=== PATIENT | female | born 1945 | race Caucasian/White ===

== ENCOUNTER → 2017-06-29 15:10 | Outpatient (CLI) | payer MEDICARE, SELFPAY ==
[2017-06-29 16:31] LABS: T4 Total, Thyroxin 9.7 ug/dL (4.8-13.9); Thyroid Stim Hormone (TSH) 1.42 uIU/mL (0.358-3.74)
== END ==
PROVIDERS: Family Provider Nurse Practitioner Family; PCP Nurse Practitioner Family; Visit Provider Surgery
DX: E04.1 Nontoxic single thyroid nodule (principal)
CPT/HCPCS: 36415; 84436; 84443

== ENCOUNTER → 2017-07-06 17:52 | Outpatient (CLI) | payer MEDICARE, SELFPAY ==
--- NOTE | 2017-07-06 14:40 | ASPS_PTH ---
PATIENT: MARK AIKEN LOC: [facility] U#:[id number] AGE/SX: 80/F ROOM: RE07/06/[address]: Dr. Kedar Quintero MD : 1945 BED: DIS: SPEC #: [id number] RECD: 07/06/17 17:29 STATUS: NGUYEN FELICIA #: [id number] CHARLES: 07/06/17 14:[address]: Kedar Quintero DEPT: CYTOLOGY RECD BY: Red Raza ENTERED: 07/07/17 08:46 SP TYPE: ASPIRATION OTHR DR: Laina Cameron, MANAGER BAKERY-C Tissues: A - Thyroid gland, NOS B - Thyroid isthmus Procedures: Pap Stain (control) Special Stain Group II Cytology Other HEADER OPERATION: Left thyroid FNA x2 PRE-OP DIAGNOSIS: Multiple thyroid nodules TISSUE SUBMITTED: A ? Left inferior thyroid (4 slides), B ? Isthmus (5 slides) DIAGNOSIS CYTOLOGY A. Fine needle aspiration, left inferior thyroid (smears): Adequate for evaluation. Negative, consistent with benign follicular nodule. B. Fine needle aspiration, thyroid isthmus (smears): Adequate for evaluation. Negative, consistent with benign follicular nodule. Chronic inflammation. AM:carmita 07/08/17 CYTOLOGY STUDY Slides are reviewed. CYTOLOGY GROSS A - Received are four smears labeled with the patient's name and designated per the requisition as left inferior thyroid. Submitted for staining. B - Received are five smears labeled with the patient's name and designated per the requisition as isthmus. Submitted for staining. 07/07/17 TC:5 CPT: 40155 x2
== END ==
PROVIDERS: Family Provider Nurse Practitioner Family; PCP Nurse Practitioner Family; Visit Provider Surgery
DX: E04.2 Nontoxic multinodular goiter (principal)
CPT/HCPCS: 88161; 88313

== ENCOUNTER → 2019-03-26 17:05 | Outpatient (CLI) | payer MEDICARE, SELFPAY ==
[2017-06-29 14:43] VITALS: BMI 27.2
== END ==
PROVIDERS: Family Provider Nurse Practitioner Family; PCP Nurse Practitioner Family; Referring Provider Urology; Visit Provider Urology
DX: N39.0 Urinary tract infection, site not specified (principal)
CPT/HCPCS: 87086; 87088; 87186

== ENCOUNTER → 2019-04-17 08:16 | Outpatient (CLI) | payer MEDICARE, SELFPAY ==
[2019-04-17] VITALS (12 sets, daily range): BP systolic 127–158; BP diastolic 59–85; PULSE 59–73; RESP 14–19; TEMP 36.6; O2SAT 96–98; BMI 24.4
--- NOTE | 2019-04-17 | IMM_PTH ---
PATIENT: MARK BARNES LOC: CT U#:[id number] AGE/SX: 80/F ROOM: RE04/17/[address]: PRETTY Alves : 1945 BED: DIS: SPEC #: [id number] RECD: 04/18/19 09:30 STATUS: SOUJael REQ #: [id number] CHARLES: 04/17/19 00:[address]: Laina Barnes NP DEPT: IMMUNOHISTOCHEMISTRY RECD BY: Luna Iglesias ENTERED: 04/18/19 09:33 SP TYPE: IMMUNO OTHR DR: Dr. Servando Le, Tissues: Lung, NOS Procedures: RCC (add) NAPSIN A (add) CA-125 (add) CK20 (add) CK5-6 (add) CK7 (add) CK8 (add) WELCH-2 (add) HEP PAR (add) HER2 JOHN (add) MAMM (add) NY (add) TTF1 (add) GATA3 (add) P40 (add) CDX2 (add) CD44 (add) ER (initial) PHYSICIAN & [address] [address] SPECIMEN INFORMATION: Tissue Source: Left lung, CT-guided biopsy Clinical Info: Lung mass Specimen Number: [id number] CPT code: 87889, 97073 x17 METHODOLOGY: Deparaffinized sections of prefer/formalin-fixed tissue or PAP/DQ stained slides are incubated with monoclonal/polyclonal antibodies/oligonucleotide probes. Localization is made via biotin free immunoperoxidase method. Appropriate controls are performed and reacted as expected. Results on target cell population are indicated in the following table: RESULTS: ANTIBODY / CLONE RESULT ER (6F11) negative NY (1E2) negative Her-2neu (CB11) negative Mammaglobin (31A5) negative GATA3 (L50-823) positive CK7 (OV-TL12/30) positive CK8 (80mxnwM70) positive CK20 (KS20.8) positive, focal TTF-1 (8G7G3/1) negative Napsin A (Rabbit Polyclonal) negative HepPar (OCh1E5) positive, focal RCC (PN-15) negative CK5-6 (D5 & 1684) negative P40 (BC28) negative WELCH-2 (SP21) positive CA125 (OC125) negative CDX2 (AJO7240W) positive, weak anti-CD44 (SP37) positive, focal These tests were developed and their performance characteristics determined by [facility]. They may not have been cleared or approved by the U.S. Food and Drug Administration. The FDA has determined that such clearance or approval is not necessary. The above immunohistochemical/dualISH markers are ordered and reviewed by the Pathologist. INTERPRETATION: Left lung, CT-guided biopsy: Poorly differentiated non-small cell carcinoma. See comment. SJ:carmita 04/20/19 Comment: IHC profile favors metastatic carcinoma including but not limited to gastrointestinal tract, pancreas or urothelial primary. Correlation with clinical findings and appropriate follow up are necessary. Case has been reviewed in consultation with Dr. Mahan who concurs with the above diagnosis. IDC:AM
--- NOTE | 2019-04-17 | ASPIGT_PTH ---
PATIENT: MARK BARNES LOC: CT U#:[id number] AGE/SX: 80/F ROOM: RE04/17/[address]: PRETTY Alves : 1945 BED: DIS: SPEC #: [id number] RECD: 04/17/19 10:28 STATUS: NGUYEN REMasoud #: [id number] CHARLES: 04/17/19 00:[address]: Laina Barnes NP DEPT: SURGICAL PATHOLOGY RECD BY: Eder Steiner ENTERED: 04/17/19 10:29 SP TYPE: ASP RAD OTHR DR: Dr. Servando Le, DO Tissues: Lung, NOS Procedures: FNA Specimen Adequacy Special Stain Group II Surgery Specimen Level IV Imprint (control) HEADER OPERATION: CT-guided left lung biopsy PRE-OP DIAGNOSIS: Mass TISSUE SUBMITTED: Left lung 20 gauge core MICROSCOPIC DIAGNOSIS Left lung, CT-guided core biopsy: Poorly differentiated non-small cell carcinoma. See comment. GERMÁN:carmita 04/18/19 COMMENT The specimen is evaluated at the time of biopsy by Dr. Mauro. Immediate Evaluation = Malignant cells present derived from non-small cell carcinoma. The tumor also shows extensive necrosis. Immunohistochemistry ([id number]) supports the above diagnosis. IHC profile favors metastatic carcinoma including but not limited to gastrointestinal tract, pancreas or urothelial primary. Molecular studies on the tumor can be performed if clinically indicated. Please notify the laboratory if they are needed. Correlation with clinical, radiologic findings and appropriate follow up are necessary. Case has been reviewed in consultation with Dr. Mahan who concurs with the above diagnosis. IDC:AM MICROSCOPIC DESCRIPTION Slides are reviewed. GROSS DESCRIPTION Received in fixative is one container labeled with the patient's name and designated left lung CT-guided core biopsy. The specimen consists of multiple irregular fragments of baker soft tissue that in aggregate measure 1 x 0.2 x 0.1 cm. The specimen is totally submitted in one cassette. One touch imprint is prepared at the time of core biopsy. / SJ:carmita 04/17/19 TC:0 CPT: 44776, 59438
--- NOTE | 2019-04-17 08:34 | CT_ITS ---
PROCEDURE: CT GUIDED CORE NEEDLE BIOPSY OF A left upper lobe LUNG LESION INDICATION: Female, 74 years old. LEFT LUNG MASS biopsy PHYSICIAN: Dr. Pedicelli. Méndez CONSENT: Written informed consent was obtained having explained the risks, benefits and alternatives in detail with the patient who accepted the risks and agreed to proceed. Laboratory review and clinical assessment was performed. CONSCIOUS SEDATION PROTOCOL: The Drugs used were: 2 mg Versed, IV., and 50 mcg Fentanyl, IV. The sedation time was: 16 minutes. Conscious sedation was started at 9:36 AM and terminated at 9:52 AM. The conscious sedation protocol was independently monitored. RADIATION DOSAGE (If Supplied By Facility): CTDIvol = ( 16.5 ) mGy, DLP = ( 259.64 ) mGycm Individualized dose optimization techniques were used for this CT. TECHNIQUE: The patient was placed in the prone position. A noncontrast CT was performed to localize the lesion in the left upper lobe . The skin surface was prepped and draped in a sterile fashion. 1% lidocaine was used for local anesthesia. Using CT guidance, a 20-gauge coaxial biopsy device was advanced to the periphery of the lesion. A total of 4 core specimens were obtained. The specimens were placed in a formalin solution. A post procedure CT demonstrated no adverse sequelae or pneumothorax. The patient tolerated the procedure well without adverse event. A negative biopsy does not exclude malignancy. Further imaging or clinical followup based on patient condition and degree of clinical suspicion for malignancy. Suggest rebiopsy, if biopsy results do not match with clinical scenario. CT/Biopsy/Inj or Needle Placement IMPRESSION: 1. CT directed core needle biopsy of the left upper lobe nodule using CT image guidance with image documentation as described. Pathology results are pending. 2. Conscious Sedation protocol utilized with independent monitoring. Electronically Signed: Kurt Rizvi, at 10:28 EST , Service support ,
[2019-04-17 08:44] LABS: Platelet Count 265 K/mm3 (150-450)
[2019-04-17 09:31] LABS: International Normalized Ratio 1.1; Partial Thromboplast Time 32.9 Seconds (24.1-36.2); Prothrombin Time (Protime)PT. 13.6 SECONDS (11.7-14.9)
[2019-04-17] MEDS: Midazolam 2 MG/2 ML Syringe IV (09:36)
[2019-04-17] MEDS: fentaNYL 100 MCG/2 ML Ampul IV (09:36)
--- NOTE | 2019-04-17 10:00 | RAD_ITS ---
STUDY: X-RAY CHEST REASON FOR EXAM: Female, 74 years old. POST LUNG BIOPSY-IMMEDIATE TECHNIQUE: AP inspiration and expiration views. COMPARISON: Comparison is made with prior study dated March 27, 2019. FINDINGS: No evidence of pneumothorax following the left lung biopsy. RAD/Chest Insp/Exp 2 View IMPRESSION: No evidence of pneumothorax on the immediate post left lung biopsy radiograph. Electronically Signed: Kurt Rizvi, at 12:18 EST , Service support ,
--- NOTE | 2019-04-17 11:55 | RAD_ITS ---
STUDY: X-RAY CHEST REASON FOR EXAM: Female, 74 years old. 2 HOUR POST LUNG BIOPSY TECHNIQUE: AP inspiration and expiration views. COMPARISON: Comparison is made with prior study done earlier in the day. FINDINGS: The patient is status post left apical biopsy. There is no evidence of pneumothorax. RAD/Chest Insp/Exp 2 View IMPRESSION: No evidence of pneumothorax following the left apical biopsy. Electronically Signed: Kurt Rizvi, at 12:13 EST , Service support ,
== END ==
PROVIDERS: PCP Student in an Organized Health Care Education/Training Program; Referring Provider Nurse Practitioner Family; Visit Provider Nurse Practitioner Family
DX: C34.92 Malignant neoplasm of unspecified part of left bronchus or lung (principal); J44.9 Chronic obstructive pulmonary disease, unspecified; Z79.01 Long term (current) use of anticoagulants; Z87.891 Personal history of nicotine dependence
CPT/HCPCS: 32405; 36415; 71046; 77012; 85049; 85610; 85730; 88172; 88305; 88313; 88341; 88342; 99153; 99156; 99157; J7040; A4216

== ENCOUNTER → 2019-04-19 16:40 | Outpatient (CLI) | payer MEDICARE, SELFPAY ==
[2019-04-17 09:10] VITALS: BMI 24.4
== END ==
PROVIDERS: PCP Student in an Organized Health Care Education/Training Program; Referring Provider Urology; Visit Provider Urology
DX: N39.0 Urinary tract infection, site not specified (principal)
CPT/HCPCS: 87086; 87088; 87186

== ENCOUNTER → 2019-07-04 09:35 | Outpatient (CLI) | payer MEDICARE, SELFPAY ==
[2019-04-17 09:10] VITALS: BMI 24.4
--- NOTE | 2019-07-04 | ASPOS_PTH ---
PATIENT: MARK AIKEN LOC: [facility] U#:[id number] AGE/SX: 80/F ROOM: RE07/04/[address]: Dr. 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 AM:carmita 07/06/19 COMMENT The specimen is evaluated at the time of FNA by Dr. Mahan. Immediate Evaluation = Consistent with pleomorphic adenoma. Case has been reviewed in consultation with Dr. Mauro who concurs with the above diagnosis. IDC:GERMÁN Case has been reviewed in consultation with Dr. Mauro who concurs with the above diagnosis. IDC:GERMÁN CYTOLOGY STUDY Slides are reviewed. CYTOLOGY GROSS Received is 0.2 ml of reddish fluid labeled with the patient's name, and designated left neck mass. Two imprints are made from the submitted fluid and the rest is added to CytoLyt for cell block preparation. Submitted for cytology study. / AM:carmita 07/04/19 TC:5 CPT: 69148, 61694, 87555, 10393
== END ==
PROVIDERS: PCP Nurse Practitioner Family; Referring Provider Otolaryngology; Visit Provider Otolaryngology
DX: R22.1 Localized swelling, mass and lump, neck (principal)
CPT/HCPCS: 10021; 88161; 88305

== ENCOUNTER 2019-09-04 12:47 | Emergency (ER) | payer MEDICARE, SELFPAY ==
[2019-04-17 09:10] VITALS: BMI 24.4
[2019-09-04 12:48] VITALS: BP 137/71; PULSE 107; RESP 24; TEMP 36.3; O2SAT 98; BMI 23.6
--- NOTE | 2019-09-04 13:26 | EKG12_ITS ---
Test Reason : Blood Pressure : / mmHG Vent. Rate : 101 BPM Atrial Rate : 101 BPM P-R Int : 158 ms QRS Dur : 082 ms QT Int : 332 ms P-R-T Axes : -21 003 197 degrees QTc Int : 430 ms Sinus tachycardia Cannot rule out Inferior infarct , age undetermined Cannot rule out Anterior infarct , age undetermined Abnormal ECG Confirmed by PETRA HERNANDEZ ([id number]), city editor ARSH KINGSLEY ([id number]) on 09/11/2019 8:13:28 AM Referred By: Confirmed By:PETRA HERNANDEZ
--- NOTE | 2019-09-04 13:27 | CT_ITS ---
STUDY: CTA CHEST REASON FOR EXAM: Female, 74 years old. PT STATED INCREASED SHORTNESS OF BREATH, LUNG SURGERY August, HX BLADDER CA, THYROID NODULES, COPD, ELICEO RADIATION DOSAGE (If Supplied By Facility): CTDIvol = ( 13.14 ) mGy, DLP = ( 350.97 ) mGycm TECHNIQUE: The examination was performed with the intravenous administration of 75ML ISOVUE 370. Post-processing of the angiographic images was performed, with multiplanar reformation and 3D reconstruction. Individualized dose optimization techniques were used for this CT. COMPARISON: None. FINDINGS: Normal enhancement of the main pulmonary artery and right and left pulmonary arteries. Normal enhancement of the bilateral peripheral pulmonary arteries. There is no demonstrated pulmonary embolism. Normal thoracic aorta and visualized great vessels. There is no demonstrated aortic dissection. Normal heart and pericardium. Normal mediastinum. Normal hilar regions. There is peribronchial thickening. The lungs are well expanded. The lung windows show underlying emphysema with diffuse interstitial fibrotic changes in both lung rebolledo. Postsurgical changes noted in the left hemithorax with atelectatic changes in the medial upper left hemithorax. There is a small left pleural effusion Normal chest wall structures. There are degenerative changes of thoracic spine. Limited cuts through the upper abdomen do not show a suspicious solid organ abnormality, there is a small retrocardiac hiatal hernia and mildly dilated air-filled esophagus suggesting reflux esophagitis. CT/CTA Chest W/WO Contrast IMPRESSION: No demonstrated PE, or thoracic aortic aneurysm or dissection. Underlying emphysema with interstitial changes in both lung rebolledo. Postsurgical changes noted in the left hemithorax with evidence of chronic bronchitis. No suspicious noncalcified mass or nodule. No organized infiltrate or groundglass opacifications. Degenerative bony changes Small hiatal hernia with evidence of reflux esophagitis Electronically Signed: Edward Scherer MD at 14:39 EDT , Service support ,
--- NOTE | 2019-09-04 13:39 | ED.VIS.GEN ---
History of Present Illness Informant: Patient Narrative: 4-year-old female with a history of non-small cell lung cancer recently underwent lobectomy at [facility]. She follows with Dr. Moura locally for oncology. She was doing quite well after surgery and followed up with the surgeon. On Tuesday afternoon she began to experience some dyspnea. She notes a very slight cough. She is notes that she has had some nasal drainage and that her voice has been weak much like laryngitis. No fevers. She has been doing incentive spirometry. She tried to use her inhaler a little bit ago did not help her symptoms. She had a chest x-ray done this morning that was negative for acute. She had a CBC with a white count of 7.05 hemoglobin 12.9. Liver enzymes are within normal limits and creatinine was 0.66. Magnesium 2.3. It was referred to the emergency department for the evaluation of possible pulmonary embolism. <Akhil Ruggiero - Last Filed: 09/04/19 13:55> <Manjinder Jorgensen - Last Filed: 09/04/19 15:53> Chief Complaint: Shortness of Breath Past Medical History Smoking Status: Former smoker <Akhil Ruggiero - Last Filed: 09/04/19 13:55> <Manjinder Jorgensen - Last Filed: 09/04/19 15:53> - Allergies and Home Meds Allergies/Adverse Reactions: Allergies No Known Allergies Allergy (Verified 09/04/19 12:47) Primary Care Physician: William Moura DO [STAFF PHYSICIAN] - 3-5 Days Review of Systems General: Denies: Chills, Fever, Sweats Eyes: Denies: Visual changes - bilaterally, Diplopia ENT: Reports: Rhinorrhea, Sore throat Cardiovascular: Denies: Chest pain, Palpitations Respiratory: Reports: Dyspnea. Denies: Cough, Dyspnea on exertion Gastrointestinal: Denies: Abdominal pain, Nausea, Vomiting, Diarrhea, Melena, Hematochezia Genitourinary: Denies: Dysuria, Hematuria, Frequency Musculoskeletal: Denies: Back pain, Extremity Pain Skin: Denies: Rash, Wounds Neurological: Denies: Headache, Weakness, Numbness <Akhil Ruggiero - Last Filed: 09/04/19 13:55> Physical Exam Vital Signs/Narrative: Vital Signs Temp Pulse Resp BP Pulse Ox 09/04/19 12:48 97.4 F L 107 H 24 H 137/71 H 98 Inital Vital Signs reviewed: Yes General: Well nourished, Well developed, No Acute Distress Head: Normocephalic, Atraumatic Eyes: Perrl, EOMI ENT: Moist mucous membranes, No rhinorrhea, Nasal congestion, - - Patient's voice is hoarse. Neck: Supple, Nontender Cardiovascular: Regular rate, No murmurs, Tachycardia Respiratory: No distress, CTA bilaterally, Chest nontender, - - Patient has a mild conversational dyspnea Abdomen: Soft, Nontender, Nondistended, Normal bowel sounds Back: Nontender, Normal Inspection Extremities: Nontender, No edema Skin: Normal color, No rash Neurological: Alert, Oriented x3, Cranial nerves II-XII grossly intact, Normal Strength, Normal Sensation Psychological: Normal affect, Normal Mood <Akhil Ruggiero - Last Filed: 09/04/19 13:55> Vital Signs/Narrative: Vital Signs Temp Pulse Resp BP Pulse Ox 09/04/19 14:21 76 18 09/04/19 12:48 97.4 F L 107 H 24 H 137/71 H 98 <Manjinder Jorgensen - Last Filed: 09/04/19 15:53> Diagnostic/Tx/Re-eval - EKG Initial EKG Interpretation: Sinus Tachycardia - EKG demonstrates a sinus tachycardia at a rate of 101. There is no concerning features of ACS. <Akhil Ruggiero - Last Filed: 09/04/19 13:55> Impressions Chest CTA 09/04/19 13:27 IMPRESSION: No demonstrated PE, or thoracic aortic aneurysm or dissection. Underlying emphysema with interstitial changes in both lung rebolledo. Postsurgical changes noted in the left hemithorax with evidence of chronic bronchitis. No suspicious noncalcified mass or nodule. No organized infiltrate or groundglass opacifications. Degenerative bony changes Small hiatal hernia with evidence of reflux esophagitis Electronically Signed: Edward Scherer MD at 14:39 EDT , Service support , 09/04/19 13:27 CTA Chest W/WO Contrast [CT] Stat Laboratory Results 09/04/19 09/04/19 14:00 14:00 PT 12.8 INR 1.0 APTT 36.6 H Troponin I < 0.015 - Rhythm Strip Rhythm Strip: Sinus Tach Rate: 100 Ectopy: None - Medical Decision Making Took over care of this patient. CT angiography is negative except for her COPD, as above. Her EKG shows no acute injury pattern, her troponin is negative. She has had some postnasal drip and congestion, states he has history of allergies, and does feel little better after duo nebulizer treatment. Does make sense this could be her COPD especially with very high ambient temperature and humidity outside recently. I think putting her on a short course of prednisone would be reasonable and having her follow-up. Attempted to discuss with Dr. Moura but the patient does not want to wait and is leaving, I will speak with him if and when he calls. <Manjinder Jorgensen - Last Filed: 09/04/19 15:53> ED Disposition <Akhil Ruggiero - Last Filed: 09/04/19 13:55> <Manjinder Jorgensen - Last Filed: 09/04/19 15:53> - Plan for ED Patient: Disposition: Home or Assisted Living Diagnosis: COPD with exacerbation Instructions: ED COPD Flare Prescriptions: Prednisone [Deltasone] 40 mg PO DAILY #10 tab Transmission Status: Received by [facility] Referrals: William Moura DO [STAFF PHYSICIAN] - 3-5 Days
[2019-09-04] MEDS: Ipratropium/Albuterol Sulfate 3 ML AMPUL.NEB INHALATION (14:19)
[2019-09-04 14:21] VITALS: PULSE 76; RESP 18
[2019-09-04 14:26] LABS: Prothrombin Time (Protime)PT. 12.8 SECONDS (11.7-14.9)
[2019-09-04 14:27] LABS: Partial Thromboplast Time 36.6 Seconds (24.1-36.2)
[2019-09-04 15:50] VITALS: PULSE 100; RESP 20; O2SAT 97
== END 2019-09-04 15:51 | disposition home or self-care (01) ==
PROVIDERS: Emergency Provider Emergency Medicine; PCP Nurse Practitioner Family
DX: J44.1 Chronic obstructive pulmonary disease with (acute) exacerbation (principal); R00.0 Tachycardia, unspecified; R06.02 Shortness of breath; Z79.899 Other long term (current) drug therapy; Z85.118 Personal history of other malignant neoplasm of bronchus and lung; Z87.891 Personal history of nicotine dependence; Z90.2 Acquired absence of lung [part of]
CPT/HCPCS: 71275; 84484; 85610; 85730; 93005; 94640; 99285; Q9967; A4216

== ENCOUNTER → 2020-03-12 07:25 | Outpatient (CLI) | payer MEDICARE, SELFPAY ==
[2020-03-04 11:46] VITALS: BMI 24.9
--- NOTE | 2020-03-12 07:27 | CT_ITS ---
STUDY: CT PELVIS WITH CONTRAST REASON FOR EXAM: Female, 75 years old. RLQ LUMP X 2WEEKS AFTER LIFTING 50# BAG. PRIOR BLADDER CA WITH REMOVAL ONLY. HISTORY OF LUNG CANCER ALSO RADIATION DOSAGE (If Supplied By Facility): CTDIvol = ( 22.45 ) mGy, DLP = ( 1308.42 ) mGycm TECHNIQUE: Transaxial imaging of the pelvis was performed with oral contrast. 100 mL ISOVUE-300 was administered intravenously. Individualized dose optimization techniques were used for this CT. COMPARISON: None. FINDINGS: Normal urinary bladder, including on delayed imaging. Normal visualized small intestine. There are multiple colonic diverticula of the sigmoid colon consistent with chronic diverticulosis. There is no pelvic fluid. There is no pelvic lymphadenopathy or mass lesion. There is absence of the uterus consistent with a prior hysterectomy. There is diffuse atherosclerotic calcification of the pelvic arteries with elongation and tortuosity. Right inguinal hernia measuring 2.4 x 2.7 cm as seen on image 59 of series 2 containing fat. However, there is bowel at the hernia defect (sagittal image 73 series 601). There are diffuse degenerative changes of the visualized lumbar spine. CT/Pelvis WITH IV Contrast IMPRESSION: 1. Small right inguinal hernia containing fat, however, small bowel is at the abdominal wall defect/hernia mouth. Electronically Signed: Shankar Gutierrez MD ([place]) at 12:16 EST , Service support ,
[2020-03-12 07:35] LABS: CREATININE FINGERSTICK 1.2 mg/dL (0.55-1.02)
== END ==
PROVIDERS: PCP Student in an Organized Health Care Education/Training Program; Referring Provider Surgery; Visit Provider Surgery
DX: R10.31 Right lower quadrant pain (principal)
CPT/HCPCS: 72193; Q9967

== ENCOUNTER 2020-03-20 08:54 | Day surgery (SDC) | payer MEDICARE, SELFPAY ==
[2020-03-04 11:46] VITALS: BMI 24.9
--- NOTE | 2020-03-18 08:37 | EKG12_ITS ---
Test Reason : PREOP Blood Pressure : / mmHG Vent. Rate : 086 BPM Atrial Rate : 086 BPM P-R Int : 158 ms QRS Dur : 084 ms QT Int : 358 ms P-R-T Axes : 061 042 069 degrees QTc Int : 428 ms Normal sinus rhythm Normal ECG Confirmed by RACHEL BACH, JOAN ([id number]), film editor supervisor ARSH KINGSLEY ([id number]) on 03/19/2020 9:20:57 AM Referred By: Kedar Quintero Confirmed By:JOAN RAMOS MD
[2020-03-18 09:15] LABS: Absolute Lymphocyte Count 0.71 X10^3/uL (0.83-4.51); Absolute Neutrophil Count 4.7 X10^3/uL (2.0-7.7); Basophil# 0.05 X10^3/uL; Basophil% 0.8 % (0-1); Eosinophil# 0.16 X10^3/uL; Eosinophils% 2.5 % (0-5); Hematocrit 42.6 % (37-47); Lymphocyte # 0.71 X10^3/ul (4.0); Lymphocyte % 11.3 % (19-41); Mean Corp Hgb Conc 30.5 g/dL (32-36); Mean Corpuscular Hgb 28.3 pg (27.0-32.0); Mean Corpuscular Volume 92.6 fL (81-99); Mean Platelet Vol. 8.5 fl (6.2-12.0); Monocyte# 0.63 X10^3/uL; NRBC Flagged by Analyzer 0 % (0-5); Neutrophil % 74.9 % (47-70); Platelet Count 396 K/mm3 (150-450); RBC Distribution Width CV 14.1 % (11.6-14.6); White Blood Count 6.3 K/mm3 (4.4-11.0)
[2020-03-18 09:37] LABS: BUN 13 mg/dL (7-18); Creatinine, Serum 0.84 mg/dL (0.55-1.02); Glucose 90 mg/dL (74-106)
[2020-03-18 09:38] LABS: Anion Gap 6 (5-15); BUN/Creat Ratio 15.4 RATIO (10-20); Calcium,Total 9.5 mg/dL (8.5-10.1); Chloride 101 mmol/L (98-107); EST Glomerular Filtration Rate 70 mL/min (>60); Est Glom Filt Rate - Afr Amer 85 mL/min (>60); Potassium 3.9 mmol/L (3.5-5.1); Sodium Level 139 mmol/L (136-145)
[2020-03-20] VITALS (9 sets, daily range): BP systolic 109–134; BP diastolic 52–77; PULSE 73–92; RESP 16–18; TEMP 35.6–37; O2SAT 87–98; BMI 24.4
[2020-03-20] MEDS: Lactated Ringers 1,000 ML 100 ML IV (09:23)
--- NOTE | 2020-03-20 10:44 | HP.PCM_ITS ---
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 Is patient in pain?: No Allergies umeclidinium [From Anoro Ellipta] Adverse Reaction (Mild, Verified 03/04/20 1 1:52) blurred vision vilanterol [From Anoro Ellipta] Adverse Reaction (Mild, Verified 03/04/20 11:52) blurred vision Medications cholecalciferol (vitamin D3) 50 mcg (2,000 unit) capsule 5,000 unit PO QDAY 06/29/17 [History Confirmed 03/04/20] Omeprazole 20 mg PO DAILY 04/16/19 [History Confirmed 03/04/20] Oxybutynin Chloride [Oxybutynin Chloride ER] 15 mg PO DAILY 04/16/19 [History Confirmed 03/04/20] albuterol sulfate 90 mcg/actuation aerosol inhaler 2 puff INHALATION Q4H PRN g 03/04/20 [History Confirmed 03/04/20] melatonin 5 mg tablet 5 mg PO HS PRN 03/04/20 [History Confirmed 03/04/20] multivitamin 1 tab PO DAILY 03/04/20 [History Confirmed 03/04/20] Is last menstrual period known: No Post menopausal: Yes Patient : No PFSH Medical History (Updated 03/04/20 @ 12:[address] Kedar Quintero MD) Right groin pain (Acute) Hernia (Acute) Multiple thyroid nodules (Acute) Acid reflux (Acute) COPD (chronic obstructive pulmonary disease) (Acute) Emphysema lung (Acute) Fibromyalgia (Acute) Goiter (Acute) Hemorrhoids (Acute) History of bladder cancer (Acute) History of lung cancer (Acute) Surgical History (Updated 03/04/20 @ 11:45 by Jelena Infante) H/O: hysterectomy (Acute) History of appendectomy (Acute) History of bilateral carpal tunnel release (Acute) History of bilateral oophorectomy (Acute) History of bladder repair surgery (Acute) History of colonoscopy (Acute ~2018) History of lumpectomy of right breast (Acute) S/P laparoscopic cholecystectomy (Acute) S/P thyroid biopsy (Acute) Family History (Updated 03/04/20 @ 11:46 by Jelena Infante) Sister Hypertension Brother Hypertension Cancer throat and lung Father Cancer sarcoma Mother Cancer unsure type --all thru her Social History (Updated 03/04/20 @ 13:[address] Kedar Quintero MD) Smoking Status: Former smoker alcohol intake: never HPI HPI HPI: MARK AIKEN, is a 75 F who presents to the office today for Jose Angel Nguyen CNP Surgical consultation regarding a suspected right inguinal hernia. A written copy of my surgical consult and recommendations will be returned. The patient states she had lifted a heavy bag of dog food and some period of time developed a right groin bulge. She has had a history of lung cancer. She has had a history of bladder cancer. She gets routine's chest CT scans now in follow-up of her lung surgery. She denies bright red blood per rectum or melena. She had a colonoscopy in the past year. She states no acute findings. She has not had any unexpected weight loss. She denies fever or chills or sweats. HPI HPI HPI: MARK AIKEN, is a 75 F who presents to the office today for ROS General General: No weight change, appetite, fatigue, colon cancer, breast cancer or weakness HEENT HEENT: No difficulty swallowing, eye injury, eye surgery, swollen glands or hoarseness Endo Endocrine: No thyroid disease, diabetes mellitus, thyroid cancer, Hair loss, he at intolerance or cold intolerance Musc Musculoskeletal: Yes back problems; no arthritis, rheumatoid arthritis, gout or joint pain Cardio Cardiovascular: No murmur, pacemaker, heart disease, atrial fibrillation, high blood pressure, heart attack, heart stent, palpitations, shortness of breat with exertion or chest pain Psych Psychiatric: No depression, anxiety or hearing voices Resp Respiratory: Yes shortness of breath, No sleep apnea, Yes cough, Yes COPD, No asthma, Yes emphysema, No wheezing Additional Details: hx lung ca Gastro Gastrointestinal: Yes abdominal pain, No nausea or vomiting, No diarrhea, No constipation, No blood in stool, Yes acid reflux, Yes hemorrhoids, No ulcers, No gallbladder problem, No black,tarry stools Alxex Hematologic: No blood thinners, No blood disorders, No bleeding, No anemia, No blood clots Neuro Neurologic: No weakness Exam Const General: cooperative, comfortable, no acute distress Nutritional Appearance: average body habitus Orientation: alert, awake [facility] Head: normal to inspection Resp Effort & Inspection: normal respiratory effort Auscultation: clear to auscultation bilaterally Cardio Rate: regular rate Rhythm: regular rhythm Heart Sounds: no murmurs Other: 2/6 systolic ejection murmur GI Palpation: soft, no hepatosplenomegaly Auscultation: normal bowel sounds Other: Well-healed vertical epigastric incision. Well-healed infraumbilical midline vertical incision from remote hysterectomy Other: Fullness noted in the right groin, solid on the left, slight adenopathy appreciated medial right groin, unclear as to whether this is a right femoral hernia or adenopathy, slight decompression however with the patient supine versus upright. Skin General: no rashes or lesions noted Neuro General: alert, awake Extrem General: no calf tenderness Psych Affect: normal affect Assessment & Plan Problems 1. Hernia K46.9 2. Right groin pain R10.31 Plan Right groin pain and fullness. On clinical examination I cannot distinctly differentiate whether this is a right inguinal hernia or a right femoral hernia or right groin adenopathy. The patient has had a previous vertical suprapubic incision from a remote hysterectomy. I have initially discussed with her the potential for laparoscopic right inguinal hernia pair with mesh. With her having COPD this might provide a better long-term option. She has had an opportunity to ask and have questions answered. If she has a small femoral defect and possibly a more direct repair would be possible. I need to exclude the potential for groin adenopathy. I propose for her a pelvic CT scan. Based upon those results we will then make additional recommendations to the patient. She has had an opportunity to ask and have questions answered. She is comfortable with her current treatment plans. I very much appreciate the kind opportunity of assisting with her surgical care Copy:Jose Angel Nguyen CNP and Dr. Servando Quintero M.D., F.A.C.S. I did pursue CT imaging. This demonstrates a right inguinal hernia with bowel at the orifice. Otherwise fatty involvement.. I recommended to the patient a laparoscopic right inguinal herniorrhaphy with mesh. She is aware of the technique, benefit, risk, alternatives. She has had an opportunity to ask and have questions answered. We will proceed at her discretion. Kedar Quintero M.D., F.A.C.S. Procedure Criteria Procedure Type: Elective COVID Risk Discussion: The surgeon/proceduralist and patient have discussed in detail the risk of exposure to and/or potential harm posed by the COVID-19 virus with having a surgery/procedure at this time versus the risk of delaying the surgery/procedure. It is not possible to know either the risk of delaying the surgery or procedure or chance of getting an infection with perfect accuracy, but a joint decision was made between the patient and the surgeon/proceduralist to proceed at this time with the scheduled surgery/procedure as indicated on the consent form.
[2020-03-20] MEDS: Cefazolin 2 GM in 0.9% Normal Saline 100 ML IV (11:02)
--- NOTE | 2020-03-20 11:08 | PCM.DC.GS ---
Discharge Diet: Light diet - advance as tolerated - if you have questions about your diet instructions, please talk to you doctor. Discharge Activity: May Not Drive - for 3-5 days or while taking narcotic pain medicine. May shower in (days): 1 Lifting Restrictions: 10 pounds Call your doctor if your incision/area has: Continuous Slow Oozing, Sudden Increased Bleeding, Increased Pain/ Swelling, Increased Redness, Foul Smelling Discharge Call your doctor if you observe: Fever of 101 or Higher Suture Line Care: Avoid Pulling/Pushing, Avoid Pinching/Bending Additional Dressing/Incision Instructions:: Change or remove dressing in 4 days. Leave steri-strips in place for 1 week. Allergies/Adverse Reactions: Allergies umeclidinium [From Anoro Ellipta] Adverse Reaction (Mild, Verified 03/20/20 09:10) blurred vision vilanterol [From Anoro Ellipta] Adverse Reaction (Mild, Verified 03/20/20 09:10) blurred vision Medications to take at Discharge cholecalciferol (vitamin D3) 50 mcg (2,000 unit) capsule 5,000 unit PO QDAY 06/29/17 Omeprazole 20 mg PO DAILY 04/16/19 Oxybutynin Chloride [Oxybutynin Chloride ER] 15 mg PO DAILY 04/16/19 albuterol sulfate 90 mcg/actuation aerosol inhaler 2 puff INHALATION Q4H PRN g 03/04/20 melatonin 5 mg tablet 5 mg PO HS PRN 03/04/20 multivitamin 1 tab PO DAILY 03/04/20 Fluticasone/Vilanterol [Breo Ellipta 200-25 Mcg INH] 1 ea IH DAILY 03/17/20 Ibuprofen 200 mg PO PRN PRN 03/17/20 Mometasone/Formoterol [Dulera 200 Mcg/5 Mcg Inhaler] 13 gm IH BID 03/17/20 Triamcinolone Acetonide [Nasacort] 1 spray NS PRN PRN 03/17/20 Hydrocodone Bitart/Apap 5-325 [[place] 5MG-325MG] 1 tablet PO Q6H PRN PRN 2 Days #6 tablet 03/20/20 The following prescriptions were given: Hydrocodone Bitart/Apap 5-325 [[place] 5MG-325MG] 1 tablet PO Q6H PRN PRN 2 Days #6 tablet PRN Reason: Pain Transmission Status: Sent to [facility] Primary Care Physician: Servando Le DO [Primary Care Provider] - Test Results: Test results from this visit will be discussed in further detail at your follow-up appointment, if applicable. Please Follow Up With: Kedar Quintero MD - [phone] When: Call for appt. May be phone, virtual, or on-site. Approx. 10 days
--- NOTE | 2020-03-20 12:17 | PCM.OPRPT ---
Problem List (1) Inguinal hernia Status: Acute Qualifiers: Obstruction and gangrene presence: without obstruction or gangrene Laterality: unilateral Recurrence: non-recurrent Qualified Code(s): K40.90 - Unilateral inguinal hernia, without obstruction or gangrene, not specified as recurrent Report of Operation Date of Procedure: 03/20/20 Pre-Operative Diagnosis: Symptomatic right inguinal hernia Post-Operative Diagnosis: Symptomatic direct right inguinal hernia with concomitant indirect right inguinal hernia and right femoral hernia and right obturator hernia Surgery/Procedure Performed:: Laparoscopic repair multiple right groin and obturator hernias. Visible Measures 3D max extra-large right. Lot number [id number]. Reference #[id number], expiry date 11/08/2024. Secure strap [id number], expiry date October 2021 Description of Surgical Findings:: Timeout and informed consent was obtained. 75-year-old female was taken to the operating placement table underwent general endotracheal intubation esthesia. Ancef 2 g were given intravenously. The abdomen was sterilely prepped and draped. 0.5% Marcaine was used as local aesthetic. A vertical infraumbilical incision was created. Holding sutures of 0 Vicryl placed. Direct dissection was formed down through the peritoneum. Harkins catheter was inserted. The abdomen was insufflated with CO2 to a pressure of 10 mmHg pressure. There were adhesions of omentum in the midline epigastric area. Additional adhesions were noted in the right upper quadrant as well. The abdomen appeared to be free of adhesions. 5 mm trochars were placed in the right and left lower quadrant. A right ileal inguinal nerve block was performed under laparoscopic cessation. The peritoneum superior lateral to the internal ring on the right was incised and carried medially. There was evidence of a punched out medial defect consistent with a direct right inguinal hernia which was felt likely to be the symptomatic inguinal hernia. Peritoneum and fibrofatty tissue was able to be reduced. Further inspection note and further blunt dissection of the peritoneum revealed a indirect right inguinal hernia. The round ligament was dissected hemolocked and transected to allow for further exposure. Upon medial dissection there was additional evidence of a right femoral hernia and then even further additional evidence of a right obturator hernia. All of the fibrofatty tissue that was within the obturator hernia indirect hernia and femoral hernia were carefully bluntly dissected free. Complete reduction of all contents was achieved. Fortunately there was no bowel involvement at the current time in any of the hernias. A Bard 3D max extra-large right-sided mesh was selected. It was placed so as to cover all still defect areas. It was slightly angled to extend slightly lower into the infrapubic area. Careful blunt dissection had been utilized to help mobilize the urinary bladder. It was secured in place medially and superiorly with secure strap. Good positioning was achieved. The peritoneum was then approximated to itself with a combination of secure strap and hemolock clips. Complete obliteration to the mesh was achieved. Hemostasis was nicely intact. The abdomen was allowed to deflate through an antiviral valve. Trochars were removed. The fascia at the umbilicus was approximated with a running 0 Vicryl suture. Skin edges approximated opted for Monocryl subdermal stitches. Steri-Strips Telfa OpSite dressings applied. Sponge and instrument and needle counts were reported to the surgeon to be correct. Specimens none. Drains none. Blood loss minimal. Kedar Quintero M.D., F.A.C.S. Type of Anesthesia:: General Anesthesiologist: Ngoc Moses
[2020-03-20] MEDS: Bupivacaine Mpf 0.5% 30 ML VIAL (12:18)
[2020-03-20] MEDS: HYDROcodone Bitartrate/Apap 5/325 Tablet PO (14:33)
== END 2020-03-20 15:41 | disposition home or self-care (01) ==
LOC: SDC 08:57 → AC 08:58
PROVIDERS: PCP Student in an Organized Health Care Education/Training Program; Referring Provider Surgery; Visit Provider Surgery
PROC: (CPT 49650; principal; 2020-03-20 10:45)
DX: K40.90 Unilateral inguinal hernia, without obstruction or gangrene, not specified as recurrent (principal); K41.90 Unilateral femoral hernia, without obstruction or gangrene, not specified as recurrent; K45.8 Other specified abdominal hernia without obstruction or gangrene; J43.9 Emphysema, unspecified; E04.1 Nontoxic single thyroid nodule; M79.7 Fibromyalgia; K21.9 Gastro-esophageal reflux disease without esophagitis; Z79.899 Other long term (current) drug therapy; Z78.0 Asymptomatic menopausal state; Z85.118 Personal history of other malignant neoplasm of bronchus and lung; Z85.51 Personal history of malignant neoplasm of bladder; Z87.891 Personal history of nicotine dependence
CPT/HCPCS: 49650; 49659; 36415; 80048; 85025; 87426; 93005; C9803; J7120; C1781; J2405

== ENCOUNTER → 2020-04-08 14:29 | Outpatient (CLI) | payer MEDICARE, SELFPAY ==
[2020-03-20 09:12] VITALS: BMI 24.4
--- NOTE | 2020-04-08 14:45 | CT_ITS ---
STUDY: CT CHEST WITH CONTRAST REASON FOR EXAM: Female, 75 years old. HOARSENS X 4 WEEKS. DX IN AUGUST 2019 WITH LUNG CA. HAD LEFT UPPER LOB RESECTION WITH CHEMO AND RADATION RADIATION DOSAGE (If Supplied By Facility): CTDIvol = ( 11.90 ) mGy, DLP = ( 293.79 ) mGycm TECHNIQUE: Transaxial imaging was performed following intravenous administration of IV 100mL Isovue-300. Multiplanar coronal and sagittal images were reformatted. Individualized dose optimization techniques were used for this CT. COMPARISON: Comparison is made with prior examination dated 09/04/2019. FINDINGS: The patient is status post left upper lobectomy with the post resection changes. This is unchanged. There is overexpansion of the right lung. There is no demonstrated pleural abnormality. Normal heart and pericardium. Normal mediastinum. Normal hilar regions. Normal enhanced pulmonary arteries. Normal aorta arch and descending thoracic aorta. Normal osseous structures. Heterogeneous enhancement of the spleen. This is new as compared to prior study. If there is a history of trauma, this may represent a laceration. CT/Chest WITH Contrast IMPRESSION: Status post left upper lobectomy with postoperative changes in the left upper lobe. Heterogeneous appearance of the spleen as described. Clinical correlation is recommended. Electronically Signed: Kurt Rizvi MD at 15:22 EST , Service support ,
== END ==
PROVIDERS: PCP Student in an Organized Health Care Education/Training Program; Referring Provider Otolaryngology; Visit Provider Otolaryngology
DX: C34.90 Malignant neoplasm of unspecified part of unspecified bronchus or lung (principal); R49.9 Unspecified voice and resonance disorder
CPT/HCPCS: 71260; Q9967

== ENCOUNTER → 2020-08-14 10:42 | Outpatient (CLI) | payer MEDICARE, SELFPAY ==
[2020-03-20 09:12] VITALS: BMI 24.4
--- NOTE | 2020-08-14 10:08 | CYSPIN_PTH ---
PATIENT: MARK AIKEN LOC: [facility] U#:[id number] AGE/SX: 80/F ROOM: RE08/14/[address]: PRETTY Dowell : 1945 BED: DIS: SPEC #: [id number] RECD: 08/14/20 12:18 STATUS: NGUYEN MARQUEZMasoud #: [id number] CHARLES: 08/14/20 10:[address]: Lisbet Ames NP DEPT: CYTOLOGY RECD BY: Yao Hui Tissues: Urine Procedures: Pap Stain (control) Special Stain Group II Cytospin Fluid HEADER OPERATION: Not noted PRE-OP DIAGNOSIS: History malignant neoplasm of bladder TISSUE SUBMITTED: Urine for cytology DIAGNOSIS CYTOLOGY Urine for cytology (cytospin): Negative for malignant cells. Marked acute inflammation. Abundant bacterial colonies. See comment. AM:carmita 08/15/2020 COMMENT Clinical correlation is suggested. CYTOLOGY STUDY Slides are reviewed. CYTOLOGY GROSS Received is 100 ml of yellow cloudy fluid labeled with the patient's name and and designated per the requisition as urine. Submitted for cytology preparation. / carmita 08/14/2020 TC:2 CPT: 50179
[2020-08-14 11:45] LABS: Cytology, Body Fluid / CSF SEE PATHOLOGY REPORT
== END ==
PROVIDERS: Visit Provider Nurse Practitioner Adult Health
DX: Z85.51 Personal history of malignant neoplasm of bladder (principal)
CPT/HCPCS: 88108; 88313

== ENCOUNTER → 2020-09-23 12:50 | Outpatient (CLI) | payer MEDICARE, SELFPAY ==
[2020-03-20 09:12] VITALS: BMI 24.4
--- NOTE | 2020-09-23 12:50 | SP.MBSS_ITS ---
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 Underwent a L VF implant ~ 2 months ago and reports improved but still incomplete vocal fold approximation. Referred for MBS to objectively assess swallow function/airway protection d/t a respiratory infection of approximately 3 weeks duration that has been resistant to antibiotics. Medical History: Inguinal hernia, fibromyalgia, COPD, GERD, multiple thyroid nodules, hx bladder cancer, hx lung cancer Dentition: WNL Mental Status: WNL Respiratory Status: Oxygenating on Room Air - Penetration-Aspiration Scale Penetration-Aspiration Scale: OBJECTIVE ASSESSMENT OF SWALLOW FUNCTION (QUANTITATIVE ? PER TRIAL): PENETRATION / ASPIRATION SCALE ([place]): 1 = does not enter airway 2 = enters airway/above vocal folds/ejected 3 = enters airway/above vocal folds/not ejected 4 = enters airway/contacts vocal folds/ejected 5 = enters airway/contacts vocal folds/not ejected 6 = enters airway/below vocal folds/ejected 7 = enters airway/below vocal folds/not ejected despite effort 8 = enters airway/below vocal folds/no effort VIDEOFLOROSCOPIC SCALE SCORE ([place]ATT): Grade I = aspiration of material that has penetrated into the laryngeal vestibule, intact cough reflex Grade II = aspiration < 10 % of the bolus, intact cough reflex Grade III = aspiration of < 10 % of the bolus, reduced cough reflex or aspiration of > 10 % of the bolus, intact cough reflex Grade IV = aspiration of > 10 % of the bolus, reduced cough reflex - Penetration-Aspiration Scale Score Thin Liquid via teaspoon Result: 1= does not enter airway Thin Liquid via teaspoon Trial 2 Result: 1= does not enter airway Thin Liquid via small single sip from cup Result: 1= does not enter airway Thin Liquid via sequential sips from cup Result: 1= does not enter airway Thin Liquid via single sip from straw Result: 1= does not enter airway Pudding Result: 1= does not enter airway Cookie Result: 1= does not enter airway Thin Liquid via small single sip from cup Trial 2 Result: 1= does not enter airway Omao Thick Liquid via small single sip from cup Result: 1= does not enter airway - Oral Phase Labial Seal: No Labial Escape Tongue Control During Bolus Hold: Cohesive bolus between tongue to palatal seal Bolus Preparation/Mastication: Timely and efficient chewing and mashing Bolus Transport/Lingual Motion: Slowed tongue motion Oral Residue: Residue collection on oral structures - independently cleared w/ additional swallows - Pharyngeal Phase Initiation of Pharyngeal Swallow: Bolus head at posterior laryngeal surgace of epiglottis Soft Palate Elevation: No bolus between soft palate and pharyngeal wall Laryngeal Elevation: Partial superior movement thyroid cart/partial apprx aryt-epig petiole Anterior Hyoid Excursion: Complete anterior movement Epiglottic Movement: Complete inversion Laryngeal Vestibule Closure at Height of Swallow: Complete; no air/contrast in laryngeal vestibule Pharyngeal Stripping Wave: Present - complete Pharyngoesophageal Segment Opening: Complete distension and complete duration; no obstruction of flow Tongue Base Retraction: Trace column of contrast between tongue base & post. pharyngeal wall Pharyngeal Residue: Trace residue within or on pharyngeal structures - Esophageal Phase Esophageal Clearance: Esophageal retention - Diagnosis/Impression Diagnosis: oropharyngeal swallow function grossly WNL Impression: Patient presents with an oropharyngeal swallow function that is grossly within normal limits. The oral phase is primarily marked by slowed lingual motion w/ oral residue retention after the initial swallow of solid texture trial, independently initiated an additional swallow to sufficiently clear the oral cavity. The pharyngeal phase is primarily marked by suboptimal bolus location upon swallow onset w/ liquids reaching the posterior laryngeal surface of the epiglottis at swallow onset. Reduced laryngeal elevation was noted w/ incomplete thyroid cartilage elevation and arytenoid cartilage approximation, placing the patient at increased risk for laryngeal vestibule penetration, although the patient maintained adequate laryngeal vestibule closure for airway protection across all trials. The esophageal phase revealed esophageal retention w/ impairment in motility suspected during screening for esophageal clearance. - Recommendations Diet: Regular Textures, Thin Liquids Compensatory Strategies: Small Bites, Small Sips, Slow Rate, Sitting upright, Remain sitting upright for 30 minutes after PO intake - GERD precautions recommended d/t esophageal retention identified w/ increased risk for aspiration of reflux as potential cause of respiratory symptoms Recommend Repeat Modified Barium Swallow: No Need for Skilled Speech Therapy Services: Yes Comment: Outpatient speech therapy is strongly recommended for: * additional education re: compensatory swallowing strategies and GERD precautions to reduce risk of reflux aspiration * voice therapy to instruct w/ vocal adduction exercises and provide vocal hygiene education Recommended Referrals: GI Consult - consider further assessment of esophageal function/GERD as it may be contributing to increased risk for aspiration Education Completed: 1. Described result of evaluation., 2. Pt understands evaluation & agrees with goals and treatment plan. Comment: Images were reviewed with the patient immediately following MBS conclusion. Results and recommendations were discussed. Patient indicates that she does have esophageal retention and occasionally will bring food/liquids back up. Education provided re: speech therapy services for vocal fold adduction and GERD precautions - patient is at an increased risk for aspiration of reflux, given the close proximity airway to the esophagus, further complicated by incomplete vocal fold closure. All education was well received. - Status Active ST Patient: Active - Contact Information [facility]:: Nai Graf M.A., CCC-IMPREGNATING MACHINE OPERATOR [facility] [address] [place] [address] [phone] [email or web address]
== END ==
PROVIDERS: PCP Student in an Organized Health Care Education/Training Program; Referring Provider Otolaryngology; Visit Provider Otolaryngology
DX: R13.10 Dysphagia, unspecified (principal)
CPT/HCPCS: 74230; 92611

== ENCOUNTER → 2020-12-02 | Outpatient (CLI) | payer MEDICARE, SELFPAY | END | disposition home or self-care (01) | LOC: LABSPEC 16:42 | PROVIDERS: PCP Student in an Organized Health Care Education/Training Program; Referring Provider Nurse Practitioner Adult Health; Visit Provider Nurse Practitioner Adult Health | DX: R31.0 Gross hematuria (principal) | CPT/HCPCS: 87077; 87086; 87088; 87186 ==

== ENCOUNTER → 2020-12-09 07:37 | Outpatient (CLI) | payer MEDICARE, SELFPAY ==
--- NOTE | 2020-12-09 07:42 | CT_ITS ---
STUDY: CT ABDOMEN AND PELVIS WITH AND WITHOUT CONTRAST REASON FOR EXAM: Female, 75 years old. HEMATURIA. Patient has a history of bladder cancer. RADIATION DOSAGE (If Supplied By Facility): CTDIvol = ( 17.82 ) mGy, DLP = ( 2486.69 ) mGycm TECHNIQUE: Transaxial images were obtained from the dome of the diaphragm to the symphysis pubis without oral contrast. IV 100mL Isovue-300 was administered. Sagittal and coronal images were reconstructed. Individualized dose optimization techniques were used for this CT. COMPARISON: None. FINDINGS: The visualized lung bases are unremarkable. The visualized portions of the heart are within normal limits. Minimally dilated central intrahepatic biliary ducts. The patient is status post cholecystectomy. Normal spleen. Normal pancreas. Normal bilateral adrenal glands. 2 mm calculus in the posterior midpole calyx of the right kidney. Minimal overlying cortical scarring at that site. Normal left kidney. There is a small hiatal hernia. Normal small intestine. There are multiple colonic diverticula consistent with diverticulosis. The appendix is visualized and appears normal. There is diffuse atherosclerotic calcification of the abdominal aorta and its major visceral branches, without a demonstrated aneurysm. Normal inferior vena cava. There is borderline retroperitoneal lymphadenopathy with enlarged nodes no greater than 10mm in the short axis diameter. Normal urinary bladder. There is absence of the uterus consistent with a prior hysterectomy. Normal abdominal wall. There are degenerative changes of the visualized lumbar spine. CT/CT Abd/Pelvis W/WO Contrast IMPRESSION: Focal cortical scarring in the mid/aspect of the right kidney. 2 mm calculus in the posterior right mid calyx. Electronically Signed: Kurt Rizvi MD at 8:57 EDT , Service support ,
[2020-12-09 08:01] LABS: CREATININE FINGERSTICK 0.8 mg/dL (0.55-1.02); EGFR FINGERSTICK > 60.0000 mL/min (>60)
== END ==
LOC: CT 09:37 → RAO 08-21 08:58
PROVIDERS: PCP Registered Nurse; Referring Provider Nurse Practitioner Adult Health; Visit Provider Nurse Practitioner Adult Health
DX: N30.21 Other chronic cystitis with hematuria (principal); R31.29 Other microscopic hematuria; Z85.51 Personal history of malignant neoplasm of bladder
CPT/HCPCS: 74178; Q9967

== ENCOUNTER 2021-01-08 16:53 | Emergency (ER) | payer MEDICARE, SELFPAY ==
[2021-01-08 16:54] VITALS: BP 121/78; PULSE 92; RESP 16; TEMP 35.9; O2SAT 96; BMI 25.2
--- NOTE | 2021-01-08 17:20 | EKG12_ITS ---
Test Reason : HEADACH Blood Pressure : / mmHG Vent. Rate : 080 BPM Atrial Rate : 080 BPM P-R Int : 170 ms QRS Dur : 090 ms QT Int : 370 ms P-R-T Axes : 006 005 046 degrees QTc Int : 426 ms Normal sinus rhythm Normal ECG Confirmed by RACHEL BACH, JOAN ([id number]), map editor ARSH KINGSLEY ([id number]) on 01/14/2021 8:54:48 AM Referred By: ELIER Confirmed By:JOAN RAMOS MD
--- NOTE | 2021-01-08 17:31 | RAD_ITS ---
STUDY: X-RAY CHEST REASON FOR EXAM: Female, 75 years old. Confusion. Dizziness and headache. TECHNIQUE: Single AP portable view of the chest. COMPARISON: 04/17/2019. CT of the chest, 04/08/2020. FINDINGS: There is elevation of the left hemidiaphragm. There is resolution of the density in the left lung apex seen on the previous study There is no acute infiltrate or mass or major interval change within the lungs. There is no demonstrated pleural abnormality. Normal size heart. There are changes of the left hilum and superior mediastinum consistent with left upper lobectomy. Normal visualized pulmonary arteries. Normal visualized aortic arch and descending thoracic aorta. No osseous changes. Normal visualized ribs, clavicles, and shoulders. There is no demonstrated abnormality of the visualized soft tissue structures of the upper abdomen. RAD/Chest 1 View (Portable) IMPRESSION: 1. Interval left upper lobectomy when compared to the prior plain film. The findings are similar to that of the more recent CT. No acute cardiopulmonary disease is present. Electronically Signed: Roni Meeks DO at 17:59 EDT Tel [phone], Service support ,
[2021-01-08 18:11] VITALS: BP 120/67; BP 120/73; BP 126/76; PULSE 72; PULSE 81; PULSE 88
[2021-01-08 18:27] LABS: Absolute Lymphocyte Count 1.06 X10^3/uL (0.83-4.51); Basophil# 0.03 X10^3/uL; Basophil% 0.5 % (0-1); Eosinophil# 0.03 X10^3/uL; Eosinophils% 0.5 % (0-5); Hematocrit 36.3 % (37-47); Hemoglobin 11.8 g/dL (12.0-15.0); Lymphocyte # 1.06 X10^3/ul (0.83-4.51); Mean Corp Hgb Conc 32.5 g/dL (32-36); Mean Corpuscular Volume 89.2 fL (81-99); Mean Platelet Vol. 8.6 fl (6.2-12.0); Monocyte# 0.72 X10^3/uL; Monocyte% 12.2 % (0-10); NRBC Flagged by Analyzer 0 % (0-5); Neutrophil # 4.03 X10^3/uL (2.7-7.7); Neutrophil % 68.5 % (47-70); Platelet Count 372 K/mm3 (150-450); RBC Distribution Width CV 13.6 % (11.6-14.6); RBC Distribution Width SD 44.1 fl (35.1-43.9); Red Blood Count 4.07 M/mm3 (4.2-5.4); White Blood Count 5.9 K/mm3 (4.4-11.0)
[2021-01-08 18:54] LABS: Alcohol, Blood (Medical)-Serum < 3.0 mg/dL
[2021-01-08 18:56] LABS: Mucous, Urine 0 SEEN /hpf (<or=2+); Red Blood Cells-Urine 0 SEEN /hpf (0-5); Squamous Epithelial Cells - UA 0 SEEN /hpf (5-10)
[2021-01-08 19:01] LABS: AST(SGOT) 20 U/L (15-37); Alanine Aminotransfer ALT/SGPT 20 U/L (13-56); Albumin, Serum 3.2 g/dL (3.2-5.0); Alkaline Phosphatase 72 U/L (45-117); Anion Gap 5 (5-15); BUN 20 mg/dL (7-18); BUN/Creat Ratio 26.1 RATIO (10-20); Bilirubin, Direct < 0.05 mg/dL (0.00-0.30); Calcium,Total 9.1 mg/dL (8.5-10.1); Chloride 106 mmol/L (98-107); Creatinine, Serum 0.77 mg/dL (0.55-1.02); EST Glomerular Filtration Rate 78 mL/min (>60); Est Glom Filt Rate - Afr Amer 95 mL/min (>60); Estimated Creatinine Clearance 50.54 ml/min; Globulin 4.3 g/dL (2.2-4.2); Glucose 93 mg/dL (74-106); Potassium 4.1 mmol/L (3.5-5.1); Protein, Total 7.5 g/dL (6.4-8.2); Sodium Level 140 mmol/L (136-145); Troponin-I HS 4 pg/mL (3.0-54.0)
[2021-01-08 19:06] LABS: Amphetamine Urine VISTA NEGATIVE (<1000 ng/mL); Barbiturate Urine VISTA NEGATIVE (< 200 ng/mL); Benzodiazepine Urine VISTA NEGATIVE (< 200 ng/mL); Cocaine Urine VISTA NEGATIVE (< 300 ng/mL); Ecstacy Urine VISTA NEGATIVE (< 500 ng/mL); Methadone Urine VISTA NEGATIVE (< 300 ng/mL); PCP Urine VISTA NEGATIVE (< 25 ng/mL); THC Urine VISTA POSITIVE (< 50 ng/mL); Vista UDS pH Range 6
[2021-01-08 19:08] LABS: Color, Urine Yellow (Yellow); Glucose, Dipstick Normal (Normal); Ketone-Dipstick Negative (Negative); Leukocyte Esterase-Dipstick 500 /ul (Negative); Nitrite-Dipstick Positive (Negative); Occult Blood-Urine 25 /ul (Negative); Protein-Dipstick 30 mg/dl (Negative); Urine Bilirubin Dipstick Negative (Negative); Urine Clarity Cloudy (Clear); Urine Urobilinogen 1 mg/dl (Normal); Urine pH 6.5 (5.0 - 8.0)
[2021-01-08 19:12] LABS: Bacteria 3+ /hpf (None Seen); White Blood Cells >100 SEEN /hpf (0-5)
--- NOTE | 2021-01-08 20:04 | EDS_ITS ---
HPI History of Present Illness Chief Complaint: Headache Narrative Narrative: Patient is a 75-year-old female from home brought in secondary to confusion. The patient's [id number] accompanies her and states that yesterday she had difficulty telling the year or her address. Patient denies any fevers chills or trauma or new medication changes. In the ER she is awake and alert to person place and time. Family has concern for possible infectious cause as the change in mental status and therefore patient was brought in for evaluation. [facility] Medical History Acid reflux COPD (chronic obstructive pulmonary disease) COPD (chronic obstructive pulmonary disease) Emphysema lung Fibromyalgia Fibromyalgia GERD (gastroesophageal reflux disease) Goiter Hemorrhoids Hernia History of bladder cancer History of lung cancer Multiple thyroid nodules Right groin pain Right inguinal hernia Home Medications cholecalciferol (vitamin D3) 50 mcg (2,000 unit) capsule 5,000 unit PO QDAY 06/29/17 [History Last Taken 04/17/19] omeprazole 20 mg PO DAILY 04/16/19 [History Last Taken 03/20/20 07:00] oxybutynin chloride 15 mg PO DAILY 04/16/19 [History Last Taken 03/20/20 07:00] albuterol sulfate 90 mcg/actuation aerosol inhaler 2 puff INHALATION Q4H PRN g 03/04/20 [History Last Taken 03/20/20 07:00] melatonin 5 mg tablet 5 mg PO HS PRN 03/04/20 [History Last Taken Unknown] multivitamin 1 tab PO DAILY 03/04/20 [History Last Taken Unknown] fluticasone furoate-vilanterol 1 ea IH DAILY 03/17/20 [History Last Taken Unknown] ibuprofen 200 mg PO PRN PRN 03/17/20 [History Last Taken Unknown] mometasone-formoterol 13 gm IH BID 03/17/20 [History Last Taken Unknown] triamcinolone acetonide 1 spray NS PRN PRN 03/17/20 [History Last Taken Unknown] cephalexin 500 mg PO TID 7 Days #21 cap 01/08/21 [Rx Last Taken Unknown] Allergy/AdvReac Type Severity Reaction Status Date / Time umeclidinium AdvReac Mild blurred Verified 01/08/21 16:54 [From Anoro Ellipta] vision vilanterol AdvReac Mild blurred Verified 01/08/21 16:54 [From Anoro Ellipta] vision Family History Sister Hypertension Brother Hypertension Cancer throat and lung Father Cancer sarcoma Mother Cancer unsure type --all thru her Surgical History H/O: hysterectomy history laparoscopic right inguinal hernia repair (~03/20/20) History of appendectomy History of bilateral carpal tunnel release History of bilateral oophorectomy History of bladder repair surgery History of colonoscopy (~2018) History of lumpectomy of right breast S/P laparoscopic cholecystectomy S/P thyroid biopsy Social History (Updated 03/31/20 @ 14:05 by Juhi PALACIOS, PA-C) Smoking Status: Former smoker alcohol intake: never ROS ROS ED Constitutional Constitutional ED: Denies chills or fever(s) ENT ENT ED: Denies sore throat Cardiovascular Cardiovascular: Denies chest pain Respiratory/Chest Respiratory/Chest: Denies cough or dyspnea Gastrointestinal Gastrointestinal: Denies abdominal pain, diarrhea, nausea or vomiting Genitourinary Genitourinary ED: Denies dysuria Musculoskeletal Musculoskeletal: Denies myalgias Integumentary Denies rash Neurologic Neurologic: Reports headache(s) Hematologic/Lymphatic Hematologic/Lymphatic: Denies easy bleeding or easy bruising EXAM Physical Exam Const Vital Signs: 01/08/21 16:54 01/08/21 18:11 01/08/21 20:24 Temperature 96.7 F L Temperature Source Temporal Pulse Rate 92 78 Pulse Rate [Lying] 72 Pulse Rate [Sitting] 81 Pulse Rate [Standing] 88 Respiratory Rate 16 18 Blood Pressure 121/78 H 120/65 Blood Pressure [Lying] 120/67 Blood Pressure [Sitting] 126/76 H Blood Pressure [Standing] 120/73 Blood Pressure Mean 92 Blood Pressure Mean [Lying] 84 Blood Pressure Mean [Sitting] 92 Blood Pressure Mean [Standing] 88 Pulse Ox 96 99 Oxygen Delivery Method Room Air Positive well nourished and well developed General Appearance ED: well developed HEENT Reports moist mucous membranes Eyes PERRL and EOMs intact bilaterally Neck supple Neck Narrative: No meningeal signs Resp normal respiratory effort and clear to auscultation bilaterally Cardio regular rate and regular rhythm GI normal to inspection, nondistended, normoactive bowel sounds, non-tender, non- distended and no masses Auscultation: normoactive bowel sounds Palpation: soft Back/Spine no CVA tenderness Extremity normal to inspection Neuro oriented x3 and CN's II-XII intact bilaterally Neuro Narrative: Cranial nerves II through XII are grossly intact there are no focal neurologic deficits. No pronator drift no dysmetria no truncal ataxia NIH stroke scale score of 0 Sensorium / Orientation: alert Motor Exam: strength 5/5 throughout Psych mental status grossly normal Skin no rashes or lesions noted MDM MDM MDM Narrative Medical decision making narrative: Patient presented to the ER afebrile with a normal neurologic exam and was awake alert and oriented person place and time. With report of confusion I did elect to perform a basic work-up. Chest x-ray revealed no obvious infiltrate Covid test is negative and labs are only pertinent for positive UTI but no changes suggest urosepsis or acute kidney injury. Therefore this time we do have cause for her confusion and the urinary tract infection but as she is awake alert and oriented x3 at this time in the ER and she did not have urosepsis or acute injury changes she was placed on antibiotics and discharged home. Lab Data Attestation: I reviewed the patient's lab results. Labs: Laboratory Results - last 24 hr 01/08/21 01/08/21 01/08/21 18:00 18:00 18:00 WBC 5.9 RBC 4.07 L Hgb 11.8 L Hct 36.3 L MCV 89.2 MCH 29.0 MCHC 32.5 RDW Std Deviation 44.1 H RDW Coeff of [place] 13.6 Plt Count 372 MPV 8.6 Immature Gran % (Auto) 0.300 Neut % (Auto) 68.5 Lymph % (Auto) 18.0 L [place] % (Auto) 12.2 H Eos % (Auto) 0.5 Baso % (Auto) 0.5 Absolute Neuts (auto) 4.0 Absolute Lymphs (auto) 1.06 Nucleated RBC % 0 Sodium 140 Potassium 4.1 Chloride 106 Carbon Dioxide 29.0 Anion Gap 5 BUN 20 H Creatinine 0.77 Estim Creat Clear Calc 50.54 Est GFR (MDRD) Af Amer 95 Est GFR (MDRD) Non-Af 78 BUN/Creatinine Ratio 26.1 H Glucose 93 Calcium 9.1 Total Bilirubin 0.20 Direct Bilirubin < 0.05 AST 20 ALT 20 Alkaline Phosphatase 72 Ammonia Troponin I High Sens 4 Total Protein 7.5 Albumin 3.2 Globulin 4.3 H TSH 0.90 Urine Color Urine Clarity Urine pH Ur Specific [place] Urine Protein Urine Glucose (UA) Urine Ketones Urine Occult Blood Urine Nitrite Urine Bilirubin Urine Urobilinogen Ur Leukocyte Esterase Urine RBC Urine WBC Ur Squamous Epith Cells Urine Bacteria Urine Mucus Urine Opiates Screen Urine Methadone Screen Ur Barbiturates Screen Ur Phencyclidine Scrn Ur Amphetamines Screen U Methamphetamin-MDMA U Benzodiazepines Scrn Urine Cocaine Screen U Cannabinoids Screen Ur Drug Screen Comment Ethyl Alcohol < 3.0 01/08/21 01/08/21 01/08/21 18:00 18:33 18:33 WBC RBC Hgb Hct MCV MCH MCHC RDW Std Deviation RDW Coeff of [place] Plt Count MPV Immature Gran % (Auto) Neut % (Auto) Lymph % (Auto) [place] % (Auto) Eos % (Auto) Baso % (Auto) Absolute Neuts (auto) Absolute Lymphs (auto) Nucleated RBC % Sodium Potassium Chloride Carbon Dioxide Anion Gap BUN Creatinine Estim Creat Clear Calc Est GFR (MDRD) Af Amer Est GFR (MDRD) Non-Af BUN/Creatinine Ratio Glucose Calcium Total Bilirubin Direct Bilirubin AST ALT Alkaline Phosphatase Ammonia 23.0 Troponin I High Sens Total Protein Albumin Globulin TSH Urine Color Yellow Urine Clarity Cloudy Urine pH 6.5 Ur Specific [place] 1.010 Urine Protein 30 H Urine Glucose (UA) Normal Urine Ketones Negative Urine Occult Blood 25 H Urine Nitrite Positive H Urine Bilirubin Negative Urine Urobilinogen 1 H Ur Leukocyte Esterase 500 H Urine RBC 0 SEEN Urine WBC >100 SEEN Ur Squamous Epith Cells 0 SEEN Urine Bacteria 3+ Urine Mucus 0 SEEN Urine Opiates Screen NEGATIVE Urine Methadone Screen NEGATIVE Ur Barbiturates Screen NEGATIVE Ur Phencyclidine Scrn NEGATIVE Ur Amphetamines Screen NEGATIVE U Methamphetamin-MDMA NEGATIVE U Benzodiazepines Scrn NEGATIVE Urine Cocaine Screen NEGATIVE U Cannabinoids Screen POSITIVE H Ur Drug Screen Comment Ethyl Alcohol Radiography Diagnostic Testing: Clinical Impression(s) from Imaging Studies Chest X-Ray 01/08/21 17:31 IMPRESSION: 1. Interval left upper lobectomy when compared to the prior plain film. The findings are similar to that of the more recent CT. No acute cardiopulmonary disease is present. Electronically Signed: Roni Meeks DO at 17:59 EDT Tel [phone], Service support , Discharge Plan Triage Chief Complaint: Headache ED Provider: Matthew Vazquez Dx/Rx/DC Orders Clinical Impression: Acute UTI Instructions: Urinary Tract Infections in Women Prescriptions: New cephalexin 500 mg capsule 500 mg PO TID 7 Days Qty: 21 RF: 0 No Action cholecalciferol (vitamin D3) 2,000 unit capsule 5,000 unit PO QDAY RF: 0 albuterol sulfate 90 mcg/actuation HFA aerosol inhaler 2 puff INHALATION Q4H PRN (Reason: COPD) RF: 0 multivitamin Tablet 1 tab PO DAILY RF: 0 melatonin 5 mg tablet 5 mg PO HS PRN (Reason: COPD) RF: 0 oxybutynin chloride 15 MG tablet extended release 24hr 15 mg PO DAILY RF: 0 omeprazole 20 MG tablet,delayed release (DR/EC) 20 mg PO DAILY RF: 0 triamcinolone acetonide 1 SPRAY aerosol,spray 1 spray NS PRN PRN (Reason: DRYNESS) RF: 0 ibuprofen 200 MG tablet 200 mg PO PRN PRN (Reason: Pain 1-10 Or Fever) RF: 0 mometasone-formoterol 13 GM HFA aerosol inhaler 13 gm IH BID RF: 0 fluticasone furoate-vilanterol 1 EACH blister with device 1 ea IH DAILY RF: 0 Primary Care Provider: Tea Fajardo NP Referrals: Tea Fajardo NP, [facility] [Primary Care Provider] - Disposition Disposition: Home, Self Care Discharge Date/Time: 01/08/21 20:24
[2021-01-08] MEDS: Cephalexin 250 MG Capsule 500 MG PO (20:18)
[2021-01-08 20:24] VITALS: BP 120/65; PULSE 78; RESP 18; O2SAT 99
== END 2021-01-08 20:24 | disposition home or self-care (01) ==
PROVIDERS: Emergency Provider Emergency Medicine; PCP Registered Nurse
DX: N39.0 Urinary tract infection, site not specified (principal); R51.9 Headache, unspecified; R41.0 Disorientation, unspecified; Z20.822 Contact with and (suspected) exposure to COVID-19; J43.9 Emphysema, unspecified; E04.2 Nontoxic multinodular goiter; M79.7 Fibromyalgia; K21.9 Gastro-esophageal reflux disease without esophagitis; Z79.51 Long term (current) use of inhaled steroids; Z79.899 Other long term (current) drug therapy; Z85.51 Personal history of malignant neoplasm of bladder; Z85.118 Personal history of other malignant neoplasm of bronchus and lung; Z87.891 Personal history of nicotine dependence
CPT/HCPCS: 71045; 80048; 80076; 80307; 81001; 82077; 82140; 84443; 84484; 85025; 87086; 87088; 87186; 87426; 93005; 99285

== ENCOUNTER 2021-01-11 12:09 | Emergency (ER) | payer MEDICARE, SELFPAY ==
[2021-01-11 12:10] VITALS: BP 139/72; PULSE 82; RESP 16; TEMP 36; O2SAT 98; BMI 25.2
--- NOTE | 2021-01-11 12:30 | CT_ITS ---
STUDY: CT BRAIN WITHOUT CONTRAST REASON FOR EXAM: Female, 75 years old. headache RADIATION DOSAGE (If Supplied By Facility): CTDIvol = ( 44.99 ) mGy, DLP = ( 829.85 ) mGycm TECHNIQUE: Transaxial CT imaging of the brain was performed without administration of intravenous contrast material. Individualized dose optimization techniques were used for this CT. COMPARISON: No relevant priors. FINDINGS: There is approximately 4.5 cm left frontal mass with surrounding vasogenic edema compression of the frontal horn and rightward midline shift of approximately 6 mm. There is no intracranial hemorrhage. There are no findings of an acute ischemic infarction. Normal visualized paranasal sinuses. CT/Brain/Head without Contrast IMPRESSION: 4.5 cm left frontal mass and edema with 6 mm midline shift. N.B. : The above Results were Read Back by Vi Rodney MD to Dr. Mario MD, and understanding confirmed on 01/11/2021 13:29:53 (ET). Electronically Signed: Vi Rodney MD at 13:30 EDT Tel , Service support ,
--- NOTE | 2021-01-11 12:32 | EX.ED.DYSGE1 ---
HPI History of Present Illness Chief Complaint: Confusion Narrative Narrative: 75-year-old female presenting with confusion. She is accompanied by family. Apparently the patient was diagnosed with UTI on the due to confusion. She was seen in the ER and had a blood work and a chest x-ray and was found to have UTI. It is reported that the ER physician that saw her wanted to do a CT of the brain because of her confusion but she declined because she felt as if a urinary tract infection would explain this. She is been on Keflex 3 times a day. She continues to have confusion. It is reported that she will be talking in a conversation and then forget what she is saying. She also cannot remember what she ate for breakfast yesterday. She does not have any facial droop or slurred speech. She does not have any loss of use of her extremities. She denies numbness or tingling. Denies head injury. Patient does state that she has an intermittent headache on the top of her head that is sharp and she goes and lays down and it goes away. She does not take anything for pain. She had this this morning and it went away. [facility] Medical History Acid reflux COPD (chronic obstructive pulmonary disease) COPD (chronic obstructive pulmonary disease) Emphysema lung Fibromyalgia Fibromyalgia GERD (gastroesophageal reflux disease) Goiter Hemorrhoids Hernia History of bladder cancer History of lung cancer Multiple thyroid nodules Right groin pain Right inguinal hernia Home Medications cholecalciferol (vitamin D3) 50 mcg (2,000 unit) capsule 5,000 unit PO QDAY 06/29/17 [History Last Taken 04/17/19] omeprazole 20 mg PO DAILY 04/16/19 [History Last Taken 03/20/20 07:00] oxybutynin chloride 15 mg PO DAILY 04/16/19 [History Last Taken 03/20/20 07:00] albuterol sulfate 90 mcg/actuation aerosol inhaler 2 puff INHALATION Q4H PRN g 03/04/20 [History Last Taken 03/20/20 07:00] melatonin 5 mg tablet 5 mg PO HS PRN 03/04/20 [History Last Taken Unknown] multivitamin 1 tab PO DAILY 03/04/20 [History Last Taken Unknown] fluticasone furoate-vilanterol 1 ea IH DAILY 03/17/20 [History Last Taken Unknown] ibuprofen 200 mg PO PRN PRN 03/17/20 [History Last Taken Unknown] mometasone-formoterol 13 gm IH BID 03/17/20 [History Last Taken Unknown] triamcinolone acetonide 1 spray NS PRN PRN 03/17/20 [History Last Taken Unknown] cephalexin 500 mg PO TID 7 Days #21 cap 01/08/21 [Rx Last Taken Unknown] ascorbic acid (vitamin C) [Vitamin C] 2,000 mg PO DAILY 01/11/21 [History Last Taken Unknown] Allergy/AdvReac Type Severity Reaction Status Date / Time umeclidinium AdvReac Mild blurred Verified 01/11/21 12:12 [From Anoro Ellipta] vision vilanterol AdvReac Mild blurred Verified 01/11/21 12:12 [From Anoro Ellipta] vision Family History Sister Hypertension Brother Hypertension Cancer throat and lung Father Cancer sarcoma Mother Cancer unsure type --all thru her Surgical History H/O: hysterectomy history laparoscopic right inguinal hernia repair (~03/20/20) History of appendectomy History of bilateral carpal tunnel release History of bilateral oophorectomy History of bladder repair surgery History of colonoscopy (~2017) History of lumpectomy of right breast S/P laparoscopic cholecystectomy S/P thyroid biopsy Social History (Updated 03/31/20 @ 14:05 by Juhi PALACIOS, PA-C) Smoking Status: Former smoker alcohol intake: never ROS ROS ED Constitutional Constitutional ED: Denies chills or fever(s) Eyes Eyes: Denies blurry vision or change in vision ENT ENT ED: Denies rhinorrhea or sore throat Cardiovascular Cardiovascular: Denies chest pain or palpitations Respiratory/Chest Respiratory/Chest: Denies cough or dyspnea Gastrointestinal Gastrointestinal: Denies abdominal pain, nausea or vomiting Genitourinary Genitourinary ED: Denies dysuria or hematuria Musculoskeletal Musculoskeletal: Denies arthralgias, myalgias or neck pain Integumentary Denies abscess or rash Psychiatric Psychiatric: Reports other Details: Confusion EXAM Physical Exam Const Vital Signs: 01/11/21 12:10 Temperature 96.8 F L Temperature Source Temporal Pulse Rate 82 Respiratory Rate 16 Blood Pressure 139/72 H Blood Pressure Mean 94 Pulse Ox 98 Oxygen Delivery Method Room Air Positive well nourished General Appearance ED: NAD; Negative for pallor HEENT Reports moist mucous membranes Negative for trauma Eyes PERRL and EOMs intact bilaterally Resp normal respiratory effort and clear to auscultation bilaterally Cardio regular rate and regular rhythm GI normal to inspection, nondistended, normoactive bowel sounds Neuro CN's II-XII intact bilaterally and no sensory deficits noted Neuro Narrative: Alert to self and situation. She believes it is 2021. She also believes it is January. Sensorium / Orientation: alert Motor Exam: strength 5/5 throughout Skin General Skin Exam: Negative for jaundice or pallor MDM MDM MDM Narrative Medical decision making narrative: Review of the medical record from previous visit shows that her urine was consistent with UTI. She has been on Keflex 3 times daily. She is alert to self and situation however she did get the year wrong and thought it was 2021 she also thought it was January for which she is only off by 1 day. She does not have any focal neurologic deficits or lateralizing signs or symptoms. Patient and her family member want her to have a head CT given her confusion. I did recheck blood work and a CBC and CMP are normal. TSH is also within normal limits. Urinalysis is now negative for infection. CT of the brain is performed and a 4.5 cm left frontal mass and edema with 6 mm midline shift. Given this I did speak with [facility] as she needs to be transferred to see a neurosurgeon. [facility] did accept ER to ER for neurosurgery consult. Patient has remained stable in the ER. Her [id number] was given all the information and she will provide a phone number to EMS for them to contact her to get more lowry history when she gets there. Patient transferred in stable condition. Impression: 1. 4.5 cm left frontal mass and edema with 6 mm midline shift. 2. Confusion Lab Data Attestation: I reviewed the patient's lab results. Labs: Laboratory Results - last 24 hr 01/11/21 01/11/21 01/11/21 12:30 12:30 12:37 WBC 5.6 RBC 4.32 Hgb 12.2 Hct 39.2 MCV 90.7 MCH 28.2 MCHC 31.1 L RDW Std Deviation 44.8 H RDW Coeff of [place] 13.3 Plt Count 378 MPV 8.6 Immature Gran % (Auto) 0.400 Neut % (Auto) 70.2 H Lymph % (Auto) 17.3 L [place] % (Auto) 11.1 H Eos % (Auto) 0.5 Baso % (Auto) 0.5 Absolute Neuts (auto) 3.9 Absolute Lymphs (auto) 0.97 Nucleated RBC % 0 Sodium 139 Potassium 4.1 Chloride 106 Carbon Dioxide 28.0 Anion Gap 5 BUN 14 Creatinine 0.75 Estim Creat Clear Calc 50.54 Est GFR (MDRD) Af Amer 98 Est GFR (MDRD) Non-Af 81 BUN/Creatinine Ratio 18.8 Glucose 89 Calcium 9.4 Total Bilirubin 0.40 AST 16 ALT 21 Alkaline Phosphatase 76 Total Protein 7.8 Albumin 3.4 Globulin 4.4 H Albumin/Globulin Ratio 0.8 L TSH 1.08 Urine Color Yellow Urine Clarity Clear Urine pH 6.5 Ur Specific [place] 1.005 Urine Protein Negative Urine Glucose (UA) Normal Urine Ketones Negative Urine Occult Blood Negative Urine Nitrite Negative Urine Bilirubin Negative Urine Urobilinogen Normal Ur Leukocyte Esterase Negative Urine RBC 0 SEEN Urine WBC 0 SEEN Ur Squamous Epith Cells 0-5 SEEN Urine Bacteria RARE Urine Mucus 0 SEEN Radiography Diagnostic Testing: Clinical Impression(s) from Imaging Studies Brain CT 01/11/21 12:30 IMPRESSION: 4.5 cm left frontal mass and edema with 6 mm midline shift. N.B. : The above Results were Read Back by Vi Rodney MD to Dr. Mario MD, and understanding confirmed on 01/11/2021 13:29:53 (ET). Electronically Signed: Vi Rodney MD at 13:30 EDT Tel , Service support , ADDENDUM: 01/11/21 1337 IMPRESSION: 4.5 cm left frontal mass and edema with 6 mm midline shift. N.B. : The above Results were Read Back by iV Rodney MD to Dr. Mario MD, and understanding confirmed on 01/11/2021 13:29:53 (ET). Electronically Signed: Vi Rodney MD at 13:30 EDT Tel , Service support , Discharge Plan Triage Chief Complaint: Confusion ED Provider: Checo Martin Dx/Rx/DC Orders Prescriptions: No Action cholecalciferol (vitamin D3) 2,000 unit capsule 5,000 unit PO QDAY RF: 0 albuterol sulfate 90 mcg/actuation HFA aerosol inhaler 2 puff INHALATION Q4H PRN (Reason: COPD) RF: 0 multivitamin Tablet 1 tab PO DAILY RF: 0 melatonin 5 mg tablet 5 mg PO HS PRN (Reason: COPD) RF: 0 oxybutynin chloride 15 MG tablet extended release 24hr 15 mg PO DAILY RF: 0 omeprazole 20 MG tablet,delayed release (DR/EC) 20 mg PO DAILY RF: 0 triamcinolone acetonide 1 SPRAY aerosol,spray 1 spray NS PRN PRN (Reason: DRYNESS) RF: 0 ibuprofen 200 MG tablet 200 mg PO PRN PRN (Reason: Pain 1-10 Or Fever) RF: 0 mometasone-formoterol 13 GM HFA aerosol inhaler 13 gm IH BID RF: 0 fluticasone furoate-vilanterol 1 EACH blister with device 1 ea IH DAILY RF: 0 cephalexin 500 mg capsule 500 mg PO TID 7 Days Qty: 21 RF: 0 ascorbic acid (vitamin C) [Vitamin C] 1,000 mg Tablet 2,000 mg PO DAILY RF: 0 Primary Care Provider: Tea Fajardo NP
[2021-01-11 12:44] LABS: Mucous, Urine 0 SEEN /hpf (<or=2+); Red Blood Cells-Urine 0 SEEN /hpf (0-5); White Blood Cells 0 SEEN /hpf (0-5)
[2021-01-11 12:45] LABS: Color, Urine Yellow (Yellow); Glucose, Dipstick Normal (Normal); Ketone-Dipstick Negative (Negative); Leukocyte Esterase-Dipstick Negative /ul (Negative); Nitrite-Dipstick Negative (Negative); Occult Blood-Urine Negative /ul (Negative); Protein-Dipstick Negative (Negative); Specific Gravity, Urine 1.005 (1.002-1.030); Urine Bilirubin Dipstick Negative (Negative); Urine Clarity Clear (Clear); Urine Urobilinogen Normal (Normal); Urine pH 6.5 (5.0 - 8.0)
[2021-01-11 12:53] LABS: Bacteria RARE /hpf (None Seen); Squamous Epithelial Cells - UA 0-5 SEEN /hpf (5-10)
[2021-01-11 12:56] LABS: Absolute Lymphocyte Count 0.97 X10^3/uL (0.83-4.51); Absolute Neutrophil Count 3.9 X10^3/uL (2.0-7.7); Basophil# 0.03 X10^3/uL; Basophil% 0.5 % (0-1); Eosinophil# 0.03 X10^3/uL; Eosinophils% 0.5 % (0-5); Hematocrit 39.2 % (37-47); Hemoglobin 12.2 g/dL (12.0-15.0); Lymphocyte # 0.97 X10^3/ul (0.83-4.51); Lymphocyte % 17.3 % (19-41); Mean Corp Hgb Conc 31.1 g/dL (32-36); Mean Corpuscular Hgb 28.2 pg (27.0-32.0); Mean Corpuscular Volume 90.7 fL (81-99); Mean Platelet Vol. 8.6 fl (6.2-12.0); Monocyte# 0.62 X10^3/uL; Monocyte% 11.1 % (0-10); NRBC Flagged by Analyzer 0 % (0-5); Neutrophil # 3.93 X10^3/uL (2.7-7.7); Neutrophil % 70.2 % (47-70); Platelet Count 378 K/mm3 (150-450); RBC Distribution Width CV 13.3 % (11.6-14.6); RBC Distribution Width SD 44.8 fl (35.1-43.9); Red Blood Count 4.32 M/mm3 (4.2-5.4); White Blood Count 5.6 K/mm3 (4.4-11.0)
[2021-01-11 13:20] LABS: ALB/GLOB Ratio 0.8 RATIO (0.9-2.4); AST(SGOT) 16 U/L (15-37); Alanine Aminotransfer ALT/SGPT 21 U/L (13-56); Albumin, Serum 3.4 g/dL (3.2-5.0); Alkaline Phosphatase 76 U/L (45-117); Anion Gap 5 (5-15); BUN 14 mg/dL (7-18); BUN/Creat Ratio 18.8 RATIO (10-20); Calcium,Total 9.4 mg/dL (8.5-10.1); Chloride 106 mmol/L (98-107); Creatinine, Serum 0.75 mg/dL (0.55-1.02); EST Glomerular Filtration Rate 81 mL/min (>60); Est Glom Filt Rate - Afr Amer 98 mL/min (>60); Estimated Creatinine Clearance 50.54 ml/min; Globulin 4.4 g/dL (2.2-4.2); Glucose 89 mg/dL (74-106); Potassium 4.1 mmol/L (3.5-5.1); Protein, Total 7.8 g/dL (6.4-8.2); Sodium Level 139 mmol/L (136-145); Thyroid Stim Hormone (TSH) 1.08 uIU/mL (0.358-3.74)
--- NOTE | 2021-01-11 14:08 | NURSING ---
CALLED DAVID AND DR GONSALEZ TALKING TO MITCH
--- NOTE | 2021-01-11 14:27 | NURSING ---
ACCEPTED AT [facility] ER BY DR NOVAK. RN AWARE
--- NOTE | 2021-01-11 14:35 | NURSING ---
CALLED [facility], ETA IS 45 TO 60
[2021-01-11 15:00] VITALS: BP 128/70; PULSE 72; RESP 15; O2SAT 98
--- NOTE | 2021-01-11 16:14 | NURSING ---
1559 CALLED [facility] FOR AN UPDATE. WAS TOLD BY ARSH IT WOULD BE 5 MIN
== END 2021-01-11 16:26 | disposition short-term general hospital (02) ==
LOC: ED 12:34
PROVIDERS: Emergency Provider Student in an Organized Health Care Education/Training Program; PCP Registered Nurse
DX: G93.6 Cerebral edema (principal); G93.9 Disorder of brain, unspecified; N39.0 Urinary tract infection, site not specified; J43.9 Emphysema, unspecified; K21.9 Gastro-esophageal reflux disease without esophagitis; E04.2 Nontoxic multinodular goiter; Z85.118 Personal history of other malignant neoplasm of bronchus and lung; Z85.51 Personal history of malignant neoplasm of bladder; Z79.51 Long term (current) use of inhaled steroids; Z87.891 Personal history of nicotine dependence; Z79.899 Other long term (current) drug therapy
CPT/HCPCS: 70450; 80053; 81001; 84443; 85025; 87086; 87088; 99285

== ENCOUNTER 2021-03-28 09:44 | Observation (INO) | payer MEDICARE, SELFPAY ==
[2021-03-28] VITALS (8 sets, daily range): BP systolic 109–143; BP diastolic 58–89; PULSE 85–102; RESP 14–23; TEMP 36.3–37; O2SAT 90–98; BMI 25.8; BMI 26.6
--- NOTE | 2021-03-28 10:13 | RAD_ITS ---
HISTORY: cough. TECHNIQUE: XR Chest 1 View. # of images incl. paperwork: 1. COMPARISON: 01/08/2021. FINDINGS: CARDIOMEDIASTINAL STRUCTURES: Cardiac silhouette not enlarged. Calcification of the aorta. Left suprahilar suture or surgical clips with left-sided volume loss including elevation of the left hemidiaphragm. LUNGS: Mild left upper lobe and suprahilar opacity. PLEURA: No pleural effusion or pneumothorax. OSSEOUS STRUCTURES: Degenerative change and osteopenia. RAD/Chest 1 View (Portable) IMPRESSION: Postoperative changes in the left upper lung with volume loss. Mild left upper lobe and suprahilar opacity, which may be infectious or inflammatory. Recommend follow-up. at 1205 Reported and signed by: Maura Coronado MD Electronically Signed: Maura Coronado MD at 12:03 EST Tel , Service support ,
--- NOTE | 2021-03-28 10:13 | EKG12_ITS ---
Test Reason : Blood Pressure : / mmHG Vent. Rate : 091 BPM Atrial Rate : 091 BPM P-R Int : 154 ms QRS Dur : 082 ms QT Int : 370 ms P-R-T Axes : 029 019 055 degrees QTc Int : 455 ms Normal sinus rhythm Normal ECG Confirmed by RACHEL BACH, JOAN ([id number]), technical writer and editor ARSH KINGSLEY ([id number]) on 03/30/2021 10:51:58 AM Referred By: SHRADDHA Confirmed By:JOAN RAMOS MD
--- NOTE | 2021-03-28 10:22 | EDS_ITS ---
HPI History of Present Illness Chief Complaint: Shortness of Breath Narrative Narrative: 76 female with history of COPD presenting with cough and shortness of breath x2 weeks. She states she has been having dyspnea with exertion. She states when she is resting she is fine. He is not having any chest pain. She denies lower extremity swelling. Patient states she has a history of lung cancer and recently had a PET scan done at an outside facility. He does not know the results of this. Patient has not been seen for her current symptoms recently. Patient does state that she had COVID-19 in January and was pretty asymptomatic with it. She states that last night she had a fever of 100.2. [facility] Medical History Acid reflux COPD (chronic obstructive pulmonary disease) COPD (chronic obstructive pulmonary disease) Emphysema lung Fibromyalgia Fibromyalgia GERD (gastroesophageal reflux disease) Goiter Hemorrhoids Hernia History of bladder cancer History of lung cancer Multiple thyroid nodules Right groin pain Right inguinal hernia Home Medications cholecalciferol (vitamin D3) 50 mcg (2,000 unit) capsule 5,000 unit PO QDAY 06/29/17 [History Last Taken 04/17/19] omeprazole 20 mg PO DAILY 04/16/19 [History Last Taken 03/20/20 07:00] oxybutynin chloride 15 mg PO DAILY 04/16/19 [History Last Taken 03/20/20 07:00] albuterol sulfate 90 mcg/actuation aerosol inhaler 2 puff INHALATION Q4H PRN g 03/04/20 [History Last Taken 03/20/20 07:00] melatonin 5 mg tablet 5 mg PO HS PRN 03/04/20 [History Last Taken Unknown] multivitamin 1 tab PO DAILY 03/04/20 [History Last Taken Unknown] fluticasone furoate-vilanterol 1 ea IH DAILY 03/17/20 [History Last Taken Unknown] ibuprofen 200 mg PO PRN PRN 03/17/20 [History Last Taken Unknown] mometasone-formoterol 13 gm IH BID 03/17/20 [History Last Taken Unknown] triamcinolone acetonide 1 spray NS PRN PRN 03/17/20 [History Last Taken Unknown] cephalexin 500 mg PO TID 7 Days #21 cap 01/08/21 [Rx Last Taken Unknown] ascorbic acid (vitamin C) [Vitamin C] 2,000 mg PO DAILY 01/11/21 [History Last Taken Unknown] Allergy/AdvReac Type Severity Reaction Status Date / Time umeclidinium AdvReac Mild blurred Verified 03/28/21 09:48 [From Anoro Ellipta] vision vilanterol AdvReac Mild blurred Verified 03/28/21 09:48 [From Anoro Ellipta] vision Family History Sister Hypertension Brother Hypertension Cancer throat and lung Father Cancer sarcoma Mother Cancer unsure type --all thru her Surgical History H/O: hysterectomy history laparoscopic right inguinal hernia repair (~03/20/20) History of appendectomy History of bilateral carpal tunnel release History of bilateral oophorectomy History of bladder repair surgery History of colonoscopy (~2017) History of lumpectomy of right breast S/P laparoscopic cholecystectomy S/P thyroid biopsy Social History Smoking Status: Former smoker alcohol intake: never ROS ROS ED Constitutional Constitutional ED: Reports fever(s); Denies chills or sweats Eyes Eyes: Denies blurry vision or diplopia ENT ENT ED: Denies rhinorrhea or sore throat Cardiovascular Cardiovascular: Denies chest pain or palpitations Respiratory/Chest Respiratory/Chest: Reports cough, dyspnea and dyspnea on exertion Gastrointestinal Gastrointestinal: Denies abdominal pain, nausea or vomiting Genitourinary Genitourinary ED: Denies dysuria or hematuria Musculoskeletal Musculoskeletal: Denies arthralgias, back pain, myalgias or neck pain Integumentary Denies rash Neurologic Neurologic: Denies headache(s) or weakness EXAM Physical Exam Const Vital Signs: 03/28/21 09:44 03/28/21 10:00 Temperature 97.4 F L 97.4 F L Temperature Source Temporal Temporal Pulse Rate 102 H 94 Respiratory Rate 22 H 23 H Respiratory Effort Short of Breath Blood Pressure 140/89 H 110/74 Blood Pressure Mean 106 86 Pulse Ox 97 93 Oxygen Delivery Method Room Air Room Air Positive well nourished General Appearance ED: NAD; Negative for pallor HEENT Reports moist mucous membranes atraumatic Eyes PERRL and EOMs intact bilaterally Neck no lymphadenopathy and supple Resp normal respiratory effort and clear to auscultation bilaterally Auscultation: Negative for rales, rhonchi or wheezes Cardio regular rhythm Rate: tachycardic Extremity normal to inspection General Extremety ED: Negative for tenderness Neuro oriented x3, CN's II-XII intact bilaterally and no sensory deficits noted Sensorium / Orientation: alert Motor Exam: strength 5/5 throughout Psych mental status grossly normal Thought Process: normal thought process Skin General Skin Exam: Negative for jaundice or pallor Lesions: no lesions Rashes: no rashes MDM MDM MDM Narrative Medical decision making narrative: Patient reportedly walked in with a pulse ox of 85% on room air. She does not typically wear oxygen. Patient states that other than the shortness of breath and cough that she has had she has had a low- grade fever last night. She has no other symptoms currently and feels otherwise well. EKG obtained and on my interpretation shows normal sinus rhythm with ventricular rate of 91 bpm without sign of ischemic change or dysrhythmia. Chest x-ray on my interpretation shows a left upper lobe infiltrate. Radiologi st does speculate this could be infectious or inflammatory. Patient also does report that she recently had COVID in January 2021. This could be remnants of that. CBC shows no leukocytosis. Hemoglobin is 10.3. She does not recall any black or bloody stools.Patient is hemoglobin does seem to p alternate over time. Her BUN is not elevated. Creatinine is normal. Electrolytes are unremarkable. LFTs are normal. lactic acid 1.1. BNP within normal limits at 51.5. High- sensitivity troponin is 6. D-dimer was elevated at 2.09 and she did have a CTA of the chest which shows the same left upper lobe infiltrate as a chest x-ray. She also does have a peripheral small lower lobe PE on the left. Patient was discussed with the hospitalist hypoxia and negative COVID testing. She recommended starting the patient on Eliquis. This was ordered. Hospitalist also did recommend doing a PCR test. Impression: 1. PE 2. Hypoxic respiratory failure 3. Left upper lobe infiltrate 4. History of COPD Lab Data Labs: Laboratory Results - last 24 hr 03/28/21 03/28/21 03/28/21 10:20 10:20 10:20 WBC 6.4 RBC 3.56 L Hgb 10.3 L Hct 32.7 L MCV 91.9 MCH 28.9 MCHC 31.5 L RDW Std Deviation 62.8 H RDW Coeff of Salena 18.5 H Plt Count 439 MPV 8.5 Immature Gran % (Auto) 0.900 Neut % (Auto) 63.6 Lymph % (Auto) 18.9 L [place] % (Auto) 13.0 H Eos % (Auto) 2.7 Baso % (Auto) 0.9 Absolute Neuts (auto) 4.1 Absolute Lymphs (auto) 1.21 Nucleated RBC % 0 D-Dimer Quant (PE/DVT) 2.09 H* Sodium 140 Potassium 3.7 Chloride 108 H Carbon Dioxide 26.0 Anion Gap 6 BUN 10 Creatinine 0.67 Estim Creat Clear Calc 49.79 Est GFR (MDRD) Af Amer 110 Est GFR (MDRD) Non-Af 91 BUN/Creatinine Ratio 14.9 Glucose 104 Lactic Acid Calcium 9.0 Total Bilirubin 0.40 AST 18 ALT 18 Alkaline Phosphatase 66 Troponin I High Sens 6 B-Natriuretic Peptide Total Protein 6.7 Albumin 3.0 L Globulin 3.7 Albumin/Globulin Ratio 0.8 L 03/28/21 03/28/21 10:20 11:12 WBC RBC Hgb Hct MCV MCH MCHC RDW Std Deviation RDW Coeff of Salena Plt Count MPV Immature Gran % (Auto) Neut % (Auto) Lymph % (Auto) [place] % (Auto) Eos % (Auto) Baso % (Auto) Absolute Neuts (auto) Absolute Lymphs (auto) Nucleated RBC % D-Dimer Quant (PE/DVT) Sodium Potassium Chloride Carbon Dioxide Anion Gap BUN Creatinine Estim Creat Clear Calc Est GFR (MDRD) Af Amer Est GFR (MDRD) Non-Af BUN/Creatinine Ratio Glucose Lactic Acid 1.1 Calcium Total Bilirubin AST ALT Alkaline Phosphatase Troponin I High Sens B-Natriuretic Peptide 51.5 Total Protein Albumin Globulin Albumin/Globulin Ratio Radiography Diagnostic Testing: Clinical Impression(s) from Imaging Studies Chest X-Ray 03/28/21 10:13 IMPRESSION: Postoperative changes in the left upper lung with volume loss. Mild left upper lobe and suprahilar opacity, which may be infectious or inflammatory. Recommend follow-up. at 1205 Reported and signed by: Maura Coronado MD Electronically Signed: Maura Coronado MD at 12:03 EST Tel , Service support , Chest CTA 03/28/21 10:49 IMPRESSION: 1. Very small lower lobe segmental pulmonary embolism. No saddle embolus or CT evidence of right heart strain. 2. Ill-defined peribronchial infiltrate of the left upper/mid lung field suggesting pneumonia. 3. Left upper lobectomy. Electronically Signed: Shankar Gutierrez MD ([place]) at 12:01 EST , Service support , Discharge Plan Triage Chief Complaint: Shortness of Breath ED Provider: Checo Martin Dx/Rx/DC Orders Prescriptions: No Action cholecalciferol (vitamin D3) 2,000 unit capsule 5,000 unit PO QDAY RF: 0 albuterol sulfate 90 mcg/actuation HFA aerosol inhaler 2 puff INHALATION Q4H PRN (Reason: COPD) RF: 0 multivitamin Tablet 1 tab PO DAILY RF: 0 melatonin 5 mg tablet 5 mg PO HS PRN (Reason: COPD) RF: 0 oxybutynin chloride 15 MG tablet extended release 24hr 15 mg PO DAILY RF: 0 omeprazole 20 MG tablet,delayed release (DR/EC) 20 mg PO DAILY RF: 0 triamcinolone acetonide 1 SPRAY aerosol,spray 1 spray NS PRN PRN (Reason: DRYNESS) RF: 0 ibuprofen 200 MG tablet 200 mg PO PRN PRN (Reason: Pain 1-10 Or Fever) RF: 0 mometasone-formoterol 13 GM HFA aerosol inhaler 13 gm IH BID RF: 0 fluticasone furoate-vilanterol 1 EACH blister with device 1 ea IH DAILY RF: 0 cephalexin 500 mg capsule 500 mg PO TID 7 Days Qty: 21 RF: 0 ascorbic acid (vitamin C) [Vitamin C] 1,000 mg Tablet 2,000 mg PO DAILY RF: 0 Primary Care Provider: Tea Fajardo NP
[2021-03-28 10:30] LABS: Absolute Lymphocyte Count 1.21 X10^3/uL (0.83-4.51); Absolute Neutrophil Count 4.1 X10^3/uL (2.0-7.7); Basophil# 0.06 X10^3/uL; Basophil% 0.9 % (0-1); Eosinophil# 0.17 X10^3/uL; Eosinophils% 2.7 % (0-5); Hematocrit 32.7 % (37-47); Hemoglobin 10.3 g/dL (12.0-15.0); Lymphocyte # 1.21 X10^3/ul (0.83-4.51); Lymphocyte % 18.9 % (19-41); Mean Corp Hgb Conc 31.5 g/dL (32-36); Mean Corpuscular Hgb 28.9 pg (27.0-32.0); Mean Corpuscular Volume 91.9 fL (81-99); Mean Platelet Vol. 8.5 fl (6.2-12.0); Monocyte# 0.83 X10^3/uL; NRBC Flagged by Analyzer 0 % (0-5); Neutrophil # 4.07 X10^3/uL (2.7-7.7); Neutrophil % 63.6 % (47-70); Platelet Count 439 K/mm3 (150-450); RBC Distribution Width CV 18.5 % (11.6-14.6); RBC Distribution Width SD 62.8 fl (35.1-43.9); Red Blood Count 3.56 M/mm3 (4.2-5.4); White Blood Count 6.4 K/mm3 (4.4-11.0)
[2021-03-28 10:43] LABS: D-Dimer Quantitative (DVT/PE) 2.09 FEU/ug/m (0.27-0.49)
[2021-03-28 10:47] LABS: ALB/GLOB Ratio 0.8 RATIO (0.9-2.4); AST(SGOT) 18 U/L (15-37); Alanine Aminotransfer ALT/SGPT 18 U/L (13-56); Alkaline Phosphatase 66 U/L (45-117); Anion Gap 6 (5-15); BUN 10 mg/dL (7-18); BUN/Creat Ratio 14.9 RATIO (10-20); Chloride 108 mmol/L (98-107); Creatinine, Serum 0.67 mg/dL (0.55-1.02); EST Glomerular Filtration Rate 91 mL/min (>60); Est Glom Filt Rate - Afr Amer 110 mL/min (>60); Estimated Creatinine Clearance 49.79 ml/min; Globulin 3.7 g/dL (2.2-4.2); Glucose 104 mg/dL (74-106); Potassium 3.7 mmol/L (3.5-5.1); Protein, Total 6.7 g/dL (6.4-8.2); Sodium Level 140 mmol/L (136-145); Troponin-I HS 6 pg/mL (3.0-54.0)
[2021-03-28 10:48] LABS: BNP,B-Type NATRIURETIC PEPTIDE 51.5 pg/mL (0-100)
--- NOTE | 2021-03-28 10:49 | CT_ITS ---
STUDY: CTA CHEST REASON FOR EXAM: Female, 76 years old. dyspnea RADIATION DOSAGE (If Supplied By Facility): CTDIvol = ( 15.28 ) mGy, DLP = ( 453.94 ) mGycm TECHNIQUE: The examination was performed with the intravenous administration of IV 100mL Isovue-370. Post-processing of the angiographic images was performed, with multiplanar reformation and 3D reconstruction. Individualized dose optimization techniques were used for this CT. COMPARISON: CT chest 04/08/2020 FINDINGS: Normal enhancement of the main pulmonary artery and right and left pulmonary arteries. In the right lower lobe on image 75 of series 2, there is a nonocclusive small segmental pulmonary embolism in the medial right lower lobe segmental branch. No saddle embolus. There is atherosclerotic calcification of the aortic arch with tortuosity. No right heart strain. There is no demonstrated aortic dissection. Normal heart and pericardium. Normal mediastinum. Left upper lobectomy. Normal visualized trachea and bronchi. Left hemidiaphragm is elevated. Fibrotic scarring of the left medial apex is stable. Ill-defined peribronchial groundglass opacity and consolidation in the posterior left upper and mid lung field on image 180 of series 2 is new. There are scattered fibrotic changes in the lung bases. Normal pleura. Normal chest wall structures. There are degenerative changes of thoracic spine. There is a small hiatal hernia. CT/CTA Chest W/WO Contrast IMPRESSION: 1. Very small lower lobe segmental pulmonary embolism. No saddle embolus or CT evidence of right heart strain. 2. Ill-defined peribronchial infiltrate of the left upper/mid lung field suggesting pneumonia. 3. Left upper lobectomy. Electronically Signed: Shankar Gutierrez MD ([place]) at 12:01 EST , Service support ,
[2021-03-28 11:47] LABS: Lactic Acid 1.1 mmol/L (0.4-1.9)
--- NOTE | 2021-03-28 12:22 | HP.PCM.HOS_ITS ---
HPI - General General Date of Admission: 03/28/21 HPI Narrative MARK AIKEN, is a 76 F with a PMH as outlined who presents via the ED on 03/28/2021 with a complaint of shortness of breath for 2 weeks prior to admission. Shortness of breath is worse with exertion. She hs a history of lung cancer and said she recently had a PET scan but didnt know the results yet. Patient said she had covid in January 2021. She was hypoxic at 85% on room air in the ED, and she doesnt wear oxygen at home. She admitted to a fever of 100.2F on the night before admission. Vitals were stable and showed BP of 110/74, VA of 94, RR of 23 and temp of 97.4F. She was on room air. CBC showed wbc of 6.4, hb of 10.3 nad platelets of 439. Chemistry showed sodium of 140 and bicarb of 26, and potassium of 3.7. BNp was 51.5. Chest x-ray showed postoperative changes to the left upper lung with volume loss and mild left upper lobe and suprahilar opacities which may be infectious or inflammatory. CTA of the chest showed very small lower lobe segmental pulmonary embolism with no saddle embolus or CT evidence of right heart strain and ill-defined peribronchial infiltrate of the left upper and mid lung field suggesting pneumonia with evidence of left upper lobectomy. COVID antigen test done was negative and PCR was pending. Patient has been admitted to be managed for PE and community-acquired pneumonia. [facility] Medical History Acid reflux COPD (chronic obstructive pulmonary disease) COPD (chronic obstructive pulmonary disease) Emphysema lung Fibromyalgia Fibromyalgia GERD (gastroesophageal reflux disease) Goiter Hemorrhoids Hernia History of bladder cancer History of lung cancer Multiple thyroid nodules Right groin pain Right inguinal hernia Home Medications cholecalciferol (vitamin D3) 50 mcg (2,000 unit) capsule 5,000 unit PO QDAY 0 06/29/17 [History Last Taken 04/17/19] omeprazole 20 mg PO DAILY 04/16/19 [History Last Taken 03/20/20 07:00] oxybutynin chloride 15 mg PO DAILY 04/16/19 [History Last Taken 03/20/20 07:00] albuterol sulfate 90 mcg/actuation aerosol inhaler 2 puff INHALATION Q4H PRN g 03/04/20 [History Last Taken 03/20/20 07:00] melatonin 5 mg tablet 5 mg PO HS PRN 03/04/20 [History Last Taken Unknown] fluticasone furoate-vilanterol 1 ea IH DAILY 03/17/20 [History Last Taken Unknown] mometasone-formoterol 13 gm IH BID 03/17/20 [History Last Taken Unknown] triamcinolone acetonide [Aller-Javier] 1 spray NS PRN PRN 03/17/20 [History Last Taken Unknown] ascorbic acid (vitamin C) [Vitamin C] 2,000 mg PO DAILY 01/11/21 [History Last Taken Unknown] Allergy/AdvReac Type Severity Reaction Status Date / Time umeclidinium AdvReac Mild blurred Verified 03/28/21 09:48 [From Anoro Ellipta] vision vilanterol AdvReac Mild blurred Verified 03/28/21 09:48 [From Anoro Ellipta] vision Family History Sister Hypertension Brother Hypertension Cancer throat and lung Father Cancer sarcoma Mother Cancer unsure type --all thru her Surgical History H/O: hysterectomy history laparoscopic right inguinal hernia repair (~03/20/20) History of appendectomy History of bilateral carpal tunnel release History of bilateral oophorectomy History of bladder repair surgery History of colonoscopy (~2017) History of lumpectomy of right breast S/P laparoscopic cholecystectomy S/P thyroid biopsy Social History Smoking Status: Former smoker alcohol intake: never ROS Constitutional Constitutional: Denies anorexia, change in weight, chills, fatigue, fever(s), malaise or weakness Eyes Eyes: Denies change in vision ENT HEENT: Denies abnormal hearing, nasal congestion, nasal discharge, sinus pressure or sore throat Cardiovascular Cardiovascular: Denies chest pain, dyspnea on exertion, edema, lightheadedness, orthopnea, palpitations, paroxysmal nocturnal dyspnea or rapid heart rate Respiratory/Chest Respiratory/Chest: Reports cough, dyspnea, shortness of breath at rest, shortness of breath with exertion and wheezing; Denies excessive phlegm production, hemoptysis or productive cough Gastrointestinal Gastrointestinal: Denies abdominal pain, coffee ground emesis, constipation, diarrhea, hematochezia, nausea or vomiting Genitourinary Genitourinary: Denies burning urination, dysuria, nocturia, urinary frequency, urinary hesitancy or urinary incontinence Musculoskeletal Musculoskeletal: Denies arthralgias, back pain or joint stiffness Neurologic Neurologic: Denies confusion, dizziness, focal weakness, headache(s), numbness, seizure-like activity, seizures or syncope Psychiatric Psychiatric: Denies anxiety or depression Endocrine Endocrinology: Denies change in body appearance Vital Signs Vital Signs Vital Signs: 03/28/21 09:44 03/28/21 10:00 Temperature 97.4 F L 97.4 F L Temperature Source Temporal Temporal Pulse Rate 102 H 94 Respiratory Rate 22 H 23 H Respiratory Effort Short of Breath Blood Pressure 140/89 H 110/74 Blood Pressure Mean 106 86 Pulse Ox 97 93 Oxygen Delivery Method Room Air Room Air Weight Weight: 169 lb 12.095 oz Body Mass Index (BMI) 25.8 Physical Exam Const alert, oriented x3 and no apparent distress General Appearance: cooperative HEENT normocephalic, head/scalp atraumatic, hearing grossly normal bilaterally and moist oral mucous membranes Eyes PERRL, EOMs intact bilaterally and conjunctivae normal Neck no lymphadenopathy, supple and no JVD Resp Resp Narrative: Mildly diminished breath sounds bibasilarly. Few crackles. On room air. Cardio regular rate, regular rhythm, S1 normal heart sound, S2 normal heart sound and no murmurs GI normal to inspection, nondistended, normoactive bowel sounds, soft to palpation, non-tender, non-distended and hepatosplenomegaly Extremity normal to inspection, full ROM and no clubbing, cyanosis or edema Peripheral Pulses: Yes pulses 2+ throughout Skin no rashes or lesions noted Neuro oriented x3, CN's II-XII intact bilaterally and moves all extremities Sensorium / Orientation: awake and alert Psych affect normal Results Lab / Micro Data Result Diagrams: 03/28/21 10:20 03/28/21 10:20 Labs: Laboratory Results - last 24 hr 03/28/21 10:20: WBC 6.4, RBC 3.56 L, Hgb 10.3 L, Hct 32.7 L, MCV 91.9, MCH 28.9, MCHC 31.5 L, RDW Std Deviation 62.8 H, RDW Coeff of Salena 18.5 H, Plt Count 439, MPV 8.5, Immature Gran % (Auto) 0.900, Neut % (Auto) 63.6, Lymph % (Auto) 18.9 L , [place] % (Auto) 13.0 H, Eos % (Auto) 2.7, Baso % (Auto) 0.9, Absolute Neuts (auto) 4.1, Absolute Lymphs (auto) 1.21, Nucleated RBC % 0 03/28/21 10:20: D-Dimer Quant (PE/DVT) 2.09 H* 03/28/21 10:20: Sodium 140, Potassium 3.7, Chloride 108 H, Carbon Dioxide 26.0, Anion Gap 6, BUN 10, Creatinine 0.67, Estim Creat Clear Calc 49.79, Est GFR (MDRD) Af Amer 110, Est GFR (MDRD) Non-Af 91, BUN/Creatinine Ratio 14.9, Glucose 104, Calcium 9.0, Total Bilirubin 0.40, AST 18, ALT 18, Alkaline Phosphatase 66, Troponin I High Sens 6, Total Protein 6.7, Albumin 3.0 L, Globulin 3.7, Albumin/Globulin Ratio 0.8 L 03/28/21 10:20: B-Natriuretic Peptide 51.5 03/28/21 11:12: Lactic Acid 1.1 Micro: Microbiology 03/28/21 11:28 Nasal Secretion SARS-CoV-2 Antigen (Rapid) - Final Radiology Impression Chest X-Ray 03/28/21 10:13 IMPRESSION: Postoperative changes in the left upper lung with volume loss. Mild left upper lobe and suprahilar opacity, which may be infectious or inflammatory. Recommend follow-up. at 1205 Reported and signed by: Maura Coronado MD Electronically Signed: Maura Coronado MD at 12:03 EST Tel , Service support , Chest CTA 03/28/21 10:49 IMPRESSION: 1. Very small lower lobe segmental pulmonary embolism. No saddle embolus or CT evidence of right heart strain. 2. Ill-defined peribronchial infiltrate of the left upper/mid lung field suggesting pneumonia. 3. Left upper lobectomy. Electronically Signed: Shankar Gutierrez MD ([place]) at 12:01 EST , Service support , Assessment & Plan Assessment/Plan (1) Community acquired pneumonia: PLAN: #Community acquired pneumonia * Has been having a cough that is not improving for the past 2 weeks. * CTA showed ill-defined peribronchial infiltrate of the left upper and mid lung field suggesting pneumonia with left upper lobectomy and the right small lower lobe segmental PE. * Started on IV Levaquin. Urine for strep and Legionella. * Patient started on Eliquis therapeutic dose. * Get sputum culture. * Breathing treatments bronchodilators. Titrate oxygen as needed to maintain saturation above 90%. * #PE: CTA findings as above. Started on eliquis in [facility] ED. will continue. Her history of lung cancer puts her at high risk of PE. 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 She is to follow up with Dr Moura on Tuesday for the results of the PET scan. * currently stable * says she had resection of a brain lesion which was due to spread from the lung cancer recently. * * #History of thyroid nodule: stable. follow up with general surgery on outpatient basis DVT prophylaxis: not indicated as she has been starte don eliquis for PE CODE STATUS: DNR CCA no intubation * Patient counseled extensively about different types of CODE STATUS including full code, DNR CCA and DNR CCA. Patient says she wants CPR but doesnt want intubation. I explained that CPR and intubation usually go together if needed. She then stated that she had had that people who are intubated usually did not come off the ventilator. I counseled her that this was not always the case but she was adamant that she did not want intubation and she would be okay with CPR if needed but if they went together, she did not want either CPR or intubation. We will therefore enter patient as DNR CCA no intubation * Total face to face time- 17 mins Charges/Coding Visit Charges OBSV E&M: 69204 Initial observation care L3 Procedures Hospitalists Procedures: 32529 Advncd Care Plan 30 Min
[2021-03-28] MEDS: APIXABAN 5 MG TABLET 10 MG PO ×2 (13:38→20:18)
[2021-03-28] MEDS: levoFLOXacin IV 750 MG/150 ML BAG 100 MG IV (15:21)
[2021-03-28] MEDS: Acetaminophen 325 MG Tablet 650 MG PO (18:21)
[2021-03-29] VITALS (7 sets, daily range): BP systolic 117–131; BP diastolic 58–87; PULSE 90–100; RESP 18–22; TEMP 36.7–37; O2SAT 87–96
[2021-03-29 07:39] LABS: Absolute Lymphocyte Count 0.91 X10^3/uL (0.83-4.51); Absolute Neutrophil Count 4.2 X10^3/uL (2.0-7.7); Basophil# 0.06 X10^3/uL; Eosinophil# 0.18 X10^3/uL; Eosinophils% 2.9 % (0-5); Hematocrit 30.7 % (37-47); Hemoglobin 9.7 g/dL (12.0-15.0); Lymphocyte # 0.91 X10^3/ul (0.83-4.51); Lymphocyte % 14.6 % (19-41); Mean Corp Hgb Conc 31.6 g/dL (32-36); Mean Corpuscular Hgb 29.2 pg (27.0-32.0); Mean Corpuscular Volume 92.5 fL (81-99); Monocyte# 0.88 X10^3/uL; Monocyte% 14.1 % (0-10); NRBC Flagged by Analyzer 0 % (0-5); Neutrophil # 4.16 X10^3/uL (2.7-7.7); Neutrophil % 66.8 % (47-70); Platelet Count 426 K/mm3 (150-450); RBC Distribution Width CV 18.5 % (11.6-14.6); RBC Distribution Width SD 62.5 fl (35.1-43.9); Red Blood Count 3.32 M/mm3 (4.2-5.4); White Blood Count 6.2 K/mm3 (4.4-11.0)
--- NOTE | 2021-03-29 08:46 | PCS.PANDOC ---
PANDEMIC DOCUMENTATION INITIATED: Date: 10/27/2020 Time: 190
[2021-03-29] MEDS: APIXABAN 5 MG TABLET 10 MG PO (10:36)
[2021-03-29] MEDS: levoFLOXacin IV 750 MG/150 ML BAG 100 MG IV (10:36)
--- NOTE | 2021-03-29 12:23 | DS.PCM_ITS ---
Providers Date of Admission: 03/28/21 Primary Care Physician: PRETTY Rodríguez Reason For Visit: PE, PNEUMONIA Diagnosis Discharge Diagnosis (1) Community acquired pneumonia: Status: Acute Code(s): J18.9 - Pneumonia, unspecified organism Medications at Discharge Home Medications cholecalciferol (vitamin D3) 50 mcg (2,000 unit) capsule 5,000 unit PO QDAY 06/29/17 omeprazole 20 mg PO DAILY 04/16/19 oxybutynin chloride 15 mg PO DAILY 04/16/19 albuterol sulfate 90 mcg/actuation aerosol inhaler 2 puff INHALATION Q4H PRN g 03/04/20 melatonin 5 mg tablet 5 mg PO HS PRN 03/04/20 fluticasone furoate-vilanterol 1 ea IH DAILY 03/17/20 mometasone-formoterol 13 gm IH BID 03/17/20 triamcinolone acetonide [Aller-Javier] 1 spray NS PRN PRN 03/17/20 ascorbic acid (vitamin C) [Vitamin C] 2,000 mg PO DAILY 01/11/21 apixaban [Eliquis DVT-PE Treat 30D Start] 5 mg PO BID #74 tab 03/29/21 levofloxacin 750 mg PO DAILY #6 tab 03/29/21 Hospital Course Operations None Procedures None Summary of Care Provided Minutes Spent on Discharge: 40 Hospital Course: MARK AIKEN, is a 76 F with a PMH as outlined who presents via the ED on 03/28/2021 with a complaint of shortness of breath for 2 weeks prior to admission. Shortness of breath is worse with exertion. She hs a history of lung cancer and said she recently had a PET scan but didnt know the results yet. Patient said she had covid in January 2021. She was hypoxic at 85% on room air in the ED, and she doesnt wear oxygen at home. She admitted to a fever of 100.2F on the night before admission. Vitals were stable and showed BP of 110/74, AK of 94, RR of 23 and temp of 97.4F. She was on room air. CBC showed wbc of 6.4, hb of 10.3 nad platelets of 439. Chemistry showed sodium of 140 and bicarb of 26, and potassium of 3.7. BNp was 51.5. Chest x-ray showed postoperative changes to the left upper lung with volume loss and mild left upper lobe and suprahilar opacities which may be infectious or inflammatory. CTA of the chest showed very small lower lobe segmental pulmonary embolism with no saddle embolus or CT evidence of right heart strain and ill-defined peribronchial infiltrate of the left upper and mid lung field suggesting pneumonia with evidence of left upper lobectomy. COVID antigen test done was negative and PCR was also negative. Patient was admitted to be managed for PE and community-acquired pneumonia. She was started on Levaquin as well as Eliquis treatment dose. Patient shortness of breath improved and she felt much better. She had walking pulse ox which showed that she required 2 L of oxygen at rest and 3 L with ambulation. Patient was discharged home on 03/29/2021 on p.o. Levaquin for 5 days as well as treatment course of p.o. Eliquis as well as oxygen and is to follow-up with her primary care doctor and oncologist in 1 to 2 weeks. Patient seen and examined prior to discharge. She had no active complaints and felt well. Review of systems otherwise negative. Labs and vitals reviewed. Home medication reviewed and reconciled. Physical Exam Const alert, oriented x3 and no apparent distress General Appearance: cooperative, comfortable and well kempt Orientation / Consciousness: awake Exam Limitations: no limitations HEENT normocephalic, head/scalp atraumatic, hearing grossly normal bilaterally and moist oral mucous membranes Eyes PERRL, EOMs intact bilaterally and conjunctivae normal Neck no lymphadenopathy, supple and no JVD Resp Resp Narrative: Mildly diminished breath sounds bibasilarly. Few crackles. On 2L of oxygen at time of review Cardio regular rate, regular rhythm, S1 normal heart sound, S2 normal heart sound and no murmurs GI normal to inspection, nondistended, normoactive bowel sounds, soft to palpation, non-tender, non-distended and hepatosplenomegaly Extremity normal to inspection, full ROM and no clubbing, cyanosis or edema Skin no rashes or lesions noted Neuro oriented x3, CN's II-XII intact bilaterally and moves all extremities Sensorium / Orientation: awake and alert Psych affect normal Weight / BMI Weight Weight: 175 lb Body Mass Index (BMI) 26.6 ABG / Lab / Microbiology Data Result Diagrams: 03/29/21 06:04 03/28/21 10:20 Laboratory: Laboratory Results - last 24 hr 03/28/21 12:21: COVID-19 ([place]) Not Detected 03/29/21 06:04: WBC 6.2, RBC 3.32 L, Hgb 9.7 L, Hct 30.7 L, MCV 92.5, MCH 29.2, MCHC 31.6 L, RDW Std Deviation 62.5 H, RDW Coeff of Salena 18.5 H, Plt Count 426, MPV 9.0, Immature Gran % (Auto) 0.600, Neut % (Auto) 66.8, Lymph % (Auto) 14.6 L , [place] % (Auto) 14.1 H, Eos % (Auto) 2.9, Baso % (Auto) 1.0, Absolute Neuts (auto) 4.2, Absolute Lymphs (auto) 0.91, Nucleated RBC % 0 Microbiology: Microbiology 03/28/21 11:28 Nasal Secretion SARS-CoV-2 Antigen (Rapid) - Final D/C Instructions Discharge Diet: Low fat / Low cholesterol Discharge Activity: Return to Normal Activity Weight Bearing Status: Weight bearing as tolerated Call your doctor if you observe: Fever of 101 or Higher, Shortness of breath, Dizziness, Swelling in the ankles, Chest pain and Increased palpitations (irregular heartbeat) Meaningful Use Info Meaningful Use Diagnoses (Choose all that apply): None applicable Discharge Plan Admission Admit Date/Time: 03/28/21 12:29 Primary Reason for Your Visit: PE, community acquired pneumonia Attending Provider: An Rausch Primary Care Provider: Tea Fajardo OIL BURNER REPAIRER Instructions Patient Instructions: Embolism Pulmonary Dc, ED Pneumonia (Adult) Additional Instructions / Restrictions: use oxygen for shortness of breath as needed. Discharge Orders/Prescriptions Prescriptions: New levofloxacin 750 mg tablet 750 mg PO DAILY Qty: 6 RF: 0 Eliquis DVT-PE Treat 30D Start 5 mg (74 tabs) tablets,dose pack 5 mg PO BID Qty: 74 RF: 1 Continued cholecalciferol (vitamin D3) 2,000 unit capsule 5,000 unit PO QDAY RF: 0 albuterol sulfate 90 mcg/actuation HFA aerosol inhaler 2 puff INHALATION Q4H PRN (Reason: COPD) RF: 0 melatonin 5 mg tablet 5 mg PO HS PRN (Reason: COPD) RF: 0 oxybutynin chloride 15 MG tablet extended release 24hr 15 mg PO DAILY RF: 0 omeprazole 20 MG tablet,delayed release (DR/EC) 20 mg PO DAILY RF: 0 triamcinolone acetonide [Aller-Javier] 1 SPRAY aerosol,spray 1 spray NS PRN PRN (Reason: DRYNESS) RF: 0 mometasone-formoterol 13 GM HFA aerosol inhaler 13 gm IH BID RF: 0 fluticasone furoate-vilanterol 1 EACH blister with device 1 ea IH DAILY RF: 0 ascorbic acid (vitamin C) [Vitamin C] 1,000 mg Tablet 2,000 mg PO DAILY RF: 0 Referrals / Follow Up: William Moura DO [STAFF PHYSICIAN] - In 1 Week Tea Fajardo NP, OIL BURNER REPAIRER-C [Primary Care Provider] - Within 2 Weeks Disposition Disposition (needs filled in before D/C Order can be placed): Home, Self Care Charges/Coding Visit Charges OBSV E&M: 89582 Observation care discharge
[2021-03-29] MEDS: levoFLOXacin 750 MG Tablet PO (15:07)
== END 2021-03-29 16:02 | disposition home or self-care (01) ==
LOC: ED 12:35 → MS3 13:16
PROVIDERS: Admitting Provider Student in an Organized Health Care Education/Training Program; Emergency Provider Student in an Organized Health Care Education/Training Program; PCP Registered Nurse; Visit Provider Student in an Organized Health Care Education/Training Program
DX: J18.9 Pneumonia, unspecified organism (principal); I26.99 Other pulmonary embolism without acute cor pulmonale; J43.9 Emphysema, unspecified; Z87.891 Personal history of nicotine dependence; K21.9 Gastro-esophageal reflux disease without esophagitis; M79.7 Fibromyalgia; E04.1 Nontoxic single thyroid nodule; Z85.118 Personal history of other malignant neoplasm of bronchus and lung; Z85.51 Personal history of malignant neoplasm of bladder; Z79.899 Other long term (current) drug therapy; Z79.51 Long term (current) use of inhaled steroids; R06.02 Shortness of breath
CPT/HCPCS: 36415; 71045; 71275; 80053; 83605; 83880; 84484; 85025; 85379; 87040; 87426; 87635; 93005; 94762; 96365; 96366; 96376; 97161; 97165; 99218; 99251; 99285; Q9967; G0378; G0463; U0003; U0005

== ENCOUNTER 2021-04-24 12:49 | Emergency (ER) | payer MEDICARE, SELFPAY ==
[2021-04-24 12:50] VITALS: BP 132/76; PULSE 102; RESP 20; TEMP 36.1; O2SAT 95; BMI 27.2
--- NOTE | 2021-04-24 13:04 | CT_ITS ---
STUDY: CT SOFT TISSUE NECK WITH CONTRAST REASON FOR EXAM: Female, 76 years old. Pain, Difficulty swallowing following pulmonary procedure. History of a lung cancer and bladder cancer. RADIATION DOSAGE (If Supplied By Facility): CTDIvol = ( 14.32 ) mGy, DLP = ( 357.67 ) mGycm TECHNIQUE: The patient was scanned in a multi-detector CT scanner. High resolution transaxial imaging was performed following intravenous administration of IV 100mL Isovue-300. Sagittal and coronal images were reconstructed. Individualized dose optimization techniques were used for this CT. COMPARISON: None. FINDINGS: Atherosclerotic plaque formation of the aortic arch. Normal bilateral parotid glands. Normal bilateral seasonal recruiter spaces. Normal bilateral parapharyngeal spaces. Normal bilateral carotid spaces. Normal bilateral sublingual and submandibular glands and spaces. Normal visualized nasopharynx. Normal retropharyngeal space. Normal perivertebral space. Normal visualized bilateral faucial tonsils. The visualized tongue, tongue base and oropharynx are normal. The visualized cervical lymph nodes (levels I-) are within normal size limits, and maintain normal morphology. There is no demonstrated solid or cystic mass lesion. There is no abnormal contrast enhancement. There is a 7.5 mm x 3.1 mm well-defined radiopacity along the anterior aspect of the left trachea at the level of the cricoid cartilage. This was not seen on prior CTA of the thorax dated 03/28/2021. With the patient''s history of recent procedure, this may represent either a foreign body or possible therapeutic placement of a prosthesis. Normal bilateral lobes of the thyroid gland. Normal visualized pulmonary apices. Normal visualized paranasal sinuses. There is multilevel degenerative changes of the cervical spine. CT/Soft Tissue Neck WITH Contrast IMPRESSION: 7.5 mm x 3.1 mm well-defined radiopacity along the anterior aspect of the left trachea at the level of the cricoid cartilage as described. Clinical correlation is recommended with respect to the differential diagnosis of possible radiopaque foreign body versus interventional placement of a medical researcher. Electronically Signed: Kurt Rizvi MD at 14:25 EST ,
--- NOTE | 2021-04-24 13:06 | EDS_ITS ---
HPI History of Present Illness Chief Complaint: Sore Throat Narrative Narrative: Patient presents with difficulty swallowing, losing her voice, and throat pain that she has had for the last 2 days. She states she was at [facility] and had a procedure done. She has past medical history of lung carcinoma, and states that they were looking at her lungs/bronchoscopy. Over the last 1 to 2 days she developed hoarseness of her voice, pain with swallowing, but denies any fever or chills. She states it feels as if there is a foreign body in her throat. She called her doctor who told her that any symptoms of throat pain should have resolved by now. She was directed to the emergency department for further evaluation. She does take Eliquis. [facility] Medical History Acid reflux COPD (chronic obstructive pulmonary disease) COPD (chronic obstructive pulmonary disease) Emphysema lung Fibromyalgia Fibromyalgia GERD (gastroesophageal reflux disease) Goiter Hemorrhoids Hernia History of bladder cancer History of lung cancer Multiple thyroid nodules Right groin pain Right inguinal hernia Home Medications cholecalciferol (vitamin D3) 50 mcg (2,000 unit) capsule 5,000 unit PO QDAY 06/29/17 [History Last Taken 04/17/19] omeprazole 20 mg PO DAILY 04/16/19 [History Last Taken 03/20/20 07:00] oxybutynin chloride 15 mg PO DAILY 04/16/19 [History Last Taken 03/20/20 07:00] albuterol sulfate 90 mcg/actuation aerosol inhaler 2 puff INHALATION Q4H PRN g 03/04/20 [History Last Taken 03/20/20 07:00] melatonin 5 mg tablet 5 mg PO HS PRN 03/04/20 [History Last Taken Unknown] fluticasone furoate-vilanterol 1 ea IH DAILY 03/17/20 [History Last Taken Unknown] mometasone-formoterol 13 gm IH BID 03/17/20 [History Last Taken Unknown] triamcinolone acetonide [Aller-Javier] 1 spray NS PRN PRN 03/17/20 [History Last Taken Unknown] ascorbic acid (vitamin C) [Vitamin C] 2,000 mg PO DAILY 01/11/21 [History Last Taken Unknown] apixaban [Eliquis DVT-PE Treat 30D Start] 5 mg PO BID #74 tab 03/29/21 [Rx Last Taken Unknown] levofloxacin 750 mg PO DAILY #6 tab 03/29/21 [Rx Last Taken Unknown] Allergy/AdvReac Type Severity Reaction Status Date / Time umeclidinium AdvReac Mild blurred Verified 03/28/21 09:48 [From Anoro Ellipta] vision vilanterol AdvReac Mild blurred Verified 03/28/21 09:48 [From Anoro Ellipta] vision Family History Sister Hypertension Brother Hypertension Cancer throat and lung Father Cancer sarcoma Mother Cancer unsure type --all thru her Surgical History H/O: hysterectomy history laparoscopic right inguinal hernia repair (~03/20/20) History of appendectomy History of bilateral carpal tunnel release History of bilateral oophorectomy History of bladder repair surgery History of colonoscopy (~2017) History of lumpectomy of right breast S/P laparoscopic cholecystectomy S/P thyroid biopsy Social History Smoking Status: Former smoker alcohol intake: never ROS ROS ED ROS Narrative Constitutional: No fever, no chills. HEENT: Positive sore throat. Positive dysphagia. Foreign body sensation left side of throat. No neck pain. No loss of vision. No rhinorrhea. Hoarseness of voice. Cardiovascular: No chest pain. No palpitations. No pedal edema. Respiratory: Occasional cough secondary to throat pain, no shortness of breath. Abdominal: No abdominal pain. No nausea. No vomiting. Genitourinary: No dysuria. No hematuria. Musculoskeletal: No myalgias. No arthralgias. Neurologic: No headaches. No dizziness. No lightheadedness. Skin: No rash. No change in color. Psychiatric: No depression. No anxiety. EXAM Physical Exam Narrative Exam Narrative: Afebrile. Vital signs noted. HEENT: Normocephalic. Atraumatic. PERRL, EOMI. Neck soft and supple. No point tenderness or step off. Airway patent. No drooling or trismus. No pharyngeal erythema. Mild tenderness anterior neck. Cardiovascular: Regular rate and rhythm. No murmurs, rubs, or gallops appreciated. Respiratory: No tachypnea. Lungs clear to auscultation bilaterally. Gastrointestinal: Abdomen soft, nontender, with normoactive bowel sounds. No rebound or guarding. Neurological: Awake. Alert. Nonfocal, nonlateralizing. Skin: No rash. Normal color. No pallor. Musculoskeletal: No pedal edema. Full range of motion extremities. Const Vital Signs: 04/24/21 12:50 04/24/21 15:07 Temperature 97 F L Temperature Source Temporal Pulse Rate 102 H 91 Respiratory Rate 20 H 22 H Blood Pressure 132/76 H 159/71 H Blood Pressure Mean 94 100 Pulse Ox 95 92 Oxygen Delivery Method Room Air Room Air MDM MDM MDM Narrative Medical decision making narrative: Pulse ox is 95% on room air without evidence of hypoxia. I will obtain a CBC and a BMP so as to be able to obtain CT imaging of the soft tissue of the neck. She was bolused normal saline 1 L intravenously. She does have history of multiple thyroid nodules. Her laboratory work is grossly unremarkable, normal white count of 4.7, hemoglobin stable at 11.3. Normal platelet count. Chlorides slightly elevated 111 with a normal sodium of 140. Her CT of the soft tissue neck does show a 7.5 mm x 3.1 mm well-defined radiopacity on the anterior aspect of the left trachea at the level of the cricoid cartilage. Clinical correlation is recommended. 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 She had this device placed in the last year. Oth erwise, there is no acute process in her CT imaging. At this point in time, I do not feel that she has strep throat, but she has having hoarseness of her voice and painful swallowing/odynophagia. She was given Decadron 8 mg orally. 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 I feel she can be discharged safely home with follow-up. Return instructions to the emergency department were reviewed. Disposition is discharged home in stable condition. Lab Data Attestation: I reviewed the patient's lab results. Labs: Laboratory Results - last 24 hr 04/24/21 04/24/21 13:11 13:11 WBC 4.7 RBC 3.84 L Hgb 11.3 L Hct 36.5 L MCV 95.1 MCH 29.4 MCHC 31.0 L RDW Std Deviation 61.0 H RDW Coeff of Salena 17.5 H Plt Count 283 MPV 9.0 Immature Gran % (Auto) 0.200 Neut % (Auto) 63.1 Lymph % (Auto) 23.5 [place] % (Auto) 10.9 H Eos % (Auto) 1.7 Baso % (Auto) 0.6 Absolute Neuts (auto) 3.0 Absolute Lymphs (auto) 1.10 Nucleated RBC % 0 Sodium 140 Potassium 3.8 Chloride 111 H Carbon Dioxide 24.0 Anion Gap 5 BUN 11 Creatinine 0.68 Estim Creat Clear Calc 49.79 Est GFR (MDRD) Af Amer 109 Est GFR (MDRD) Non-Af 90 BUN/Creatinine Ratio 16.2 Glucose 106 Calcium 8.8 Radiography Diagnostic Testing: Clinical Impression(s) from Imaging Studies Soft Tissue Neck CT 04/24/21 13:04 IMPRESSION: 7.5 mm x 3.1 mm well-defined radiopacity along the anterior aspect of the left trachea at the level of the cricoid cartilage as described. Clinical correlation is recommended with respect to the differential diagnosis of possible radiopaque foreign body versus interventional placement of a medical office assistant instructor. Electronically Signed: Kurt Rizvi MD at 14:25 EST , Discharge Plan Triage Chief Complaint: Sore Throat ED Provider: Art Cook Dx/Rx/DC Orders Clinical Impression: Hoarseness of voice, Pain in throat Instructions: Self-Care for Sore Throats, ED Laryngitis, ED Pain, Acute, Uncertain Cause Prescriptions: No Action cholecalciferol (vitamin D3) 2,000 unit capsule 5,000 unit PO QDAY RF: 0 albuterol sulfate 90 mcg/actuation HFA aerosol inhaler 2 puff INHALATION Q4H PRN (Reason: COPD) RF: 0 melatonin 5 mg tablet 5 mg PO HS PRN (Reason: COPD) RF: 0 oxybutynin chloride 15 MG tablet extended release 24hr 15 mg PO DAILY RF: 0 omeprazole 20 MG tablet,delayed release (DR/EC) 20 mg PO DAILY RF: 0 triamcinolone acetonide [Aller-Javier] 1 SPRAY aerosol,spray 1 spray NS PRN PRN (Reason: DRYNESS) RF: 0 mometasone-formoterol 13 GM HFA aerosol inhaler 13 gm IH BID RF: 0 fluticasone furoate-vilanterol 1 EACH blister with device 1 ea IH DAILY RF: 0 ascorbic acid (vitamin C) [Vitamin C] 1,000 mg Tablet 2,000 mg PO DAILY RF: 0 levofloxacin 750 mg tablet 750 mg PO DAILY Qty: 6 RF: 0 Eliquis DVT-PE Treat 30D Start 5 mg (74 tabs) tablets,dose pack 5 mg PO BID Qty: 74 RF: 1 Primary Care Provider: Tea Fajardo NP Referrals: Jag Hartley MD [STAFF PHYSICIAN] - As soon as possible Tea Fajardo NP, MANAGER MANAGED CARE-C [Primary Care Provider] - Disposition Disposition: Home, Self Care
[2021-04-24] MEDS: 0.9% Normal Saline 1,000 ML 999 ML IV (13:17)
[2021-04-24 13:22] LABS: Basophil# 0.03 X10^3/uL; Basophil% 0.6 % (0-1); Eosinophil# 0.08 X10^3/uL; Eosinophils% 1.7 % (0-5); Hematocrit 36.5 % (37-47); Hemoglobin 11.3 g/dL (12.0-15.0); Lymphocyte % 23.5 % (19-41); Mean Corpuscular Hgb 29.4 pg (27.0-32.0); Mean Corpuscular Volume 95.1 fL (81-99); Monocyte# 0.51 X10^3/uL; Monocyte% 10.9 % (0-10); NRBC Flagged by Analyzer 0 % (0-5); Neutrophil # 2.95 X10^3/uL (2.7-7.7); Neutrophil % 63.1 % (47-70); Platelet Count 283 K/mm3 (150-450); RBC Distribution Width CV 17.5 % (11.6-14.6); Red Blood Count 3.84 M/mm3 (4.2-5.4); White Blood Count 4.7 K/mm3 (4.4-11.0)
[2021-04-24 13:35] LABS: Anion Gap 5 (5-15); BUN 11 mg/dL (7-18); BUN/Creat Ratio 16.2 RATIO (10-20); Calcium,Total 8.8 mg/dL (8.5-10.1); Chloride 111 mmol/L (98-107); Creatinine, Serum 0.68 mg/dL (0.55-1.02); EST Glomerular Filtration Rate 90 mL/min (>60); Est Glom Filt Rate - Afr Amer 109 mL/min (>60); Estimated Creatinine Clearance 49.79 ml/min; Glucose 106 mg/dL (74-106); Potassium 3.8 mmol/L (3.5-5.1); Sodium Level 140 mmol/L (136-145)
[2021-04-24 15:07] VITALS: BP 159/71; PULSE 91; RESP 22; O2SAT 92
[2021-04-24] MEDS: dexAMETHasone 4 MG Tablet 8 MG PO (15:41)
== END 2021-04-24 15:50 | disposition home or self-care (01) ==
PROVIDERS: Emergency Provider Emergency Medicine; PCP Registered Nurse; Visit Provider Emergency Medicine
DX: R49.0 Dysphonia (principal); J44.9 Chronic obstructive pulmonary disease, unspecified; J02.9 Acute pharyngitis, unspecified; R13.10 Dysphagia, unspecified; Z87.891 Personal history of nicotine dependence; Z85.118 Personal history of other malignant neoplasm of bronchus and lung; Z79.01 Long term (current) use of anticoagulants; M79.7 Fibromyalgia; Z85.51 Personal history of malignant neoplasm of bladder; K21.9 Gastro-esophageal reflux disease without esophagitis; Z79.899 Other long term (current) drug therapy
CPT/HCPCS: 70491; 80048; 85025; 96360; 99285; J7030; J7040; Q9967

== ENCOUNTER 2021-05-11 07:53 | Day surgery (SDC) | payer MEDICARE, SELFPAY ==
[2021-05-11] VITALS (7 sets, daily range): BP systolic 124–143; BP diastolic 70–87; PULSE 79–84; RESP 16; TEMP 36.6–37.2; O2SAT 90–96; BMI 27.1
[2021-05-11] MEDS: Lactated Ringers 1,000 ML 15 ML IV (09:04)
--- NOTE | 2021-05-11 09:08 | HP.PCM_ITS ---
History and Physical Date of Admission: 05/11/21 Intake Visit Reasons: port placement Chief Complaint: PORT PLACEMENT Clinical Care Coordinator Required: No Is patient in pain?: No Allergies umeclidinium [From Anoro Ellipta] Adverse Reaction (Mild, Verified 05/07/21 10:31) blurred vision vilanterol [From Anoro Ellipta] Adverse Reaction (Mild, Verified 05/07/21 10:31) blurred vision Medications cholecalciferol (vitamin D3) 50 mcg (2,000 unit) capsule 5,000 unit PO QDAY 06/29/17 [History Confirmed 05/07/21] omeprazole 20 mg PO DAILY 04/16/19 [History Confirmed 05/07/21] oxybutynin chloride 15 mg PO DAILY 04/16/19 [History Confirmed 05/07/21] albuterol sulfate 90 mcg/actuation aerosol inhaler 2 puff INHALATION Q4H PRN g 03/04/20 [History Confirmed 05/07/21] melatonin 5 mg tablet 5 mg PO HS PRN 03/04/20 [History Confirmed 05/07/21] fluticasone furoate-vilanterol 1 ea IH DAILY 03/17/20 [History Confirmed 05/07/21] mometasone-formoterol 13 g IH BID 03/17/20 [History Confirmed 05/07/21] triamcinolone acetonide [Aller-Javier] 1 spray NS PRN PRN 03/17/20 [History Confirmed 05/07/21] ascorbic acid (vitamin C) [Vitamin C] 2,000 mg PO DAILY 01/11/21 [History Confirmed 05/07/21] apixaban [Eliquis DVT-PE Treat 30D Start] 5 mg PO BID #74 tab 03/29/21 [Rx Confirmed 05/07/21] PFSH Medical History Acid reflux COPD (chronic obstructive pulmonary disease) COPD (chronic obstructive pulmonary disease) Emphysema lung Fibromyalgia Fibromyalgia GERD (gastroesophageal reflux disease) Goiter Hemorrhoids Hernia History of bladder cancer History of lung cancer Multiple thyroid nodules Right groin pain Right inguinal hernia Surgical History H/O: hysterectomy history laparoscopic right inguinal hernia repair (~03/20/20) History of appendectomy History of bilateral carpal tunnel release History of bilateral oophorectomy History of bladder repair surgery History of colonoscopy (~2018) History of lumpectomy of right breast S/P brain surgery S/P laparoscopic cholecystectomy S/P lobectomy of lung S/P thyroid biopsy Family History Sister Hypertension Brother Hypertension Cancer throat and lung Father Cancer sarcoma Mother Cancer unsure type --all thru her Social History Smoking Status: Former smoker alcohol intake: never HPI HPI HPI: MARK AIKEN, is a 76 F who presents to the office today for surgical consultation regarding placement of a port. Patient is referred by Dr. William Moura and a written copy of my surgical consult and recommendations will return to him. I have most recently assisted the patient on March 20, 2020 because of a symptomatic direct right inguinal hernia with a concomitant indirect right inguinal hernia and right femoral hernia and right obturator hernia performed laparoscopic repair of these multiple defects. She was recently hospitalized at the [facility] March 28, 2021. She had presented with shortness of breath. She has a history of lung cancer. There is evidence of a very small lower lobe segmental pulmonary embolism and left upper mid lobe infiltrate consistent with pneumonia. That time she was Covid negative. The patient was complaining of difficulty swallowing and was seen in the emergency room on April 24, 2021. CT scan of the neck was obtained. There was felt to be a 7.5 x 3.1 mm well-defined radiopacity along the anterior aspect of the left trachea at the level of the cricoid cartilage. This had not been seen prior March 28, 2021. Was not sure whether this represented a foreign body or medical writer. 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 She has brain metastasis and mediastinal metastasis. Apparently findings suggest possible urinary bladder origin from a previous bladder cancer. The patient is in need of IV access as her peripheral upper extremity access has been exhausted. She has had previous left upper lobe lung surgery. She has not had any previous central venous access devices/ports in place previously. ROS General General: Yes fatigue; No weight change, appetite, colon cancer, breast cancer or weakness HEENT HEENT: No difficulty swallowing, eye injury, eye surgery, swollen glands or hoarseness Endo Endocrine: No thyroid disease, diabetes mellitus, thyroid cancer, Hair loss, heat intolerance or cold intolerance Skin Skin: No rash or changing moles Breast Breast: No left breast lump, right breast lump, nipple discharge, breast pain, abnormal mammogram, abnormal US or breast enlargement Musc Musculoskeletal: Yes back problems; No arthritis, rheumatoid arthritis, gout or joint pain Cardio Cardiovascular: No murmur, pacemaker, heart disease, atrial fibrillation, high blood pressure, heart attack, heart stent, palpitations, shortness of breat with exertion or chest pain Psych Psychiatric: No depression, anxiety or hearing voices Resp Respiratory: Yes shortness of breath, No sleep apnea, Yes cough, No COPD, No asthma, No emphysema and No wheezing Gastro Gastrointestinal: No abdominal pain, No nausea or vomiting, No diarrhea, No constipation, No blood in stool, Yes acid reflux, No hemorrhoids, No ulcers, No gallbladder problem and No black,tarry stools Alexx Hematologic: Yes blood thinners, No blood disorders, No bleeding, No anemia and No blood clots Neuro Neurologic: No system reviewed and no additional complaints, except as documented, No as per HPI, No abnormal gait, No abnormal hearing, No abnormal movements, No abnormal speech, No behavioral changes, No burning sensations, No confusion, No convulsions, No disequilibrium, No dizziness, No localized weakn ess, No frequent falls, No headache(s), No lack of coordination, No loss of vision, No memory loss, No numbness, No other visual disturbances, No radicular pain, No restless legs, No sensory deficit, No syncope, No tingling, No tremor(s), No weakness and No other Exam Const General: cooperative, comfortable and no acute distress Nutritional Appearance: average body habitus Orientation: alert and awake [facility] Head: normal to inspection Other: Frontal scalp healed incision Eyes General: appearance normal, both eyes and all related structures Neck Neck: normal visual inspection Other: Healed transverse suprasternal incision Chest Other: Increased AP diameter Resp Other: Nonproductive coarse cough, reasonable inspiration bilaterally, clear on the right Cardio Rate: regular rate Rhythm: regular rhythm GI Palpation: soft and no hepatosplenomegaly Skin Other: Multiple areas of ecchymosis bilateral upper extremities Neuro General: patient alert and patient awake Extrem General: no calf tenderness Psych Appearance: grossly normal Assessment and Plan Assessment and Plan (1) Metastatic urothelial carcinoma: Status: Acute Plan - Dr. Kedar Quintero MD: To facilitate the patient's oncologic care I propose for her placement of a right internal jugular port. I have described the technique, benefit, risk, alternatives. She has had an opportunity ask no questions answered. We will have her hold her Eliquis 2 days preprocedure and the day of the procedure. Barring any complications hopefully she will be able to resume the Eliquis on postoperative day #1. She is aware of these recommendations currently. I appreciate the opportunity of assisting with her surgical care Copy: Dr. William Moura and Tea Fajardo WAREHOUSE ADMINISTRATOR Kedar Quintero M.D., F.A.C.S. I have re-examined the patient. There are no clinical changes since date of exam.
--- NOTE | 2021-05-11 09:52 | EX.PCM.DISCH ---
Discharge Instructions Procedure Port-A-Cath Diet Discharge Diet: No restrictions (Pain medication may cause nausea. You should typically eat light foods as you take your pain medication.) Activity Discharge Activity: Return to Normal Activity and May Shower (Leave the bandage on for 2-3 days. When you remove the bandage, leave the steri-strips intact until they fall off.) Additional Activity Instructions:: May not drive, work with heavy equipment, or sign legal documents for [address]. [address] if you are no longer taking narcotic pain medications. You may drive when you are no longer taking pain medications. Dressing / Incision Additional Dressing/Incision Instructions:: Leave the bandage on for 2-3 days. When you remove the bandage, leave the steri-strips intact until they fall off. Follow Up Care Please Follow Up With: Kedar Quintero MD Test Results: If you have any concerns please contact the office at [phone]. Discharge Plan Admission Primary Reason for Your Visit: Port Placement Attending Provider: Kedar Quintero Primary Care Provider: Tea Fajardo NP Discharge Orders/Prescriptions Prescriptions: New hydrocodone-acetaminophen 5-325 mg tablet 1 tab PO Q6H PRN (Reason: pain) 2 Days Qty: 5 RF: 0 Continued cholecalciferol (vitamin D3) 2,000 unit capsule 5,000 unit PO QDAY RF: 0 albuterol sulfate 90 mcg/actuation HFA aerosol inhaler 2 puff INHALATION Q4H PRN (Reason: COPD) RF: 0 melatonin 5 mg tablet 5 mg PO HS PRN (Reason: COPD) RF: 0 oxybutynin chloride 15 MG tablet extended release 24hr 15 mg PO DAILY RF: 0 omeprazole 20 MG tablet,delayed release (DR/EC) 20 mg PO DAILY RF: 0 triamcinolone acetonide [Aller-Javier] 1 SPRAY aerosol,spray 1 spray NS PRN PRN (Reason: DRYNESS) RF: 0 Eliquis DVT-PE Treat 30D Start 5 mg (74 tabs) tablets,dose pack 5 mg PO BID Qty: 74 RF: 1 Anoro Ellipta 62.5-25 mcg/actuation Blister With Device 1 inh INHALATION DAILY RF: 0 Referrals / Follow Up: Tea Fajardo NP, WORKERS COMPENSATION CLAIMS SPECIALIST-C [Primary Care Provider] - Disposition Disposition (needs filled in before D/C Order can be placed): Home, Self Care
[2021-05-11] MEDS: Cefazolin 2 GM in 0.9% Normal Saline 100 ML IV (09:54)
[2021-05-11] MEDS: Bupivacaine Mpf 0.5% 30 ML VIAL (10:15)
[2021-05-11] MEDS: Lidocaine 1% (20 ml mdv) 20 ML Vial INFILT (10:15)
--- NOTE | 2021-05-11 10:37 | OP.PCM_ITS ---
Problems Associated Problem List Diagnoses (1) Metastatic urothelial carcinoma: Report of Operation Date of Procedure: 05/11/21 Pre-Operative Diagnosis: Metastatic urothelial carcinoma Post-Operative Diagnosis: Same Surgery/Procedure Performed:: Right internal jugular 6 Indonesian PowerPort placement Reference [id number]; lot [id number]; expiry date 07/11/2022 Description of Surgical Findings:: Timeout and informed consent was obtained. 76-year-old female was taken to the operating place upon the table underwent monitored anesthesia care. Ancef 2 g were given intravenously. Clean proce dure. The neck and chest were sterilely prepped and draped. Under ultrasound guidance 1% lidocaine mixed 50-50 with 0.5% Marcaine was used as a local anesthetic. Throughout the procedure total 23 cc was used. Local was instilled and then a micropuncture needle was inserted and ultrasound guidance into the right internal jugular vein followed by Seldinger wire advancement micropuncture wire and then sheath. An 035 J-wire was placed. Fluoroscopy demonstrated good positioning. Then local was instilled down upon the right chest wall. A transverse incision was created. Electrocautery was used to make subcutaneous dissection for the port. The tubing was tunneled from the neck to the chest. Sheath dilator was placed over the wire the wire and dilator removed the catheter was advanced through the sheath the sheath was split. There appeared to be leftward deviation so I used a small amount of contrast material to assess the tip of the catheter. I then also placed an 035 angled Glidewire which demonstrated positioning in the ventricle and a brief amount of ventricular ectopy. This assured placement of the catheter tip. The catheter was then amputated to connected to the port secured with the port attachment device. The port was placed within the pocket and secured there with 2-0 silk. The port site was closed with interrupted 3-0 Vicryl subdermal stitch. The neck was closed with interrupted 5-0 Vicryl subdermal stitch. Steri-Strips Telfa OpSite dressings applied. The port was accessed with a Stubbs needle. It aspirated easily. It was flushed with 2.5 cc of heparin. Sponge and instrument and needle counts were reported to the surgeon to be correct. Blood loss was minimal. Specimens none. Drains none. The patient was taken to the recovery area in satisfactory addition without apparent complication. Stat portable chest x-ray is pending. Kedar Quintero M.D., F.A.C.S. Surgeon: Kedar Quintero Type of Anesthesia: Local MAC Anesthesiologist: Micki Sinha
--- NOTE | 2021-05-11 10:48 | RAD_ITS ---
STUDY: X-RAY CHEST REASON FOR EXAM: Female, 76 years old. Line placement TECHNIQUE: Single AP portable view of the chest. COMPARISON: Comparison is made with prior study dated 03/28/2021. FINDINGS: A right-sided portacatheter is seen. The tip is in the midportion of the superior vena cava. EKG electrodes are seen. There is hyperinflation of the lungs consistent with chronic obstructive lung disease (COPD). Stable mild increased markings at the lung bases suggestive of scarring. The patient is status post left upper lobectomy. There is no demonstrated pleural abnormality. Normal size heart. Normal mediastinum and torri. Normal visualized pulmonary arteries. There is atherosclerotic calcification of the aortic arch with tortuosity. There are diffuse degenerative changes of the visualized thoracic spine. Normal visualized ribs, clavicles, and shoulders. There is no demonstrated abnormality of the visualized soft tissue structures of the upper abdomen. RAD/CXR for Line Placement IMPRESSION: The tip of the right portacatheter is in the proximal portion of the superior vena cava. Stable mild increased markings at the lung bases suggestive of scarring. Electronically Signed: Kurt Rizvi MD at 11:28 EST ,
== END 2021-05-11 23:59 | disposition home or self-care (01) ==
LOC: SDC 07:54 → AC 07:55
PROVIDERS: PCP Registered Nurse; Referring Provider Surgery; Visit Provider Surgery
PROC: (CPT 36561; principal; 2021-05-11 09:45)
DX: Z45.2 Encounter for adjustment and management of vascular access device (principal); C78.1 Secondary malignant neoplasm of mediastinum; C79.31 Secondary malignant neoplasm of brain; C79.10 Secondary malignant neoplasm of unspecified urinary organs; C34.90 Malignant neoplasm of unspecified part of unspecified bronchus or lung; I26.99 Other pulmonary embolism without acute cor pulmonale; J43.9 Emphysema, unspecified; R13.10 Dysphagia, unspecified; K21.9 Gastro-esophageal reflux disease without esophagitis; M79.7 Fibromyalgia; Z87.891 Personal history of nicotine dependence; Z79.899 Other long term (current) drug therapy; Z79.01 Long term (current) use of anticoagulants; M19.90 Unspecified osteoarthritis, unspecified site; Z99.81 Dependence on supplemental oxygen
CPT/HCPCS: 36561; 00532; 71045; 77001; 87426; J7120; C1769; J2405

== ENCOUNTER 2021-08-20 19:50 | Inpatient (IN) | payer MEDICARE, SELFPAY ==
[2021-08-20 19:57] VITALS: BP 147/97; PULSE 87; RESP 18; TEMP 36.6; O2SAT 98; BMI 25.7
--- NOTE | 2021-08-20 20:21 | ED.VIS.BACK ---
HPI History of Present Illness Chief Complaint: Back Informant: patient Onset/Context/Timing Onset: Days Context: Gradual Onset Timing: Continuous Quality: Aching Location: Thoracic Worsened by: improves with Nothing Relieved by: Nothing Associated Symptoms Associated Symptoms: Numbness; Negative for Tingling, Radiation to Right Leg, Radiation to Left Leg, Abdominal Pain and Dysuria Narrative Narrative: Presents with back pain that became worse over the past several days. Patient had an MRI done today which shows metastatic disease to her spine. Patient was referred to the emergency department to be admitted to the hospital so that she could have emergent radiation treatment on her spine tomorrow. Patient describes her pain as aching. Patient states it is over the thoracic area. Patient states nothing makes it better nothing makes it worse. Patient admits to some numbness down her left leg in the posterior aspect of her left thigh and lower leg. Patient denies any weakness. Patient denies any pain down her leg. Patient denies any bowel or bladder changes. Patient denies any saddle anesthesia. Patient denies any dysuria. Patient states she is finishing up an antibiotic for urinary tract infection. Patient states that her oncologist called her in a prescription for dexamethasone that she is supposed to start taking tonight. [facility] Medical History Acid reflux Alcohol use Arthritis Back pain Bladder cancer Bladder disease Cancer Cancer of spinal column COPD (chronic obstructive pulmonary disease) COPD (chronic obstructive pulmonary disease) Emphysema lung Fibromyalgia Fibromyalgia Former smoker GERD (gastroesophageal reflux disease) Goiter Hemorrhoids Hernia History of bladder cancer History of echocardiogram History of edema History of lung cancer History of steroid therapy History of stress test History of voice disturbance Leg cramps Multiple thyroid nodules On home oxygen therapy Pulmonary embolism Right groin pain Right inguinal hernia Shortness of breath on exertion Syncope Wears dentures Wears glasses Wears partial dentures Home Medications cholecalciferol (vitamin D3) 50 mcg (2,000 unit) capsule 5,000 unit PO QDAY 06/29/17 [History Last Taken 05/11/21] omeprazole 40 mg PO DAILY 04/16/19 [History Last Taken 05/11/21] oxybutynin chloride 15 mg PO DAILY 04/16/19 [History Last Taken 05/11/21] albuterol sulfate 90 mcg/actuation aerosol inhaler 2 puff INHALATION Q4H PRN g 03/04/20 [History Last Taken 03/20/20 07:00] melatonin 5 mg tablet 5 mg PO HS PRN 03/04/20 [History Last Taken Unknown] Karen DVT-PE Treat 30D Start 5 mg PO BID #74 tab 03/29/21 [Rx Last Taken 05/08/21] Anoro Ellipta 1 inh INHALATION DAILY 05/08/21 [History Last Taken 05/11/21] cephalexin 1 PO BID 08/20/21 [History Last Taken 08/20/21 20:00] dexamethasone 8 mg PO BID 08/20/21 [History Last Taken 08/20/21 20:25] folic acid 1 mg PO DAILY 08/20/21 [History Last Taken Unknown] Allergy/AdvReac Type Severity Reaction Status Date / Time fluticasone furoate AdvReac Mild Other Verified 08/20/21 19:59 [From Breo Trip] Family History Sister Hypertension Brother Hypertension Cancer throat and lung Father Cancer sarcoma Mother Cancer unsure type --all thru her Surgical History H/O: hysterectomy history laparoscopic right inguinal hernia repair (~03/20/20) History of appendectomy History of bilateral carpal tunnel release History of bilateral oophorectomy History of bladder repair surgery History of colonoscopy (~2017) History of lumpectomy of right breast S/P brain surgery S/P laparoscopic cholecystectomy S/P lobectomy of lung S/P thyroid biopsy Social History Smoking Status: Former smoker alcohol intake: never ROS ROS ED Constitutional Constitutional ED: Denies chills or fever(s) Eyes Eyes: Denies blurry vision or change in vision ENT ENT ED: Reports sore throat; Denies rhinorrhea Cardiovascular Cardiovascular: Denies chest pain or palpitations Respiratory/Chest Respiratory/Chest: Reports dyspnea; Denies cough Gastrointestinal Gastrointestinal: Denies nausea or vomiting Genitourinary Genitourinary ED: Denies dysuria or hematuria Musculoskeletal Musculoskeletal: Reports back pain; Denies neck pain Integumentary Denies abscess or rash Neurologic Neurologic: Reports headache(s); Denies weakness Allergic/Immunologic Allergic/Immunologic ED: Denies mouth swelling or urticaria EXAM Physical Exam Const Vital Signs: 08/20/21 19:57 Temperature 97.9 F Temperature Source Temporal Pulse Rate 87 Respiratory Rate 18 Blood Pressure 147/97 H Blood Pressure Mean 113 Pulse Ox 98 Oxygen Delivery Method Room Air Positive well nourished and well developed General Appearance ED: well developed and NAD HEENT Reports moist mucous membranes Neck supple and no JVD Resp normal respiratory effort and clear to auscultation bilaterally Cardio regular rate, regular rhythm and no murmurs GI normal to inspection, nondistended, normoactive bowel sounds and non-tender Palpation: soft Extremity normal to inspection General Extremety ED: Negative for edema or tenderness General Extremity: Negative for edema Neuro oriented x3, CN's II-XII intact bilaterally and no sensory deficits noted Sensorium / Orientation: alert Motor Exam: strength 5/5 throughout Psych mental status grossly normal Skin no rashes or lesions noted MDM MDM MDM Narrative Medical decision making narrative: Patient picked up her prescription for her Decadron prior to coming to the emergency department tonight. Patient took her prescription as prescribed. CBC shows a mild anemia with a hemoglobin of 9.0 and hematocrit of 28.6. Comprehensive metabolic profile was within normal limits. Case was discussed with the hospitalist. We will admit the patient to his service. Patient understood and was agreeable with the plan. All questions were answered. Lab Data Attestation: I reviewed the patient's lab results. Labs: Laboratory Results - last 24 hr 08/20/21 08/20/21 20:50 20:50 WBC 4.6 RBC 3.01 L Hgb 9.0 L Hct 28.6 L MCV 95.0 MCH 29.9 MCHC 31.5 L RDW Std Deviation 68.5 H RDW Coeff of Salena 19.8 H Plt Count 229 MPV 8.6 Immature Gran % (Auto) 0.200 Neut % (Auto) 71.2 H Lymph % (Auto) 12.8 L Stephenson % (Auto) 14.3 H Eos % (Auto) 1.3 Baso % (Auto) 0.2 Absolute Neuts (auto) 3.3 Absolute Lymphs (auto) 0.59 L Nucleated RBC % 0 Sodium 138 Potassium 3.5 Chloride 105 Carbon Dioxide 27.0 Anion Gap 6 BUN 14 Creatinine 1.01 Estim Creat Clear Calc 49.30 Est GFR (MDRD) Af Amer 69 Est GFR (MDRD) Non-Af 57 L BUN/Creatinine Ratio 13.9 Glucose 106 Calcium 9.2 Total Bilirubin 0.50 AST 15 ALT 19 Alkaline Phosphatase 60 Total Protein 6.7 Albumin 3.6 Globulin 3.1 Albumin/Globulin Ratio 1.2 Discharge Plan Triage Chief Complaint: Back ED Provider: Jose Angel Weiss Dx/Rx/DC Orders Clinical Impression: Metastatic urothelial carcinoma, Anemia Prescriptions: No Action cholecalciferol (vitamin D3) 2,000 unit capsule 5,000 unit PO QDAY RF: 0 albuterol sulfate 90 mcg/actuation HFA aerosol inhaler 2 puff INHALATION Q4H PRN (Reason: COPD) RF: 0 melatonin 5 mg tablet 5 mg PO HS PRN (Reason: COPD) RF: 0 oxybutynin chloride 15 MG tablet extended release 24hr 15 mg PO DAILY RF: 0 omeprazole 20 MG tablet,delayed release (DR/EC) 40 mg PO DAILY RF: 0 Eliquis DVT-PE Treat 30D Start 5 mg (74 tabs) tablets,dose pack 5 mg PO BID Qty: 74 RF: 1 Anoro Ellipta 62.5-25 mcg/actuation Blister With Device 1 inh INHALATION DAILY RF: 0 cephalexin 500 mg capsule 1 PO BID RF: 0 dexamethasone 4 mg Tablet 8 mg PO BID RF: 0 folic acid 1 mg Tablet 1 mg PO DAILY RF: 0 Primary Care Provider: Tea Fajardo NP Referrals: Tea Fajardo NP, OPERATIONS SUPPORT COORDINATOR-C [Primary Care Provider] - Disposition Disposition: Acute Care Hospital [facility]
[2021-08-20 20:57] LABS: Absolute Lymphocyte Count 0.59 X10^3/uL (0.83-4.51); Absolute Neutrophil Count 3.3 X10^3/uL (2.0-7.7); Basophil# 0.01 X10^3/uL; Basophil% 0.2 % (0-1); Eosinophil# 0.06 X10^3/uL; Eosinophils% 1.3 % (0-5); Hematocrit 28.6 % (37-47); Lymphocyte # 0.59 X10^3/ul (0.83-4.51); Lymphocyte % 12.8 % (19-41); Mean Corp Hgb Conc 31.5 g/dL (32-36); Mean Corpuscular Hgb 29.9 pg (27.0-32.0); Mean Platelet Vol. 8.6 fl (6.2-12.0); Monocyte# 0.66 X10^3/uL; Monocyte% 14.3 % (0-10); NRBC Flagged by Analyzer 0 % (0-5); Neutrophil # 3.27 X10^3/uL (2.7-7.7); Neutrophil % 71.2 % (47-70); POSITIVE DIFFERENTIAL YES; POSITIVE MORPHOLOGY YES; Platelet Count 229 K/mm3 (150-450); RBC Distribution Width CV 19.8 % (11.6-14.6); RBC Distribution Width SD 68.5 fl (35.1-43.9); Red Blood Count 3.01 M/mm3 (4.2-5.4); White Blood Count 4.6 K/mm3 (4.4-11.0)
[2021-08-20 21:22] LABS: ALB/GLOB Ratio 1.2 RATIO (0.9-2.4); AST(SGOT) 15 U/L (15-37); Alanine Aminotransfer ALT/SGPT 19 U/L (13-56); Albumin, Serum 3.6 g/dL (3.2-5.0); Alkaline Phosphatase 60 U/L (45-117); Anion Gap 6 (5-15); BUN 14 mg/dL (7-18); BUN/Creat Ratio 13.9 RATIO (10-20); Calcium,Total 9.2 mg/dL (8.5-10.1); Chloride 105 mmol/L (98-107); Creatinine, Serum 1.01 mg/dL (0.55-1.02); EST Glomerular Filtration Rate 57 mL/min (>60); Est Glom Filt Rate - Afr Amer 69 mL/min (>60); Globulin 3.1 g/dL (2.2-4.2); Glucose 106 mg/dL (74-106); Potassium 3.5 mmol/L (3.5-5.1); Protein, Total 6.7 g/dL (6.4-8.2); Sodium Level 138 mmol/L (136-145)
[2021-08-20 21:29] LABS: Differential Indicated SCAN CRITERIA MET
--- NOTE | 2021-08-20 22:08 | HP.PCM.HOS_ITS ---
HPI - General General Date of Admission: 08/20/21 HPI Narrative MARK AIKEN, is a 76 F with a significant history of metastatic bladder cancer who was sent to the emergency department for inpatient admission for emergency radiation to her spine secondary to abnormal MRI of her spine. Of note patient has had numbness to her left leg about 3 days prior to presentation. She completed last radiation to her brain on the same day of presentation. Because of the numbness to her left leg and MRI was done at [facility]. 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 She reports a weakness to her left leg. She report that on the same day of presentation she fell at [facility]. She attributes the fall to weakness. Also patient reports pain to her middle back that worsened about 2 days ago. She report history of this middle back pain on and off for over a year. She denies any bowel or bladder incontinence or constipation. She was started on Decadron on the same day of presentation. She is on antib iotics for UTI with 2 more doses left. She denies any urinary symptoms at this time. She reports that the bladder cancer spread to her lungs and so she had lung surgery to her left lung. Also she reports brain surgery secondary to metastatic cancer to her brain. She has a history of a PE and is on Eliquis [facility] Medical History Acid reflux Alcohol use Arthritis Back pain Bladder cancer Bladder disease Cancer Cancer of spinal column COPD (chronic obstructive pulmonary disease) COPD (chronic obstructive pulmonary disease) Emphysema lung Fibromyalgia Fibromyalgia Former smoker GERD (gastroesophageal reflux disease) Goiter Hemorrhoids Hernia History of bladder cancer History of echocardiogram History of edema History of lung cancer History of steroid therapy History of stress test History of voice disturbance Leg cramps Multiple thyroid nodules On home oxygen therapy Pulmonary embolism Right groin pain Right inguinal hernia Shortness of breath on exertion Syncope Wears dentures Wears glasses Wears partial dentures Home Medications cholecalciferol (vitamin D3) 50 mcg (2,000 unit) capsule 5,000 unit PO QDAY 06/29/17 [History Last Taken 05/11/21] omeprazole 40 mg PO DAILY 04/16/19 [History Last Taken 05/11/21] oxybutynin chloride 15 mg PO DAILY 04/16/19 [History Last Taken 05/11/21] albuterol sulfate 90 mcg/actuation aerosol inhaler 2 puff INHALATION Q4H PRN g 03/04/20 [History Last Taken 03/20/20 07:00] melatonin 5 mg tablet 5 mg PO HS PRN 03/04/20 [History Last Taken Unknown] Eliquis DVT-PE Treat 30D Start 5 mg PO BID #74 tab 03/29/21 [Rx Last Taken 05/08/21] Anoro Ellipta 1 inh INHALATION DAILY 05/08/21 [History Last Taken 05/11/21] cephalexin 1 PO BID 08/20/21 [History Last Taken 08/20/21 20:00] dexamethasone 8 mg PO BID 08/20/21 [History Last Taken 08/20/21 20:25] folic acid 1 mg PO DAILY 08/20/21 [History Last Taken Unknown] Allergy/AdvReac Type Severity Reaction Status Date / Time fluticasone furoate AdvReac Mild Other Verified 08/20/21 19:59 [From Breo Ellipta] Family History Sister Hypertension Brother Hypertension Cancer throat and lung Father Cancer sarcoma Mother Cancer unsure type --all thru her Surgical History H/O: hysterectomy history laparoscopic right inguinal hernia repair (~03/20/20) History of appendectomy History of bilateral carpal tunnel release History of bilateral oophorectomy History of bladder repair surgery History of colonoscopy (~2017) History of lumpectomy of right breast S/P brain surgery S/P laparoscopic cholecystectomy S/P lobectomy of lung S/P thyroid biopsy Social History Smoking Status: Former smoker alcohol intake: never ROS ROS Narrative Pertinent positives and pertinent negatives as noted in HPI. All other systems were reviewed and are negative. Vital Signs Vital Signs Vital Signs: 08/20/21 19:57 Temperature 97.9 F Temperature Source Temporal Pulse Rate 87 Respiratory Rate 18 Blood Pressure 147/97 H Blood Pressure Mean 113 Pulse Ox 98 Oxygen Delivery Method Room Air Weight Weight: 76.657 kg Body Mass Index (BMI) 25.7 Physical Exam Narrative Physical exam: General: Well-nourished, well-developed. Head: Normocephalic, atraumatic, no tenderness Eyes: Vision is grossly intact. EOMI ENT, no trauma, moist mucous membranes, no rhinorrhea Neck: Nontender, full range of motion CVS: Regular rate and rhythm. S1-S2 present. No murmur, gallop or rub. Respiratory : clear to auscultation bilaterally, chest wall nontender, no wheezing Abdomen: Soft, nontender, nondistended, normal bowel sounds, no masses : Deferred Back: Nontender, no CVA tenderness Extremities: Nontender full range of motion, no trauma Skin: Normal color, no trauma, abrasions Neuro: Alert, oriented, cranial nerves II through XII grossly intact. Psychiatry: Normal mood. Normal affect. Not depressed. Not anxious. Results Lab / Micro Data Result Diagrams: 08/20/21 20:50 08/20/21 20:50 Labs: Laboratory Results - last 24 hr 08/20/21 20:50: WBC 4.6, RBC 3.01 L, Hgb 9.0 L, Hct 28.6 L, MCV 95.0, MCH 29.9, MCHC 31.5 L, RDW Std Deviation 68.5 H, RDW Coeff of Salena 19.8 H, Plt Count 229, MPV 8.6, Immature Gran % (Auto) 0.200, Neut % (Auto) 71.2 H, Lymph % (Auto) 12.8 L, Camp % (Auto) 14.3 H, Eos % (Auto) 1.3, Baso % (Auto) 0.2, Absolute Neuts (auto) 3.3, Absolute Lymphs (auto) 0.59 L, Nucleated RBC % 0 08/20/21 20:50: Sodium 138, Potassium 3.5, Chloride 105, Carbon Dioxide 27.0, Anion Gap 6, BUN 14, Creatinine 1.01, Estim Creat Clear Calc 49.30, Est GFR (MDRD) Af Amer 69, Est GFR (MDRD) Non-Af 57 L, BUN/Creatinine Ratio 13.9, Glucose 106, Calcium 9.2, Total Bilirubin 0.50, AST 15, ALT 19, Alkaline Phosphatase 60, Total Protein 6.7, Albumin 3.6, Globulin 3.1, Albumin/Globulin Ratio 1.2 Assessment & Plan Assessment/Plan (1) Metastatic urothelial carcinoma: (2) Spine metastasis: PLAN: 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 Impression from radiologist is as below: Numerous intradural enhancing lesions throughout the cervical and thoracic spinal column including multiple lesions with intramedullary components involving the spinal cord. The most significant lesions at C5, T3, T9 and T11 levels. There is spinal cord edema associated with these 4 lesions. But there are numerous other smaller intramedullary and extramedullary lesions. Negative for osseous metastatic disease, fracture, epidural tumor, or extrinsic spinal cord compression. Decadron continued. Radiologist oncologist consulted Elevated blood pressure without diagnosis of hypertension Noted to have some elevation in blood pressure. With steroids anticipate blood pressure will remain high. Trend blood pressures. Acute on chronic anemia Likely secondary to radiation. Trend CKD stage II Stable. DVT prophylaxis: Home Eliquis for PE continue Charges/Coding Visit Charges OBSV E&M: 99711 Initial observation care L3
[2021-08-20 22:41] LABS: Anisocytosis 1+; Differential Comment SCANNED
[2021-08-20 22:56] VITALS: BP 147/97; PULSE 87; RESP 18; TEMP 36.6; O2SAT 98
[2021-08-20 23:20] VITALS: BP 130/85; PULSE 95; RESP 18; TEMP 36.8; O2SAT 95
[2021-08-20 23:22] VITALS: BMI 25.0
[2021-08-21 03:00] VITALS: BP 111/61; PULSE 81; RESP 16; TEMP 36.8; O2SAT 94
--- NOTE | 2021-08-21 07:45 | PN.HOSP_ITS ---
Subjective Subjective Still with weakness and numbness on LLE. Objective Data Objective Data Vital Signs: Vital Signs Temp Pulse Resp BP Pulse Ox 36.8 C 81 16 111/61 94 08/21/21 03:00 08/21/21 03:00 08/21/21 03:00 08/21/21 03:00 08/21/21 03:00 Oxygen Delivery Method Room Air Weight: 74.525 kg Body Mass Index (BMI) 25.0 Lab / Micro Data Result Diagrams: 08/20/21 20:50 08/20/21 20:50 Labs: Laboratory Results - last 24 hr 08/20/21 20:50: WBC 4.6, RBC 3.01 L, Hgb 9.0 L, Hct 28.6 L, MCV 95.0, MCH 29.9, MCHC 31.5 L, RDW Std Deviation 68.5 H, RDW Coeff of Salena 19.8 H, Plt Count 229, MPV 8.6, Immature Gran % (Auto) 0.200, Neut % (Auto) 71.2 H, Lymph % (Auto) 12.8 L, Sharkey % (Auto) 14.3 H, Eos % (Auto) 1.3, Baso % (Auto) 0.2, Absolute Neuts (auto) 3.3, Absolute Lymphs (auto) 0.59 L, Nucleated RBC % 0, Differential Comment SCANNED, Anisocytosis 1+ 08/20/21 20:50: Sodium 138, Potassium 3.5, Chloride 105, Carbon Dioxide 27.0, Anion Gap 6, BUN 14, Creatinine 1.01, Estim Creat Clear Calc 49.30, Est GFR (MDRD) Af Amer 69, Est GFR (MDRD) Non-Af 57 L, BUN/Creatinine Ratio 13.9, Glucose 106, Calcium 9.2, Total Bilirubin 0.50, AST 15, ALT 19, Alkaline Phosphatase 60, Total Protein 6.7, Albumin 3.6, Globulin 3.1, Albumin/Globulin Ratio 1.2 Physical Exam Const alert and no apparent distress Resp normal respiratory effort, no retractions, no use of accessory muscles and clear to auscultation bilaterally Cardio regular rate, regular rhythm, S1 normal heart sound and S2 normal heart sound GI normal to inspection, nondistended, normoactive bowel sounds, soft to palpation, non-tender and non-distended Extremity normal to inspection Neuro Neuro Narrative: MS 4/4 in LLE. Diminished sensation on left LE laterally and posteriorly. Assessment & Plan Assessment/Plan (1) Metastatic urothelial carcinoma: (2) Spine metastasis: PLAN: 1. Spinal metastasis * 2/2 underlying malignancy. Pt has either a Metastatic urothelial carcinoma to spine or from underlying lung CA. * JAZMIN Cedeño. He expressed concern about the pts prior h/o chest radiation and recommended transfer back to [facility] in case neurosurgery would be necessary (earlier, I asked the patient if she would be willing to have neurosurgery, if necessary. She said she would. * JAZMIN Moura and was surprised to find pt admitted here. He also recommends transfer to [facility]. * Pt said she was told to come here by Dr. Ravindra Moyer at [facility] * Pt made aware of Drs. Cedeño and Zeny's recommendations. She initially did not want to be transferred. I informed that she did not, but if she stayed, she may not have a radiation oncologist who is comfortable treating. * MRI spine thoracic with and without contrast was reviewed. Impression from radiologist is as below: * Numerous intradural enhancing lesions throughout the cervical and thoracic spinal column including multiple lesions with intramedullary components involving the spinal cord. * The most significant lesions at C5, T3, T9 and T11 levels. There is spinal cord edema associated with these 4 lesions. But there are numerous other smaller intramedullary and extramedullary lesions. * Negative for osseous metastatic disease, fracture, epidural tumor, or extrinsic spinal cord compression. * Decadron continued. 2. Elevated blood pressure * without diagnosis of hypertension * Noted to have some elevation in blood pressure. With steroids anticipate blood pressure will remain high. Trend blood pressures. 3. Acute on chronic anemia Likely secondary to radiation. Trend 4. CKD stage II Stable. 5. DVT prophylaxis: Home Eliquis for PE continue I called [facility] transfer line and gave them information. They told me it would be 3 to 6 days for the patient to be transferred. Informed the person that this patient could be paralyzed and in the meantime and recommended that she reach out to Dr. Moyer who ordered the MRI and instructed the patient to come to our institution for radiation treatment. Currently I am waiting to hear back. Greater than 50 minutes of which greater than for present time was discussing with specialists, discussing with the transfer number at [facility] and discussing with the patient about the recommendations. Charges/Coding Visit Charges Inpatient E&M: 15420 Subs Hosp L3
[2021-08-21 08:07] VITALS: BP 124/86; PULSE 103; RESP 20; TEMP 36.8; O2SAT 97
[2021-08-21 08:10] VITALS: PULSE 103
--- NOTE | 2021-08-21 08:36 | NURSING ---
This nurse explained and educated on calling for assistance and not getting up on her own. Pt Alert and oriented x3 and states she will call. Bed exit alarm on.
--- NOTE | 2021-08-21 10:42 | NURSING ---
Off the floor at this time. Went via WC with her son to the [facility] to see Dr. Gleason.
--- NOTE | 2021-08-21 11:00 | PCM.CONS.GEN ---
Assessment & Plan Assessment/Plan (1) Spine metastasis: PLAN: The situation has been discussed with João Collins, Rosibel and Karishma. There is some concern regarding further treatment to the thoracic spine in view of the previous therapy, but the associated treatment plan will be reviewed and it is felt that the spinal cord dose delivered 2 years ago may not preclude palliative radiation therapy to the thoracic spine at this time will be tolerable, particularly in view of the patient's prognosis. This has been discussed with the patient and her son at the time of today's consultation and will be reviewed with them early next week at which time CT simulation will be performed. Thank you for allowing me to participate in the care of this very nice lady. HPI Consult Data Date of Consult: 08/21/21 HPI Narrative HPI Narrative: MARK AIKEN, is a 76 year-old F who presents with a diagnosis of metastatic carcinoma of the bladder involving spinal cord and epidural structures in the cervical and upper thoracic spine. Previous radiation therapy treatment for metastatic urothelial tumor involving the brain, completed yesterday; the patient had had superficial bladder cancer treated with BCG infusions until 2013 and had had negative cystoscopies since that time. The patient reports that she also had pre-operative chemo-radiation therapy to the left upper chest and to the central chest (mediastinum); a dose of 4500 cGy was delivered to the left lung/mediastinum in 25 fractions over 34 days, completing on 07/23/2019 for non-small cell lung cancer (adenocarcinoma), T1b, N2, M0, stage IIIA. (Dosimetry records of that treatment have been requested and will be forwarded to [facility]). Thoracotomy was carried out showing a small residual tumor and with negative mediastinal nodes. Somewhat less than a month ago, the patient noticed weakness of the legs more on the left than on the right and numbness of the left buttock around the anal area on the left with extension down the outside and back of the leg to the level of the toes. This progressed. She was having whole brain radiation with hippocampal sparing and, because of the symptoms, a pre and post contrast MRI of the lumbar spine was obtained on 08/18/2021 showing at least 3 contrast enhancing lesions along the surface of the conus and cauda equina nerve roots consistent with leptomeningeal metastases. Similar imaging of the thoracic and cervical spine was obtained on 08/20/2021, showing numerous intradural enhancing lesions throughout the cervical and thoracic spinal column including multiple lesions with intramedullary components involving the spinal cord with the most significant lesions at C5, T3, T9 and T11 spinal cord edema was associated with those particular lesions. There has been no incontinence of stool. The patient has had a recurrent UTI and the most recent one has been treated with antibiotics, completing today. There is some frequency and nocturia with mild stress incontinence but no retention of urine. Currently, the patient has been receiving combination chemotherapy for her non-small cell lung cancer which had recurred and a posterior tracheal node, proven on biopsy on 04/22/2021. The patient is seen today for radiotherapeutic evaluation. [facility] Medical History Acid reflux Alcohol use Arthritis Back pain Bladder cancer Bladder disease Cancer Cancer of spinal column COPD (chronic obstructive pulmonary disease) COPD (chronic obstructive pulmonary disease) Emphysema lung Fibromyalgia Fibromyalgia Former smoker GERD (gastroesophageal reflux disease) Goiter Hemorrhoids Hernia History of bladder cancer History of echocardiogram History of edema History of lung cancer History of steroid therapy History of stress test History of voice disturbance Leg cramps Multiple thyroid nodules On home oxygen therapy Pulmonary embolism Right groin pain Right inguinal hernia Shortness of breath on exertion Syncope Wears dentures Wears glasses Wears partial dentures Home Medications cholecalciferol (vitamin D3) 50 mcg (2,000 unit) capsule 5,000 unit PO QDAY 06/29/17 [History Last Taken 05/11/21] omeprazole 40 mg PO DAILY 04/16/19 [History Last Taken 05/11/21] oxybutynin chloride 15 mg PO DAILY 04/16/19 [History Last Taken 05/11/21] albuterol sulfate 90 mcg/actuation aerosol inhaler 2 puff INHALATION Q4H PRN g 03/04/20 [History Last Taken 03/20/20 07:00] melatonin 5 mg tablet 5 mg PO HS PRN 03/04/20 [History Last Taken Unknown] Eliquis DVT-PE Treat 30D Start 5 mg PO BID #74 tab 03/29/21 [Rx Last Taken 05/08/21] Anoro Ellipta 1 inh INHALATION DAILY 05/08/21 [History Last Taken 05/11/21] cephalexin 1 PO BID 08/20/21 [History Last Taken 08/20/21 20:00] dexamethasone 8 mg PO BID 08/20/21 [History Last Taken 08/20/21 20:25] folic acid 1 mg PO DAILY 08/20/21 [History Last Taken Unknown] Allergy/AdvReac Type Severity Reaction Status Date / Time fluticasone furoate AdvReac Mild Other Verified 08/21/21 10:55 [From Honorio Dominique] Family History Sister Hypertension Brother Hypertension Cancer throat and lung Father Cancer sarcoma Mother Cancer unsure type --all thru her Surgical History H/O: hysterectomy history laparoscopic right inguinal hernia repair (~03/20/20) History of appendectomy History of bilateral carpal tunnel release History of bilateral oophorectomy History of bladder repair surgery History of colonoscopy (~2017) History of lumpectomy of right breast S/P brain surgery S/P laparoscopic cholecystectomy S/P lobectomy of lung S/P thyroid biopsy Social History Smoking Status: Former smoker alcohol intake: never ROS Constitutional Constitutional: Reports body ache(s), fatigue, poor appetite, weakness and weight loss Eyes Eyes: Reports systems reviewed and no addt'l complaints, except as documented Cardiovascular Cardiovascular: Reports dyspnea on exertion and palpitations Respiratory/Chest Respiratory/Chest: Reports cough and productive cough Gastrointestinal Gastrointestinal: Reports dyspepsia, early satiety and heartburn Musculoskeletal Musculoskeletal: Reports as per HPI, difficulty walking, muscle weakness and numbness Integumentary Integumentary: Reports systems reviewed and no addt'l complaints, except as documented Neurologic Neurologic: Reports as per HPI, disequilibrium, numbness and weakness Psychiatric Psychiatric: Reports systems reviewed and no addt'l complaints, except as documented Allergic/Immunologic Allergic/Immunologic: Reports systems reviewed and no addt'l complaints, except as documented Physical Exam Const Constitutional Narrative: Fairly well nourished female in some discomfort and with some memory problems related to her history. Exam Limitations: physical limitations Nutritional Appearance: underweight HEENT normocephalic, head/scalp atraumatic and moist oral mucous membranes Face and Sinus: normal facial exam and face symmetric External Ear: external ears normal and no preauricular adenopathy Mouth: oral and palatal mucosa normal Eyes PERRL Neck full ROM Neck Narrative: Prominent left submandibular gland, smooth with no nodularity Lymph Lymphatic: no lymphadenopathy noted Chest inspection of breasts normal Breast/Axilla Inspection: abnormal inspection of the breast Resp Resp Narrative: Clear to percussion and auscultation Cardio Cardio Narrative: Suggestion of systolic murmur. Prominent second sound. GI soft to palpation, non-tender, non-distended and no masses Back/Spine Back/Spine Narrative: No spinal tenderness. There is some tenderness of the left sacroiliac area, the left fifth and sixth posterior ribs, the right anterior fifth and sixth ribs and the left fifth rib Extremity Extremity Narrative: There is fairly marked tenderness of the right femur at the junction of its upper and middle thirds. Skin no rashes or lesions noted Neuro Neuro Narrative: No cranial nerve deficits noted. No upper extremity weakness. There is some weakness of the left lower extremity, particularly at the ankle. No weakness identified in the right lower extremity. (Note: The patient is receiving dexamethasone) rectal examination reveals some reduction of anal tone. There is numbness of the left buttock extending to the left side of the anus and into the left lower extremity laterally and posteriorly to the level of the foot. Psych mental status grossly normal Lab / Micro Data Result Diagrams: 08/20/21 20:50 08/20/21 20:50 Labs: Laboratory Results - last 24 hr 08/20/21 20:50: WBC 4.6, RBC 3.01 L, Hgb 9.0 L, Hct 28.6 L, MCV 95.0, MCH 29.9, MCHC 31.5 L, RDW Std Deviation 68.5 H, RDW Coeff of Salena 19.8 H, Plt Count 229, MPV 8.6, Immature Gran % (Auto) 0.200, Neut % (Auto) 71.2 H, Lymph % (Auto) 12.8 L, [place] % (Auto) 14.3 H, Eos % (Auto) 1.3, Baso % (Auto) 0.2, Absolute Neuts (auto) 3.3, Absolute Lymphs (auto) 0.59 L, Nucleated RBC % 0, Differential Comment SCANNED, Anisocytosis 1+ 08/20/21 20:50: Sodium 138, Potassium 3.5, Chloride 105, Carbon Dioxide 27.0, Anion Gap 6, BUN 14, Creatinine 1.01, Estim Creat Clear Calc 49.30, Est GFR (MDRD) Af Amer 69, Est GFR (MDRD) Non-Af 57 L, BUN/Creatinine Ratio 13.9, Glucose 106, Calcium 9.2, Total Bilirubin 0.50, AST 15, ALT 19, Alkaline Phosphatase 60, Total Protein 6.7, Albumin 3.6, Globulin 3.1, Albumin/Globulin Ratio 1.2 Charges/Coding Visit Charges Office Visits / Consults: 58035 IP Consult L4
[2021-08-21 14:07] VITALS: BP 144/81; PULSE 94; RESP 16; TEMP 36.8; O2SAT 95
--- NOTE | 2021-08-21 14:47 | ONC.CONSULT ---
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 -Recent local regional recurrence of non-small cell lung cancer. Responding to blackfeet doublet chemotherapy with immunotherapy. -Current symptom of left buttock and leg numbness. -Patient understands disease is noncurable and all efforts at this point are palliative in nature. Plan: -Agree with IV steroids. Would consider increasing dose to 6 mg IV every 6 hours. -MRI lumbar spine. 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 -Could consider discharge home if no progression of neurologic symptoms and she has some improvement by Tuesday. -I will follow-up with her as an outpatient. HPI Consult Data Date of Service:: 08/21/21 PCP / Referring Provider: PRETTY Rodríguez Attending: Dr. Jose Angel Schwarz DO Chief Complaint Chief Complaint: Leptomeningeal metastases. History of Present Illness History of Present Illness: Diagnosis: 1) Metastatic recurrence of stage IIIA non-small cell carcinoma. 2) Brain metastases potentially from urothelial carcinoma. 3) PE. ? HPI: The patient is a 76-year-old female former smoker (quit ~2007) with a past medical history significant for fibromyalgia, reflux, bladder cancer (evaluated for gross hematuria and diagnosed with CIS on 04/2013--received BCG), nodular goiter, COPD and osteoporosis who underwent evaluation for a cough in March. ? Evidently was to have surveillance cystoscopy done around the second week of March 2019 the procedure was canceled due to UTI. She was treated with ciprofloxacin. ? Patient had chest x-ray 03/27/2019 that demonstrated a new nodular opacity in the left upper lung medially. ? CT chest 04/06/2019: Lung parenchyma and pleura: ?There is emphysema with mild, diffuse bronchiectasis. ?There is mild biapical fibrosis. ?There is a spiculated density seen within the left apex, measuring approximately 2.2 x 1.8 cm, corresponding to the abnormality seen on prior chest radiograph (series 5, image #33). ?There are subcentimeter indeterminate pulmonary nodules. ? For example, there is an indeterminate, approximately 6 mm triangular shaped nodule seen within the anterior segment of the left upper lobe (series 5, image #105). There is an indeterminate, approximately 4 mm nodule seen within left lower lobe (series 5, image #152). ?Other subcentimeter indeterminate pulmonary nodules are also seen. ?Linear atelectasis versus scarring is seen within lingula and right middle lobe. ?There is no pleural effusion, pneumothorax, or endobronchial lesion. Thoracic inlet, heart, and mediastinum: ?Atherosclerotic calcifications are present within the thoracic aorta. ?The heart is normal in size. ?There is no significant pericardial effusion. ?There is a tiny hiatal hernia. ?There are no pathologically enlarged axillary, mediastinal, or hilar lymph nodes. Bones and soft tissues: ?There is scoliosis, osteopenia and multilevel degenerative change seen within the thoracic spine. ?A few bone islands are seen within the osseous structures. ?There is no destructive bony lesion. Upper abdomen: ?Nonspecific wall thickening of the stomach likely relates to underdistention. ?The gallbladder is relatively collapsed but is otherwise unremarkable. ?Nonobstructing right nephrolithiasis. ? IMPRESSION: Emphysema with mild, diffuse bronchiectasis. ?Mild biapical fibrosis. ?Spiculated nodular density is seen within left apex, measuring approximately 2.2 cm, corresponding to the abnormality on prior chest radiograph. ?Neoplastic disease must be considered. Subcentimeter indeterminate pulmonary nodules, measuring up to 6 mm in size. Incidental Finding: ?Follow-up for this incidentally detected lung nodule with PET/CT or biopsy within 4 weeks, or chest CT exam in 3 months is recommended. No lymphadenopathy is seen within the chest. Incidentally noted is nonobstructing right nephrolithiasis. ? Underwent CT-guided biopsy on 04/17/2019. ? Pathology: MICROSCOPIC DIAGNOSIS Left lung, CT-guided core biopsy: Poorly differentiated non-small cell carcinoma. See comment. ? COMMENT The specimen is evaluated at the time of biopsy by Dr. Mauro. Immediate Evaluation = Malignant cells present derived from non-small cell carcinoma. ? The tumor also shows extensive necrosis. Immunohistochemistry ([id number]) supports the above diagnosis. IHC profile favors metastatic carcinoma including but not limited to gastrointestinal tract, pancreas or urothelial primary. Molecular studies on the tumor can be performed if clinically indicated. Please notify the laboratory if they are needed. ? ? ER (6F11) negative SC (1E2) negative Her-2neu (CB11) negative Mammaglobin (31A5) negative GATA3 (L50-823) positive CK7 (OV-TL12/30) positive CK8 (64lpegH15) positive CK20 (KS20.8) positive, focal TTF-1 (8G7G3/1) negative Napsin A (Rabbit Polyclonal) negative HepPar (OCh1E5) positive, focal RCC (PN-15) negative CK5-6 (D5 & 1684) negative P40 (BC28) negative WELCH-2 (SP21) positive CA125 (OC125) negative CDX2 ([id number]) positive, weak anti-CD44 (SP37) positive, focal ? ? Hoarseness that comes and goes. ? EGD 09/2017 (for hoarseness and reflux): She is observed to have LA grade B reflux esophagitis along with erythematous mucosa in the antrum. Duodenum appeared normal. ? 1. Gastric antrum, biopsy (A) - Chronic inactive gastritis. 2. Distal esophagus, biopsy (B) - Hyperplastic squamous mucosa with mild regenerative epithelial changes. - No evidence of intestinal metaplasia or dysplasia. ? MRI Brain 05/07/2019: IMPRESSION: Age-appropriate unremarkable MRI brain. ? PET 05/08/2019: NECK: Physiologic FDG uptake seen in the visualized brain, parapharyngeal soft tissues, base of tongue, vocal cords, and salivary glands. No hypermetabolic cervical lymphadenopathy or masses. No focal hypermetabolic thyroid lesion. CHEST: Physiologic FDG uptake in the heart and mediastinum. Lungs and tracheobronchial tree: ?There is moderately intense FDG uptake by a spiculated 2.0 x 1.7 cm left apical pulmonary nodule (maximum SUV 9.8), consistent with hypermetabolic malignancy. ?There is an FDG avid 1.0 cm left suprahilar pulmonary nodule (maximum SUV 13.6, 4:100), suspicious for additional hypermetabolic neoplasm, possibly metastasis. Pleura: ? No hypermetabolic pleural or pericardial effusion, or pleural mass. Mediastinum and Lymph nodes: ?Hypermetabolic adenopathy is seen in the left paratracheal (maximum SUV 11.4, 4:93), and left pulmonary hilum (maximum SUV 11.8, 4:101). Chest wall: ?Unremarkable. ABDOMEN AND PELVIS: Physiologic FDG uptake seen in the and GI tracts. Liver: No hypermetabolic mass. Biliary: No bile duct dilation. Spleen: No hypermetabolic splenic mass. No splenomegaly. Pancreas: No mass or duct dilation. Adrenals: No hypermetabolic mass. Kidneys: No hydronephrosis, or hypermetabolic lesions. GI tract: No dilation or wall thickening. Lymph nodes: No hypermetabolic abdominal or pelvic lymphadenopathy. Mesentery/Peritoneum: No ascites or mass. Vasculature: ?Vascular patency cannot be assessed due to lack of IV contrast. BONES AND EXTREMITIES: No suspicious FDG avid osseous foci are detected. The imaged portions of the skeleton disclose age-related degenerative changes, with no detectable destructive lytic or sclerotic lesions. ? EGD endoscopically demonstrated normal mucosal tissue of the duodenum and jejunum. The esophagus was noted to be normal. There was a medium sized hiatal hernia. Estrace was observed and biopsy. On colonoscopies done same day, diverticulosis was noted in the sigmoid colon. The remainder the colonic mucosa was noted to be endoscopically normal. ? Pathology: Stomach, antrum, biopsy - Chronic inactive gastritis with focal intestinal metaplasia. - Negative for dysplasia. ? Bronchoscopy 06/10/2019 with biopsy mediastinal LNs. ? Pathology: 4L lymph node core biopsy - Adenocarcinoma. ? Was evaluated by ENT. Both vocal cords were mobile. A left cervical lymph node was palpated. Patient underwent FNA on 07/03. ? 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 ? Previous therapy: 1) Concurrent carboplatin/paclitaxel with radiation. Completed 07/23/2019. 2) Mediastinal evaluation followed by left video-assisted thoracoscopic surgery with left upper lobectomy, thymic rotational pedicle flap for stump buttress and mediastinal lymphadenectomy on 08/20/2019. ? Pathology: 1. Lymph node, station 4R, excision (A) - One (1) lymph node, negative for carcinoma. 2. Lymph node, station 4L, excision (B) - Three (3) lymph node, negative for carcinoma. 3. Lymph node, station 2L, excision (C) - One (1) lymph node, negative for carcinoma. 4. Lymph node, station 7, excision (D) - One (1) lymph node, negative for carcinoma. 5. Lymph node, station 4R, excision (E) - One (1) lymph node, negative for carcinoma. 6. Lung, left upper lobe, lobectomy (F) - Invasive adenocarcinoma with significant therapy-related changes. - Resection margins are negative for carcinoma. - Visceral pleura invasion is absent. - Two (2) intraparenchymal peribronchial N1 lymph nodes, negative for carcinoma. 7. Lymph node, station 9L, excision (G) - One (1) lymph node, negative for carcinoma. 8. Lymph node, station 11L, excision (H) - One (1) lymph node, negative for carcinoma. 9. Lymph node, station 10L, excision (I) - One (1) lymph node, negative for carcinoma. 10. Lymph node, station 5, excision (J) - One (1) lymph node, negative for carcinoma. 11. Lymph node, station 10L, excision (K) - One (1) lymph node, negative for carcinoma. 12. Lymph node, station 11L, excision (L) - One (1) lymph node, negative for carcinoma. 13. Lymph node, station 11L, excision (M) - One (1) lymph node, negative for carcinoma. 14. Lymph node, station 11L, excision (N) - One (1) lymph node, negative for carcinoma. 15. Lymph node, station 12L, excision (O) - One (1) lymph node, negative for carcinoma. SYNOPTIC REPORT OF [place] PATHOLOGIC FINDINGS LEFT UPPER LOBE: ? ? ?LUNG RESECTION WORKSHEET Procedure: ? ? ? Lobectomy Specimen Laterality: ? ? ? Left Tumor Site: ? ? ? Upper lobe Tumor?Size: ? ? ? Total tumor size (size of entire tumor) ? ? ? Greatest dimension: 1.5 cm Tumor Focality: ? ? ? Single focus Histologic Type: ? ? ? Invasive adenocarcinoma, predominant subtype cannot be determined (explain): Significant therapy related changes, likely acinar predominant Histologic Grade: ? ? ? Not applicable (See Histologic Type) Visceral Pleura Invasion: ? ? ? Not identified Direct Invasion of Adjacent Structures: ? ? ? No adjacent structures present Margins: ? ? ? All margins uninvolved by tumor ? ? ? Margins examined (specify): Parenchymal, bronchovascular ? ? ? Distance of invasive carcinoma from closest margin: 25 mm ? ? ? Specify closest margin: Parenchymal Bronchial Margin: ? ? ? Uninvolved by invasive carcinoma Vascular Margin: ? ? ? Uninvolved by invasive carcinoma Parenchymal Margin: ? ? ? Uninvolved by invasive carcinoma Treatment Effect: ? ? ? Greater than 10% residual viable tumor Lymph-Vascular Invasion: ? ? ? Not identified Pathologic Stage Classification (pTNM, AJCC 8th ed) TNM Descriptors: ? ? ? y (post-treatment) Primary Tumor (pT): ? ? ? pT1b: Tumor >1 cm, but <=2 cm in greatest dimension Regional Lymph Nodes (pN): ? ? ? pN0: No regional lymph node metastasis ? ? ? Number of nodes involved: 0 ? ? ? Number of nodes examined: 18 ?Specify examined dragan station(s): 2L, 4L, 4R, 5, 7, 9L, 10L, 11L, 12L, intraparenchymal peribronchial Distant Metastasis (pM): ? ? ? Not applicable/Not confirmed pathologically in this case Spread through air spaces (HOMER): ? ? ? Not identified Additional Pathologic Findings: ? ? ? Emphysema ? ? ? Other: Nodular smooth muscle metaplasia ? ? CT brain which demonstrated a 4.5 cm left frontal lobe mass with significant surrounding vasogenic edema approximately 5 mm of MLS from left to right. ? Had CT of the chest, abdomen pelvis at [facility] on 01/12/2021. Chest imaging revealed evidence of bilateral left upper lobectomy no CT evidence of local recurrence or metastatic disease within the chest. Changes of mild emphysema. There was a partially visualized hypoattenuating 1 cm left thyroid lobe nodule and further assessment with ultrasound was recommended. There was findings of coronary artery disease. CT abdomen pelvis demonstrated no definite evidence of metastatic disease in the abdomen or pelvis. There was no abdominal or pelvic lymphadenopathy by size criteria. Tiny right renal cyst with a tiny cyst in the peripheral calcification versus calyceal diverticulum was observed with a tiny stone in the midpole the right kidney. Left colonic and sigmoid diverticulosis. Patient was observed to be post hysterectomy status. No focal osseous lesions observed. ? Per her report sounds like she had three fractions of SBRT then underwent resection 01/23/2021. Pathology demonstrated metastatic poorly differentiated carcinoma and immunostains reportedly were most consistent with urothelial origin. ? PET 03/24/2021: CHEST: ? Physiologic FDG uptake in the heart and mediastinum. ? Lungs and tracheobronchial tree: There has been interval resolution of the previously seen hypermetabolic left apical and left upper lobe suprahilar pulmonary nodules (patient has undergone left upper lobectomy during the interval). There is mild FDG uptake associated with mixed groundglass and patchy consolidative opacities in the left upper lung (maximum SUV 2.9), suggestive of post radiation changes. No other hypermetabolic pulmonary consolidation, mass or nodules. ? Pleura: ??No hypermetabolic pleural or pericardial effusion, or pleural mass. ? Mediastinum and Lymph nodes: ?There has been interval increase in size and FDG avidity of hypermetabolic retrotracheal lymphadenopathy, measuring 1.5 x 1.3 cm with maximum SUV 16.6 (previously 1.3 x 1.0 cm and maximum SUV 11.4). No other hypermetabolic axillary, hilar, or mediastinal lymphadenopathy. No hypermetabolic mediastinal mass. ? Chest wall: ?Unremarkable. ? ABDOMEN AND PELVIS: ? Physiologic FDG uptake seen in the and GI tracts. ? Liver: No hypermetabolic hepatic lesions.. ? Biliary: No bile duct dilation. ?Gallbladder is absent. ? Spleen: No hypermetabolic splenic mass. No splenomegaly. ? Pancreas: No hypermetabolic mass or duct dilation. ? Adrenals: No hypermetabolic adrenal lesion. ? Kidneys: No stones, hydronephrosis, or hypermetabolic lesions. ? GI tract: No dilation or wall thickening. ? Lymph nodes: No hypermetabolic abdominal or pelvic lymphadenopathy. ? Mesentery/Peritoneum: No ascites or mass. ? Vasculature: ?Vascular patency cannot be assessed due to lack of IV contrast. ? ? BONES AND EXTREMITIES: ? No suspicious FDG avid osseous foci are detected. The imaged portions of the skeleton disclose age-related degenerative changes, with no detectable destructive lytic or sclerotic lesions. ? ? ? She presented to the emergency room at [facility] on 03/28/2021 with complaint of shortness of breath that had been increasing over the prior 2 weeks. She was hypoxemic at 85% on room air on presentation. She had a fever to 100.2 the night before admission. CTA of the chest demonstrated a small lower lobe segmental pulmonary embolism with no saddle embolus or CT evidence of right heart strain and ill-defined peribronchial infiltrate in the left upper and midlung field suggestive of pneumonia with evidence of left upper lobectomy. Covid was negative by PCR testing. Patient was managed for her PE and community-acquired pneumonia. She was started on Levaquin and Eliquis. Shortness of breath improved and she had felt much better and was able to be discharged on 03/29 with a 5-day additional course of Levaquin. ? She underwent imaging at [facility]. 3 new brain metastases. She is asymptomatic. Plan for gamma knife tomorrow. ? Otherwise she underwent biopsy of the retrotracheal lymph node. Pathology results noted and reviewed with her. Pathology: Lymph node station 3P - Metastatic adenocarcinoma (See comment). COMMENT The neoplastic cells are positive for TTF-1 and negative for p40 and DONOVAN-3, consistent with a lung primary. ? Current therapy: 1) Pemetrexed, carboplatin and pembrolizumab. She had 3 cycles of chemotherapy to date. Most recent was on 07/10/2021. CT of the chest on 06/30/2021 performed after the second cycle demonstrated: IMPRESSION: 1. ?Persistent though decreased retrotracheal soft tissue and interval decrease in subcarinal lymphadenopathy. 2. ?No new or enlarging intrathoracic lymphadenopathy. 3. ?Stable pulmonary nodules or opacities. No new or enlarging pulmonary nodules. 4. ?Stable post treatment related changes in the left lung. MRI Brain at [facility] 07/21/2021 done as part of routine follow-up incidentally found: Multiple new lesions, several along the cortex/sulcal surfaces suspicious for leptomeningeal disease: * ?New enhancing foci in the left gyrus rectus (image 131), right temporal lobe (image 109, 124, 139), right uncus (image 115), bilateral sylvian fissures (image 123, 136) * ?Enhancing new foci along the superior cerebellum/upper vermis (image 91, 104, 105, 109). Enhancing foci adjacent the right greater than left superior cerebellar peduncles. * ?New nodular enhancing foci in the right ambient/quadrigeminal plate cistern (image 116). * ?New enhancing focus in the left internal auditory canal (image 86), possibly along the left trigeminal nerve surface. * ?Enhancing focus along the cerebellar tonsils enhancement (image 56, 65). Linear enhancement along the dorsal medulla in the fourth ventricle could be vascular. Previously treated lesions: * ?Nearly resolved treated lesion in the right medial parietal lobe (image 153) * ?Likely completely resolved lesions in the left temporal lobe (image 103) She evidently was asymptomatic from this. She therefore was started on hippocampal sparing whole brain radiation therapy which she completed yesterday. At the follow-up visit yesterday she was complaining of a several week history of numbness that started in the left buttock and radiated down to the left ankle. MRI Cervical and thoracic spine at [facility] 08/20/2021: Numerous intradural enhancing lesions throughout the cervical and thoracic spinal column including multiple lesions with intramedullary components involving the spinal cord. The most significant lesions are at C5, T3, T9, and T11 levels. There is spinal cord edema associated with these 4 lesions. But there are numerous other smaller intramedullary and extramedullary lesions. Negative for osseous metastatic disease, fracture, epidural tumor, or extrinsic spinal cord compression. She denies other neurologic symptoms apart from the numbness. She does not have any focal motor weakness subjectively. No recent change in vision. Currently on dexamethasone 4 mg IV every 6 hours. ? Advanced Directives Power of [employer] T[employer] Drum Operator: No (pt unsure son is to check on it) Living Will: No (pt unsure son is to check on it) PFSH Medical History Acid reflux Alcohol use Arthritis Back pain Bladder cancer Bladder disease Cancer Cancer of spinal column COPD (chronic obstructive pulmonary disease) COPD (chronic obstructive pulmonary disease) Emphysema lung Fibromyalgia Fibromyalgia Former smoker GERD (gastroesophageal reflux disease) Goiter Hemorrhoids Hernia History of bladder cancer History of echocardiogram History of edema History of lung cancer History of steroid therapy History of stress test History of voice disturbance Leg cramps Multiple thyroid nodules On home oxygen therapy Pulmonary embolism Right groin pain Right inguinal hernia Shortness of breath on exertion Syncope Wears dentures Wears glasses Wears partial dentures Home Medications cholecalciferol (vitamin D3) 50 mcg (2,000 unit) capsule 5,000 unit PO QDAY 06/29/17 [History Last Taken 05/11/21] omeprazole 40 mg PO DAILY 04/16/19 [History Last Taken 05/11/21] oxybutynin chloride 15 mg PO DAILY 04/16/19 [History Last Taken 05/11/21] albuterol sulfate 90 mcg/actuation aerosol inhaler 2 puff INHALATION Q4H PRN g 03/04/20 [History Last Taken 03/20/20 07:00] melatonin 5 mg tablet 5 mg PO HS PRN 03/04/20 [History Last Taken Unknown] Eliquis DVT-PE Treat 30D Start 5 mg PO BID #74 tab 03/29/21 [Rx Last Taken 05/08/21] Anoro Ellipta 1 inh INHALATION DAILY 05/08/21 [History Last Taken 05/11/21] cephalexin 1 PO BID 08/20/21 [History Last Taken 08/20/21 20:00] dexamethasone 8 mg PO BID 08/20/21 [History Last Taken 08/20/21 20:25] folic acid 1 mg PO DAILY 08/20/21 [History Last Taken Unknown] Allergy/AdvReac Type Severity Reaction Status Date / Time fluticasone furoate AdvReac Mild Other Verified 08/21/21 10:55 [From Honorio Dominique] Family History Sister Hypertension Brother Hypertension Cancer throat and lung Father Cancer sarcoma Mother Cancer unsure type --all thru her Surgical History H/O: hysterectomy history laparoscopic right inguinal hernia repair (~03/20/20) History of appendectomy History of bilateral carpal tunnel release History of bilateral oophorectomy History of bladder repair surgery History of colonoscopy (~2018) History of lumpectomy of right breast S/P brain surgery S/P laparoscopic cholecystectomy S/P lobectomy of lung S/P thyroid biopsy Social History Smoking Status: Former smoker alcohol intake: never ROS Constitutional Constitutional: Reports poor appetite Respiratory/Chest Respiratory/Chest: Reports cough Physical Exam Const oriented x3 HEENT HEENT Narrative: No sign of thrush Neck no lymphadenopathy Lymph Lymphatic: no lymphadenopathy noted Resp normal respiratory effort Cardio regular rhythm Neuro Neuro Narrative: She has some weakness when trying to dorsiflex the left foot. Patellar DTRs symmetric and normal. Remainder the motor exam reveals normal strength in the upper and lower extremities otherwise. Vital Signs Temperature 98.2 F 08/21/21 14:07 Temperature Source Oral 08/21/21 14:07 Pulse Rate 94 08/21/21 14:07 Pulse Strength Normal (2+) 08/21/21 10:00 Respiratory Rate 16 08/21/21 14:07 Respiratory Effort 08/21/21 14:00 Respiratory Depth Normal 08/21/21 14:00 Respiratory Pattern Normal 08/21/21 14:00 Blood Pressure 144/81 H 08/21/21 14:07 Blood Pressure Mean 102 08/21/21 14:07 Blood Pressure Source Monitor 08/21/21 14:07 Blood Pressure Position Sitting 08/21/21 14:07 Blood Pressure Location Right Arm 08/21/21 14:07 Pulse Ox 95 08/21/21 14:07 Oxygen Delivery Method Room Air 08/21/21 14:07 Laboratory Results - last 24 hr 08/20/21 20:50: WBC 4.6, RBC 3.01 L, Hgb 9.0 L, Hct 28.6 L, MCV 95.0, MCH 29.9, MCHC 31.5 L, RDW Std Deviation 68.5 H, RDW Coeff of [place] 19.8 H, Plt Count 229, MPV 8.6, Immature Gran % (Auto) 0.200, Neut % (Auto) 71.2 H, Lymph % (Auto) 12.8 L, [place] % (Auto) 14.3 H, Eos % (Auto) 1.3, Baso % (Auto) 0.2, Absolute Neuts (auto) 3.3, Absolute Lymphs (auto) 0.59 L, Nucleated RBC % 0, Differential Comment SCANNED, Anisocytosis 1+ 08/20/21 20:50: Sodium 138, Potassium 3.5, Chloride 105, Carbon Dioxide 27.0, Anion Gap 6, BUN 14, Creatinine 1.01, Estim Creat Clear Calc 49.30, Est GFR (MDRD) Af Amer 69, Est GFR (MDRD) Non-Af 57 L, BUN/Creatinine Ratio 13.9, Glucose 106, Calcium 9.2, Total Bilirubin 0.50, AST 15, ALT 19, Alkaline Phosphatase 60, Total Protein 6.7, Albumin 3.6, Globulin 3.1, Albumin/Globulin Ratio 1.2
[2021-08-21] MEDS: dexAMETHasone 4 MG/ML Vial IV ×2 (17:31→22:48)
[2021-08-21 20:48] VITALS: BP 145/90; PULSE 88; RESP 18; TEMP 36.6; O2SAT 98
[2021-08-21] MEDS: MELATONIN 10 MG TABLET 5 MG PO (22:48)
[2021-08-21] MEDS: 0.9% Saline Lock 10 ML Syringe IV (22:48)
[2021-08-22 03:33] VITALS: BP 114/58; PULSE 82; RESP 18; TEMP 36.4; O2SAT 97
[2021-08-22] MEDS: dexAMETHasone 4 MG/ML Vial IV ×4 (05:46→23:02)
--- NOTE | 2021-08-22 07:25 | CPS ---
Pt states that she is breathing fine and does not want breathing tx at this time. Pt stated that she will call if she feels she needs one.
--- NOTE | 2021-08-22 08:42 | PN.HOSP_ITS ---
Subjective Subjective Strength and numbness slightly better today but still ongoing. Objective Data Objective Data Vital Signs: Vital Signs Temp Pulse Resp BP Pulse Ox 36.4 C L 82 18 114/58 L 97 08/22/21 03:33 08/22/21 03:33 08/22/21 03:33 08/22/21 03:33 08/22/21 03:33 Oxygen Delivery Method Room Air Weight: 74.5 kg Body Mass Index (BMI) 25.0 Intake & Output: Intake and Output for Last 24 Hours 08/20/21 08/21/21 08/22/21 23:59 23:59 23:59 Intake Total 300 / 300 Balance 300 / 300 Medical Nutrition Assessment Dietitian: Malnutrition Criteria Met Start: 08/21/21 15:44 Freq: Status: Active Protocol: Document 08/21/21 15:45 RMA (Rec: 08/21/21 15:45 RMA [id number]) Nutrition Malnutrition Evidence of Malnutrition Exists Yes Malnutrition (severe): Acute Illness/Injury Evidenced By Suboptimal Energy Intake ( Moderate),Weight Loss (Severe) Clinical Problem Acute Disease or Injury Related Malnutrition Etiology Severe protein-calorie malnutrition in the context of acute illness related to inadequate energy intake and increased energy expenditure Signs/Symptoms as evidenced by ~8% wt loss x 4 months and PO meeting less than 50-75% estimated nutrition needs Status Active Problem Recommendation Dietitian Recommendations/Changes Continue regular diet; will add magic cup BID w/ lunch and dinner. Continue ensure enlive w/ medpass as tolerated. Lab / Micro Data Result Diagrams: 08/20/21 20:50 08/20/21 20:50 Physical Exam Const alert and no apparent distress Resp normal respiratory effort, no retractions, no use of accessory muscles and clear to auscultation bilaterally Cardio regular rate, regular rhythm, S1 normal heart sound and S2 normal heart sound GI normal to inspection, nondistended, normoactive bowel sounds, soft to palpation, non-tender and non-distended Extremity normal to inspection Neuro Neuro Narrative: Still with a diminished sensation in the posterior aspect of the left calf. Muscle strength is 5-5 in the lower extremities bilaterally. Assessment & Plan Assessment/Plan (1) Metastatic urothelial carcinoma: (2) Spine metastasis: PLAN: 1. Spinal metastasis * 2/2 underlying malignancy. Pt has either a Metastatic urothelial carcinoma to spine or from underlying lung CA. * DW Dr. Cedeño. He expressed concern about the pts prior h/o chest radiation and recommended transfer back to [facility] in case neurosurgery would be necessary (earlier, I asked the patient if she would be willing to have neurosurgery, if necessary. She said she would. * JAZMIN Moura and was surprised to find pt admitted here. He also recommends transfer to [facility]. * Pt said she was told to come here by Dr. Ravindra Moyer at [facility] * Pt made aware of Drs. Cedeño and Zeny's recommendations. She initially did not want to be transferred. I informed that she did not, but if she stayed, she may not have a radiation oncologist who is comfortable treating. * MRI spine thoracic with and without contrast was reviewed. Impression from radiologist is as below: * Numerous intradural enhancing lesions throughout the cervical and thoracic spinal column including multiple lesions with intramedullary components involving the spinal cord. * The most significant lesions at C5, T3, T9 and T11 levels. There is spinal cord edema associated with these 4 lesions. But there are numerous other smaller intramedullary and extramedullary lesions. * Negative for osseous metastatic disease, fracture, epidural tumor, or extrinsic spinal cord compression. * Decadron continued. * 08/21: DW Davidson Tarango, Zeny and João ([facility]). Plan is keep patient here, no transfer to [facility] or any other tertiary facility. Plan is radiation simulation on 08/24. If patient gets worse (i.e., paralysis) then the plan, as had been discussed with the patient, is palliation and hospice. 2. Elevated blood pressure * without diagnosis of hypertension * Noted to have some elevation in blood pressure. With steroids anticipate blood pressure will remain high. Trend blood pressures. 3. Acute on chronic anemia Likely secondary to radiation. Trend 4. CKD stage II Stable. 5. DVT prophylaxis: Home Eliquis for PE continue Charges/Coding Visit Charges Inpatient E&M: 93102 Subs Hosp L2
[2021-08-22 09:20] VITALS: BP 124/77; PULSE 87; RESP 18; TEMP 36.7; O2SAT 99
--- NOTE | 2021-08-22 11:15 | CASEMGMT ---
VIMAL CESAR Face to Face with patient for initial transition planning/care coordination assessment. RN CM introduced self and role at [facility]. Patient lying in bed, alert and oriented. Patient willing to participate in assessment and is able to answer all questions appropriately. Care providers, pharmacy, and demographics verified. Patient wishes to discharge home, denies need for home health at this time. Patient states she has no further needs or concerns at this time. CM to follow for discharge planning needs that may arise. PCP: Tana Specialists: Zeny, oncologist; Jose Burnett Oncologist at the [facility] Pharmacy: [facility] Insurance: [email or web address] [facility] Prescription Benefit: yes Living Will/HPOA: none LNOK: sons Living Arrangements: Patient lives with son in a single story home with 4 steps and railing to enter the home. Patient states she is independent at home. Transportation: son DME/HHC: Patient states she has nebulizer, pulse ox, and home oxygen as needed through [employer] with portability. Patient currently on room air. Patient denies previous HHC or SNF. Disposition Plan: Patient to discharge home with family support and follow-up plans in place. Nenita ARSHAD, RN, CM
[2021-08-22] MEDS: 0.9% Saline Lock 10 ML Syringe IV ×3 (12:42→23:02)
--- NOTE | 2021-08-22 13:20 | CASEMGMT ---
Social Work SW spoke w/pt briefly in room. Pt's two sisters and best friend are present. SW asked pt how she is doing, she states she is doing okay, is more concerned about how she will be feeling once she starts treatment. Pt has support from her family and friend at present. SW let pt know that if she needs anything, SW is here and available, and will be back on Tuesday should she need anything. Pt states understanding. SW remains available for support to pt if needed. RUFINA Rob
[2021-08-22 15:00] VITALS: BP 134/62; PULSE 84; RESP 18; TEMP 36.8; O2SAT 97
[2021-08-22 21:09] VITALS: BP 142/70; PULSE 74; RESP 18; TEMP 36.9; O2SAT 97
[2021-08-22] MEDS: MELATONIN 10 MG TABLET 5 MG PO (23:02)
[2021-08-23 03:47] VITALS: BP 130/79; PULSE 72; RESP 18; TEMP 36.6; O2SAT 98
[2021-08-23] MEDS: dexAMETHasone 4 MG/ML Vial IV (06:36)
[2021-08-23] MEDS: 0.9% Saline Lock 10 ML Syringe IV ×4 (06:36→23:01)
[2021-08-23 09:06] VITALS: BP 118/61; PULSE 73; RESP 18; TEMP 36.8; O2SAT 99
[2021-08-23] MEDS: dexAMETHasone 10 MG/ML Vial 6 MG IV ×3 (11:12→23:01)
--- NOTE | 2021-08-23 12:16 | PN.HOSP_ITS ---
Subjective Subjective Patient still complains of some weakness and some numbness in the left lower extremity but overall improved. No significant issues overnight. Plan is for radiation tomorrow and if she is clinically stable possible discharge home tomorrow with outpatient follow-up. Patient voices understanding. Objective Data Objective Data Vital Signs: Vital Signs Temp Pulse Resp BP Pulse Ox 98.2 F 73 18 118/61 99 08/23/21 09:06 08/23/21 09:06 08/23/21 09:06 08/23/21 09:06 08/23/21 09:06 Oxygen Delivery Method Room Air Weight: 74.5 kg Body Mass Index (BMI) 25.0 Intake & Output: Intake and Output for Last 24 Hours 08/21/21 08/22/21 08/23/21 23:59 23:59 23:59 Intake Total 300 / 300 760 / 760 Balance 300 / 300 760 / 760 Medical Nutrition Assessment Dietitian: Malnutrition Criteria Met Start: 08/21/21 15:44 Freq: Status: Active Protocol: Document 08/21/21 15:45 RMA (Rec: 08/21/21 15:45 RMA [id number]) Nutrition Malnutrition Evidence of Malnutrition Exists Yes Malnutrition (severe): Acute Illness/Injury Evidenced By Suboptimal Energy Intake ( Moderate),Weight Loss (Severe) Clinical Problem Acute Disease or Injury Related Malnutrition Etiology Severe protein-calorie malnutrition in the context of acute illness related to inadequate energy intake and increased energy expenditure Signs/Symptoms as evidenced by ~8% wt loss x 4 months and PO meeting less than 50-75% estimated nutrition needs Status Active Problem Recommendation Dietitian Recommendations/Changes Continue regular diet; will add magic cup BID w/ lunch and dinner. Continue ensure enlive w/ medpass as tolerated. Lab / Micro Data Result Diagrams: 08/20/21 20:50 08/20/21 20:50 Physical Exam Const alert, oriented x3, no apparent distress, average body habitus and well nourished Constitutional Narrative: Very pleasant older white female sitting up in bed watching television, appears nontoxic Exam Limitations: no limitations HEENT head/scalp atraumatic and moist oral mucous membranes HEENT Narrative: Mallampati is 2, no thrush Head and Scalp: normocephalic Resp normal respiratory effort, no retractions, no use of accessory muscles and clear to auscultation bilaterally Resp Narrative: Diminished diffusely but clear Auscultation: Negative for crackles, rales, rhonchi or wheezes Cardio regular rate, regular rhythm, S1 normal heart sound, S2 normal heart sound, no murmurs, no rub, no gallops, no clicks and no JVD GI normal to inspection, nondistended, normoactive bowel sounds, soft to palpation, non-tender and non-distended Extremity no clubbing, cyanosis or edema Peripheral Pulses: Yes pulses 2+ throughout Neuro oriented x3 Neuro Narrative: Decreased sensation posterior aspect of the left calf with decent muscle strength however I was not able to evaluate her with ambulation Sensorium / Orientation: awake and alert Speech: speech normal Assessment & Plan Assessment/Plan (1) Spine metastasis: (2) Lung cancer, upper lobe: (3) Metastatic urothelial carcinoma: PLAN: Metastatic urothelial cell carcinoma -Patient with spinal metastasis from either urothelial carcinoma or underlying lung CA -MRI showed numerous intradural enhancing lesions throughout the cervical and thoracic spine with numerous other smaller intramedullary and extramedullary lesions--> most significant lesions were at C5, T3, T9, and T11 -Negative for fracture, epidural tumor, or extrinsic spinal cord compression -Continue Decadron 6 mg every 6 hours -MRI of the lumbar spine is pending per Dr. Moura's recommendations -Should be done tomorrow -Initial recommendation was for transfer to [facility] however upon further discussion the recommendation is no transfer to a tertiary center as all treatment is palliative and the patient is an operable -Plan is for radiation tomorrow on 08/24/2021 and if the patient does well she may be discharged home if her condition deteriorates then palliative care and h ospice would be consulted -Per previous hospitalist-->08/21: Davidson [address] Dr[address] Masci and João ([facility]). Plan is keep patient here, no transfer to [facility] or any other tertiary facility. Plan is radiation simulation on 08/24. If patient gets worse (i.e., paralysis) then the plan, as had been discussed with the patient, is palliation and hospice. Elevated blood pressure -Most recent reading is normalized -Likely related to steroids and stress -Continue to monitor clinically -Patient is not anticoagulated at baseline Chronic anemia -Likely related to metastatic disease and radiation -Continue to monitor -No signs of acute blood loss CKD stage II -Chronic stable -Repeat BMP tomorrow History of PE/DVT -Continue home Eliquis COPD -Continue home inhalers -As needed duo nebs -Recommend tobacco cessation GERD -Continue omeprazole Urinary incontinence -Continue oxybutynin Vitamin D deficiency -Reinitiate cholecalciferol discharge DVT prophylaxis -Continue Eliquis CODE STATUS -DNR CCA with no intubation Charges/Coding Visit Charges Inpatient E&M: 66821 Subs Hosp L2
[2021-08-23 17:35] VITALS: BP 132/64; PULSE 70; RESP 20; TEMP 36.7; O2SAT 99
[2021-08-23 21:38] VITALS: BP 147/66; PULSE 69; RESP 18; TEMP 36.4; O2SAT 98
[2021-08-23] MEDS: MELATONIN 10 MG TABLET 5 MG PO (23:01)
[2021-08-24 04:40] VITALS: BP 142/82; PULSE 70; RESP 18; TEMP 36.6; O2SAT 98
[2021-08-24] MEDS: dexAMETHasone 10 MG/ML Vial 6 MG IV ×4 (04:41→23:04)
[2021-08-24] MEDS: 0.9% Saline Lock 10 ML Syringe IV ×4 (04:42→23:04)
[2021-08-24 05:21] LABS: Absolute Lymphocyte Count 0.32 X10^3/uL (0.83-4.51); Absolute Neutrophil Count 10.2 X10^3/uL (2.0-7.7); Basophil# 0.01 X10^3/uL; Basophil% 0.1 % (0-1); Hematocrit 29.9 % (37-47); Hemoglobin 9.6 g/dL (12.0-15.0); Lymphocyte # 0.32 X10^3/ul (0.83-4.51); Lymphocyte % 2.9 % (19-41); Mean Corp Hgb Conc 32.1 g/dL (32-36); Mean Corpuscular Hgb 30.1 pg (27.0-32.0); Mean Corpuscular Volume 93.7 fL (81-99); Mean Platelet Vol. 8.7 fl (6.2-12.0); Monocyte# 0.39 X10^3/uL; Monocyte% 3.5 % (0-10); NRBC Flagged by Analyzer 0 % (0-5); Neutrophil # 10.15 X10^3/uL (2.7-7.7); Neutrophil % 91.7 % (47-70); POSITIVE DIFFERENTIAL YES; POSITIVE MORPHOLOGY YES; Platelet Count 311 K/mm3 (150-450); RBC Distribution Width CV 19.3 % (11.6-14.6); RBC Distribution Width SD 66.6 fl (35.1-43.9); Red Blood Count 3.19 M/mm3 (4.2-5.4); White Blood Count 11.1 K/mm3 (4.4-11.0)
[2021-08-24 05:37] LABS: Differential Indicated SCAN CRITERIA MET
[2021-08-24 05:41] LABS: Anion Gap 5 (5-15); BUN 30 mg/dL (7-18); BUN/Creat Ratio 35.8 RATIO (10-20); Calcium,Total 8.1 mg/dL (8.5-10.1); Chloride 106 mmol/L (98-107); Creatinine, Serum 0.84 mg/dL (0.55-1.02); EST Glomerular Filtration Rate 71 mL/min (>60); Est Glom Filt Rate - Afr Amer 86 mL/min (>60); Estimated Creatinine Clearance 59.27 ml/min; Glucose 128 mg/dL (74-106); Potassium 4.3 mmol/L (3.5-5.1); Sodium Level 139 mmol/L (136-145)
[2021-08-24 06:16] LABS: Differential Comment SCANNED; Ovalocyte RARE
[2021-08-24 07:38] VITALS: BP 126/74; PULSE 69; RESP 18; TEMP 36.9; O2SAT 98
--- NOTE | 2021-08-24 13:00 | PN.HOSP_ITS ---
Subjective Subjective Patient seen and examined. She had no active complaints and had an uneventful night. She is awaiting MRI of the lumbar spine today and then is due to have radiation tomorrow. Review of systems otherwise negative. Objective Data Objective Data Vital Signs: Vital Signs Temp Pulse Resp BP Pulse Ox 98.5 F 69 18 126/74 H 98 08/24/21 07:38 08/24/21 07:38 08/24/21 07:38 08/24/21 07:38 08/24/21 07:38 Oxygen Delivery Method Room Air Weight: 164 lb 3.91 oz Body Mass Index (BMI) 25.0 Intake & Output: Intake and Output for Last 24 Hours 08/22/21 08/23/21 08/24/21 23:59 23:59 23:59 Intake Total 760 / 760 660 / 660 980 / 980 Balance 760 / 760 660 / 660 980 / 980 Medical Nutrition Assessment Dietitian: Malnutrition Criteria Met Start: 08/21/21 15:44 Freq: Status: Active Protocol: Document 08/21/21 15:45 RMA (Rec: 08/21/21 15:45 RMA [id number]) Nutrition Malnutrition Evidence of Malnutrition Exists Yes Malnutrition (severe): Acute Illness/Injury Evidenced By Suboptimal Energy Intake ( Moderate),Weight Loss (Severe) Clinical Problem Acute Disease or Injury Related Malnutrition Etiology Severe protein-calorie malnutrition in the context of acute illness related to inadequate energy intake and increased energy expenditure Signs/Symptoms as evidenced by ~8% wt loss x 4 months and PO meeting less than 50-75% estimated nutrition needs Status Active Problem Recommendation Dietitian Recommendations/Changes Continue regular diet; will add magic cup BID w/ lunch and dinner. Continue ensure enlive w/ medpass as tolerated. Lab / Micro Data Result Diagrams: 08/24/21 05:10 08/24/21 05:10 Labs: Laboratory Results - last 24 hr 08/24/21 05:10: WBC 11.1 H, RBC 3.19 L, Hgb 9.6 L, Hct 29.9 L, MCV 93.7, MCH 3 0.1, MCHC 32.1, RDW Std Deviation 66.6 H, RDW Coeff of Salena 19.3 H, Plt Count 311, MPV 8.7, Immature Gran % (Auto) 1.800 H, Neut % (Auto) 91.7 H, Lymph % (Auto) 2.9 L, [place] % (Auto) 3.5, Eos % (Auto) 0.0, Baso % (Auto) 0.1, Absolute Neuts (auto) 10.2 H, Absolute Lymphs (auto) 0.32 L, Nucleated RBC % 0, Differential Comment SCANNED, Ovalocytes RARE 08/24/21 05:10: Sodium 139, Potassium 4.3, Chloride 106, Carbon Dioxide 28.0, Anion Gap 5, BUN 30 H, Creatinine 0.84, Estim Creat Clear Calc 59.27, Est GFR (MDRD) Af Amer 86, Est GFR (MDRD) Non-Af 71, BUN/Creatinine Ratio 35.8 H, Glucose 128 H, Calcium 8.1 L Physical Exam Const alert, oriented x3 and no apparent distress Exam Limitations: no limitations HEENT head/scalp atraumatic and moist oral mucous membranes Head and Scalp: normocephalic Eyes PERRL, EOMs intact bilaterally and conjunctivae normal Neck no lymphadenopathy, supple and no JVD Resp Resp Narrative: Mildly diminished breath sounds bibasilarly. No wheezes or crackles. On room air. Cardio regular rate, regular rhythm, S1 normal heart sound, S2 normal heart sound and no murmurs GI normal to inspection, nondistended, normoactive bowel sounds, soft to palpation, non-tender and non-distended Extremity normal to inspection, full ROM and no clubbing, cyanosis or edema Peripheral Pulses: Yes pulses 2+ throughout Skin no rashes or lesions noted Skin Narrative: chest chemotherapy port in place Neuro oriented x3, CN's II-XII intact bilaterally, moves all extremities and no focal motor deficits Sensorium / Orientation: awake Psych affect normal Assessment & Plan Assessment/Plan (1) Metastatic urothelial carcinoma: (2) Spine metastasis: PLAN: #Spinal metastasis * Primary is either her urothelial carcinoma or underlying lung cancer. * MRI showed numerous intradural dural enhancing lesions throughout the cervical and thoracic spine with numerous other smaller intramedullary and extramedu llary lesions. * MRI of the lumbar spine pending. * To initiate radiation therapy tomorrow. * On Decadron 6 mg every 6 hours * #Anemia * chronic. Likely due to malignancy. * will monitor * Hb today is 9.6 * * #Histoy of DVT and PE: on eliquis #COPD: not in exacerbation. breathing treatment with bronchodilators. #GERD; on PPI #History of urinary incontinence: on oxybutynin #DVT prophylaxis: not indicated as patient is already on eliquis. Eliquis CODE STATUS: DNR CCA no intubation Charges/Coding Visit Charges Inpatient E&M: 85529 Subs Hosp L2
[2021-08-24 14:54] VITALS: BP 141/80; PULSE 72; RESP 18; TEMP 36.8; O2SAT 98
[2021-08-24 21:08] VITALS: BP 134/83; PULSE 71; RESP 16; TEMP 36.6; O2SAT 98
[2021-08-24] MEDS: MELATONIN 10 MG TABLET 5 MG PO (23:04)
[2021-08-24] MEDS: Glycerin/Hypromellose/PEG400 15 ml Bottle 1 DRP EACH EYE (23:04)
[2021-08-25] MEDS: Glycerin/Hypromellose/PEG400 15 ml Bottle 1 DRP EACH EYE (05:40)
[2021-08-25] MEDS: dexAMETHasone 10 MG/ML Vial 6 MG IV ×2 (05:40→12:44)
[2021-08-25] MEDS: 0.9% Saline Lock 10 ML Syringe IV ×3 (05:40→12:44)
[2021-08-25 05:47] VITALS: BP 135/80; PULSE 64; RESP 16; TEMP 36.6; O2SAT 98
[2021-08-25 05:57] LABS: Absolute Neutrophil Count 7.8 X10^3/uL (2.0-7.7); Basophil# 0.01 X10^3/uL; Basophil% 0.1 % (0-1); Hematocrit 29.9 % (37-47); Hemoglobin 9.6 g/dL (12.0-15.0); Lymphocyte % 3.4 % (19-41); Mean Corp Hgb Conc 32.1 g/dL (32-36); Mean Corpuscular Hgb 30.2 pg (27.0-32.0); Mean Platelet Vol. 8.6 fl (6.2-12.0); Monocyte# 0.44 X10^3/uL; NRBC Flagged by Analyzer 0 % (0-5); Neutrophil # 7.84 X10^3/uL (2.7-7.7); Neutrophil % 89.8 % (47-70); POSITIVE DIFFERENTIAL YES; POSITIVE MORPHOLOGY YES; Platelet Count 300 K/mm3 (150-450); RBC Distribution Width CV 19.3 % (11.6-14.6); Red Blood Count 3.18 M/mm3 (4.2-5.4); White Blood Count 8.7 K/mm3 (4.4-11.0)
[2021-08-25 05:59] LABS: Differential Indicated SCAN CRITERIA MET
[2021-08-25 06:27] LABS: Anion Gap 5 (5-15); BUN 29 mg/dL (7-18); BUN/Creat Ratio 33.3 RATIO (10-20); Calcium,Total 8.9 mg/dL (8.5-10.1); Chloride 106 mmol/L (98-107); Creatinine, Serum 0.87 mg/dL (0.55-1.02); EST Glomerular Filtration Rate 68 mL/min (>60); Est Glom Filt Rate - Afr Amer 82 mL/min (>60); Estimated Creatinine Clearance 57.23 ml/min; Glucose 127 mg/dL (74-106); Potassium 3.9 mmol/L (3.5-5.1); Sodium Level 140 mmol/L (136-145)
[2021-08-25 06:35] LABS: Anisocytosis 2+
[2021-08-25 06:36] LABS: Differential Comment SCANNED
[2021-08-25 07:43] VITALS: BP 116/62; PULSE 70; RESP 16; TEMP 37; O2SAT 98
[2021-08-25] MEDS: 0.9 % NaCl (Sterile) Posiflush 10 mL IV (13:16)
--- NOTE | 2021-08-25 13:47 | PCM.DC.SUM ---
Providers Date of Admission: 08/21/21 Primary Care Physician: PRETTY Rodríguez Consultations 08/20/21 23:11 Consult: Radiation Oncology Routine Consulting Provider: Damon Gleason Reason for Consult: Metastatic cancer to spine EMERGENT Consult: No MD Notified: Yes Date Notified: 08/20/21 Time Notified: 22:07 Method of Notification: Answering Service 08/21/21 14:02 Consult: Oncology/Hematology Routine Consulting Provider: SHANE Hem/Onc Ace Reason for Consult: spinal mets EMERGENT Consult: No MD Notified: Yes Date Notified: 08/21/21 Time Notified: 14:02 Method of Notification: Verbal Reason For Visit: METASTATIC UROTHELIAL CARCINOMA TO THE SPINE Diagnosis Discharge Diagnosis (1) Metastatic urothelial carcinoma: Status: Acute Code(s): C79.10 - Secondary malignant neoplasm of unspecified urinary organs (2) Spine metastasis: Status: Acute Code(s): C79.51 - Secondary malignant neoplasm of bone Medications at Discharge Home Medications cholecalciferol (vitamin D3) 50 mcg (2,000 unit) capsule 5,000 unit PO QDAY 06/29/17 omeprazole 40 mg PO DAILY 04/16/19 oxybutynin chloride 15 mg PO DAILY 04/16/19 albuterol sulfate 90 mcg/actuation aerosol inhaler 2 puff INHALATION Q4H PRN g 03/04/20 melatonin 5 mg tablet 5 mg PO HS PRN 03/04/20 Eliquis DVT-PE Treat 30D Start 5 mg PO BID #74 tab 03/29/21 Anoro Ellipta 1 inh INHALATION DAILY 05/08/21 cephalexin 1 PO BID 08/20/21 dexamethasone 8 mg PO BID 08/20/21 folic acid 1 mg PO DAILY 08/20/21 Hospital Course Operations None Procedures None Summary of Care Provided Minutes Spent on Discharge: 50 Hospital Course: Patient is a 76-year-old female with past medical history of metastatic bladder cancer who was sent to the ED for emergency radiation of the spine due to an abnormal MRI finding. Patient had been having numbness to her left leg for about 3 days prior to admission. She has completed her last radiation to her brain on the same day of admission. Because of the numbness of her left leg she had MRI done of the spine due to concern about impending paralysis she was sent to the ED for evaluation and emergency radiation. She said she had had pain to her middle back that had worsened about 2 days prior to admission. Patient was started on Decadron and had also been on antibiotics for UTI. She had no urinary symptoms. The bladder cath had metastasized to her lungs and brain. She was admitted and managed for spinal metastasis of urothelial carcinoma. MRI showed numerous intradural enhancing lesions throughout the cervical and thoracic spinal cord including multiple lesions with intramedullary component involving the spinal cord with most significant lesion at C5, T3, T9 and T11 with associated spinal cord edema. Radiation oncology was consulted. Oncology was also consulted. Patient had radiation on 08/25/2021 and tolerated it well. She was also able to work with physical therapy and did well. She remained stable and was discharged home on 08/25/2021. She is to follow up with her PCP, oncologist and radiation oncologist in 1-2 weeks. Patient seen and examined. She felt well and had no active complaints. She had an uneventful night and review of systems otherwise negative. Labs and vitals reviewed. Home medication reviewed and reconciled. Physical Exam Const alert, oriented x3, no apparent distress, average body habitus and well nourished General Appearance: cooperative, comfortable and well kempt Exam Limitations: no limitations HEENT normocephalic, head/scalp atraumatic, hearing grossly normal bilaterally and moist oral mucous membranes Eyes PERRL, EOMs intact bilaterally and conjunctivae normal Neck no lymphadenopathy, supple and no JVD Resp normal respiratory effort, no retractions, no use of accessory muscles and clear to auscultation bilaterally Resp Narrative: Mildly diminished breath sounds bibasilarly. No wheezes or crackles. On room air. Auscultation: Negative for crackles, rales, rhonchi or wheezes Cardio regular rate, regular rhythm, S1 normal heart sound, S2 normal heart sound, no murmurs, no rub, no gallops, no clicks and no JVD GI normal to inspection, nondistended, normoactive bowel sounds, soft to palpation, non-tender and non-distended Extremity normal to inspection, full ROM and no clubbing, cyanosis or edema Skin no rashes or lesions noted Skin Narrative: chest chemotherapy port in place Neuro oriented x3, CN's II-XII intact bilaterally, moves all extremities and no focal motor deficits Sensorium / Orientation: awake and alert Speech: speech normal Psych affect normal Medical Records Data Medical Nutrition Assessment Dietitian: Malnutrition Criteria Met Start: 08/21/21 15:44 Freq: Status: Active Protocol: Document 08/21/21 15:45 RMA (Rec: 08/21/21 15:45 RMA [id number]) Nutrition Malnutrition Evidence of Malnutrition Exists Yes Malnutrition (severe): Acute Illness/Injury Evidenced By Suboptimal Energy Intake ( Moderate),Weight Loss (Severe) Clinical Problem Acute Disease or Injury Related Malnutrition Etiology Severe protein-calorie malnutrition in the context of acute illness related to inadequate energy intake and increased energy expenditure Signs/Symptoms as evidenced by ~8% wt loss x 4 months and PO meeting less than 50-75% estimated nutrition needs Status Active Problem Recommendation Dietitian Recommendations/Changes Continue regular diet; will add magic cup BID w/ lunch and dinner. Continue ensure enlive w/ medpass as tolerated. Weight / BMI Weight Weight: 164 lb 3.91 oz Body Mass Index (BMI) 25.0 ABG / Lab / Microbiology Data Result Diagrams: 08/25/21 05:40 08/25/21 05:40 Laboratory: Laboratory Results - last 24 hr 08/25/21 05:40: WBC 8.7, RBC 3.18 L, Hgb 9.6 L, Hct 29.9 L, MCV 94.0, MCH 30.2, MCHC 32.1, RDW Std Deviation 66.0 H, RDW Coeff of [place]ena 19.3 H, Plt Count 300, MPV 8.6, Immature Gran % (Auto) 1.700 H, Neut % (Auto) 89.8 H, Lymph % (Auto) 3.4 L, [place] % (Auto) 5.0, Eos % (Auto) 0.0, Baso % (Auto) 0.1, Absolute Neuts (auto) 7.8 H, Absolute Lymphs (auto) 0.30 L, Nucleated RBC % 0, Differential Comment SCANNED, Anisocytosis 2+ 08/25/21 05:40: Sodium 140, Potassium 3.9, Chloride 106, Carbon Dioxide 29.0, Anion Gap 5, BUN 29 H, Creatinine 0.87, Estim Creat Clear Calc 57.23, Est GFR (MDRD) Af Amer 82, Est GFR (MDRD) Non-Af 68, BUN/Creatinine Ratio 33.3 H, Glucose 127 H, Calcium 8.9 D/C Instructions Discharge Diet: Low fat / Low cholesterol Discharge Activity: Return to Normal Activity Weight Bearing Status: Weight bearing as tolerated Call your doctor if you observe: Fever of 101 or Higher, Shortness of breath, Dizziness, Swelling in the ankles, Chest pain and Increased palpitations (irregular heartbeat) Meaningful Use Info Meaningful Use Diagnoses (Choose all that apply): None applicable Discharge Plan Admission Admit Date/Time: 08/21/21 13:23 Primary Reason for Your Visit: urothelial cancer with mets to the bone Attending Provider: An Rausch Primary Care Provider: Tea Fajardo NP Consulting Providers: Jerrell Escobedo ; Damon Gleason ; Chivo Jules ; Yovana Lynne ; Corey Hernández ; Augusto Concepcion ; William Moura ; Jose Angel Schwarz ; Joy Ferreira Instructions Patient Instructions: Cancer Radiation Therapy Ch Discharge Orders/Prescriptions Prescriptions: Continued cholecalciferol (vitamin D3) 2,000 unit capsule 5,000 unit PO QDAY RF: 0 albuterol sulfate 90 mcg/actuation HFA aerosol inhaler 2 puff INHALATION Q4H PRN (Reason: COPD) RF: 0 melatonin 5 mg tablet 5 mg PO HS PRN (Reason: COPD) RF: 0 oxybutynin chloride 15 MG tablet extended release 24hr 15 mg PO DAILY RF: 0 omeprazole 20 MG tablet,delayed release (DR/EC) 40 mg PO DAILY RF: 0 Eliquis DVT-PE Treat 30D Start 5 mg (74 tabs) tablets,dose pack 5 mg PO BID Qty: 74 RF: 1 Anoro Ellipta 62.5-25 mcg/actuation Blister With Device 1 inh INHALATION DAILY RF: 0 cephalexin 500 mg capsule 1 PO BID RF: 0 dexamethasone 4 mg Tablet 8 mg PO BID RF: 0 folic acid 1 mg Tablet 1 mg PO DAILY RF: 0 Referrals / Follow Up: William Moura DO [STAFF PHYSICIAN] - Within 2 Weeks Damon Gleason DO [NON-STAFF] - Within 1 Week Tea Fajardo NP, [employer]ATOR[facility] [Primary Care Provider] - Within 2 Weeks Disposition Disposition (needs filled in before D/C Order can be placed): Home, Self Care Charges/Coding Visit Charges Inpatient E&M: 32218 Disch Hosp
[2021-08-25 14:16] VITALS: BP 134/66; PULSE 70; RESP 18; TEMP 36.8; O2SAT 98
== END 2021-08-25 14:18 | disposition home or self-care (01) | DRG 542 ==
LOC: ED 22:08 → MS3 22:23
PROVIDERS: Internal Medicine; Admitting Provider Hospitalist; Emergency Provider Emergency Medicine; PCP Registered Nurse; Visit Provider Student in an Organized Health Care Education/Training Program
DX: C79.51 Secondary malignant neoplasm of bone (principal); G95.19 Other vascular myelopathies; E43 Unspecified severe protein-calorie malnutrition; C79.49 Secondary malignant neoplasm of other parts of nervous system; C79.10 Secondary malignant neoplasm of unspecified urinary organs; C34.10 Malignant neoplasm of upper lobe, unspecified bronchus or lung; C79.31 Secondary malignant neoplasm of brain; N39.0 Urinary tract infection, site not specified; J43.9 Emphysema, unspecified; C67.9 Malignant neoplasm of bladder, unspecified; J47.9 Bronchiectasis, uncomplicated; D63.8 Anemia in other chronic diseases classified elsewhere; E55.9 Vitamin D deficiency, unspecified; M79.7 Fibromyalgia; K21.9 Gastro-esophageal reflux disease without esophagitis; N18.2 Chronic kidney disease, stage 2 (mild); G96.198 Other disorders of meninges, not elsewhere classified; R03.0 Elevated blood-pressure reading, without diagnosis of hypertension; R20.0 Anesthesia of skin; Z66 Do not resuscitate; Z87.891 Personal history of nicotine dependence; R59.0 Localized enlarged lymph nodes; Z86.711 Personal history of pulmonary embolism; Z68.25 Body mass index [BMI] 25.0-25.9, adult; N39.3 Stress incontinence (female) (male)
CPT/HCPCS: 36591; 77014; 77290; 80048; 80053; 85025; 99285; J7040; A4216

== ENCOUNTER 2021-09-08 09:41 | Inpatient (IN) | payer MEDICARE, SELFPAY ==
[2021-09-08 09:42] VITALS: BP 121/77; PULSE 110; RESP 20; TEMP 36.6; O2SAT 99; BMI 23.8
--- NOTE | 2021-09-08 10:02 | EDS_ITS ---
HPI History of Present Illness Chief Complaint: Weakness Detail of Chief Complaint: Generalized weakness Informant: patient Narrative Narrative: Patient presents to the emergency department with complaint of generalized weakness as well as throat pain and concern for dehydration. Patient states that she started radiation therapy to the upper spine 2 weeks ago and since that started she has not been feeling well. The throat pain is thought to be related to the radiation. Patient states she is not able to eat or drink. Patient just generally feels weak. Patient was advised by her oncologist to come to the emergency department and get admitted for few days for IV hydration. Patient finished her radiation therapy yesterday. Patient's last chemo was 6 weeks ago. She denies fevers. She complains of urinary frequency. Prior similar symptoms: No PFSH PFSH Medical History Acid reflux Alcohol use Anemia Arthritis Back pain Bladder cancer Bladder disease Cancer Cancer of spinal column COPD (chronic obstructive pulmonary disease) COPD (chronic obstructive pulmonary disease) Emphysema lung Fibromyalgia Fibromyalgia Former smoker GERD (gastroesophageal reflux disease) Goiter Hemorrhoids Hernia History of bladder cancer History of echocardiogram History of edema History of lung cancer History of steroid therapy History of stress test History of voice disturbance Leg cramps Lung cancer, upper lobe Metastatic urothelial carcinoma Multiple thyroid nodules Normocytic anemia On home oxygen therapy Oral pharyngeal candidiasis Pulmonary embolism Right inguinal hernia Shortness of breath on exertion Spine metastasis Syncope Wears dentures Wears glasses Wears partial dentures Home Medications cholecalciferol (vitamin D3) 50 mcg (2,000 unit) capsule 5,000 unit PO QDAY 06/29/17 [History Last Taken 05/11/21] omeprazole 20 mg tablet,delayed release 40 mg PO DAILY 04/16/19 [History Last Taken 05/11/21] oxybutynin chloride 15 mg tablet,extended release 24 hr 15 mg PO DAILY 04/16/19 [History Last Taken 05/11/21] albuterol sulfate 90 mcg/actuation aerosol inhaler 2 puff inhalation Q4H PRN COPD 03/04/20 [History Last Taken 03/20/20 07:00] melatonin 5 mg tablet 5 mg PO HS PRN COPD 03/04/20 [History Last Taken Unknown] apixaban 5 mg (74 tabs) tablets in a dose pack (Eliquis DVT-PE Treat 30D Start) 5 mg PO BID #74 tabs 03/29/21 [Rx Last Taken 05/08/21] umeclidinium 62.5 mcg-vilanterol 25 mcg/actuation powdr for inhalation (Anoro Ellipta) 1 inh inhalation DAILY 05/08/21 [History Last Taken 05/11/21] dexamethasone 4 mg tablet 8 mg PO BID 08/20/21 [History Last Taken 08/20/21 20:25] folic acid 1 mg tablet 1 mg PO DAILY 08/20/21 [History Last Taken Unknown] nystatin 100,000 unit/mL oral suspension 5 ml buccal TID oral candidiasis #473 mL 08/26/21 [Rx Last Taken Unknown] oxycodone 5 mg/5 mL oral solution 5 mg (5 mL) PO Q4H PRN pain 10 days #250 mL 09/07/21 [Rx Last Taken Unknown] promethazine 25 mg tablet 25 tab PO DAILY PRN Nausea 09/08/21 [History Last Taken Unknown] Allergy/AdvReac Type Severity Reaction Status Date / Time fluticasone furoate AdvReac Mild Other Verified 09/08/21 09:44 [From Honorio Dominique] Family History Sister Hypertension Brother Hypertension Cancer throat and lung Father Cancer sarcoma Mother Cancer unsure type --all thru her Surgical History H/O: hysterectomy history laparoscopic right inguinal hernia repair (~03/20/20) History of appendectomy History of bilateral carpal tunnel release History of bilateral oophorectomy History of bladder repair surgery History of colonoscopy (~2017) History of lumpectomy of right breast S/P brain surgery S/P laparoscopic cholecystectomy S/P lobectomy of lung S/P thyroid biopsy Social History Smoking Status: Former smoker alcohol intake: never ROS ROS ED Review of Systems ROS Unobtainable: other Constitutional Constitutional ED: Reports lethargy; Denies chills, fever(s), sweats or weight loss Eyes Eyes: Denies blurry vision, change in vision or diplopia ENT ENT ED: Denies rhinorrhea or sore throat Cardiovascular Cardiovascular: Reports chest pain and racing heartbeat; Denies orthopnea Respiratory/Chest Respiratory/Chest: Reports dyspnea and dyspnea on exertion; Denies cough, ort hopnea or sputum Gastrointestinal Gastrointestinal: Denies abdominal pain, diarrhea, nausea or vomiting Genitourinary Genitourinary ED: Denies dysuria, hematuria or urinary frequency Musculoskeletal Musculoskeletal: Denies arthralgias, back pain, myalgias or neck pain Integumentary Denies abscess, Abrasions or rash Neurologic Neurologic: Denies headache(s) or weakness Psychiatric Psychiatric: Denies anxiety, depression or suicidal thoughts Endocrine Endocrinology: Denies polydipsia, polyphagia or polyuria Hematologic/Lymphatic Hematologic/Lymphatic: Denies easy bleeding, easy bruising or lymphadenopathy Allergic/Immunologic Allergic/Immunologic ED: Denies mouth swelling, tongue swelling or urticaria EXAM Physical Exam Const Vital Signs: 09/08/21 09:42 09/08/21 10:25 09/08/21 10:47 Temperature 98 F 98.1 F Temperature Source Temporal Oral Pulse Rate 110 H 107 H Respiratory Rate 20 H 21 H Respiratory Pattern Normal Blood Pressure 121/77 H 120/72 Blood Pressure Mean 91 88 Pulse Ox 99 96 Oxygen Delivery Method Room Air Room Air 09/08/21 11:52 09/08/21 11:52 Temperature 97.8 F Temperature Source Temporal Pulse Rate 91 91 Respiratory Rate 14 Respiratory Pattern Blood Pressure 124/100 H 124/100 H Blood Pressure Mean 108 108 Pulse Ox 99 99 Oxygen Delivery Method Room Air Room Air Positive well nourished and well developed General Appearance ED: well developed and NAD HEENT Reports TM's clear and dry mucous membranes normocephalic and atraumatic; Negative for trauma or tenderness Tympanic Membrane ED: Yes TM's clear Mouth ED: Yes dry mucous membranes Mouth: dry mucous membranes Eyes PERRL and EOMs intact bilaterally General Eye ED: Negative for pale conjunctiva or scleral icterus Neck no lymphadenopathy, supple and no JVD General: Negative for tenderness Chest Wall inspection of chest normal and palpation of chest normal Chest: Negative for tenderness Resp normal respiratory effort and clear to auscultation bilaterally Effort and Inspection: Negative for respiratory distress or pain with movement Auscultation: Negative for rhonchi, wheezes or diminished lung sounds Cardio regular rate, regular rhythm, S1 normal heart sound, S2 normal heart sound and no murmurs Peripheral Pulses: pulses 2+ throughout GI normal to inspection, nondistended, normoactive bowel sounds, soft to palpation, non-tender, non-distended and no masses Back/Spine no CVA tenderness and no thoracic nor lumbar tenderness Extremity normal to inspection General Extremety ED: Negative for edema General Extremity: Negative for edema Neuro oriented x3, CN's II-XII intact bilaterally, no sensory deficits noted and gait normal Sensorium / Orientation: awake, alert, oriented to person, oriented to place and oriented to time Motor Exam: strength 5/5 throughout and strength abnormal Psych mental status grossly normal Skin no rashes or lesions noted and no wounds MDM MDM MDM Narrative Medical decision making narrative: IV line established. Patient given liter mostly of fluid bolus. Patient given morphine and Zofran IV. Lab work-up does show an elevated BUN of 39 creatinine 1.07 which is elevated from baseline. At this point patient will be admitted and case was discussed with hospitalist. Lab Data Attestation: I reviewed the patient's lab results. Labs: Laboratory Results - last 24 hr 09/08/21 09/08/21 09/08/21 10:35 10:35 10:35 WBC 2.2 L RBC 3.48 L Hgb 11.2 L Hct 34.1 L MCV 98.0 MCH 32.2 H MCHC 32.8 RDW Std Deviation 63.9 H RDW Coeff of [place] 17.9 H Plt Count 96 L MPV 9.1 Immature Gran % (Auto) 0.900 Neut % (Auto) 88.9 H Lymph % (Auto) 3.3 L [place] % (Auto) 6.0 Eos % (Auto) 0.9 Baso % (Auto) 0.0 Absolute Neuts (auto) 1.9 L Absolute Lymphs (auto) 0.07 L Nucleated RBC % 0 Differential Comment SCANNED Diff Path Review May foll Sodium 134 L Potassium 4.1 Chloride 99 Carbon Dioxide 25.0 Anion Gap 10 BUN 39 H Creatinine 1.07 H Estim Creat Clear Calc 46.53 Est GFR (MDRD) Af Amer 64 Est GFR (MDRD) Non-Af 53 L BUN/Creatinine Ratio 36.4 H Glucose 151 H Calcium 9.2 Total Bilirubin 0.80 AST 52 H ALT 111 H Alkaline Phosphatase 64 Total Protein 6.7 Albumin 3.1 L Globulin 3.6 Albumin/Globulin Ratio 0.9 Urine Color Yellow Urine Clarity Sl. 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 melatonin 5 mg tablet 5 mg PO HS PRN (Reason: COPD) nystatin 100,000 unit/mL suspension 5 ml buccal TID MDD 15 ml Qty: 473 0RF Rx Instructions: administer 1/2 of dose in each side of the mouth, swish and swallow oxycodone 5 mg/5 mL solution 5 mg PO Q4H PRN (Reason: pain) 10 Days Qty: 250 0RF Rx Instructions: take 5-10 mL PO q4-6 hrs prn pain oxybutynin chloride 15 MG tablet extended release 24hr 15 mg PO DAILY omeprazole 20 MG tablet,delayed release (DR/EC) 40 mg PO DAILY Eliquis DVT-PE Treat 30D Start 5 mg (74 tabs) tablets,dose pack 5 mg PO BID Qty: 74 1RF Rx Instructions: take 2 tablets (10mg) twice daily for 7 days, till 04/03/2021, then continue with one tablet(5mg) twice daily. Anoro Ellipta 62.5-25 mcg/actuation Blister With Device 1 inh INHALATION DAILY dexamethasone 4 mg Tablet 8 mg PO BID Rx Instructions: take 2 tabs (8mg) twice a day x 7 days, then 1 tab (4mg) twice a day x 7 days then 1 tab (4mg) once a day in the am x 14 days then stop folic acid 1 mg Tablet 1 mg PO DAILY promethazine 25 mg tablet 25 tab PO DAILY PRN (Reason: Nausea) Label Comments: Take 1 tablet by mouth every 6 hours as needed. FOR NAUSEA Primary Care Provider: Tea Fajardo NP Referrals: Tea Fajardo NP, [employer]OUNTS RECEIVABLE MANAGER-C [Primary Care Provider] - Disposition Disposition: Acute Care Hospital [facility]
[2021-09-08] MEDS: Ondansetron 4 MG/2 ML Vial IV (10:37)
[2021-09-08] MEDS: 0.9% Normal Saline 1,000 ML 1000 ML IV (10:37)
[2021-09-08] MEDS: Morphine 4 MG/ML Syringe IV (10:37)
[2021-09-08 10:47] VITALS: BP 120/72; PULSE 107; RESP 21; TEMP 36.7; O2SAT 96
[2021-09-08 10:49] LABS: Red Blood Cells-Urine 0 SEEN /hpf (0-5)
[2021-09-08 10:52] LABS: Absolute Lymphocyte Count 0.07 X10^3/uL (0.83-4.51); Absolute Neutrophil Count 1.9 X10^3/uL (2.0-7.7); Eosinophil# 0.02 X10^3/uL; Eosinophils% 0.9 % (0-5); Hematocrit 34.1 % (37-47); Hemoglobin 11.2 g/dL (12.0-15.0); Lymphocyte # 0.07 X10^3/ul (0.83-4.51); Lymphocyte % 3.3 % (19-41); Mean Corp Hgb Conc 32.8 g/dL (32-36); Mean Corpuscular Hgb 32.2 pg (27.0-32.0); Mean Platelet Vol. 9.1 fl (6.2-12.0); Monocyte# 0.13 X10^3/uL; NRBC Flagged by Analyzer 0 % (0-5); Neutrophil # 1.91 X10^3/uL (2.7-7.7); Neutrophil % 88.9 % (47-70); POSITIVE COUNT YES; POSITIVE DIFFERENTIAL YES; POSITIVE MORPHOLOGY YES; Platelet Count 96 K/mm3 (150-450); RBC Distribution Width CV 17.9 % (11.6-14.6); RBC Distribution Width SD 63.9 fl (35.1-43.9); Red Blood Count 3.48 M/mm3 (4.2-5.4); White Blood Count 2.2 K/mm3 (4.4-11.0)
[2021-09-08 10:53] LABS: Color, Urine Yellow (Yellow); Glucose, Dipstick Normal (Normal); Ketone-Dipstick Negative (Negative); Leukocyte Esterase-Dipstick 25 /ul (Negative); Nitrite-Dipstick Negative (Negative); Occult Blood-Urine 10 /ul (Negative); Protein-Dipstick 30 mg/dl (Negative); Urine Bilirubin Dipstick Negative (Negative); Urine Clarity Sl. Cloudy (Clear); Urine Urobilinogen 1 mg/dl (Normal)
[2021-09-08 10:57] LABS: Differential Indicated SCAN CRITERIA MET
[2021-09-08 11:01] LABS: Bacteria 3+ /hpf (None Seen); Mucous, Urine 1+ /hpf (<or=2+); Squamous Epithelial Cells - UA 5-10 SEEN /hpf (5-10); White Blood Cells 0-5 SEEN /hpf (0-5)
[2021-09-08 11:02] LABS: Hyaline Cast 0-5 SEEN /lpf (0-5)
[2021-09-08 11:09] LABS: ALB/GLOB Ratio 0.9 RATIO (0.9-2.4); AST(SGOT) 52 U/L (15-37); Alanine Aminotransfer ALT/SGPT 111 U/L (13-56); Albumin, Serum 3.1 g/dL (3.2-5.0); Alkaline Phosphatase 64 U/L (45-117); Anion Gap 10 (5-15); BUN 39 mg/dL (7-18); BUN/Creat Ratio 36.4 RATIO (10-20); Calcium,Total 9.2 mg/dL (8.5-10.1); Chloride 99 mmol/L (98-107); Creatinine, Serum 1.07 mg/dL (0.55-1.02); EST Glomerular Filtration Rate 53 mL/min (>60); Est Glom Filt Rate - Afr Amer 64 mL/min (>60); Estimated Creatinine Clearance 46.53 ml/min; Globulin 3.6 g/dL (2.2-4.2); Glucose 151 mg/dL (74-106); Potassium 4.1 mmol/L (3.5-5.1); Protein, Total 6.7 g/dL (6.4-8.2); Sodium Level 134 mmol/L (136-145)
[2021-09-08 11:15] LABS: Differential Comment SCANNED
[2021-09-08 11:52] VITALS: BP 124/100; PULSE 91; RESP 14; TEMP 36.6; O2SAT 99
[2021-09-08] MEDS: 0.9% Normal Saline 1,000 ML 150 ML IV ×3 (11:53→20:57)
--- NOTE | 2021-09-08 12:32 | HP.PCM.HOS_ITS ---
HPI - General General Date of Admission: 09/08/21 Date of Service: 09/08/21 Chief Complaint: Dysphagia, odynophagia/throat pain worsening for 2 to 3 days HPI Narrative MARK AIKEN, is a 76 F with history of metastatic cancer to the spine probably primary urothelial/lung cancer was sent to ER for dehydration, inability to eat swallow for last 2 days. Patient stated she has severe throat pain and not able to swallow or eat for 2 days. She also has severe loss of appetite, nausea and vomited twice, clear gastric content. Prior to that she was admitted on 08/20/2021 -08/25 for for emergency radiation for numbness to her left leg for about 3 days prior to admission. After that she completed 2 weeks of radiation but developed above symptoms. She has generalized body aches and pain but denies fever. History of COPD/emphysema, upper lobe lung cancer follows [facility] oncologist Dr. Moura. She denies burning micturition or any new symptoms in lower urinary tract. In ED she was mildly tachycardic but normal blood pressure. Basic labs shows elevated BUN 39, creatinine 1.07, elevated transaminases and pancytopenia. [facility] Medical History Acid reflux Alcohol use Anemia Arthritis Back pain Bladder cancer Bladder disease Cancer Cancer of spinal column COPD (chronic obstructive pulmonary disease) COPD (chronic obstructive pulmonary disease) Emphysema lung Fibromyalgia Fibromyalgia Former smoker GERD (gastroesophageal reflux disease) Goiter Hemorrhoids Hernia History of bladder cancer History of echocardiogram History of edema History of lung cancer History of steroid therapy History of stress test History of voice disturbance Leg cramps Lung cancer, upper lobe Metastatic urothelial carcinoma Multiple thyroid nodules Normocytic anemia On home oxygen therapy Oral pharyngeal candidiasis Pulmonary embolism Right inguinal hernia Shortness of breath on exertion Spine metastasis Syncope Wears dentures Wears glasses Wears partial dentures Home Medications cholecalciferol (vitamin D3) 50 mcg (2,000 unit) capsule 5,000 unit PO QDAY 06/29/17 [History Last Taken 05/11/21] omeprazole 20 mg tablet,delayed release 40 mg PO DAILY 04/16/19 [History Last Taken 05/11/21] oxybutynin chloride 15 mg tablet,extended release 24 hr 15 mg PO DAILY 04/16/19 [History Last Taken 05/11/21] albuterol sulfate 90 mcg/actuation aerosol inhaler 2 puff inhalation Q4H PRN [employer] D 03/04/20 [History Last Taken 03/20/20 07:00] melatonin 5 mg tablet 5 mg PO HS PRN COPD 03/04/20 [History Last Taken Unknown] apixaban 5 mg (74 tabs) tablets in a dose pack (Eliquis DVT-PE Treat 30D Start) 5 mg PO BID #74 tabs 03/29/21 [Rx Last Taken 05/08/21] umeclidinium 62.5 mcg-vilanterol 25 mcg/actuation powdr for inhalation (Anoro Ellipta) 1 inh inhalation DAILY 05/08/21 [History Last Taken 05/11/21] dexamethasone 4 mg tablet 8 mg PO BID 08/20/21 [History Last Taken 08/20/21 20:25] folic acid 1 mg tablet 1 mg PO DAILY 08/20/21 [History Last Taken Unknown] nystatin 100,000 unit/mL oral suspension 5 ml buccal TID oral candidiasis #473 mL 08/26/21 [Rx Last Taken Unknown] oxycodone 5 mg/5 mL oral solution 5 mg (5 mL) PO Q4H PRN pain 10 days #250 mL 09/07/21 [Rx Last Taken Unknown] promethazine 25 mg tablet 25 tab PO DAILY PRN Nausea 09/08/21 [History Last Taken Unknown] Allergy/AdvReac Type Severity Reaction Status Date / Time fluticasone furoate AdvReac Mild blurred Verified 09/08/21 13:49 [From Breo Ellipnikki] vision Family History Sister Hypertension Brother Hypertension Cancer throat and lung Father Cancer sarcoma Mother Cancer unsure type --all thru her Surgical History H/O: hysterectomy history laparoscopic right inguinal hernia repair (~03/20/20) History of appendectomy History of bilateral carpal tunnel release History of bilateral oophorectomy History of bladder repair surgery History of colonoscopy (~2017) History of lumpectomy of right breast S/P brain surgery S/P laparoscopic cholecystectomy S/P lobectomy of lung S/P thyroid biopsy Social History Smoking Status: Former smoker alcohol intake: never ROS ROS Narrative Constitutional: Reports fatigue and weakness, debilitated. Dehydrated. No f ever HEENT: Reports systems reviewed and no addt'l complaints, except as documented Respiratory/Chest: Denies chest pain, shortness of breath at rest. Chronic dyspnea on exertion Gastrointestinal: As described in HPI Genitourinary: Denies burning urination or new urinary tract symptoms Musculoskeletal: Reports upper spine pain. Weakness of muscles of extremity, left leg more than right leg. Neurologic: Denies seizure-like activity. Chronic neuropathic symptoms in lower legs, numbness skin: Alopecia Endocrinology: Reports systems reviewed and no addt'l complaints, except as documented Hematologic/Lymphatic: Reports systems reviewed and no addt'l complaints, except as documented Rest 14 ROS are negative except as mentioned in HPI Vital Signs Vital Signs Vital Signs: 09/08/21 09:42 09/08/21 10:25 09/08/21 10:47 Temperature 98 F 98.1 F Temperature Source Temporal Oral Pulse Rate 110 H 107 H Respiratory Rate 20 H 21 H Respiratory Pattern Normal Blood Pressure 121/77 H 120/72 Blood Pressure Mean 91 88 Pulse Ox 99 96 Oxygen Delivery Method Room Air Room Air 09/08/21 11:52 09/08/21 11:52 Temperature 97.8 F Temperature Source Temporal Pulse Rate 91 91 Respiratory Rate 14 Respiratory Pattern Blood Pressure 124/100 H 124/100 H Blood Pressure Mean 108 108 Pulse Ox 99 99 Oxygen Delivery Method Room Air Room Air Weight Weight: 157 lb Body Mass Index (BMI) 23.8 Physical Exam Narrative General: Alert, Oriented x3, Cooperative, BMI 24 kg/m? HEENT: Atraumatic, PERRLA, EOMI, Normocephalic Oral: Oral mucosa dry. Mild redness over soft palate. No obvious aphthous ulcer. Edentulous. Neck: Supple, No JVD, Negative Carotid Bruits Lungs: Air entry diminished in bilateral lung bases. No crepitation/rhonchi Cardiovascular: Regular rate, Regular Rhythm, Normal S1, Normal S2, No murmurs Abdomen: Bowel Sounds Present, Soft, Non Tender, Non-Distended : No renal angle tenderness. No suprapubic tenderness. Extremities: No edema, Capillary Refill Less than 3 Seconds Skin: Dry skin. Alopecia, dilated capillaries/small venules of fingertips. Grayish skin discoloration, radiotherapy changes to upper body. Musculoskeletal: ROM restricted of left leg. Muscle strength 4/5, LLE at hip and knee joints, right leg 4+/5. Neurological: Cranial nerves II-XII grossly intact, DTR 2+/4. Decreased sensation of left leg. Psych/Mental Status: Flat affect. Results Lab / Micro Data Result Diagrams: 09/08/21 10:35 09/08/21 10:35 Labs: Laboratory Results - last 24 hr 09/08/21 10:35: WBC 2.2 L, RBC 3.48 L, Hgb 11.2 L, Hct 34.1 L, MCV 98.0, MCH 32.2 H, MCHC 32.8, RDW Std Deviation 63.9 H, RDW Coeff of [place] 17.9 H, Plt Count 96 L, MPV 9.1, Immature Gran % (Auto) 0.900, Neut % (Auto) 88.9 H, Lymph % (Auto) 3.3 L, [place] % (Auto) 6.0, Eos % (Auto) 0.9, Baso % (Auto) 0.0, Absolute Neuts (auto) 1.9 L, Absolute Lymphs (auto) 0.07 L, Nucleated RBC % 0, Differential Comment SCANNED, Diff Path Review July09/08/21 10:35: Sodium 134 L, Potassium 4.1, Chloride 99, Carbon Dioxide 25.0, Anion Gap 10, BUN 39 H, Creatinine 1.07 H, Estim Creat Clear Calc 46.53, Est GFR (MDRD) Af Amer 64, Est GFR (MDRD) Non-Af 53 L, BUN/Creatinine Ratio 36.4 H, Glucose 151 H, Calcium 9.2, Total Bilirubin 0.80, AST 52 H, ALT 111 H, Alkaline Phosphatase 64, Total Protein 6.7, Albumin 3.1 L, Globulin 3.6, Albumin/Globulin Ratio 0.9 09/08/21 10:35: Urine Color Yellow, Urine Clarity Sl. 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 1. 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 Moura, consulted on 08/21/2021 on previous hospitalization. Patient also with recent local regional recurrence of non-small cell lung cancer and had [place] based chemotherapy with immunotherapy about 5 weeks ago. Patient is dehydrated with the dysphagia, odynophagia with generalized weakness and fatigue. IV fluid normal saline for rehydration. BMX, nystatin for symptomatic relief. Nutri tionist and is pleased pathologist consult. Continue PPI IV Protonix daily for GERD. She was also seen by Dr. Damon Talavera on 09/07/2021 on Decadron taper and recommended repeat spine MRI in 3 to 4 weeks and MRI brain 2 months after whole brain radiation at [facility] 2. COPD with history of non-small cell lung cancer: On bronchodilator as needed. Not in exacerbation 3. 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 History of urinary incontinence: on oxybutynin Living will/advanced directive/end of life care: Patient does have living will or advanced directive. Her friend is near the bedside. After discussion of benefits/risks procedures involved with full code, DNR CC arrest and DNR CC, the patient opted for DNRCC arrest, no intubation Patient doesn't want artificial life support including intubation, tube feed, ventilator and/chest compression, central venous catheter, vasopressor and DC shock if needed Total time spent in [id number] encounter in discussion of advanced directive 16 minutes. Laboratory Results 09/08/21 10:35: WBC 2.2 L, RBC 3.48 L, Hgb 11.2 L, Hct 34.1 L, MCV 98.0, MCH 32.2 H, MCHC 32.8, RDW Std Deviation 63.9 H, RDW Coeff of [place] 17.9 H, Plt Count 96 L, MPV 9.1, Immature Gran % (Auto) 0.900, Neut % (Auto) 88.9 H, Lymph % (Auto) 3.3 L, [place] % (Auto) 6.0, Eos % (Auto) 0.9, Baso % (Auto) 0.0, Absolute Neuts (auto) 1.9 L, Absolute Lymphs (auto) 0.07 L, Nucleated RBC % 0, Differential Comment SCANNED, Diff Path Review July09/08/21 10:35: Sodium 134 L, Potassium 4.1, Chloride 99, Carbon Dioxide 25.0, Anion Gap 10, BUN 39 H, Creatinine 1.07 H, Estim Creat Clear Calc 46.53, Est GFR (MDRD) Af Amer 64, Est GFR (MDRD) Non-Af 53 L, BUN/Creatinine Ratio 36.4 H, Glucose 151 H, Calcium 9.2, Total Bilirubin 0.80, AST 52 H, ALT 111 H, Alkaline Phosphatase 64, Total Protein 6.7, Albumin 3.1 L, Globulin 3.6, Albumin/Globulin Ratio 0.9 09/08/21 10:35: Urine Color Yellow, Urine Clarity Sl. Cloudy, Urine pH 6.0, Ur Specific [place] 1.020, Urine Protein 30 H, Urine Glucose (UA) Normal, Urine Ketones Negative, Urine Occult Blood 10 H, Urine Nitrite Negative, Urine Bilirubin Negative, Urine Urobilinogen 1 H, Ur Leukocyte Esterase 25 H, Urine RBC 0 SEEN, Urine WBC 0-5 SEEN, Ur Squamous Epith Cells 5-10 SEEN, Urine Bacteria 3+, Hyaline Casts 0-5 SEEN, Urine Mucus 1+ Charges/Coding Visit Charges Inpatient E&M: 94991 Init Hosp L3
[2021-09-08 12:48] VITALS: BP 121/97; PULSE 87; RESP 21; TEMP 36.7; O2SAT 98
--- NOTE | 2021-09-08 13:14 | NURSING ---
316 OBS JATINDER DEHYDRATION, THROAT PAIN, WEAKNESS
[2021-09-08 13:45] VITALS: BMI 24.0
[2021-09-08 13:58] VITALS: BP 126/72; PULSE 88; RESP 18; TEMP 36.6; O2SAT 100
[2021-09-08] MEDS: HYDROmorphone 0.5 MG/0.5 ML SYRINGE IV (14:32)
[2021-09-08] MEDS: BMX LIQUID 180 ML 20 ML PO (17:59)
--- NOTE | 2021-09-08 18:30 | NURSING ---
throat: redness noted on right and left side of posterior palate
[2021-09-08] MEDS: APIXABAN 5 MG TABLET PO (21:02)
[2021-09-08 21:45] VITALS: BP 104/72; PULSE 72; RESP 16; TEMP 36.7; O2SAT 97
[2021-09-09] MEDS: Morphine 2 MG/ML Syringe IV ×4 (00:39→15:13)
[2021-09-09] MEDS: BMX LIQUID 180 ML 20 ML PO ×3 (00:55→12:23)
[2021-09-09 03:06] VITALS: BP 105/60; PULSE 88; RESP 16; TEMP 36.3; O2SAT 97
[2021-09-09] MEDS: HYDROmorphone 0.5 MG/0.5 ML SYRINGE IV ×4 (03:14→17:21)
[2021-09-09] MEDS: 0.9% Saline Lock 10 ML Syringe IV ×9 (06:24→19:19)
[2021-09-09 06:28] LABS: Absolute Lymphocyte Count 0.04 X10^3/uL (0.83-4.51); Absolute Neutrophil Count 0.6 X10^3/uL (2.0-7.7); Eosinophil# 0.01 X10^3/uL; Eosinophils% 1.4 % (0-5); Hematocrit 26.8 % (37-47); Hemoglobin 8.7 g/dL (12.0-15.0); Lymphocyte # 0.04 X10^3/ul (0.83-4.51); Lymphocyte % 5.6 % (19-41); Mean Corp Hgb Conc 32.5 g/dL (32-36); Mean Corpuscular Hgb 31.9 pg (27.0-32.0); Mean Corpuscular Volume 98.2 fL (81-99); Monocyte# 0.06 X10^3/uL; Monocyte% 8.3 % (0-10); NRBC Flagged by Analyzer 0 % (0-5); Neutrophil # 0.61 X10^3/uL (2.7-7.7); Neutrophil % 84.7 % (47-70); POSITIVE COUNT YES; POSITIVE DIFFERENTIAL YES; POSITIVE MORPHOLOGY YES; Platelet Count 67 K/mm3 (150-450); RBC Distribution Width CV 17.4 % (11.6-14.6); RBC Distribution Width SD 62.5 fl (35.1-43.9); Red Blood Count 2.73 M/mm3 (4.2-5.4); White Blood Count 0.7 K/mm3 (4.4-11.0)
[2021-09-09 06:41] LABS: Differential Indicated SCAN CRITERIA MET
[2021-09-09 06:47] LABS: Anisocytosis 1+
[2021-09-09 07:23] LABS: ALB/GLOB Ratio 0.9 RATIO (0.9-2.4); AST(SGOT) 22 U/L (15-37); Alanine Aminotransfer ALT/SGPT 66 U/L (13-56); Albumin, Serum 2.4 g/dL (3.2-5.0); Alkaline Phosphatase 45 U/L (45-117); Anion Gap 6 (5-15); BUN 18 mg/dL (7-18); BUN/Creat Ratio 35.6 RATIO (10-20); Calcium,Total 8.3 mg/dL (8.5-10.1); Chloride 105 mmol/L (98-107); Creatinine, Serum 0.51 mg/dL (0.55-1.02); EST Glomerular Filtration Rate 126 mL/min (>60); Est Glom Filt Rate - Afr Amer 153 mL/min (>60); Estimated Creatinine Clearance 49.79 ml/min; Globulin 2.8 g/dL (2.2-4.2); Glucose 85 mg/dL (74-106); Potassium 3.7 mmol/L (3.5-5.1); Protein, Total 5.2 g/dL (6.4-8.2); Sodium Level 136 mmol/L (136-145)
[2021-09-09 07:27] VITALS: O2SAT 93
[2021-09-09] MEDS: dexAMETHasone 4 MG Tablet PO (08:04)
[2021-09-09] MEDS: Folic Acid 1 MG Tablet PO (08:04)
[2021-09-09] MEDS: Tolterodine Tartrate 4 MG CAP.SA PO (08:04)
[2021-09-09] MEDS: APIXABAN 5 MG TABLET PO ×2 (08:04→20:41)
[2021-09-09] MEDS: Cholecalciferol (Vit D3) 125 MCG CAPSULE (5,000 UNITS) PO (08:04)
[2021-09-09] MEDS: Lactated Ringers 1,000 ML 100 ML IV (08:24)
[2021-09-09 09:06] VITALS: BP 127/71; PULSE 98; RESP 17; TEMP 36.7; O2SAT 94
[2021-09-09] MEDS: TBO-FILGRASTIM 480 MCG/0.8 ML ML SC (10:18)
[2021-09-09 10:51] LABS: Procalcitonin 0.14 ng/mL (0.00-0.09)
[2021-09-09 12:18] LABS: Pathologist Review Reviewed
[2021-09-09 12:18] LABS: Pathologist Review Reviewed
[2021-09-09 14:30] VITALS: BP 131/75; PULSE 110; RESP 15; TEMP 36.6; O2SAT 92
--- NOTE | 2021-09-09 15:12 | PCM.PN.HOSP ---
Subjective Subjective Follow-up for radiotherapy induced mucositis/dysphagia, sore throat and pancytopenia. Objective Data Objective Data Vital Signs: Vital Signs Temp Pulse Resp BP Pulse Ox O2 Del Method 98.0 F 98 17 127/71 H 94 Room Air 09/09/21 09:06 09/09/21 09:06 09/09/21 09:06 09/09/21 09:06 09/09/21 09:06 09/09/21 09:06 Oxygen Delivery Method Room Air Weight: 160 lb 4.417 oz Body Mass Index (BMI) 24.0 Intake & Output: Intake and Output for Last 24 Hours 09/07/21 09/08/21 09/09/21 23:59 23:59 23:59 Intake Total 3370 / 3370 1215 / 1215 Balance 3370 / 3370 1215 / 1215 Medical Nutrition Assessment Dietitian: Malnutrition Criteria Met Start: 09/08/21 16:19 Freq: Status: Active Protocol: Document 09/08/21 16:31 AG (Rec: 09/08/21 16:31 [id number]) Nutrition Malnutrition Evidence of Malnutrition Exists Yes Malnutrition (severe): Chronic Evidenced By Suboptimal Energy Intake ( Severe),Weight Loss (Severe) Clinical Problem Chronic Disease or Condition Related Malnutrition Etiology severe, chronic malnutrition related to inadequate energy intake w/ increased energy needs d/t cancer Signs/Symptoms as evidenced by unintentional wt loss of 8.3kg/10% wt loss x 4 months; estimated PO intake meeting <75% of estimated energy needs >3 months; estimated PO intake meeting < 50% of estimated energy needs >3 days Status Active Problem Recommendation Dietitian Recommendations/Changes advance diet as tolerated to regular- texture/consistency modifications per HOT METAL MIXER OPERATOR HELPER; 8oz ensure clear w/ meals while on clear liquid diet. May need to consider alternative means of nutrition (i.e PEG tube) if pt unable to consume sufficient nutrition via PO diet and is agreeable to g- tube, will continue to follow. Lab / Micro Data Result Diagrams: 09/09/21 06:15 09/09/21 06:15 Labs: Laboratory Results - last 24 hr 09/08/21 10:35: Diff Path Review Reviewed 09/09/21 06:15: WBC 0.7 L*, RBC 2.73 L, Hgb 8.7 L, Hct 26.8 L, MCV 98.2, MCH 31.9, MCHC 32.5, RDW Std Deviation 62.5 H, RDW Coeff of [place] 17.4 H, Plt Count 67 L, MPV 9.0, Immature Gran % (Auto) 0.000, Neut % (Auto) 84.7 H, Lymph % (Auto) 5.6 L, [place] % (Auto) 8.3, Eos % (Auto) 1.4, Baso % (Auto) 0.0, Absolute Neuts (auto) 0.6 L, Absolute Lymphs (auto) 0.04 L, Nucleated RBC % 0, Diff Path Review Reviewed, Anisocytosis 1+ 09/09/21 06:15: Sodium 136, Potassium 3.7, Chloride 105, Carbon Dioxide 25.0, Anion Gap 6, BUN 18, Creatinine 0.51 L, Estim Creat Clear Calc 49.79, Est GFR (MDRD) Af Amer 153, Est GFR (MDRD) Non-Af 126, BUN/Creatinine Ratio 35.6 H, Glucose 85, Calcium 8.3 L, Phosphorus 2.0 L, Total Bilirubin 0.60, AST 22, ALT 66 H, Alkaline Phosphatase 45, Total Protein 5.2 L, Albumin 2.4 L, Globulin 2.8, Albumin/Globulin Ratio 0.9 09/09/21 09:55: Procalcitonin 0.14 H Physical Exam Narrative General: Alert, Oriented x3, Cooperative, BMI 24 kg/m? HEENT: Atraumatic, PERRLA, EOMI, Normocephalic Oral: Oral mucosa moist. Mild generalized redness over soft palate. No obvious thrush or ulcer seen. Tenderness over upper neck/throat. Edentulous. Neck: Supple, No JVD, Negative Carotid Bruits Lungs: Air entry diminished in bilateral lung bases. No crepitation/rhonchi Cardiovascular: Regular rate, Regular Rhythm, Normal S1, Normal S2, No murmurs Abdomen: Bowel Sounds Present, Soft, Non Tender, Non-Distended : No renal angle tenderness. No suprapubic tenderness. Extremities: No edema, Capillary Refill Less than 3 Seconds Skin: Dry skin. Alopecia, dilated capillaries/small venules of fingertips. Grayish skin discoloration, radiotherapy changes to upper body. Musculoskeletal: ROM restricted of left leg. Muscle strength 4/5, LLE at hip and knee joints, right leg 4+/5. Neurological: Cranial nerves II-XII grossly intact, DTR 2+/4. Decreased sensation of left leg. Psych/Mental Status: Flat affect. 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 1. 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 Moura, consulted on 08/21/2021 on previous hospitalization. Patient also with recent local regional recurrence of non-small cell lung cancer and had [place] based chemotherapy with immunotherapy about 5 weeks ago. Patient is dehydrated with the dysphagia, odynophagia with generalized weakness and fatigue. IV fluid normal saline for rehydration. BMX, nystatin for symptomatic relief. Residency Coordinator and is pleased pathologist consult. Continue PPI IV Protonix daily for GERD. She was also seen by Dr. Damon Talavera on 09/07/2021 on Decadron taper and recommended repeat spine MRI in 3 to 4 weeks and MRI brain 2 months after whole brain radiation at [facility] 09/09: Discussed with Dr. Moura. Patient had chemotherapy [place]-based as mentioned above. Labs shows severe pancytopenia, WBC 0.7 thousand, ANC 0.6 thousand, ALC 0.04 thousand. Platelet count 67,000. Started on Granix. Monitor CBC daily. Moderate normocytic normochromic anemia. Patient did not had fever. Blood cultures and urine culture ordered. No focal signs and symptoms of infection, shortness of breath/tachypnea including burning micturition. Patient has mild chronic cough and rattling sound of mucus in throat, not able to bring up. Incentive spirometry and chest physiotherapy. 2. COPD with history of non-small cell lung cancer: On bronchodilator as needed. Not in exacerbation. DuoNeb as needed. Patient refused for scheduled bronchodilator 3. 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 History of urinary incontinence: on oxybutynin Total time of the visit including total time spent in counseling or coordination of care, (more than 50% of the total time, spent in obtaining medical information from nurses and other ancillary care providers,explaining to the patient about labs, imaging, diagnosis and management), discussion with oncologist, review of labs and imaging is 40 minutes. Living will/advanced directive/end of life care: Patient does have living will or advanced directive. Her friend is near the bedside. After discussion of benefits/risks procedures involved with full code, DNR CC arrest and DNR CC, the patient opted for DNRCC arrest, no intubation Patient doesn't want artificial life support including intubation, tube feed, ventilator and/chest compression, central venous catheter, vasopressor and DC shock if needed Laboratory Results 09/08/21 10:35: Diff Path Review Reviewed 09/09/21 06:15: WBC 0.7 L*, RBC 2.73 L, Hgb 8.7 L, Hct 26.8 L, MCV 98.2, MCH 31.9, MCHC 32.5, RDW Std Deviation 62.5 H, RDW Coeff of [place] 17.4 H, Plt Count 67 L, MPV 9.0, Immature Gran % (Auto) 0.000, Neut % (Auto) 84.7 H, Lymph % (Auto) 5.6 L, [place] % (Auto) 8.3, Eos % (Auto) 1.4, Baso % (Auto) 0.0, Absolute Neuts (auto) 0.6 L, Absolute Lymphs (auto) 0.04 L, Nucleated RBC % 0, Diff Path Review Reviewed, Anisocytosis 1+ 09/09/21 06:15: Sodium 136, Potassium 3.7, Chloride 105, Carbon Dioxide 25.0, Anion Gap 6, BUN 18, Creatinine 0.51 L, Estim Creat Clear Calc 49.79, Est GFR (MDRD) Af Amer 153, Est GFR (MDRD) Non-Af 126, BUN/Creatinine Ratio 35.6 H, Glucose 85, Calcium 8.3 L, Phosphorus 2.0 L, Total Bilirubin 0.60, AST 22, ALT 66 H, Alkaline Phosphatase 45, Total Protein 5.2 L, Albumin 2.4 L, Globulin 2.8, Albumin/Globulin Ratio 0.9 09/09/21 09:55: Procalcitonin 0.14 H Charges/Coding Visit Charges Inpatient E&M: 36706 Subs Hosp L3
--- NOTE | 2021-09-09 18:18 | RAD_ITS ---
STUDY: PORTABLE AP UPRIGHT CHEST X-RAY OF 1818 HOURS ON 09/09/2021 REASON FOR EXAM: 76-year-old female with tachypnea. TECHNIQUE: A single view portable AP upright chest x-ray was performed per protocol. COMPARISON: 03/28/2021. FINDINGS: Mild demineralization. Right-sided Port-A-Cath with its distal tip in the midsuperior vena cava. No cardiomegaly or heart failure. Elevated left hemidiaphragm--noted in the previous study. Presence of fibrotic changes in the left lower lobe. There has been complete resolution of the patient''s left lower lobe pneumonia that was present on 03/28/2021. There is mild emphysema. There is no evidence of new infiltrates, atelectasis, effusion, pulmonary mass lesions. There is no evidence of subdiaphragmatic abnormalities. RAD/Chest 1 View (Portable) IMPRESSION: 1. No cardiomegaly or heart failure. 2. Mild emphysema. 3. No current evidence of infiltrates, atelectasis, effusion, or pulmonary mass lesions. The left lower lobe infiltrate that was present on the study of 03/28/2021 is resolved. 4. Mild fibrotic changes in left lower lobe. 5. Right-sided Port-A-Cath with its distal tip in the mid superior vena cava. 6. Mild demineralization. Electronically Signed: Yobany Rizzo MD at 19:47 EDT ,
--- NOTE | 2021-09-09 18:32 | NURSING ---
dr dennis returned call and placed orders. pt updated on new orders. rt aware pt will take breathing tx now.
[2021-09-09 18:38] VITALS: PULSE 121; RESP 20
[2021-09-09] MEDS: Albuterol 2.5 MG/3 ML VIAL.NEB. INHALATION (18:38)
[2021-09-09] MEDS: Furosemide 40 MG/4 ML Vial IV (19:19)
[2021-09-09 20:36] VITALS: BP 150/87; PULSE 120; RESP 20; TEMP 36.6; O2SAT 93
[2021-09-09] MEDS: Senna/Docusate Sodium 1 Tablet 2 TABLET PO (20:41)
[2021-09-10] VITALS (10 sets, daily range): BP systolic 112–143; BP diastolic 64–89; PULSE 96–104; RESP 16–22; TEMP 36.7–37.4; O2SAT 84–100
[2021-09-10] MEDS: Morphine 2 MG/ML Syringe IV ×3 (02:21→17:35)
[2021-09-10] MEDS: 0.9% Saline Lock 10 ML Syringe IV ×8 (02:21→21:02)
[2021-09-10] MEDS: HYDROmorphone 0.5 MG/0.5 ML SYRINGE IV ×4 (02:51→20:58)
[2021-09-10 06:32] LABS: Absolute Lymphocyte Count 0.03 X10^3/uL (0.83-4.51); Absolute Neutrophil Count 0.9 X10^3/uL (2.0-7.7); Hematocrit 25.8 % (37-47); Hemoglobin 8.4 g/dL (12.0-15.0); Lymphocyte # 0.03 X10^3/ul (0.83-4.51); Mean Corp Hgb Conc 32.6 g/dL (32-36); Mean Corpuscular Hgb 31.7 pg (27.0-32.0); Mean Corpuscular Volume 97.4 fL (81-99); Mean Platelet Vol. 9.9 fl (6.2-12.0); Monocyte# 0.06 X10^3/uL; Monocyte% 6.1 % (0-10); NRBC Flagged by Analyzer 0 % (0-5); Neutrophil % 90.9 % (47-70); POSITIVE COUNT YES; POSITIVE DIFFERENTIAL YES; POSITIVE MORPHOLOGY YES; Platelet Count 55 K/mm3 (150-450); RBC Distribution Width CV 17.2 % (11.6-14.6); Red Blood Count 2.65 M/mm3 (4.2-5.4)
[2021-09-10 06:53] LABS: Differential Indicated SCAN CRITERIA MET
[2021-09-10 07:08] LABS: ALB/GLOB Ratio 0.8 RATIO (0.9-2.4); AST(SGOT) 20 U/L (15-37); Alanine Aminotransfer ALT/SGPT 56 U/L (13-56); Albumin, Serum 2.4 g/dL (3.2-5.0); Alkaline Phosphatase 42 U/L (45-117); Anion Gap 7 (5-15); BUN 19 mg/dL (7-18); BUN/Creat Ratio 27.7 RATIO (10-20); Calcium,Total 8.7 mg/dL (8.5-10.1); Chloride 97 mmol/L (98-107); Creatinine, Serum 0.68 mg/dL (0.55-1.02); EST Glomerular Filtration Rate 89 mL/min (>60); Est Glom Filt Rate - Afr Amer 108 mL/min (>60); Estimated Creatinine Clearance 49.79 ml/min; Glucose 110 mg/dL (74-106); Potassium 3.3 mmol/L (3.5-5.1); Protein, Total 5.4 g/dL (6.4-8.2); Sodium Level 133 mmol/L (136-145)
[2021-09-10 07:10] LABS: Anisocytosis 1+
[2021-09-10 07:11] LABS: Platelet Estimate MOD DEC (ADEQ)
[2021-09-10] MEDS: Folic Acid 1 MG Tablet PO (08:47)
[2021-09-10] MEDS: dexAMETHasone 4 MG Tablet PO (08:47)
--- NOTE | 2021-09-10 09:44 | PN.HOSP_ITS ---
Subjective Subjective Follow-up for severe pancytopenia, odynophagia or sore throat. Objective Data Objective Data Vital Signs: Vital Signs Temp Pulse Resp BP Pulse Ox O2 Del Method O2 Flow Rate 98.1 F 96 18 120/72 97 Room Air 3 09/10/21 08:42 09/10/21 08:42 09/10/21 08:42 09/10/21 08:42 09/10/21 08:42 09/10/21 08:42 09/10/21 07:17 Oxygen Flow Rate (L/min) 3 Oxygen Delivery Method Room Air Weight: 157 lb 6.561 oz Body Mass Index (BMI) 24.0 Intake & Output: Intake and Output for Last 24 Hours 09/08/21 09/09/21 09/10/21 23:59 23:59 23:59 Intake Total 3370 / 3370 2295 / 2295 60 / 60 Output Total 150 / 150 Balance 3370 / 3370 2145 / 2145 60 / 60 Medical Nutrition Assessment Dietitian: Malnutrition Criteria Met Start: 09/08/21 16:19 Freq: Status: Active Protocol: Document 09/08/21 16:31 AG (Rec: 09/08/21 16:31 [id number]) Nutrition Malnutrition Evidence of Malnutrition Exists Yes Malnutrition (severe): Chronic Evidenced By Suboptimal Energy Intake ( Severe),Weight Loss (Severe) Clinical Problem Chronic Disease or Condition Related Malnutrition Etiology severe, chronic malnutrition related to inadequate energy intake w/ increased energy needs d/t cancer Signs/Symptoms as evidenced by unintentional wt loss of 8.3kg/10% wt loss x 4 months; estimated PO intake meeting <75% of estimated energy needs >3 months; estimated PO intake meeting < 50% of estimated energy needs >3 days Status Active Problem Recommendation Dietitian Recommendations/Changes advance diet as tolerated to regular- texture/consistency modifications per AUTHORIZATION REPRESENTATIVE; 8oz ensure clear w/ meals while on clear liquid diet. May need to consider alternative means of nutrition (i.e PEG tube) if pt unable to consume sufficient nutrition via PO diet and is agreeable to g- tube, will continue to follow. Lab / Micro Data Result Diagrams: 09/10/21 06:15 09/10/21 06:15 Labs: Laboratory Results - last 24 hr 09/08/21 10:35: Diff Path Review Reviewed 09/09/21 06:15: Diff Path Review Reviewed 09/09/21 09:55: Procalcitonin 0.14 H 09/10/21 06:15: WBC 1.0 L*, RBC 2.65 L, Hgb 8.4 L, Hct 25.8 L, MCV 97.4, MCH 31.7, MCHC 32.6, RDW Std Deviation 61.0 H, RDW Coeff of [place] 17.2 H, Plt Count 55 L, MPV 9.9, Immature Gran % (Auto) 0.000, Neut % (Auto) 90.9 H, Lymph % (Auto) 3.0 L, [place] % (Auto) 6.1, Eos % (Auto) 0.0, Baso % (Auto) 0.0, Absolute Neuts (auto) 0.9 L, Absolute Lymphs (auto) 0.03 L, Nucleated RBC % 0, Diff Path Review July, Platelet Estimate MOD DEC, Anisocytosis 1+ 09/10/21 06:15: Sodium 133 L, Potassium 3.3 L, Chloride 97 L, Carbon Dioxide 29.0, Anion Gap 7, BUN 19 H, Creatinine 0.68, Estim Creat Clear Calc 49.79, Est GFR (MDRD) Af Amer 108, Est GFR (MDRD) Non-Af 89, BUN/Creatinine Ratio 27.7 H, Glucose 110 H, Calcium 8.7, Total Bilirubin 0.70, AST 20, ALT 56, Alkaline Phosphatase 42 L, Total Protein 5.4 L, Albumin 2.4 L, Globulin 3.0, Albumin/Globulin Ratio 0.8 L Radiography Diagnostic Testing: Radiology Impression Chest X-Ray 09/09/21 18:18 IMPRESSION: 1. No cardiomegaly or heart failure. 2. Mild emphysema. 3. No current evidence of infiltrates, atelectasis, effusion, or pulmonary mass lesions. The left lower lobe infiltrate that was present on the study of 03/28/2021 is resolved. 4. Mild fibrotic changes in left lower lobe. 5. Right-sided Port-A-Cath with its distal tip in the mid superior vena cava. 6. Mild demineralization. Electronically Signed: Yobany Rizzo MD at 19:47 EDT , Physical Exam Narrative General: Alert, Oriented x3, Cooperative, BMI 24 kg/m? HEENT: Atraumatic, PERRLA, EOMI, Normocephalic Oral: Oral mucosa moist. Mild generalized redness over soft palate. No obvious thrush or ulcer seen. Tenderness over upper neck/throat. Edentulous. Neck: Supple, No JVD, Negative Carotid Bruits Lungs: Air entry diminished in bilateral lung bases. No crepitation/rhonchi, lungs clear Cardiovascular: Regular rate, Regular Rhythm, Normal S1, Normal S2, No murmurs Abdomen: Bowel Sounds Present, Soft, Non Tender, Non-Distended : No renal angle tenderness. No suprapubic tenderness. Extremities: No edema, Capillary Refill Less than 3 Seconds Skin: Dry skin. Alopecia, dilated capillaries/small venules of fingertips. Grayish skin discoloration, radiotherapy changes to upper body. Musculoskeletal: ROM restricted of left leg. Muscle strength 4/5, LLE at hip and knee joints, right leg 4+/5. Neurological: Cranial nerves II-XII grossly intact, DTR 2+/4. Decreased sensation of left leg. Psych/Mental Status: Flat affect. 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 1. 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 Moura, consulted on 08/21/2021 on previous hospitalization. Patient also with recent local regional recurrence of non-small cell lung cancer and had [place] based chemotherapy with immunotherapy about 5 weeks ago. Patient is dehydrated with the dysphagia, odynophagia with generalized weakness and fatigue. IV fluid normal saline for rehydration. BMX, nystatin for symptomatic relief. Nutriti onist and is pleased pathologist consult. Continue PPI IV Protonix daily for GERD. She was also seen by Dr. Damon Talavera on 09/07/2021 on Decadron taper and recommended repeat spine MRI in 3 to 4 weeks and MRI brain 2 months after whole brain radiation at [facility] 09/09: Discussed with Dr. Moura. Patient had chemotherapy [place]-based as mentioned above. Labs shows severe pancytopenia, WBC 0.7 thousand, ANC 0.6 thousand, ALC 0.04 thousand. Platelet count 67,000. Started on Granix. Monitor CBC daily. Moderate normocytic normochromic anemia. Patient did not had fever. Blood cultures and urine culture ordered. No focal signs and symptoms of infection, shortness of breath/tachypnea including burning micturition. Patient has mild chronic cough and rattling sound of mucus in throat, not able to bring up. Incentive spirometry and chest physiotherapy. 09/10: Discussed with radiotherapist Dr. Muñiz. Patient not able to have any oral intake because of mucositis. Discussed with the dietitian and started on TPN. Patient evaluated by speech therapist and currently NPO. Improvement in W BC count. Platelet count 55,000 2. COPD with history of non-small cell lung cancer: On bronchodilator as needed. Not in exacerbation. DuoNeb as needed. Patient refused for scheduled bronchodilator 09/10: Chest x-ray done does not show any acute worsening of infiltrate. Patient had 1 dose of Lasix and hypoxia has resolved. Possible fluid overload/pulmonary congestion from IV fluid 3. Histoy of DVT and PE: 09/10 platelet count dropped from 96,000, 67,000, 55,000. Hold Eliquis 4. History of urinary incontinence: on oxybutynin Possible Enterococcus UTI: Patient urine culture shows more than 1000 colonies of GPC, possible Enterococcus. Continue IV Zosyn as it will cover Enterococcus Total time of the visit including total time spent in counseling or coordination of care, (more than 50% of the total time, spent in obtaining medical information from nurses and other ancillary care providers,explaining to the patient about labs, imaging, diagnosis and management), discussion with oncologist, radiotherapist, supervisor blood and speech therapist review of labs and imaging is 40 minutes. Living will/advanced directive/end of life care: Patient does have living will or advanced directive. Her friend is near the bedside. After discussion of benefits/risks procedures involved with full code, DNR CC arrest and DNR CC, the patient opted for DNRCC arrest, no intubation Patient doesn't want artificial life support including intubation, tube feed, ventilator and/chest compression, central venous catheter, vasopressor and DC shock if needed Microbiology Past 72 Hours 09/09/21 16:48 Urine, Clean Catch Urine Culture - Preliminary GPC Poss Enterococcus sp Laboratory Results 09/10/21 06:15: WBC 1.0 L*, RBC 2.65 L, Hgb 8.4 L, Hct 25.8 L, MCV 97.4, MCH 31.7, MCHC 32.6, RDW Std Deviation 61.0 H, RDW Coeff of [place] 17.2 H, Plt Count 55 L, MPV 9.9, Immature Gran % (Auto) 0.000, Neut % (Auto) 90.9 H, Lymph % (Auto) 3.0 L, [place] % (Auto) 6.1, Eos % (Auto) 0.0, Baso % (Auto) 0.0, Absolute Neuts (auto) 0.9 L, Absolute Lymphs (auto) 0.03 L, Nucleated RBC % 0, Diff Path Review July, Platelet Estimate MOD DEC, Anisocytosis 1+ 09/10/21 06:15: Sodium 133 L, Potassium 3.3 L, Chloride 97 L, Carbon Dioxide 29.0, Anion Gap 7, BUN 19 H, Creatinine 0.68, Estim Creat Clear Calc 49.79, Est GFR (MDRD) Af Amer 108, Est GFR (MDRD) Non-Af 89, BUN/Creatinine Ratio 27.7 H, Glucose 110 H, Calcium 8.7, Total Bilirubin 0.70, AST 20, ALT 56, Alkaline Phosphatase 42 L, Total Protein 5.4 L, Albumin 2.4 L, Globulin 3.0, Albumin/Globulin Ratio 0.8 L 09/10/21 06:15: Magnesium 1.9 Charges/Coding Visit Charges Inpatient E&M: 93439 Subs Hosp L3
[2021-09-10 10:02] LABS: Magnesium 1.9 mg/dL (1.6-2.6)
[2021-09-10] MEDS: Ondansetron 4 MG/2 ML Vial IV (10:45)
[2021-09-10] MEDS: guaiFENesin 10 ML UDC (200MG/10ML) PO ×3 (10:46→17:50)
[2021-09-10] MEDS: Tolterodine Tartrate 4 MG CAP.SA PO (10:46)
[2021-09-10] MEDS: APIXABAN 5 MG TABLET PO (10:47)
[2021-09-10] MEDS: TBO-FILGRASTIM 300 MCG/0.5 ML ML SC (10:47)
[2021-09-10] MEDS: Cholecalciferol (Vit D3) 125 MCG CAPSULE (5,000 UNITS) PO (10:53)
--- NOTE | 2021-09-10 15:28 | CASEMGMT ---
VIMAL CESAR Readmission Note Previous Admission:? 08/21/2021-08/25/2021 Diagnosis:? 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 Pt finished radiation Tuesday and her last chemo was 6 weeks ago. VIMAL CESAR in to pt room. Pt states she was taking her medications as ordered. States she has had a follow up appt with but has not seen her PCP yet. ST is following pt with MBS study. Discussed if pt were to have ST recommended,the options for this. Pt states she would not be interested in having any ST post hospitalization. Pt states she feels weak but this is due to not having eaten in a week. Discussed therapy options, pt states once she can eat she will gain her strength. She denies need for any therapy. Pt states that she lives with her son who cares for her. Multiple family in room. Made pt aware RN TALI will follow. Pt screened with [facility] Palliative Care screening tool, pt met criteria. SW discussed with patient, no referral made at this time. Plan: Home
[2021-09-10] MEDS: TPN - Clinimix E 8%-14% Soln 2,000 ML with Multivitamins 10 ML, Trace Elements 1 ML, Fo... 63 ML IV (18:59)
[2021-09-11] VITALS (9 sets, daily range): BP systolic 117–131; BP diastolic 66–86; PULSE 83–91; RESP 20; TEMP 36.6–37.2; O2SAT 90–100
[2021-09-11 02:05] LABS: Bedside Glucose 143 mg/dL (74-106)
[2021-09-11] MEDS: 0.9% Saline Lock 10 ML Syringe IV ×5 (02:08→21:16)
[2021-09-11] MEDS: HYDROmorphone 0.5 MG/0.5 ML SYRINGE IV ×5 (02:08→21:12)
[2021-09-11 06:35] LABS: Bedside Glucose 118 mg/dL (74-106)
[2021-09-11 06:45] LABS: Absolute Lymphocyte Count 0.03 X10^3/uL (0.83-4.51); Absolute Neutrophil Count 1.4 X10^3/uL (2.0-7.7); Basophil# 0.01 X10^3/uL; Basophil% 0.6 % (0-1); Hematocrit 24.3 % (37-47); Hemoglobin 7.6 g/dL (12.0-15.0); Lymphocyte # 0.03 X10^3/ul (0.83-4.51); Lymphocyte % 1.9 % (19-41); Mean Corp Hgb Conc 31.3 g/dL (32-36); Mean Corpuscular Hgb 31.3 pg (27.0-32.0); Monocyte% 6.5 % (0-10); NRBC Flagged by Analyzer 0 % (0-5); Neutrophil # 1.35 X10^3/uL (2.7-7.7); Neutrophil % 87.8 % (47-70); POSITIVE COUNT YES; POSITIVE DIFFERENTIAL YES; POSITIVE MORPHOLOGY YES; Platelet Count 44 K/mm3 (150-450); RBC Distribution Width CV 17.2 % (11.6-14.6); RBC Distribution Width SD 63.7 fl (35.1-43.9); Red Blood Count 2.43 M/mm3 (4.2-5.4); White Blood Count 1.5 K/mm3 (4.4-11.0)
[2021-09-11 06:46] LABS: Differential Indicated SCAN CRITERIA MET
[2021-09-11 06:56] LABS: Anisocytosis 1+; Macrocytosis 1+; Platelet Estimate MKD DEC (ADEQ)
[2021-09-11 07:07] LABS: ALB/GLOB Ratio 0.7 RATIO (0.9-2.4); AST(SGOT) 16 U/L (15-37); Alanine Aminotransfer ALT/SGPT 42 U/L (13-56); Albumin, Serum 2.1 g/dL (3.2-5.0); Alkaline Phosphatase 38 U/L (45-117); Anion Gap 8 (5-15); BUN 25 mg/dL (7-18); BUN/Creat Ratio 47.4 RATIO (10-20); Bilirubin, Direct 0.17 mg/dL (0.00-0.30); Calcium,Total 8.7 mg/dL (8.5-10.1); Chloride 100 mmol/L (98-107); Creatinine, Serum 0.53 mg/dL (0.55-1.02); EST Glomerular Filtration Rate 120 mL/min (>60); Est Glom Filt Rate - Afr Amer 146 mL/min (>60); Estimated Creatinine Clearance 49.79 ml/min; Globulin 3.2 g/dL (2.2-4.2); Glucose 109 mg/dL (74-106); Phosphorus 2.4 mg/dL (2.5-4.9); Potassium 3.7 mmol/L (3.5-5.1); Protein, Total 5.3 g/dL (6.4-8.2); Sodium Level 135 mmol/L (136-145); Triglycerides 131 mg/dL
[2021-09-11] MEDS: TBO-FILGRASTIM 300 MCG/0.5 ML ML SC (09:04)
--- NOTE | 2021-09-11 09:24 | SP.MBSS_ITS ---
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 Medical History: Sue Barnes is a 76 F who was sent to [facility] ED 09/08/2021 for dehydration and inability to eat swallow for last 2 days. She has extensive medical history including metastatic bladder cancer, COPD, GERD, PE, lung cancer, brain metastasis, and spinal cord metastasis (SEE EMR for full PMH). The patient had superficial bladder cancer treated initially with immunotherapy (2013). Since, she has experienced various metastasis requiring chemo and/or radiation treatments. Radiation hx includes chemo-radiation therapy to the left upper and central chest completed on 07/23/2019 for non-small cell lung cancer, radiation therapy for metastatic urothelial tumor involving the brain completed 09/06/2021. She developed lesions throughout the cervical and thoracic spinal column. She received radiation treatment in 10 fractions to C3-T11 and concurrently received radiation treatment in 5 fractions to lumbar and sacral spine from 08/25/2021- 09/07/2021. She is currently hospitalized for pancytopenia and odynophagia. ST consulted during hospitalization and recommended the patient remain NPO with sips and chips due to frequent s/s of aspiration with oral intake. Pt began TPN for alternative means of nutrition. Plan for MBS study 09/11/2021 to objectively assess aspiration risk and determine if the patient is safe for oral intake. Current Diet Ordered: NPO with sips and chips Dentition: Missing Teeth - Dentures not present Mental Status: WNL Respiratory Status: Oxygenating on Room Air - Penetration-Aspiration Scale Penetration-Aspiration Scale: OBJECTIVE ASSESSMENT OF SWALLOW FUNCTION (QUANTITATIVE ? PER TRIAL): PENETRATION / ASPIRATION SCALE ([place]): 1 = does not enter airway 2 = enters airway/above vocal folds/ejected 3 = enters airway/above vocal folds/not ejected 4 = enters airway/contacts vocal folds/ejected 5 = enters airway/contacts vocal folds/not ejected 6 = enters airway/below vocal folds/ejected 7 = enters airway/below vocal folds/not ejected despite effort 8 = enters airway/below vocal folds/no effort VIDEOFLOROSCOPIC SCALE SCORE ([place]ATT): Grade I = aspiration of material that has penetrated into the laryngeal vestibule, intact cough reflex Grade II = aspiration < 10 % of the bolus, intact cough reflex Grade III = aspiration of < 10 % of the bolus, reduced cough reflex or aspiration of > 10 % of the bolus, intact cough reflex Grade IV = aspiration of > 10 % of the bolus, reduced cough reflex - Penetration-Aspiration Scale Score Thin Liquid via teaspoon Result: 1= does not enter airway Thin Liquid via teaspoon Trial 2 Result: 2= enter airway/above vocal folds/ejected Thin Liquid via small single sip from cup Result: 1= does not enter airway Thin Liquid via sequential sips from cup Result: 1= does not enter airway Evart Thick Liquid via small single sip from cup Result: 1= does not enter airway Honey Thick Liquid via small single sip from cup Result: 1= does not enter airway Pudding via teaspoon with esophageal screen Result: 1= does not enter airway Thin liquid wash via cup Result: 1= does not enter airway 1/2 Cookie with barium pudding coating Result: 1= does not enter airway - Scored pudding contrast only. Pt unable to masticate 1/2 cookie. 1/4 Cookie with barium pudding coating Result: 1= does not enter airway - Scored pudding contrast only. Pt unable to masticate 1/4 cookie. Thin Liquid via single sip from straw Result: 2= enter airway/above vocal folds/ejected - Oral Phase Labial Seal: Escape beyond interlabial space; no extension beyond get border Tongue Control During Bolus Hold: Posterior escape of less than half of bolus Bolus Preparation/Mastication: Minimal chewing/mashing with majority of bolus unchewed - Few teeth, unable to masticate cookie Bolus Transport/Lingual Motion: Delayed initiation of tongue motion Oral Residue: Minimal to no clearance - Pt had to expectorate cookie boluses as she was unable to effectively mash them. - Pharyngeal Phase Initiation of Pharyngeal Swallow: Bolus head at posterior laryngeal surgace of epiglottis Soft Palate Elevation: No bolus between soft palate and pharyngeal wall Laryngeal Elevation: Partial superior movement thyroid cart/partial apprx aryt- epig petiole Anterior Hyoid Excursion: Complete anterior movement Epiglottic Movement: Complete inversion Laryngeal Vestibule Closure at Height of Swallow: Incomplete; narrow column of air/contrast in laryngeal vestibule Pharyngeal Stripping Wave: Present - diminished Pharyngoesophageal Segment Opening: Parital distension and partial duration; parital obstruction of flow Tongue Base Retraction: Narrow column of contrast between tongue base & post. pharyngeal wall Pharyngeal Residue: Collection of residue within or on pharyngeal structures - Esophageal Phase Esophageal Clearance: Esophageal retention - Treatment Strategies Effects of treatment strategies attemped:: Liquid wash = Effective in improving esophageal clearance of purees. - Diagnosis/Impression Diagnosis: Mild oropharyngeal dysphagia (R13.12), Mild esophageal dysphagia (R13.14) Impression: The oral phase is primarily marked by: -Decreased mastication abilities. She was unable to chew cookie bolus; however, pt has few teeth and her dentures were not present for the study. -Mildly decreased bolus control with premature posterior loss of thin liquid boluses to the posterior surface of the epiglottis prior to swallow onset. The pharyngeal phase is primarily marked by: -Mildly decreased tongue base retraction and pharyngeal contraction resulting in trace pharyngeal residue in the vallecula. -Mildly decreased UES opening/duration resulting in mild pharyngeal residue of pudding in the pyriforms after the swallow. -Mildly decreased laryngeal elevation with trace, flash penetration of thin liquid via tsp and thin liquid via straw in the laryngeal vestibule with full ejection. -No aspiration observed during the study. She demonstrated frequent coughing after completion of various trials; however, fluoroscopy revealed no contrast in the trachea, laryngeal vestibule, or even refluxing contrast during the study. Coughing does not appear to be related to laryngeal penetration or aspiration. The esophageal phase is primarily marked by: -Esophageal retention of pudding contrast throughout mid and lower esophagus, which effectively cleared with one sip of thin liquids via cup. - Recommendations Diet: Puree Textures, Thin Liquids Comment: Supervision at meals Compensatory Strategies: Small Bites, Small Sips, No Straws, Slow Rate, Altern ate bites/solids and sips/liquids - 1:1 ratio, Sitting upright, Remain sitting upright for 30 minutes after PO intake Recommend Repeat Modified Barium Swallow: No Need for Skilled Speech Therapy Services: Yes Comment: Will follow the patient for skilled dysphagia therapy at current level of care. Will plan to trial solid textures with dentures to consider the patient for diet advancement. Will continue to follow the patient daily to assess aspiration risk, educate the patient in strategies to decrease risk for aspiration, and for ongoing assessment of diet tolerance. Per Dr. Yoo, the patient will continue with TPN at this time to supplement oral intake. Without skilled ST services, the patient is at increased risk for weight loss, malnutrition, and aspiration. Education Completed: 1. Described result of evaluation., 2. Pt understands evaluation & agrees with goals and treatment plan., 7. Pt requires further education on strategies & risks. - Status Active ST Patient: Active - Contact Information [facility] Speech Therapy:: Elizabeth Luciano M.A. [facility]INVASIVE CARDIOVASCULAR TECHNOLOGIST Speech-Language Pathologist [facility] [address] [place] [address] [email or web address] [phone] 09/11/21 11:20
[2021-09-11 10:13] LABS: Pathologist Review Reviewed
[2021-09-11] MEDS: dexAMETHasone 4 MG/ML Vial IV (10:32)
--- NOTE | 2021-09-11 12:22 | PN.HOSP_ITS ---
Subjective Subjective Follow-up for radiotherapy induced mucositis, pancytopenia, And dysphagia/odynophagia Objective Data Objective Data Vital Signs: Vital Signs Temp Pulse Resp BP Pulse Ox O2 Del Method O2 Flow Rate 97.9 F 83 20 H 127/86 H 99 Nasal Cannula 2 09/11/21 08:49 09/11/21 08:49 09/11/21 08:50 09/11/21 08:49 09/11/21 08:49 09/11/21 08:50 09/11/21 08:50 Oxygen Flow Rate (L/min) 2 Oxygen Delivery Method Nasal Cannula Weight: 157 lb 13.616 oz Body Mass Index (BMI) 24.0 Intake & Output: Intake and Output for Last 24 Hours 09/09/21 09/10/21 09/11/21 23:59 23:59 23:59 Intake Total 2295 / 2295 1333.3333 / 1333.3333 1166.55 / 1166.55 Output Total 150 / 150 Balance 2145 / 2145 1333.3333 / 1333.3333 1166.55 / 1166.55 Medical Nutrition Assessment Dietitian: Malnutrition Criteria Met Start: 09/08/21 16:19 Freq: Status: Active Protocol: Document 09/11/21 09:47 AG (Rec: 09/11/21 09:47 [id number]) Nutrition Malnutrition Evidence of Malnutrition Exists Yes Malnutrition (severe): Chronic Evidenced By Suboptimal Energy Intake ( Severe),Weight Loss (Severe) Clinical Problem Chronic Disease or Condition Related Malnutrition Etiology severe, chronic malnutrition related to inadequate energy intake d/t severe esophagitis w/ increased energy needs d/t cancer Signs/Symptoms as evidenced by unintentional wt loss of 8.3kg/10% wt loss x 4 months; estimated PO intake meeting <75% of estimated energy needs >3 months; estimated PO intake meeting < 50% of estimated energy needs >3 days Status Active Problem Recommendation Dietitian Recommendations/Changes 1) advance diet as tolerated to regular- texture/ consistency modifications per SECURITY SHIFT SUPERVISOR; 8oz ensure w/ meals when diet advanced. 2) Consulted by hospitalist ( Dr. Yoo) to continue TPN this date. For Day #2 TPN: 1500 mL 8% AA/ 14% dextrose Clinimix w/ electrolytes, MVI, folic acid, trace minerals at 63mL/hour and 250mL 20% lipid solution to provide 1696 calories, 120 g protein. No insulin or famotidine per provider order. 3) Daily wts, monitoring of labs per protocol. 4) May need to consider alternative means of nutrition (i.e PEG tube) if pt unable to consume sufficient nutrition via PO diet and is agreeable to g-tube, will continue to follow. Lab / Micro Data Result Diagrams: 09/11/21 06:18 09/11/21 06:18 Labs: Laboratory Results - last 24 hr 09/10/21 06:15: Diff Path Review Reviewed 09/11/21 01:51: POC Glucose 143 H 09/11/21 06:18: WBC 1.5 L, RBC 2.43 L, Hgb 7.6 L, Hct 24.3 L, MCV 100.0 H, MCH 31.3, MCHC 31.3 L, RDW Std Deviation 63.7 H, RDW Coeff of [place] 17.2 H, Plt Count 44 L*, MPV 10.0, Immature Gran % (Auto) 3.200 H, Neut % (Auto) 87.8 H, Lymph % (Auto) 1.9 L, [place] % (Auto) 6.5, Eos % (Auto) 0.0, Baso % (Auto) 0.6, Absolute Neuts (auto) 1.4 L, Absolute Lymphs (auto) 0.03 L, Nucleated RBC % 0, Diff Path Review May foll, Platelet Estimate MKD DEC, Anisocytosis 1+, Macrocytosis 1+ 09/11/21 06:18: Sodium 135 L, Potassium 3.7, Chloride 100, Carbon Dioxide 27.0, Anion Gap 8, BUN 25 H, Creatinine 0.53 L, Estim Creat Clear Calc 49.79, Est GFR (MDRD) Af Amer 146, Est GFR (MDRD) Non-Af 120, BUN/Creatinine Ratio 47.4 H, Glucose 109 H, Calcium 8.7, Phosphorus 2.4 L, Magnesium 2.0, Total Bilirubin 0.30, Direct Bilirubin 0.17, Indirect Bilirubin 0.10, AST 16, ALT 42, Alkaline Phosphatase 38 L, Total Protein 5.3 L, Albumin 2.1 L, Globulin 3.2, Albumin/Globulin Ratio 0.7 L, Triglycerides 131 09/11/21 06:20: POC Glucose 118 H Micro: Microbiology 09/09/21 16:48 Urine, Clean Catch Urine Culture - Final Enterococcus faecalis 09/09/21 10:45 Blood Culture (Wb) - Anticubital Right Blood Culture - Preliminary No growth in 48 hours. 09/09/21 09:55 Blood Culture (Wb) - Port Blood Culture - Preliminary No growth in 48 hours. Physical Exam Narrative General: Alert, Oriented x3, Cooperative, BMI 24 kg/m? HEENT: Atraumatic, PERRLA, EOMI, Normocephalic Oral: Oral mucosa moist. Mild generalized redness over soft palate. No obvious thrush or ulcer seen. Tenderness over upper neck/throat. Edentulous. Neck: Supple, No JVD, Negative Carotid Bruits Lungs: Air entry diminished in bilateral lung bases. No crepitation/rhonchi, lungs clear Cardiovascular: Regular rate, Regular Rhythm, Normal S1, Normal S2, No murmurs Abdomen: Bowel Sounds Present, Soft, Non Tender, Non-Distended : No renal angle tenderness. No suprapubic tenderness. Extremities: No edema, Capillary Refill Less than 3 Seconds Skin: Dry skin. Alopecia, dilated capillaries/small venules of fingertips. Grayish skin discoloration, radiotherapy changes to upper body. Musculoskeletal: ROM restricted of left leg. Muscle strength 4/5, LLE at hip and knee joints, right leg 4+/5. Neurological: Cranial nerves II-XII grossly intact, DTR 2+/4. Decreased sensation of left leg. Psych/Mental Status: Flat affect. 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 1. Radiotherapy induced odynophagia/dysphagia, stomatitis and severe pancytopenia. 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 Moura, consulted on 08/21/2021 on previous hospitalization. Patient also with recent local regional recurrence of non-small cell lung cancer and had [place] based chemotherapy with immunotherapy about 5 weeks ago. Patient is dehydrated with the dysphagia, odynophagia with generalized weakness and fatigue. IV fluid normal saline for rehydration. BMX, nystatin for symptomatic relief. Elevator Runner and is pleased pathologist consult. Continue PPI IV Pr otonix daily for GERD. She was also seen by Dr. Damon Talavera on 09/07/2021 on Decadron taper and recommended repeat spine MRI in 3 to 4 weeks and MRI brain 2 months after whole brain radiation at [facility] 09/09: Discussed with Dr. Moura. Patient had chemotherapy [place]-based as mentioned above. Labs shows severe pancytopenia, WBC 0.7 thousand, ANC 0.6 thousand, ALC 0.04 thousand. Platelet count 67,000. Started on Granix. Monitor CBC daily. Moderate normocytic normochromic anemia. Patient did not had fever. Blood cultures and urine culture ordered. No focal signs and symptoms of infection, shortness of breath/tachypnea including burning micturition. Patient has mild chronic cough and rattling sound of mucus in throat, not able to bring up. Incentive spirometry and chest physiotherapy. 09/10: Discussed with radiotherapist Dr. Muñiz. Patient not able to have any oral intake because of mucositis. Discussed with the dietitian and started on TPN. Patient evaluated by speech therapist and currently NPO. Improvement in WBC count. Platelet count 55,000 09/11: Improvement in WBC count and ANC. Continue Granix. Hemoglobin 7.6, platelet count 44,000. Monitor CBC daily. Overall patient looks better. Continue IV TPN. Patient had modified barium swallow and speech therapist cassandra mmended pur?ed dysphagia diet with thin liquid. 2. COPD with history of non-small cell lung cancer: On bronchodilator as needed. Not in exacerbation. DuoNeb as needed. Patient refused for scheduled bronchodilator 09/10: Chest x-ray done does not show any acute worsening of infiltrate. Patient had 1 dose of Lasix and hypoxia has resolved. Possible fluid overload/pulmonary congestion from IV fluid 3. Histoy of DVT and PE: 09/10 platelet count dropped from 96,000, 67,000, 55,000. Hold Eliquis 4. History of urinary incontinence: on oxybutynin Possible Enterococcus UTI: Patient urine culture shows more than 1000 colonies of GPC, possible Enterococcus. Continue IV Zosyn as it will cover Enterococcus 09/11: Enterococcus UTI. Antibiotic narrowed down to Unasyn for Enterococcus coverage. Total time of the visit including total time spent in counseling or coordination of care, (more than 50% of the total time, spent in obtaining medical information from nurses and other ancillary care providers,explaining to the patient about labs, imaging, diagnosis and management), discussion with oncologist, radiotherapist, weighter and speech therapist review of labs and imaging is 40 minutes. Living will/advanced directive/end of life care: Patient does have living will or advanced directive. Her friend is near the bedside. After discussion of benefits/risks procedures involved with full code, DNR CC arrest and DNR CC, the patient opted for DNRCC arrest, no intubation Patient doesn't want artificial life support including intubation, tube feed, ventilator and/chest compression, central venous catheter, vasopressor and DC shock if needed Microbiology Past 72 Hours 09/09/21 16:48 Urine, Clean Catch Urine Culture - Final Enterococcus faecalis 09/09/21 10:45 Blood Culture (Wb) - Anticubital Right Blood Culture - Preliminary No growth in 48 hours. 09/09/21 09:55 Blood Culture (Wb) - Port Blood Culture - Preliminary No growth in 48 hours.Laboratory Results 09/10/21 06:15: Diff Path Review Reviewed 09/11/21 01:51: POC Glucose 143 H 09/11/21 06:18: WBC 1.5 L, RBC 2.43 L, Hgb 7.6 L, Hct 24.3 L, MCV 100.0 H, MCH 31.3, MCHC 31.3 L, RDW Std Deviation 63.7 H, RDW Coeff of [place] 17.2 H, Plt Count 44 L*, MPV 10.0, Immature Gran % (Auto) 3.200 H, Neut % (Auto) 87.8 H, Lymph % (Auto) 1.9 L, [place] % (Auto) 6.5, Eos % (Auto) 0.0, Baso % (Auto) 0.6, Absolute Neuts (auto) 1.4 L, Absolute Lymphs (auto) 0.03 L, Nucleated RBC % 0, Diff Path Review May foll, Platelet Estimate MKD DEC, Anisocytosis 1+, Macrocytosis 1+ 09/11/21 06:18: Sodium 135 L, Potassium 3.7, Chloride 100, Carbon Dioxide 27.0, Anion Gap 8, BUN 25 H, Creatinine 0.53 L, Estim Creat Clear Calc 49.79, Est GFR (MDRD) Af Amer 146, Est GFR (MDRD) Non-Af 120, BUN/Creatinine Ratio 47.4 H, Glucose 109 H, Calcium 8.7, Phosphorus 2.4 L, Magnesium 2.0, Total Bilirubin 0.30, Direct Bilirubin 0.17, Indirect Bilirubin 0.10, AST 16, ALT 42, Alkaline Phosphatase 38 L, Total Protein 5.3 L, Albumin 2.1 L, Globulin 3.2, Albumin/Globulin Ratio 0.7 L, Triglycerides 131 09/11/21 06:20: POC Glucose 118 H Charges/Coding Visit Charges Inpatient E&M: 81406 Subs Hosp L3
[2021-09-11 12:59] LABS: Pathologist Review Reviewed
--- NOTE | 2021-09-11 15:20 | CASEMGMT ---
RN TALI noted that ST recommended further ST. VIMAL CM in to pt room, pt sitting up in bed. Offered ST services, pt declined services. States she can manage a pureed diet. She states again that her son lives with her and she has a supportive family. She denies need to speak to SW. Pt denies further needs.
[2021-09-11] MEDS: Fat Emulsions 20% 250 ML IV (16:58)
[2021-09-11] MEDS: TPN - Clinimix E 8%-14% Soln 2,000 ML with Multivitamins 10 ML, Trace Elements 1 ML, Fo... 63 ML IV (16:58)
[2021-09-11 18:26] LABS: Bedside Glucose 160 mg/dL (74-106)
[2021-09-12 00:55] LABS: Bedside Glucose 155 mg/dL (74-106)
[2021-09-12 02:55] VITALS: BP 121/95; PULSE 82; RESP 20; TEMP 36.9; O2SAT 98
[2021-09-12] MEDS: HYDROmorphone 0.5 MG/0.5 ML SYRINGE IV ×6 (02:58→21:55)
[2021-09-12] MEDS: 0.9% Saline Lock 10 ML Syringe IV ×8 (03:01→21:56)
[2021-09-12 05:48] LABS: Hematocrit 23.4 % (37-47); Hemoglobin 7.5 g/dL (12.0-15.0); Mean Corp Hgb Conc 32.1 g/dL (32-36); Mean Corpuscular Hgb 31.8 pg (27.0-32.0); Mean Corpuscular Volume 99.2 fL (81-99); Mean Platelet Vol. 10.6 fl (6.2-12.0); POSITIVE COUNT YES; POSITIVE DIFFERENTIAL YES; POSITIVE MORPHOLOGY YES; RBC Distribution Width CV 16.8 % (11.6-14.6); RBC Distribution Width SD 60.9 fl (35.1-43.9); Red Blood Count 2.36 M/mm3 (4.2-5.4); White Blood Count 1.9 K/mm3 (4.4-11.0)
[2021-09-12 05:50] LABS: Differential Indicated MANUAL DIFF
[2021-09-12 05:51] LABS: Platelet Count 39 K/mm3 (150-450)
[2021-09-12 06:17] LABS: ALB/GLOB Ratio 0.7 RATIO (0.9-2.4); AST(SGOT) 16 U/L (15-37); Alanine Aminotransfer ALT/SGPT 38 U/L (13-56); Albumin, Serum 2.1 g/dL (3.2-5.0); Alkaline Phosphatase 39 U/L (45-117); Anion Gap 5 (5-15); BUN 23 mg/dL (7-18); BUN/Creat Ratio 52.5 RATIO (10-20); Calcium,Total 8.4 mg/dL (8.5-10.1); Chloride 103 mmol/L (98-107); Creatinine, Serum 0.44 mg/dL (0.55-1.02); EST Glomerular Filtration Rate 149 mL/min (>60); Est Glom Filt Rate - Afr Amer 180 mL/min (>60); Estimated Creatinine Clearance 49.79 ml/min; Globulin 3.1 g/dL (2.2-4.2); Glucose 141 mg/dL (74-106); Magnesium 1.5 mg/dL (1.6-2.6); Phosphorus 2.4 mg/dL (2.5-4.9); Potassium 3.5 mmol/L (3.5-5.1); Protein, Total 5.2 g/dL (6.4-8.2); Sodium Level 136 mmol/L (136-145)
[2021-09-12 07:12] VITALS: O2SAT 97
[2021-09-12 07:23] LABS: Monocyte 3 % (0-10); Neutrophil-Band 12 % (0-5); Neutrophil-Segmented 85 % (47-70); Total Cells Counted 100 (MANUAL DIFF)
[2021-09-12 07:25] LABS: Absolute Neutrophil Count 7.7 X10^3/uL (2.0-7.7); Basophil 0 % (0-1); Eosinophil 0 % (0-5); Lymphocyte 0 % (19-41); Neutrophil # 7.66 X10^3/uL (2.7-7.7)
[2021-09-12 07:27] LABS: Ovalocyte RARE; Platelet Estimate MKD DEC (ADEQ)
--- NOTE | 2021-09-12 08:25 | PCM.PN.HOSP ---
Subjective Subjective Follow-up for dysphagia and pancytopenia. Objective Data Objective Data Vital Signs: Vital Signs Temp Pulse Resp BP Pulse Ox O2 Del Method O2 Flow Rate 98.4 F 82 20 H 121/95 H 97 Room Air 2 09/12/21 02:55 09/12/21 02:55 09/12/21 02:55 09/12/21 02:55 09/12/21 07:12 09/12/21 07:12 09/11/21 22:01 Oxygen Flow Rate (L/min) 2 Oxygen Delivery Method Room Air Weight: 157 lb 10.088 oz Body Mass Index (BMI) 24.0 Intake & Output: Intake and Output for Last 24 Hours 09/10/21 09/11/21 09/12/21 23:59 23:59 23:59 Intake Total 1333.3333 / 1333.3333 2100.55 / 2100.55 474 / 474 Output Total 200 / 200 Balance 1333.3333 / 1333.3333 2100.55 / 2100.55 274 / 274 Medical Nutrition Assessment Dietitian: Malnutrition Criteria Met Start: 09/08/21 16:19 Freq: Status: Active Protocol: Document 09/11/21 09:47 AG (Rec: 09/11/21 09:47 AG [id number]) Nutrition Malnutrition Evidence of Malnutrition Exists Yes Malnutrition (severe): Chronic Evidenced By Suboptimal Energy Intake ( Severe),Weight Loss (Severe) Clinical Problem Chronic Disease or Condition Related Malnutrition Etiology severe, chronic malnutrition related to inadequate energy intake d/t severe esophagitis w/ increased energy needs d/t cancer Signs/Symptoms as evidenced by unintentional wt loss of 8.3kg/10% wt loss x 4 months; estimated PO intake meeting <75% of estimated energy needs >3 months; estimated PO intake meeting < 50% of estimated energy needs >3 days Status Active Problem Recommendation Dietitian Recommendations/Changes 1) advance diet as tolerated to regular- texture/ consistency modifications per CONSTRUCTION SITE CROSSING GUARD; 8oz ensure w/ meals when diet advanced. 2) Consulted by hospitalist ( Dr. Yoo) to continue TPN this date. For Day #2 TPN: 1500 mL 8% AA/ 14% dextrose Clinimix w/ electrolytes, MVI, folic acid, trace minerals at 63mL/hour and 250mL 20% lipid solution to provide 1696 calories, 120 g protein. No insulin or famotidine per provider order. 3) Daily wts, monitoring of labs per protocol. 4) May need to consider alternative means of nutrition (i.e PEG tube) if pt unable to consume sufficient nutrition via PO diet and is agreeable to g-tube, will continue to follow. Lab / Micro Data Result Diagrams: 09/12/21 05:38 09/12/21 05:38 Labs: Laboratory Results - last 24 hr 09/10/21 06:15: Diff Path Review Reviewed 09/11/21 06:18: Diff Path Review Reviewed 09/11/21 18:23: POC Glucose 160 H 09/12/21 00:37: POC Glucose 155 H 09/12/21 05:38: WBC 1.9 L, RBC 2.36 L, Hgb 7.5 L, Hct 23.4 L, MCV 99.2 H, MCH 31.8, MCHC 32.1, RDW Std Deviation 60.9 H, RDW Coeff of Salena 16.8 H, Plt Count 39 L*, MPV 10.6, Neut % (Auto) Not Reportable, Absolute Neuts (auto) 7.7, Absolute Lymphs (auto) 0.00 L, Total Counted 100, Neutrophils % (Manual) 85 H, Band Neutrophils % 12 H, Lymphocytes % (Manual) 0 L, Monocytes % (Manual) 3, Eosinophils % (Manual) 0, Basophils % (Manual) 0, Diff Path Review May foll, Platelet Estimate MKD DEC, Ovalocytes RARE 09/12/21 05:38: Sodium 136, Potassium 3.5, Chloride 103, Carbon Dioxide 28.0, Anion Gap 5, BUN 23 H, Creatinine 0.44 L, Estim Creat Clear Calc 49.79, Est GFR (MDRD) Af Amer 180, Est GFR (MDRD) Non-Af 149, BUN/Creatinine Ratio 52.5 H, Glucose 141 H, Calcium 8.4 L, Phosphorus 2.4 L, Magnesium 1.5 L, Total Bilirubin 0.20, AST 16, ALT 38, Alkaline Phosphatase 39 L, Total Protein 5.2 L, Albumin 2.1 L, Globulin 3.1, Albumin/Globulin Ratio 0.7 L Micro: Microbiology 09/09/21 16:48 Urine, Clean Catch Urine Culture - Final Enterococcus faecalis 09/09/21 10:45 Blood Culture (Wb) - Anticubital Right Blood Culture - Preliminary No growth in 48 hours. 09/09/21 09:55 Blood Culture (Wb) - Port Blood Culture - Preliminary No growth in 48 hours. Physical Exam Narrative General: Alert, Oriented x3, Cooperative, BMI 24 kg/m? HEENT: Atraumatic, PERRLA, EOMI, Normocephalic Oral: Oral mucosa moist. Mild generalized redness over soft palate. No obvious thrush or ulcer seen. Neck: Supple, No JVD, Negative Carotid Bruits Lungs: Air entry diminished in bilateral lung bases. No crepitation/rhonchi, lungs clear Cardiovascular: Regular rate, Regular Rhythm, Normal S1, Normal S2, No murmurs Abdomen: Bowel Sounds Present, Soft, Non Tender, Non-Distended : No renal angle tenderness. No suprapubic tenderness. Extremities: No edema, Capillary Refill Less than 3 Seconds Skin: Dry skin. Alopecia, dilated capillaries/small venules of fingertips. Grayish skin discoloration, radiotherapy changes to upper body. Musculoskeletal: ROM restricted of left leg. Muscle strength 4/5, LLE at hip and knee joints, right leg 4+/5. Neurological: Cranial nerves II-XII grossly intact, DTR 2+/4. Decreased sensation of left leg. Psych/Mental Status: Flat affect. Assessment & Plan Assessment/Plan (1) Throat pain: PLAN: 76-year-old female? 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 1.? Radiotherapy induced odynophagia/dysphagia, stomatitis and severe pancytopenia.? 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 Moura, consulted on 08/21/2021 on previous hospitalization.? Patient also with recent local regional recurrence of non-small cell lung cancer and had [place] based chemotherapy with immunotherapy about 5 weeks ago.? Patient is dehydrated with the dysphagia, odynophagia with generalized weakness and fatigue.? IV fluid normal saline for rehydration.? BMX, nystatin for symptomatic relief.? Senior Brand Manager and is pleased pathologist consult.? Continue PPI IV Protonix daily for GERD.? She was also seen by Dr. Damon Talavera on 09/07/2021 on Decadron taper and recommended repeat spine MRI in 3 to 4 weeks and MRI brain 2 months after whole brain radiation at [facility] 09/09: Discussed with Dr. Moura.? Patient had chemotherapy [place]-based as mentioned above.? Labs shows severe pancytopenia, WBC 0.7 thousand, ANC 0.6 thousand, ALC 0.04 thousand.? Platelet count 67,000.? Started on Granix.? Monitor CBC daily.? Moderate normocytic normochromic anemia.? Patient did not had fever.? Blood cultures and urine culture ordered.? No focal signs and symptoms of infection, shortness of breath/tachypnea including burning micturition.? Patient has mild chronic cough and rattling sound of mucus in throat, not able to bring up.? Incentive spirometry and chest physiotherapy. 09/10: Discussed with radiotherapist Dr. Muñiz.? Patient not able to have any oral intake because of mucositis.? Discussed with the dietitian and started on TPN.? Patient evaluated by speech therapist and currently NPO.? Improvement in WBC count.? Platelet count 55,000 09/11: Improvement in WBC count and ANC.? Continue Granix.? Hemoglobin 7.6, platelet count 44,000.? Monitor CBC daily.? Overall patient looks better.? Continue IV TPN.? Patient had modified barium swallow and speech therapist recommended pur?ed dysphagia diet with thin liquid. 09/12: WBC 1.9 thousand, bands 12%, lymphocyte 0. ?2.? COPD with history of non-small cell lung cancer: On bronchodilator as needed.? Not in exacerbation.? DuoNeb as needed.? Patient refused for scheduled bronchodilator 09/10: Chest x-ray done does not show any acute worsening of infiltrate.? Patient had 1 dose of Lasix and hypoxia has resolved.? Possible fluid overload/pulmonary congestion from IV fluid 3.? Histoy of DVT and PE: 09/10 platelet count dropped from 96,000, 67,000, 55,000.? Hold Eliquis 09/12: Platelet count dropped to 39,000. No spontaneous external bleeding. 4. History of urinary incontinence: on oxybutynin Possible Enterococcus UTI: Patient urine culture shows more than 1000 colonies of GPC, possible Enterococcus.? Continue IV Zosyn as it will cover Enterococcus 09/11: Enterococcus UTI.? Antibiotic narrowed down to Unasyn for Enterococcus coverage. Total time of the visit including total time spent in counseling or coordination of care, (more than 50% of the total time, spent in obtaining medical information from nurses and other ancillary care providers,explaining to the patient about labs, imaging, diagnosis and management), discussion with oncologist, radiotherapist, petroleum engineering professor and speech therapist review of labs and imaging is? 40 minutes. Living will/advanced directive/end of life care: Patient does? have living will or advanced directive.? Her friend is near the bedside.? After discussion of benefits/risks procedures involved with? full code, DNR CC arrest and DNR CC, the patient opted for DNRCC arrest, no intubation Patient? doesn't? want artificial life support including intubation, tube feed, ventilator and/chest compression, central venous catheter, vasopressor and DC shock if needed ? Charges/Coding Visit Charges Inpatient E&M: 34971 Subs Hosp L2
[2021-09-12 09:20] VITALS: BP 134/72; PULSE 91; RESP 20; TEMP 36.6; O2SAT 97
[2021-09-12] MEDS: dexAMETHasone 4 MG/ML Vial IV (09:46)
[2021-09-12 09:50] LABS: Bedside Glucose 123 mg/dL (74-106)
[2021-09-12] MEDS: TBO-FILGRASTIM 300 MCG/0.5 ML ML SC (09:53)
[2021-09-12] MEDS: Ondansetron 4 MG/2 ML Vial IV (10:16)
[2021-09-12 12:01] LABS: Bedside Glucose 129 mg/dL (74-106)
[2021-09-12 14:00] VITALS: BP 148/78; PULSE 89; RESP 20; TEMP 37; O2SAT 97
[2021-09-12] MEDS: BMX LIQUID 180 ML 20 ML PO ×2 (14:13→17:48)
[2021-09-12] MEDS: Glycopyrrolate 0.2 MG/ML Vial 0.1 MG IV ×2 (17:48→21:55)
[2021-09-12] MEDS: Bisacodyl 10 MG Suppository RC (18:49)
[2021-09-12 20:07] VITALS: BP 135/78; PULSE 63; RESP 20; TEMP 36.6; O2SAT 99
[2021-09-12 20:46] LABS: Bedside Glucose 116 mg/dL (74-106)
[2021-09-13] MEDS: 0.9% Saline Lock 10 ML Syringe IV ×5 (00:30→17:30)
[2021-09-13] MEDS: TPN - Clinimix E 8%-14% Soln 2,000 ML with Multivitamins 10 ML, Trace Elements 1 ML, Fo... 63 ML IV (00:30)
[2021-09-13 00:46] LABS: Bedside Glucose 100 mg/dL (74-106)
[2021-09-13] MEDS: HYDROmorphone 0.5 MG/0.5 ML SYRINGE IV ×6 (01:58→21:39)
[2021-09-13] MEDS: Glycopyrrolate 0.2 MG/ML Vial 0.1 MG IV ×4 (01:58→19:47)
[2021-09-13 02:03] VITALS: BP 132/79; PULSE 83; RESP 20; TEMP 36.5; O2SAT 96
[2021-09-13 05:48] LABS: Absolute Lymphocyte Count 0.05 X10^3/uL (0.83-4.51); Absolute Neutrophil Count 1.7 X10^3/uL (2.0-7.7); Basophil# 0.04 X10^3/uL; Eosinophil# 0.01 X10^3/uL; Eosinophils% 0.5 % (0-5); Hematocrit 23.9 % (37-47); Hemoglobin 7.7 g/dL (12.0-15.0); Lymphocyte # 0.05 X10^3/ul (0.83-4.51); Lymphocyte % 2.5 % (19-41); Mean Corp Hgb Conc 32.2 g/dL (32-36); Mean Corpuscular Hgb 32.1 pg (27.0-32.0); Mean Corpuscular Volume 99.6 fL (81-99); Mean Platelet Vol. 10.6 fl (6.2-12.0); Monocyte# 0.15 X10^3/uL; Monocyte% 7.6 % (0-10); Neutrophil % 85.9 % (47-70); POSITIVE COUNT YES; POSITIVE DIFFERENTIAL YES; POSITIVE MORPHOLOGY YES; RBC Distribution Width CV 16.9 % (11.6-14.6); RBC Distribution Width SD 62.7 fl (35.1-43.9)
[2021-09-13 06:15] LABS: Differential Indicated SCAN CRITERIA MET; Platelet Count 37 K/mm3 (150-450)
[2021-09-13 06:24] LABS: ALB/GLOB Ratio 0.7 RATIO (0.9-2.4); AST(SGOT) 17 U/L (15-37); Alanine Aminotransfer ALT/SGPT 42 U/L (13-56); Albumin, Serum 2.2 g/dL (3.2-5.0); Alkaline Phosphatase 42 U/L (45-117); Anion Gap 7 (5-15); BUN 24 mg/dL (7-18); BUN/Creat Ratio 52.9 RATIO (10-20); Calcium,Total 8.6 mg/dL (8.5-10.1); Chloride 100 mmol/L (98-107); Creatinine, Serum 0.45 mg/dL (0.55-1.02); EST Glomerular Filtration Rate 143 mL/min (>60); Est Glom Filt Rate - Afr Amer 173 mL/min (>60); Estimated Creatinine Clearance 49.79 ml/min; Globulin 3.3 g/dL (2.2-4.2); Glucose 109 mg/dL (74-106); Phosphorus 4.3 mg/dL (2.5-4.9); Potassium 4.3 mmol/L (3.5-5.1); Protein, Total 5.5 g/dL (6.4-8.2); Sodium Level 134 mmol/L (136-145)
[2021-09-13 06:46] LABS: Bedside Glucose 96 mg/dL (74-106)
[2021-09-13 06:50] LABS: Anisocytosis 1+; Differential Comment SCANNED; Hypochromasia 1+; Microcytosis 1+; Platelet Estimate MKD DEC (ADEQ)
[2021-09-13] MEDS: dexAMETHasone 4 MG/ML Vial IV (09:03)
[2021-09-13 09:05] VITALS: BP 126/64; PULSE 97; RESP 20; TEMP 36.6; O2SAT 99
[2021-09-13] MEDS: TBO-FILGRASTIM 300 MCG/0.5 ML ML SC (09:07)
[2021-09-13] MEDS: Folic Acid 1 MG Tablet PO (09:19)
[2021-09-13] MEDS: Cholecalciferol (Vit D3) 125 MCG CAPSULE (5,000 UNITS) PO (09:20)
--- NOTE | 2021-09-13 10:38 | NURSING ---
Speech Therapy called to inform this nurse that Pt was coughing while S.T was in there with pt and spo2 dropped down to 84% on 2L via NC while coughing and then came right back up after she was done coughing. Will monitor. Pt continues to be on continous spo2.
--- NOTE | 2021-09-13 14:42 | PCM.PN.HOSP ---
Subjective Subjective Follow-up for pancytopenia, Aphasia and dysphagia. Objective Data Objective Data Vital Signs: Vital Signs Temp Pulse Resp BP Pulse Ox O2 Del Method O2 Flow Rate 97.8 F 97 20 H 126/64 H 99 Nasal Cannula 2 09/13/21 09:05 09/13/21 09:05 09/13/21 09:05 09/13/21 09:05 09/13/21 09:05 09/13/21 09:35 09/13/21 09:35 Oxygen Flow Rate (L/min) 2 Oxygen Delivery Method Nasal Cannula Weight: 160 lb 11.472 oz Body Mass Index (BMI) 24.0 Intake & Output: Intake and Output for Last 24 Hours 09/11/21 09/12/21 09/13/21 23:59 23:59 23:59 Intake Total 2100.55 / 2100.55 1152 / 1152 3216.0833 / 3216.0833 Output Total 200 / 200 1100 / 1100 Balance 2100.55 / 2100.55 952 / 952 2116.0833 / 2116.0833 Medical Nutrition Assessment Dietitian: Malnutrition Criteria Met Start: 09/08/21 16:19 Freq: Status: Active Protocol: Document 09/13/21 10:54 SLA (Rec: 09/13/21 10:55 SLA [id number]) Nutrition Malnutrition Evidence of Malnutrition Exists Yes Malnutrition (severe): Chronic Evidenced By Suboptimal Energy Intake ( Severe),Weight Loss (Severe) Clinical Problem Chronic Disease or Condition Related Malnutrition Etiology severe, chronic malnutrition related to inadequate energy intake d/t severe esophagitis w/ increased energy needs d/t cancer Signs/Symptoms as evidenced by unintentional wt loss of 8.3kg/10% wt loss x 4 months; estimated PO intake meeting <75% of estimated energy needs >3 months; estimated PO intake meeting < 50% of estimated energy needs >3 days Status Active Problem Recommendation Dietitian Recommendations/Changes 1) Continue to provide regular diet- texture/consistency modifications per WEB APPLICATIONS DEVELOPER; 8oz ensure enlive w/ meals. 2) Consulted by hospitalist ( Dr. Yoo) to continue TPN this date. For Day #4 TPN: 1000 mL 8% AA/ 14% dextrose Clinimix w/ electrolytes, MVI, folic acid, trace minerals at 42mL/hour to provide 797 calories, 80 g protein. No insulin or famotidine per provider order. 3) Daily wts, monitoring of labs per protocol. 4) May need to consider alternative means of nutrition (i.e PEG tube) if pt unable to consume sufficient nutrition via PO diet and is agreeable to g-tube, will continue to follow. Lab / Micro Data Result Diagrams: 09/13/21 05:19 09/13/21 05:19 Labs: Laboratory Results - last 24 hr 09/12/21 20:07: POC Glucose 116 H 09/13/21 00:41: POC Glucose 100 09/13/21 05:19: WBC 2.0 L, RBC 2.40 L, Hgb 7.7 L, Hct 23.9 L, MCV 99.6 H, MCH 32.1 H, MCHC 32.2, RDW Std Deviation 62.7 H, RDW Coeff of [place]ena 16.9 H, Plt Count 37 L*, MPV 10.6, Immature Gran % (Auto) 1.500 H, Neut % (Auto) 85.9 H, Lymph % (Auto) 2.5 L, [place] % (Auto) 7.6, Eos % (Auto) 0.5, Baso % (Auto) 2.0 H, Absolute Neuts (auto) 1.7 L, Absolute Lymphs (auto) 0.05 L, Nucleated RBC % 3.0, Differential Comment SCANNED, Diff Path Review May foll, Platelet Estimate MKD DEC, Hypochromasia 1+, Anisocytosis 1+, Microcytosis 1+ 09/13/21 05:19: Sodium 134 L, Potassium 4.3, Chloride 100, Carbon Dioxide 27.0, Anion Gap 7, BUN 24 H, Creatinine 0.45 L, Estim Creat Clear Calc 49.79, Est GFR (MDRD) Af Amer 173, Est GFR (MDRD) Non-Af 143, BUN/Creatinine Ratio 52.9 H, Glucose 109 H, Calcium 8.6, Phosphorus 4.3, Magnesium 2.0, Total Bilirubin 0.30, AST 17, ALT 42, Alkaline Phosphatase 42 L, Total Protein 5.5 L, Albumin 2.2 L, Globulin 3.3, Albumin/Globulin Ratio 0.7 L 09/13/21 05:55: POC Glucose 96 Micro: Microbiology 09/09/21 16:48 Urine, Clean Catch Urine Culture - Final Enterococcus faecalis 09/09/21 10:45 Blood Culture (Wb) - Anticubital Right Blood Culture - Preliminary No growth in 48 hours. 09/09/21 09:55 Blood Culture (Wb) - Port Blood Culture - Preliminary No growth in 48 hours. Physical Exam Narrative Seen and examined. Patient able to take potato soup and chocolate/nutritional supplements 75 to 80%. General: Alert, Oriented x3, Cooperative, BMI 24 kg/m? HEENT: Atraumatic, PERRLA, EOMI, Normocephalic Oral: Oral mucosa moist. Mild generalized redness over soft palate. No obvious thrush or ulcer seen. Neck: Supple, No JVD, Negative Carotid Bruits Lungs: Air entry diminished in bilateral lung bases. Mild bibasilar rhonchi Cardiovascular: Regular rate, Regular Rhythm, Normal S1, Normal S2, No murmurs Abdomen: Bowel Sounds Present, Soft, Non Tender, Non-Distended : No renal angle tenderness. No suprapubic tenderness. Extremities: No edema, Capillary Refill Less than 3 Seconds Skin: Dry skin. Alopecia, dilated capillaries/small venules of fingertips. Grayish skin discoloration, radiotherapy changes to upper body. Musculoskeletal: ROM restricted of left leg. Muscle strength 4/5, LLE at hip and knee joints, right leg 4+/5. Neurological: Cranial nerves II-XII grossly intact, DTR 2+/4. Decreased sensation of left leg. Psych/Mental Status: Flat affect. Assessment & Plan Assessment/Plan (1) Throat pain: PLAN: 76-year-old female? 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 1.? Radiotherapy induced odynophagia/dysphagia, stomatitis and severe pancytopenia.? 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 Moura, consulted on 08/21/2021 on previous hospitalization.? Patient also with recent local regional recurrence of non-small cell lung cancer and had [place] based chemotherapy with immunotherapy about 5 weeks ago.? Patient is dehydrated with the dysphagia, odynophagia with generalized weakness and fatigue.? IV fluid normal saline for rehydration.? BMX, nystatin for symptomatic relief.? Pedodontist and is pleased pathologist consult.? Continue PPI IV Protonix daily for GERD.? She was also seen by Dr. Damon Talavera on 09/07/2021 on Decadron taper and recommended repeat spine MRI in 3 to 4 weeks and MRI brain 2 months after whole brain radiation at [facility] 09/09: Discussed with Dr. Moura.? Patient had chemotherapy [place]-based as mentioned above.? Labs shows severe pancytopenia, WBC 0.7 thousand, ANC 0.6 thousand, ALC 0.04 thousand.? Platelet count 67,000.? Started on Granix.? Monitor CBC daily.? Moderate normocytic normochromic anemia.? Patient did not had fever.? Blood cultures and urine culture ordered.? No focal signs and symptoms of infection, shortness of breath/tachypnea including burning micturition.? Patient has mild chronic cough and rattling sound of mucus in throat, not able to bring up.? Incentive spirometry and chest physiotherapy. 09/10: Discussed with radiotherapist Dr. Muñiz.? Patient not able to have any oral intake because of mucositis.? Discussed with the dietitian and started on TPN.? Patient evaluated by speech therapist and currently NPO.? Improvement in WBC count.? Platelet count 55,000 09/11: Improvement in WBC count and ANC.? Continue Granix.? Hemoglobin 7.6, platelet count 44,000.? Monitor CBC daily.? Overall patient looks better.? Continue IV TPN.? Patient had modified barium swallow and speech therapist recommended pur?ed dysphagia diet with thin liquid. 09/12: WBC 1.9 thousand, bands 12%, lymphocyte 0. 7/3: IV TPN decreased to 1 L. Increase oral diet as per tolerated. CBC reviewed. Cell counts are in the lower side. ANC 1.7 thousand. ?2.? COPD with history of non-small cell lung cancer: On bronchodilator as needed.? Not in exacerbation.? DuoNeb as needed.? Patient refused for scheduled bronchodilator 09/10: Chest x-ray done does not show any acute worsening of infiltrate.? Patient had 1 dose of Lasix and hypoxia has resolved.? Possible fluid overload/pulmonary congestion from IV fluid 3.? Histoy of DVT and PE: 09/10 platelet count dropped from 96,000, 67,000, 55,000.? Hold Eliquis 09/12: Platelet count dropped to 39,000. No spontaneous external bleeding. 09/13: Platelet count gradually decreased. 4. History of urinary incontinence: on oxybutynin Possible Enterococcus UTI: Patient urine culture shows more than 1000 colonies of GPC, possible Enterococcus.? Continue IV Zosyn as it will cover Enterococcus 09/11: Enterococcus UTI.? Antibiotic narrowed down to Unasyn for Enterococcus coverage. Total time of the visit including total time spent in counseling or coordination of care, (more than 50% of the total time, spent in obtaining medical information from nurses and other ancillary care providers,explaining to the patient about labs, imaging, diagnosis and management), discussion with oncologist, radiotherapist, supervising airplane pilot and speech therapist review of labs and imaging is? 40 minutes. Living will/advanced directive/end of life care: Patient does? have living will or advanced directive.? Her friend is near the bedside.? After discussion of benefits/risks procedures involved with? full code, DNR CC arrest and DNR CC, the patient opted for DNRCC arrest, no intubation Patient? doesn't? want artificial life support including intubation, tube feed, ventilator and/chest compression, central venous catheter, vasopressor and DC shock if needed ? Charges/Coding Visit Charges Inpatient E&M: 60244 [facility] L3
[2021-09-13] MEDS: TPN - Clinimix E 8%-14% Soln 2,000 ML with Multivitamins 10 ML, Trace Elements 1 ML, Fo... 42 ML IV (16:27)
[2021-09-13 16:37] VITALS: BP 133/82; PULSE 93; RESP 20; TEMP 36.9; O2SAT 100
--- NOTE | 2021-09-13 18:40 | NURSING ---
Pt blood sugar is 116 at this time.
[2021-09-13 18:46] LABS: Bedside Glucose 116 mg/dL (74-106)
[2021-09-13 21:36] VITALS: BP 152/88; PULSE 98; RESP 20; TEMP 36.5; O2SAT 97
[2021-09-14 00:16] LABS: Bedside Glucose 110 mg/dL (74-106)
[2021-09-14] MEDS: HYDROmorphone 0.5 MG/0.5 ML SYRINGE IV ×3 (01:48→09:37)
[2021-09-14] MEDS: Glycopyrrolate 0.2 MG/ML Vial 0.1 MG IV ×2 (01:48→05:51)
[2021-09-14 03:06] VITALS: BP 121/73; PULSE 91; RESP 20; TEMP 36.6; O2SAT 93
[2021-09-14] MEDS: Ondansetron 4 MG/2 ML Vial IV (05:51)
[2021-09-14] MEDS: 0.9% Saline Lock 10 ML Syringe IV (05:52)
[2021-09-14 06:06] LABS: Bedside Glucose 100 mg/dL (74-106)
[2021-09-14 06:58] LABS: Absolute Lymphocyte Count 0.05 X10^3/uL (0.83-4.51); Absolute Neutrophil Count 1.7 X10^3/uL (2.0-7.7); Basophil# 0.03 X10^3/uL; Basophil% 1.6 % (0-1); Eosinophil# 0.01 X10^3/uL; Eosinophils% 0.5 % (0-5); Hemoglobin 8.1 g/dL (12.0-15.0); Lymphocyte # 0.05 X10^3/ul (0.83-4.51); Lymphocyte % 2.7 % (19-41); Mean Corp Hgb Conc 32.4 g/dL (32-36); Mean Corpuscular Hgb 31.6 pg (27.0-32.0); Mean Corpuscular Volume 97.7 fL (81-99); Mean Platelet Vol. 10.8 fl (6.2-12.0); Monocyte% 5.3 % (0-10); NRBC Flagged by Analyzer 1.1 % (0-5); Neutrophil # 1.68 X10^3/uL (2.7-7.7); Neutrophil % 89.9 % (47-70); POSITIVE COUNT YES; POSITIVE DIFFERENTIAL YES; POSITIVE MORPHOLOGY YES; RBC Distribution Width SD 60.9 fl (35.1-43.9); Red Blood Count 2.56 M/mm3 (4.2-5.4); White Blood Count 1.9 K/mm3 (4.4-11.0)
[2021-09-14 07:08] LABS: Differential Indicated SCAN CRITERIA MET; Platelet Count 28 K/mm3 (150-450)
[2021-09-14 07:21] LABS: Anion Gap 4 (5-15); BUN 25 mg/dL (7-18); Calcium,Total 8.7 mg/dL (8.5-10.1); Chloride 100 mmol/L (98-107); Creatinine, Serum 0.48 mg/dL (0.55-1.02); EST Glomerular Filtration Rate 134 mL/min (>60); Est Glom Filt Rate - Afr Amer 162 mL/min (>60); Estimated Creatinine Clearance 49.79 ml/min; Glucose 112 mg/dL (74-106); Potassium 3.5 mmol/L (3.5-5.1); Sodium Level 133 mmol/L (136-145)
[2021-09-14 07:43] LABS: Anisocytosis 2+; Platelet Estimate MKD DEC (ADEQ); Polychromasia 28
--- NOTE | 2021-09-14 08:29 | PN.HOSP_ITS ---
Subjective Subjective Mouth and throat are still sore, but tolerating diet, eating about 1/2. Objective Data Objective Data Vital Signs: Vital Signs Temp Pulse Resp BP Pulse Ox O2 Del Method O2 Flow Rate 36.6 C 91 20 H 121/73 H 93 Room Air 2 09/14/21 03:06 09/14/21 03:06 09/14/21 03:06 09/14/21 03:06 09/14/21 03:06 09/14/21 03:06 09/13/21 09:35 Oxygen Flow Rate (L/min) 2 Oxygen Delivery Method Room Air Weight: 73.3 kg Body Mass Index (BMI) 24.0 Intake & Output: Intake and Output for Last 24 Hours 09/12/21 09/13/21 09/14/21 23:59 23:59 23:59 Intake Total 1152 / 1152 4977.5333 / 4977.5333 374 / 374 Output Total 200 / 200 1100 / 1100 Balance 952 / 952 3877.5333 / 3877.5333 374 / 374 Medical Nutrition Assessment Dietitian: Malnutrition Criteria Met Start: 09/08/21 16:19 Freq: Status: Active Protocol: Document 09/13/21 10:54 SEVERO (Rec: 09/13/21 10:55 SLA [id number]) Nutrition Malnutrition Evidence of Malnutrition Exists Yes Malnutrition (severe): Chronic Evidenced By Suboptimal Energy Intake ( Severe),Weight Loss (Severe) Clinical Problem Chronic Disease or Condition Related Malnutrition Etiology severe, chronic malnutrition related to inadequate energy intake d/t severe esophagitis w/ increased energy needs d/t cancer Signs/Symptoms as evidenced by unintentional wt loss of 8.3kg/10% wt loss x 4 months; estimated PO intake meeting <75% of estimated energy needs >3 months; estimated PO intake meeting < 50% of estimated energy needs >3 days Status Active Problem Recommendation Dietitian Recommendations/Changes 1) Continue to provide regular diet- texture/consistency modifications per KNIFE OPERATOR; 8oz ensure enlive w/ meals. 2) Consulted by hospitalist ( Dr. Yoo) to continue TPN this date. For Day #4 TPN: 1000 mL 8% AA/ 14% dextrose Clinimix w/ electrolytes, MVI, folic acid, trace minerals at 42mL/hour to provide 797 calories, 80 g protein. No insulin or famotidine per provider order. 3) Daily wts, monitoring of labs per protocol. 4) May need to consider alternative means of nutrition (i.e PEG tube) if pt unable to consume sufficient nutrition via PO diet and is agreeable to g-tube, will continue to follow. Lab / Micro Data Result Diagrams: 09/14/21 06:48 09/14/21 06:48 Labs: Laboratory Results - last 24 hr 09/13/21 18:39: POC Glucose 116 H 09/14/21 00:09: POC Glucose 110 H 09/14/21 05:59: POC Glucose 100 09/14/21 06:48: WBC 1.9 L, RBC 2.56 L, Hgb 8.1 L, Hct 25.0 L, MCV 97.7, MCH 31.6, MCHC 32.4, RDW Std Deviation 60.9 H, RDW Coeff of Salena 17.0 H, Plt Count 28 L*, MPV 10.8, Immature Gran % (Auto) 0.000, Neut % (Auto) 89.9 H, Lymph % (Auto) 2.7 L, Victoria % (Auto) 5.3, Eos % (Auto) 0.5, Baso % (Auto) 1.6 H, Absolute Neuts (auto) 1.7 L, Absolute Lymphs (auto) 0.05 L, Nucleated RBC % 1.1, Diff Path Review July, Platelet Estimate MKD DEC, Polychromasia 28, Anisocytosis 2+ 09/14/21 06:48: Sodium 133 L, Potassium 3.5, Chloride 100, Carbon Dioxide 29.0, Anion Gap 4 L, BUN 25 H, Creatinine 0.48 L, Estim Creat Clear Calc 49.79, Est GFR (MDRD) Af Amer 162, Est GFR (MDRD) Non-Af 134, BUN/Creatinine Ratio 52.0 H, Glucose 112 H, Calcium 8.7 Micro: Microbiology 09/09/21 10:45 Blood Culture (Wb) - Anticubital Right Blood Culture - Preliminary No growth in 5 days. 09/09/21 09:55 Blood Culture (Wb) - Port Blood Culture - Preliminary No growth in 5 days. 09/09/21 16:48 Urine, Clean Catch Urine Culture - Final Enterococcus faecalis Physical Exam Const alert and no apparent distress HEENT HEENT Narrative: Slight soft palate erythema. No thrush. Neck no lymphadenopathy Resp normal respiratory effort, no retractions and no use of accessory muscles Cardio regular rate, regular rhythm, S1 normal heart sound and S2 normal heart sound GI normal to inspection, nondistended, normoactive bowel sounds, soft to palpation and non-tender Extremity normal to inspection and full ROM Assessment & Plan Assessment/Plan (1) Throat pain: PLAN: 76-year-old female? 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 1.? 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 Moura, consulted on 08/21/2021 on previous hospitalization.? Patient also with recent local regional recurrence of non-small cell lung cancer and had [place] based chemotherapy with immunotherapy about 5 weeks ago.? Patient is dehydrated with the dysphagia, odynophagia with generalized weakness and fatigue.? Plan: * IV fluid normal saline for rehydration.? BMX, nystatin for symptomatic relief.? 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 She was also seen by Dr. Damon Jordan on 09/07/2021 on Decadron taper and recommended repeat spine MRI in 3 to 4 weeks and MRI brain 2 months after whole brain radiation at [facility] * 09/10: Discussed with radiotherapist Dr. Muñiz.? Patient not able to have any oral intake because of mucositis.? Discussed with the dietitian and started on TPN.? Patient evaluated by speech therapist and currently NPO.? Improvement in WBC count.? Platelet count 55,000 * Tolerating pureed diet. Continue TPN for now. Change pain medication to PO. Add viscous lidocaine. 2. Pancytopenia stable 09/09: Discussed with Dr. Moura.? Patient had chemotherapy [place]-based as mentioned above.? Labs shows severe pancytopenia, WBC 0.7 thousand, ANC 0.6 thousand, ALC 0.04 thousand.? Platelet count 67,000.? Started on Granix.? Monitor CBC daily.? Moderate normocytic normochromic anemia.? Patient did not had fever.? Blood cultures and urine culture ordered.? No focal signs and symptoms of infection, shortness of breath/tachypnea including burning micturition.? Patient has mild chronic cough and rattling sound of mucus in throat, not able to bring up.? Incentive spirometry and chest physiotherapy 09/14: Platelets down to 28,000, were 300,000 August 25. Additionally white count is down to 1.9 and hemoglobin is 8.1. Discussed with Dr. Hernández and I discussed the case with him. Feels that the [place] based chemotherapy is likely the etiology of her pancytopenia and does not feel any additional work-up is necessary at this time. In the absence of bleeding transfusions are necessary for thrombocytopenia at this point time. 3.? Histoy of DVT and PE: apixaban held given thrombocytopenia. 4. Enterococcus UTI: Patient urine culture shows more than 1000 colonies of GPC, possible Enteroco ccus.? Continue IV Zosyn as it will cover Enterococcus 09/11: Enterococcus UTI.? Antibiotic narrowed down to Unasyn for Enterococcus coverage. 5. Chronic conditions: * COPD with history of non-small cell lung cancer: On bronchodilator as needed.? Not in exacerbation.? DuoNeb as needed.? Patient refused for scheduled bronchodilator. Chest x-ray done does not show any acute worsening of infiltrate.? Patient had 1 dose of Lasix and hypoxia has resolved.? Possible fluid overload/pulmonary congestion from IV fluid * History of urinary incontinence: on oxybutynin Charges/Coding Visit Charges Inpatient E&M: 51348 Subs Hosp L2
[2021-09-14 09:00] VITALS: BP 129/70; PULSE 96; RESP 18; TEMP 36.6; O2SAT 93
[2021-09-14] MEDS: Folic Acid 1 MG Tablet PO (09:36)
[2021-09-14] MEDS: dexAMETHasone 4 MG/ML Vial IV (09:36)
[2021-09-14] MEDS: Tolterodine Tartrate 4 MG CAP.SA PO (09:36)
[2021-09-14] MEDS: TBO-FILGRASTIM 300 MCG/0.5 ML ML SC (09:41)
[2021-09-14 09:50] VITALS: PULSE 98; RESP 20
[2021-09-14] MEDS: Cholecalciferol (Vit D3) 125 MCG CAPSULE (5,000 UNITS) PO (12:01)
[2021-09-14 16:00] VITALS: BP 135/77; PULSE 95; RESP 18; RESP 20; TEMP 36.6; O2SAT 92; O2SAT 93
[2021-09-14] MEDS: oxyCODONE 5 MG Tablet 10 MG PO ×2 (16:19→21:43)
[2021-09-14] MEDS: TPN - Clinimix E 8%-14% Soln 2,000 ML with Multivitamins 10 ML, Trace Elements 1 ML, Fo... 42 ML IV (17:12)
[2021-09-14 21:39] VITALS: BP 131/65; PULSE 99; RESP 18; TEMP 36.9; O2SAT 95
[2021-09-14 23:20] LABS: Differential Comment SCANNED
[2021-09-15 00:21] LABS: Bedside Glucose 103 mg/dL (74-106)
[2021-09-15 03:37] VITALS: BP 116/65; PULSE 89; RESP 18; TEMP 37; O2SAT 96
[2021-09-15] MEDS: oxyCODONE 5 MG Tablet 10 MG PO ×2 (03:40→14:54)
[2021-09-15 06:36] LABS: Bedside Glucose 91 mg/dL (74-106)
[2021-09-15 06:41] LABS: Hematocrit 25.1 % (37-47); Hemoglobin 8.2 g/dL (12.0-15.0); Mean Corp Hgb Conc 32.7 g/dL (32-36); Mean Corpuscular Hgb 32.3 pg (27.0-32.0); Mean Corpuscular Volume 98.8 fL (81-99); Mean Platelet Vol. 11.6 fl (6.2-12.0); POSITIVE COUNT YES; POSITIVE DIFFERENTIAL YES; POSITIVE MORPHOLOGY YES; RBC Distribution Width CV 16.7 % (11.6-14.6); RBC Distribution Width SD 60.5 fl (35.1-43.9); Red Blood Count 2.54 M/mm3 (4.2-5.4); White Blood Count 2.3 K/mm3 (4.4-11.0)
[2021-09-15] MEDS: 0.9 % NaCl (Sterile) Posiflush 10 mL IV (06:48)
[2021-09-15] MEDS: 0.9% Saline Lock 10 ML Syringe IV ×4 (06:48→15:59)
[2021-09-15 07:11] LABS: Platelet Count 24 K/mm3 (150-450)
[2021-09-15 07:12] LABS: Differential Indicated MANUAL DIFF
[2021-09-15 07:13] LABS: Anion Gap 6 (5-15); BUN 24 mg/dL (7-18); BUN/Creat Ratio 45.5 RATIO (10-20); Calcium,Total 8.8 mg/dL (8.5-10.1); Chloride 99 mmol/L (98-107); Creatinine, Serum 0.53 mg/dL (0.55-1.02); EST Glomerular Filtration Rate 120 mL/min (>60); Est Glom Filt Rate - Afr Amer 146 mL/min (>60); Estimated Creatinine Clearance 49.79 ml/min; Glucose 85 mg/dL (74-106); Potassium 3.7 mmol/L (3.5-5.1); Sodium Level 135 mmol/L (136-145)
--- NOTE | 2021-09-15 07:23 | PN.HOSP_ITS ---
Subjective Subjective Feels well. Still with pain in her mouth and her throat but overall better. Able to eat about 50% of her meals. Objective Data Objective Data Vital Signs: Vital Signs Temp Pulse Resp BP Pulse Ox O2 Del Method O2 Flow Rate 37.0 C 89 18 116/65 96 Room Air 2 09/15/21 03:37 09/15/21 03:37 09/15/21 03:37 09/15/21 03:37 09/15/21 03:37 09/15/21 04:00 09/13/21 09:35 Oxygen Flow Rate (L/min) 2 Oxygen Delivery Method Room Air Weight: 72.6 kg Body Mass Index (BMI) 24.0 Intake & Output: Intake and Output for Last 24 Hours 09/13/21 09/14/21 09/15/21 23:59 23:59 23:59 Intake Total 4977.5333 / 4977.5333 2932.9 / 2932.9 890.9 / 890.9 Output Total 1100 / 1100 Balance 3877.5333 / 3877.5333 2932.9 / 2932.9 890.9 / 890.9 Medical Nutrition Assessment Dietitian: Malnutrition Criteria Met Start: 09/08/21 16:19 Freq: Status: Active Protocol: Document 09/14/21 16:58 CHRIS (Rec: 09/14/21 16:58 CHRIS [id number]) Nutrition Malnutrition Evidence of Malnutrition Exists Yes Malnutrition (severe): Chronic Evidenced By Suboptimal Energy Intake ( Severe),Weight Loss (Severe) Clinical Problem Chronic Disease or Condition Related Malnutrition Etiology severe, chronic malnutrition related to inadequate energy intake d/t severe esophagitis w/ increased energy needs d/t cancer Signs/Symptoms as evidenced by unintentional wt loss of 8.3kg/10% wt loss x 4 months; estimated PO intake meeting <75% of estimated energy needs >3 months; estimated PO intake meeting < 50% of estimated energy needs >3 days Status Active Problem Recommendation Dietitian Recommendations/Changes 1) Continue to provide regular diet- texture/consistency modifications per LIVESTOCK COMMISSION AGENT; Ensure Pudding and Magic Cup TID with meals to help increase oral intakes. 2) Consulted by hospitalist ( Dr. Schwarz) to continue TPN this date. For Day #5 TPN: 1000 mL 8% AA/ 14% dextrose Clinimix w/ electrolytes, MVI, folic acid, trace minerals at 42mL/hour to provide 797 calories, 80 g protein. No insulin or famotidine per provider order. 3) Daily wts, monitoring of labs per protocol. 4) May need to consider alternative means of nutrition (i.e PEG tube) if pt unable to consume sufficient nutrition via PO diet and is agreeable to g-tube, will continue to follow. Lab / Micro Data Result Diagrams: 09/15/21 06:34 09/15/21 06:34 Labs: Laboratory Results - last 24 hr 09/14/21 06:48: Differential Comment SCANNED, Diff Path Review July foll, Platelet Estimate MKD DEC, Polychromasia 28, Anisocytosis 2+ 09/15/21 00:16: POC Glucose 103 09/15/21 06:29: POC Glucose 91 09/15/21 06:34: WBC 2.3 L, RBC 2.54 L, Hgb 8.2 L, Hct 25.1 L, MCV 98.8, MCH 32.3 H, MCHC 32.7, RDW Std Deviation 60.5 H, RDW Coeff of Salena 16.7 H, Plt Count 24 L* , MPV 11.6, Neut % (Auto) Not Reportable 09/15/21 06:34: Sodium 135 L, Potassium 3.7, Chloride 99, Carbon Dioxide 30.0, Anion Gap 6, BUN 24 H, Creatinine 0.53 L, Estim Creat Clear Calc 49.79, Est GFR (MDRD) Af Amer 146, Est GFR (MDRD) Non-Af 120, BUN/Creatinine Ratio 45.5 H, G lucose 85, Calcium 8.8 Micro: Microbiology 09/09/21 10:45 Blood Culture (Wb) - Anticubital Right Blood Culture - Final No growth in 5 days. 09/09/21 09:55 Blood Culture (Wb) - Port Blood Culture - Final No growth in 5 days. 09/09/21 16:48 Urine, Clean Catch Urine Culture - Final Enterococcus faecalis Physical Exam Const alert HEENT HEENT Narrative: Some slight soft palate erythema. No thrush. Resp normal respiratory effort, no retractions, no use of accessory muscles and clear to auscultation bilaterally Cardio regular rate, regular rhythm, S1 normal heart sound and S2 normal heart sound GI normal to inspection, nondistended, normoactive bowel sounds Assessment & Plan Assessment/Plan (1) Throat pain: PLAN: 76-year-old female? 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 1.? 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 Moura, consulted on 08/21/2021 on previous hospitalization.? Patient also with recent local regional recurrence of non-small cell lung cancer and had [place] based chemotherapy with immunotherapy about 5 weeks ago.? Patient is dehydrated with the dysphagia, odynophagia with generalized weakness and fatigue.? Plan: * IV fluid normal saline for rehydration.? BMX, nystatin for symptomatic relief.? * Potline Monitor * Continue PPI IV Protonix daily for GERD.? She was also seen by Dr. Damon Jordan on 09/07/2021 on Decadron taper and recommended repeat spine MRI in 3 to 4 weeks and MRI brain 2 months after whole brain radiation at [facility] * 09/10: Discussed with radiotherapist Dr. Muñiz.? Patient not able to have any oral intake because of mucositis.? Discussed with the dietitian and started on TPN.? Patient evaluated by speech therapist and currently NPO.? Improvement in WBC count.? Platelet count 55,000 * Tolerating pureed diet and thin liquids. Continue oral oxycodone, viscous lidocaine, liquid acetaminophen. 2. Pancytopenia stable 09/09: Discussed with Dr. Moura.? Patient had chemotherapy [place]-based as mentioned above.? Labs shows severe pancytopenia, WBC 0.7 thousand, ANC 0.6 thousand, ALC 0.04 thousand.? Platelet count 67,000.? Started on Granix.? Monitor CBC daily.? Moderate normocytic normochromic anemia.? Patient did not had fever.? Blood cultures and urine culture ordered.? No focal signs and sympt oms of infection, shortness of breath/tachypnea including burning micturition.? Patient has mild chronic cough and rattling sound of mucus in throat, not able to bring up.? Incentive spirometry and chest physiotherapy 09/14: Platelets down to 28,000, were 300,000 August 25. Additionally white count is down to 1.9 and hemoglobin is 8.1. Discussed with Dr. Hernández and I discussed the case with him. Feels that the [place] based chemotherapy is likely the etiology of her pancytopenia and does not feel any additional work-up is necessary at this time. In the absence of bleeding transfusions are necessary for thrombocytopenia at this point time. DC Granix as WBCs improved and ANC has been greater than 1000 for 3 consectutive days. 3.? Histoy of DVT and PE: apixaban held given thrombocytopenia and risk of bleeding could resume when there is significant recovery. 4. Enterococcus UTI: Patient urine culture shows more than 1000 colonies of GPC, possible Enterococcus.? Continue IV Zosyn as it will cover Enterococcus 09/11: Enterococcus UTI.? Antibiotic narrowed down to Unasyn for Enterococcus c overage. 5. Chronic conditions: * COPD with history of non-small cell lung cancer: On bronchodilator as needed.? Not in exacerbation.? DuoNeb as needed.? Patient refused for scheduled bronchodilator. Chest x-ray done does not show any acute worsening of infiltrate.? Patient had 1 dose of Lasix and hypoxia has resolved.? Possible fluid overload/pulmonary congestion from IV fluid * History of urinary incontinence: on oxybutynin
[2021-09-15 08:45] LABS: Lymphocyte 4 % (19-41); Metamyelocyte 10 % (0-1); Monocyte 5 % (0-10); Neutrophil-Band 1 % (0-5); Neutrophil-Segmented 80 % (47-70); Total Cells Counted 100 (MANUAL DIFF)
[2021-09-15 08:46] LABS: Absolute Neutrophil Count 1.9 X10^3/uL (2.0-7.7); Platelet Estimate MKD DEC (ADEQ); Red Cell Morphology NORM C+C NORMAL (NORM C&C)
[2021-09-15 08:49] VITALS: BP 119/69; PULSE 101; RESP 18; TEMP 37.3; O2SAT 94
[2021-09-15 09:06] VITALS: O2SAT 94
[2021-09-15] MEDS: Tolterodine Tartrate 4 MG CAP.SA PO (09:13)
[2021-09-15] MEDS: TBO-FILGRASTIM 300 MCG/0.5 ML ML SC (09:14)
[2021-09-15] MEDS: Cholecalciferol (Vit D3) 125 MCG CAPSULE (5,000 UNITS) PO (09:14)
[2021-09-15] MEDS: Folic Acid 1 MG Tablet PO (09:14)
[2021-09-15] MEDS: dexAMETHasone 4 MG/ML Vial IV (09:14)
[2021-09-15] MEDS: Pantoprazole Sodium 40 MG Tablet PO (09:27)
[2021-09-15 11:46] LABS: Bedside Glucose 122 mg/dL (74-106)
[2021-09-15 14:10] LABS: Pathologist Review Reviewed
[2021-09-15 14:10] LABS: Pathologist Review Reviewed
[2021-09-15 14:10] LABS: Pathologist Review Reviewed
[2021-09-15 14:11] LABS: Pathologist Review Reviewed
--- NOTE | 2021-09-15 14:37 | DCINST_ITS ---
Discharge Instructions Diet Discharge Diet: - (purreed and thin liquids. ) Activity Discharge Activity: Return to Normal Activity Dressing / Incision Call your doctor if you observe: Fever of 101 or Higher and - (worsening swall owing) Follow Up Care Test Results: Test results from this visit will be discussed in further detail at your follow- up appointment, if applicable. Discharge Plan Admission Admit Date/Time: 09/08/21 13:35 Primary Reason for Your Visit: difficulty swallowing. Attending Provider: Jose Angel Schwarz Primary Care Provider: Tea Fajardo ADVOCACY DIRECTOR Consulting Providers: Mohit Yoo Discharge Orders/Prescriptions Prescriptions: New lidocaine HCl [Lidocaine Viscous] 2 % Solution 5 ml PO Q3H PRN (Reason: mouth/throat pain) 10 Days Qty: 100 0RF amoxicillin 500 mg capsule 500 mg PO Q8H Qty: 6 0RF Continued cholecalciferol (vitamin D3) 2,000 unit capsule 5,000 unit PO QDAY albuterol sulfate 90 mcg/actuation HFA aerosol inhaler 2 puff INHALATION Q4H PRN (Reason: COPD) Label Comments: Inhale 2 Puffs as instructed every 4 hours as needed. melatonin 5 mg tablet 5 mg PO HS PRN (Reason: COPD) nystatin 100,000 unit/mL suspension 5 ml buccal TID MDD 15 ml Qty: 473 0RF Rx Instructions: administer 1/2 of dose in each side of the mouth, swish and swallow oxybutynin chloride 15 MG tablet extended release 24hr 15 mg PO DAILY omeprazole 20 MG tablet,delayed release (DR/EC) 40 mg PO DAILY Anoro Ellipta 62.5-25 mcg/actuation Blister With Device 1 inh INHALATION DAILY folic acid 1 mg Tablet 1 mg PO DAILY promethazine 25 mg tablet 25 tab PO DAILY PRN (Reason: Nausea) Label Comments: Take 1 tablet by mouth every 6 hours as needed. FOR NAUSEA oxycodone 5 mg/5 mL solution 5 mg PO Q4H PRN (Reason: pain (scale score 7-10)) 10 Days Qty: 250 0RF Rx Instructions: take 5-10 mL PO q4 hrs prn pain Discontinued Eliquis DVT-PE Treat 30D Start 5 mg (74 tabs) tablets,dose pack 5 mg PO BID Qty: 74 1RF Rx Instructions: take 2 tablets (10mg) twice daily for 7 days, till 04/03/2021, then continue with one tablet(5mg) twice daily. dexamethasone 4 mg Tablet 8 mg PO BID Rx Instructions: take 2 tabs (8mg) twice a day x 7 days, then 1 tab (4mg) twice a day x 7 days then 1 tab (4mg) once a day in the am x 14 days then stop Referrals / Follow Up: Tea Fajardo NP, ADVOCACY DIRECTOR-C [Primary Care Provider] - Within 1 Week Disposition Disposition (needs filled in before D/C Order can be placed): Home Health Service
[2021-09-15 14:44] VITALS: BP 124/94; PULSE 107; RESP 18; TEMP 36.8; O2SAT 95
--- NOTE | 2021-09-15 14:48 | DS.PCM_ITS ---
Providers Date of Admission: 09/08/21 Primary Care Physician: Tea Fajardo, PRETTY Reason For Visit: DYSPHAGIA / RADIOTHERAPY ADVERSE EFFECT Diagnosis Discharge Diagnosis (1) Throat pain: Status: Acute Code(s): R07.0 - Pain in throat Plan: 76-year-old female? 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 1.? 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 Moura, consulted on 08/21/2021 on previous hospitalization.? Patient also with recent local regional recurrence of non-small cell lung cancer and had [place] based chemotherapy with immunotherapy about 5 weeks ago.? Patient is dehydrated with the dysphagia, odynophagia with generalized weakness and fatigue.? Plan: * IV fluid normal saline for rehydration.? BMX, nystatin for symptomatic relief.? 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 She was also seen by Dr. Damon Jordan on 09/07/2021 on Decadron taper and recommended repeat spine MRI in 3 to 4 weeks and MRI brain 2 months after whole brain radiation at [facility] * 09/10: Discussed with radiotherapist Dr. Muñiz.? Patient not able to have any oral intake because of mucositis.? Discussed with the dietitian and started on TPN.? Patient evaluated by speech therapist and currently NPO.? Improvement in WBC count.? Platelet count 55,000 * Tolerating pureed diet and thin liquids. Continue oral oxycodone, viscous lidocaine, liquid acetaminophen. 2. Pancytopenia stable 09/09: Discussed with Dr. Moura.? Patient had chemotherapy [place]-based as mentioned above.? Labs shows severe pancytopenia, WBC 0.7 thousand, ANC 0.6 thousand, ALC 0.04 thousand.? Platelet count 67,000.? Started on Granix.? Monitor CBC daily.? Moderate normocytic normochromic anemia.? Patient did not had fever.? Blood cultures and urine culture ordered.? No focal signs and symptoms of infection, shortness of breath/tachypnea including burning micturition.? Patient has mild chronic cough and rattling sound of mucus in throat, not able to bring up.? Incentive spirometry and chest physiotherapy 09/14: Platelets down to 28,000, were 300,000 August 25. Additionally white count is down to 1.9 and hemoglobin is 8.1. Discussed with Dr. Hernández and I discussed the case with him. Feels that the [place] based chemotherapy is likely the etiology of her pancytopenia and does not feel any additional work-up is ne cessary at this time. In the absence of bleeding transfusions are necessary for thrombocytopenia at this point time. DC Granix as WBCs improved and ANC has been greater than 1000 for 3 consectutive days. 3.? Histoy of DVT and PE: apixaban held given thrombocytopenia and risk of bleeding could resume when there is significant recovery. 4. Enterococcus UTI: Patient urine culture shows more than 1000 colonies of GPC, possible Enterococcus.? Continue IV Zosyn as it will cover Enterococcus 09/11: Enterococcus UTI.? Antibiotic narrowed down to Unasyn for Enterococcus coverage. Change to amoxicillin to complete a 7 day course. 5. Chronic conditions: * COPD with history of non-small cell lung cancer: On bronchodilator as needed.? Not in exacerbation.? DuoNeb as needed.? Patient refused for scheduled bronchodilator. Chest x-ray done does not show any acute worsening of infiltrate.? Patient had 1 dose of Lasix and hypoxia has resolved.? Possible fluid overload/pulmonary congestion from IV fluid * History of urinary incontinence: on oxybutynin DW family at bedside. DC home with [facility]. Medications at Discharge Home Medications cholecalciferol (vitamin D3) 50 mcg (2,000 unit) capsule 5,000 unit PO QDAY 06/29/17 omeprazole 20 mg tablet,delayed release 40 mg PO DAILY 04/16/19 oxybutynin chloride 15 mg tablet,extended release 24 hr 15 mg PO DAILY 04/16/19 albuterol sulfate 90 mcg/actuation aerosol inhaler 2 puff inhalation Q4H PRN COPD 03/04/20 melatonin 5 mg tablet 5 mg PO HS PRN COPD 03/04/20 umeclidinium 62.5 mcg-vilanterol 25 mcg/actuation powdr for inhalation (Anoro Ellipta) 1 inh inhalation DAILY 05/08/21 folic acid 1 mg tablet 1 mg PO DAILY 08/20/21 nystatin 100,000 unit/mL oral suspension 5 ml buccal TID oral candidiasis #473 mL 08/26/21 promethazine 25 mg tablet 25 tab PO DAILY PRN Nausea 09/08/21 amoxicillin 500 mg capsule 500 mg PO Q8H #6 caps 09/15/21 lidocaine HCl 2 % mucosal solution (Lidocaine Viscous) 5 ml PO Q3H PRN mouth/throat pain 10 days #100 mL 09/15/21 oxycodone 5 mg/5 mL oral solution 5 mg (5 mL) PO Q4H PRN pain (scale score 7-10) 10 days #250 mL 09/15/21 Medical Records Data Medical Nutrition Assessment Dietitian: Malnutrition Criteria Met Start: 09/08/21 16:19 Freq: Status: Active Protocol: Document 09/15/21 14:36 RMA (Rec: 09/15/21 14:36 RMA [id number]) Nutrition Malnutrition Evidence of Malnutrition Exists Yes Malnutrition (severe): Chronic Evidenced By Suboptimal Energy Intake ( Severe),Weight Loss (Severe) Clinical Problem Chronic Disease or Condition Related Malnutrition Etiology severe, chronic malnutrition related to inadequate energy intake d/t severe esophagitis w/ increased energy needs d/t cancer Signs/Symptoms as evidenced by unintentional wt loss of 8.3kg/10% wt loss x 4 months; estimated PO intake meeting <75% of estimated energy needs >3 months; estimated PO intake meeting < 50% of estimated energy needs >3 days Status Active Problem Recommendation Dietitian Recommendations/Changes 1) Continue to provide regular diet- texture/consistency modifications per [employer] currently pureed food and thin liquids. 2.) Will adjust ONS to chocolate ice cream and orange Magic Cup TID with meals as per pt preference. 3.) Plans for d/c today--TPN day #5 running with no renew order from physician today: 1000 mL 8% AA/ 14% dextrose Clinimix w/ electrolytes, MVI, folic acid, trace minerals at 42mL/hour to provide 797 calories, 80 g protein. No insulin or famotidine per provider order. No lipids. 4.) Daily wts, monitoring of labs per protocol. 5.) May need to consider alternative means for [facility] nutrition via TF/enteral nutrition support if pt unable to consume sufficient nutrition via PO diet and is agreeable. Weight / BMI Weight Weight: 72.6 kg Body Mass Index (BMI) 24.0 ABG / Lab / Microbiology Data Result Diagrams: 09/15/21 06:34 09/15/21 06:34 Laboratory: Laboratory Results - last 24 hr 09/12/21 05:38: Diff Path Review Reviewed 09/13/21 05:19: Diff Path Review Reviewed 09/14/21 06:48: Differential Comment SCANNED, Diff Path Review Reviewed 09/15/21 00:16: POC Glucose 103 09/15/21 06:29: POC Glucose 91 09/15/21 06:34: WBC 2.3 L, RBC 2.54 L, Hgb 8.2 L, Hct 25.1 L, MCV 98.8, MCH 32.3 H, MCHC 32.7, RDW Std Deviation 60.5 H, RDW Coeff of [place]ena 16.7 H, Plt Count 24 L* , MPV 11.6, Neut % (Auto) Not Reportable, Absolute Neuts (auto) 1.9 L, Absolute Lymphs (auto) 0.10 L, Total Counted 100, Neutrophils % (Manual) 80 H, Band Neutrophils % 1, Lymphocytes % (Manual) 4 L, Monocytes % (Manual) 5, Metamyelocytes % 10 H, Diff Path Review Reviewed, Platelet Estimate MKD DEC, RBC Morphology NORM C+C 09/15/21 06:34: Sodium 135 L, Potassium 3.7, Chloride 99, Carbon Dioxide 30.0, Anion Gap 6, BUN 24 H, Creatinine 0.53 L, Estim Creat Clear Calc 49.79, Est GFR (MDRD) Af Amer 146, Est GFR (MDRD) Non-Af 120, BUN/Creatinine Ratio 45.5 H, Glucose 85, Calcium 8.8 09/15/21 11:32: POC Glucose 122 H Microbiology: Microbiology 09/09/21 10:45 Blood Culture (Wb) - Anticubital Right Blood Culture - Final No growth in 5 days. 09/09/21 09:55 Blood Culture (Wb) - Port Blood Culture - Final No growth in 5 days. 09/09/21 16:48 Urine, Clean Catch Urine Culture - Final Enterococcus faecalis D/C Instructions Discharge Diet: - (purreed and thin liquids. ) Call your doctor if you observe: Fever of 101 or Higher and - (worsening swallowing) Meaningful Use Info Meaningful Use Diagnoses (Choose all that apply): None applicable Discharge Plan Admission Admit Date/Time: 09/08/21 13:35 Primary Reason for Your Visit: difficulty swallowing. Attending Provider: Jose Angel Schwarz Primary Care Provider: Tea Fajardo [employer] Consulting Providers: Mohit Yoo Discharge Orders/Prescriptions Prescriptions: New lidocaine HCl [Lidocaine Viscous] 2 % Solution 5 ml PO Q3H PRN (Reason: mouth/throat pain) 10 Days Qty: 100 0RF amoxicillin 500 mg capsule 500 mg PO Q8H Qty: 6 0RF Continued cholecalciferol (vitamin D3) 2,000 unit capsule 5,000 unit PO QDAY albuterol sulfate 90 mcg/actuation HFA aerosol inhaler 2 puff INHALATION Q4H PRN (Reason: COPD) Label Comments: Inhale 2 Puffs as instructed every 4 hours as needed. melatonin 5 mg tablet 5 mg PO HS PRN (Reason: COPD) nystatin 100,000 unit/mL suspension 5 ml buccal TID MDD 15 ml Qty: 473 0RF Rx Instructions: administer 1/2 of dose in each side of the mouth, swish and swallow oxybutynin chloride 15 MG tablet extended release 24hr 15 mg PO DAILY omeprazole 20 MG tablet,delayed release (DR/EC) 40 mg PO DAILY Anoro Ellipta 62.5-25 mcg/actuation Blister With Device 1 inh INHALATION DAILY folic acid 1 mg Tablet 1 mg PO DAILY promethazine 25 mg tablet 25 tab PO DAILY PRN (Reason: Nausea) Label Comments: Take 1 tablet by mouth every 6 hours as needed. FOR NAUSEA oxycodone 5 mg/5 mL solution 5 mg PO Q4H PRN (Reason: pain (scale score 7-10)) 10 Days Qty: 250 0RF Rx Instructions: take 5-10 mL PO q4 hrs prn pain Discontinued Eliquis DVT-PE Treat 30D Start 5 mg (74 tabs) tablets,dose pack 5 mg PO BID Qty: 74 1RF Rx Instructions: take 2 tablets (10mg) twice daily for 7 days, till 04/03/2021, then continue with one tablet(5mg) twice daily. dexamethasone 4 mg Tablet 8 mg PO BID Rx Instructions: take 2 tabs (8mg) twice a day x 7 days, then 1 tab (4mg) twice a day x 7 days then 1 tab (4mg) once a day in the am x 14 days then stop Referrals / Follow Up: Tea Fajardo [employer], [employer] [Primary Care Provider] - Within 1 Week William Moura DO [STAFF PHYSICIAN] - Within 1 Week Damon Gleason DO [NON-STAFF] - 10/05/21 10:00 am Disposition Disposition (needs filled in before D/C Order can be placed): Home Health Service Charges/Coding Visit Charges Inpatient E&M: 01595 Disch Hosp
[2021-09-15] MEDS: Acetaminophen 325 MG Tablet 650 MG PO (14:54)
--- NOTE | 2021-09-15 15:58 | CASEMGMT ---
Addendum entered by Garcia Pinon 09/16/21 14:27: Addendum for 09/15/21 @ 1558: Pt was provided with list of HHC providers including quality and resource use data and consistent with the patient's preferred geographic region, medical needs, and insurance network and also DME list. Original Note: VIMAL CESAR NOTE: Pt being discharged home. RN CM to room. Introduced self and role. Pt states she would like HHC and denies having preference of HHC agency and states okay w/[facility]. Pt would also like a walker, denies preference of DME co, and okay w/[facility]. Referral made to [facility] for SN, PT/OT, and ST. They are able to accept pt w/SOC either Wed or Th. Family made aware. Walker script to be faxed to [place]. TC to Red @ [facility]. Cameron to be delivered to [facility]. Pt and family deny having any other discharge planning needs. Albaro ARSHAD RN CM
== END 2021-09-15 17:01 | disposition home health service (06) | DRG 157 ==
LOC: ED 12:37 → MS3 12:51
PROVIDERS: Admitting Provider Internal Medicine; Emergency Provider Emergency Medicine; PCP Registered Nurse
DX: K12.33 Oral mucositis (ulcerative) due to radiation (principal); T66.XXXA Radiation sickness, unspecified, initial encounter; Y84.2 Radiological procedure and radiotherapy as the cause of abnormal reaction of the patient, or of later complication, without mention of misadventure at the time of the procedure; D61.810 Antineoplastic chemotherapy induced pancytopenia; T45.1X5A Adverse effect of antineoplastic and immunosuppressive drugs, initial encounter; E43 Unspecified severe protein-calorie malnutrition; Z68.24 Body mass index [BMI] 24.0-24.9, adult; C79.51 Secondary malignant neoplasm of bone; C79.31 Secondary malignant neoplasm of brain; C34.10 Malignant neoplasm of upper lobe, unspecified bronchus or lung; N39.0 Urinary tract infection, site not specified; E87.79 Other fluid overload; B95.2 Enterococcus as the cause of diseases classified elsewhere; R09.02 Hypoxemia; J43.9 Emphysema, unspecified; E86.0 Dehydration; R07.0 Pain in throat; M79.7 Fibromyalgia; K21.9 Gastro-esophageal reflux disease without esophagitis; R32 Unspecified urinary incontinence; Z66 Do not resuscitate; Z79.899 Other long term (current) drug therapy; Z99.81 Dependence on supplemental oxygen; Z92.3 Personal history of irradiation; Z92.21 Personal history of antineoplastic chemotherapy; Z85.51 Personal history of malignant neoplasm of bladder; Z86.718 Personal history of other venous thrombosis and embolism; Z86.711 Personal history of pulmonary embolism; Z87.891 Personal history of nicotine dependence
CPT/HCPCS: 36415; 36591; 71045; 74230; 77387; 77412; 80048; 80053; 81001; 82247; 82248; 82962; 83735; 84100; 84145; 84478; 85025; 87040; 87077; 87086; 87088; 87186; 92526; 92610; 92611; 94640; 94667; 94668; 94762; 97162; 97165; 97802; 97803; 99251; 99283; J7030; J7040; J7050; J7120; A4216; G0463; J0295; J1447; J1940; J2405

== ENCOUNTER 2021-09-27 15:58 | Emergency (ER) | payer MEDICARE, SELFPAY ==
[2021-09-27] VITALS (11 sets, daily range): BP systolic 81–145; BP diastolic 61–81; PULSE 92–130; RESP 14–36; TEMP 37.3–37.4; O2SAT 85–100; BMI 29.3
--- NOTE | 2021-09-27 16:18 | RAD_ITS ---
STUDY: X-RAY CHEST REASON FOR EXAM: Female, 76 years old. Shortness of breath. History of lung cancer 7 years ago. Right chest pain. TECHNIQUE: Single AP portable view of the chest. COMPARISON: 09/09/2021. FINDINGS: Stable right jugular Port-A-Cath. The lungs are hyperexpanded. There is stable mild elevation left hemidiaphragm. No new mass or infiltrate. No pneumothorax There is no demonstrated pleural abnormality. Normal size heart. Normal mediastinum and torri. Normal visualized pulmonary arteries. Normal visualized aortic arch and descending thoracic aorta. No osseous changes. There is no demonstrated abnormality of the visualized soft tissue structures of the upper abdomen. RAD/Chest 1 View (Portable) IMPRESSION: Start numbering question COPD without acute cardiopulmonary disease or major interval change. Electronically Signed: Roni Meeks DO at 16:54 EDT ,
--- NOTE | 2021-09-27 16:46 | EKG12_ITS ---
Test Reason : SOB Blood Pressure : / mmHG Vent. Rate : 128 BPM Atrial Rate : 128 BPM P-R Int : 144 ms QRS Dur : 084 ms QT Int : 290 ms P-R-T Axes : -19 001 -06 degrees QTc Int : 423 ms Sinus tachycardia Otherwise normal ECG Confirmed by HUSSAIN HERNANDEZ MD ([id number]), scientific editor JUAN VELEZ ([id number]) on 09/28/2021 11:17:26 AM Referred By: TABITHA Confirmed By:HUSSAIN HERNANDEZ MD
--- NOTE | 2021-09-27 16:47 | EDS_ITS ---
HPI History of Present Illness Chief Complaint: Shortness of Breath Detail of Chief Complaint: Shortness of breath that started yesterday Informant: patient Narrative Narrative: Patient presents to the emergency department complaint of shortness of breath or yesterday. Patient does complain of a cough with some thick white phlegm at times. She denies any fevers. She does describe some chain across her chest with breathing. Patient is on as needed home O2. Patient has history of metastatic lung cancer with metastasis to the brain and spine. Patient complains of pain in her left leg which is chronic since a fall in her spine met astasis. Patient noted to be hypoxic on EMS arrival. [facility] Medical History (Updated 09/27/21 @ 19:[address] 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 Multiple thyroid nodules Normocytic anemia On home oxygen therapy Oral pharyngeal candidiasis Pulmonary embolism Right inguinal hernia Shortness of breath on exertion Spine metastasis Syncope Wears dentures Wears glasses Wears partial dentures Home Medications cholecalciferol (vitamin D3) 50 mcg (2,000 unit) capsule 5,000 unit PO QDAY 06/29/17 [History Last Taken 05/11/21] omeprazole 20 mg tablet,delayed release 40 mg PO DAILY 04/16/19 [History Last Taken 05/11/21] oxybutynin chloride 15 mg tablet,extended release 24 hr 15 mg PO DAILY 04/16/19 [History Last Taken 05/11/21] albuterol sulfate 90 mcg/actuation aerosol inhaler 2 puff inhalation Q4H PRN COPD 03/04/20 [History Last Taken 03/20/20 07:00] melatonin 5 mg tablet 5 mg PO HS PRN COPD 03/04/20 [History Last Taken Unknown] umeclidinium 62.5 mcg-vilanterol 25 mcg/actuation powdr for inhalation (Anoro Ellipta) 1 inh inhalation DAILY 05/08/21 [History Last Taken 05/11/21] folic acid 1 mg tablet 1 mg PO DAILY 08/20/21 [History Last Taken Unknown] nystatin 100,000 unit/mL oral suspension 5 ml buccal TID oral candidiasis #473 mL 08/26/21 [Rx Last Taken Unknown] promethazine 25 mg tablet 25 tab PO DAILY PRN Nausea 09/08/21 [History Last Taken Unknown] amoxicillin 500 mg capsule 500 mg PO Q8H #6 caps 09/15/21 [Rx Last Taken Unknown] lidocaine HCl 2 % mucosal solution (Lidocaine Viscous) 5 ml PO Q3H PRN mouth/throat pain 10 days #100 mL 09/15/21 [Rx Last Taken Unknown] Allergy/AdvReac Type Severity Reaction Status Date / Time fluticasone furoate AdvReac Mild blurred Verified 09/08/21 13:49 [From Honorio Dominique] vision Family History Sister Hypertension Brother Hypertension Cancer throat and lung Father Cancer sarcoma Mother Cancer unsure type --all thru her Surgical History H/O: hysterectomy History of appendectomy History of bilateral carpal tunnel release History of bilateral oophorectomy History of bladder repair surgery History of colonoscopy (~2017) History of lumpectomy of right breast S/P brain surgery S/P laparoscopic cholecystectomy S/P laparoscopic hernia repair S/P lobectomy of lung S/P thyroid biopsy Social History Smoking Status: Former smoker alcohol intake: never ROS ROS ED Review of Systems ROS Unobtainable: other Constitutional Constitutional ED: Reports lethargy; Denies chills, fever(s), sweats or weight loss Eyes Eyes: Denies blurry vision, change in vision or diplopia ENT ENT ED: Denies rhinorrhea or sore throat Cardiovascular Cardiovascular: Reports chest pain and racing heartbeat; Denies orthopnea Respiratory/Chest Respiratory/Chest: Reports cough, dyspnea and dyspnea on exertion; Denies orthopnea or sputum Gastrointestinal Gastrointestinal: Denies abdominal pain, diarrhea, nausea or vomiting Genitourinary Genitourinary ED: Denies dysuria, hematuria or urinary frequency Musculoskeletal Musculoskeletal: Denies arthralgias, back pain, myalgias or neck pain Integumentary Denies abscess, Abrasions or rash Neurologic Neurologic: Denies headache(s) or weakness Psychiatric Psychiatric: Denies anxiety, depression or suicidal thoughts Endocrine Endocrinology: Denies polydipsia, polyphagia or polyuria Hematologic/Lymphatic Hematologic/Lymphatic: Denies easy bleeding, easy bruising or lymphadenopathy Allergic/Immunologic Allergic/Immunologic ED: Denies mouth swelling, tongue swelling or urticaria EXAM Physical Exam Const Vital Signs: 09/27/21 16:00 09/27/21 16:12 09/27/21 16:12 Temperature 99.3 F H 99.2 F H Temperature Source Temporal Oral Pulse Rate 129 H 128 H 130 H Respiratory Rate 30 H 24 H 36 H Respiratory Effort Respiratory Depth Respiratory Pattern Blood Pressure 119/72 119/72 119/72 Blood Pressure Mean 87 87 87 Pulse Ox 85 95 93 Oxygen Delivery Method Room Air Nasal Cannula Nasal Cannula Oxygen Flow Rate (L/min) 3 3 09/27/21 16:12 09/27/21 17:24 09/27/21 17:36 Temperature Temperature Source Pulse Rate 125 H 116 H Respiratory Rate 25 H 28 H Respiratory Effort Short of Breath Accessory Muscle Use Pursed Lip Respiratory Depth Shallow Respiratory Pattern Tachypnea Normal Blood Pressure 145/81 H Blood Pressure Mean 102 Pulse Ox 96 Oxygen Delivery Method Nasal Cannula Nasal Cannula Oxygen Flow Rate (L/min) 4 4 09/27/21 18:13 09/27/21 18:14 Temperature Temperature Source Pulse Rate 125 H Respiratory Rate 28 H Respiratory Effort Respiratory Depth Respiratory Pattern Blood Pressure 121/71 H Blood Pressure Mean 87 Pulse Ox 96 96 Oxygen Delivery Method Nasal Cannula Nasal Cannula Oxygen Flow Rate (L/min) 4 4 Positive well nourished and well developed General Appearance ED: well developed and NAD HEENT Reports TM's clear and moist mucous membranes normocephalic and atraumatic; Negative for trauma or tenderness Tympanic Membrane ED: Yes TM's clear Eyes PERRL and EOMs intact bilaterally General Eye ED: Negative for pale conjunctiva or scleral icterus Neck no lymphadenopathy, supple and no JVD General: Negative for tenderness Chest Wall inspection of chest normal and palpation of chest normal Chest: Negative for tenderness Resp Resp Narrative: Patient with some faint expiratory wheezes noted bilaterally. She has mild tachypnea. No accessory muscle use or retractions noted. Effort and Inspection: Negative for respiratory distress or pain with movement Auscultation: Negative for rhonchi, wheezes or diminished lung sounds Cardio regular rate, regular rhythm, S1 normal heart sound, S2 normal heart sound and no murmurs Peripheral Pulses: pulses 2+ throughout GI normal to inspection, nondistended, normoactive bowel sounds, soft to palpation, non-tender, non-distended and no masses Back/Spine no CVA tenderness and no thoracic nor lumbar tenderness Extremity normal to inspection General Extremety ED: Negative for edema General Extremity: Negative for edema Neuro oriented x3, CN's II-XII intact bilaterally, no sensory deficits noted and gait normal Sensorium / Orientation: awake, alert, oriented to person, oriented to place and oriented to time Motor Exam: strength 5/5 throughout and strength abnormal Psych mental status grossly normal Skin no rashes or lesions noted and no wounds MDM MDM MDM Narrative Medical decision making narrative: IV line established on arrival. Patient had labs that were unremarkable. D- dimer was elevated [address] of the chest was obtained which did show right lower lobe PEs. Case was discussed with patient's oncologist who recommended starting patient back on her Eliquis. Patient had been on Eliquis but was taken off several weeks ago when she had pancytopenia and thrombocytopenia. Discussed case with hospitalist to evaluate patient for admission we will also discussed with oncologist further. Lab Data Attestation: I reviewed the patient's lab results. Labs: Laboratory Results - last 24 hr 09/27/21 09/27/21 09/27/21 17:30 17:30 17:30 WBC 6.8 RBC 2.55 L Hgb 8.1 L Hct 25.5 L MCV 100.0 H MCH 31.8 MCHC 31.8 L RDW Std Deviation 61.7 H RDW Coeff of Salena 17.1 H Plt Count 89 L MPV 10.3 Immature Gran % (Auto) 2.100 H Neut % (Auto) 74.9 H Lymph % (Auto) 12.4 L [facility] % (Auto) 10.5 H Eos % (Auto) 0.0 Baso % (Auto) 0.1 Absolute Neuts (auto) 5.1 Absolute Lymphs (auto) 0.84 Nucleated RBC % 2.1 Differential Comment SCANNED Platelet Estimate SLT DEC D-Dimer Quant (PE/DVT) 18.28 H* Sodium 137 Potassium 3.8 Chloride 103 Carbon Dioxide 27.0 Anion Gap 7 BUN 23 H Creatinine 0.76 Estim Creat Clear Calc 37.24 Est GFR (MDRD) Af Amer 96 Est GFR (MDRD) Non-Af 79 BUN/Creatinine Ratio 30.3 H Glucose 131 H Calcium 8.9 Troponin I High Sens 21 Radiography Chest X-Ray - ED: 1 View Diagnostic Testing: Clinical Impression(s) from Imaging Studies Chest X-Ray 09/27/21 16:18 IMPRESSION: Start numbering question COPD without acute cardiopulmonary disease or major interval change. Electronically Signed: Roni Meeks DO at 16:54 EDT Reading Location ID and State: [facility] / [place] Tel [phone], Service support , Chest CTA 09/27/21 18:09 IMPRESSION: 1. Nonocclusive thrombus in the pulmonary arteries to the right lower lobe. 2. No evidence of right heart strain. 3. Emphysematous changes of the lungs without acute infiltrate or mass. There is evidence of left upper lobectomy. 4. No aortic dissection or aneurysm. N.B. : The above Results were Read Back by Roni Meeks DO to Stephen López MD, and understanding confirmed on 09/27/2021 19:22:03 (ET). Electronically Signed: Roni Meeks DO at 19:23 EDT Reading Location ID and State: [address] [place] [address] Tel [phone], Service support , ADDENDUM: 09/27/21 1930 IMPRESSION: 1. Nonocclusive thrombus in the pulmonary arteries to the right lower lobe. 2. No evidence of right heart strain. 3. Emphysematous changes of the lungs without acute infiltrate or mass. There is evidence of left upper lobectomy. 4. No aortic dissection or aneurysm. N.B. : The above Results were Read Back by Roni Meeks DO to Stephen López MD, and understanding confirmed on 09/27/2021 19:22:03 (ET). Electronically Signed: Roni Meeks DO at 19:23 EDT Reading Location ID and State: [address] [place] [address] Tel [phone], Service support , 1 view chest creatinine interpreted by myself no acute disease process. Radiology in agreement. EKG Initial EKG: Attestation: I personally reviewed and interpreted this EKG as follows: Comments: Sinus tachycardia with rate of 120 bpm with no acute ST segment changes Discharge Plan Triage Chief Complaint: Shortness of Breath ED Provider: Stephen López Dx/Rx/DC Orders Clinical Impression: Acute dyspnea, Pulmonary emboli, Hypoxemia Prescriptions: No Action cholecalciferol (vitamin D3) 2,000 unit capsule 5,000 unit PO QDAY albuterol sulfate 90 mcg/actuation HFA aerosol inhaler 2 puff INHALATION Q4H PRN (Reason: COPD) Label Comments: Inhale 2 Puffs as instructed every 4 hours as needed. melatonin 5 mg tablet 5 mg PO HS PRN (Reason: COPD) nystatin 100,000 unit/mL suspension 5 ml buccal TID MDD 15 ml Qty: 473 0RF Rx Instructions: administer 1/2 of dose in each side of the mouth, swish and swallow oxybutynin chloride 15 MG tablet extended release 24hr 15 mg PO DAILY omeprazole 20 MG tablet,delayed release (DR/EC) 40 mg PO DAILY Anoro Ellipta 62.5-25 mcg/actuation Blister With Device 1 inh INHALATION DAILY folic acid 1 mg Tablet 1 mg PO DAILY promethazine 25 mg tablet 25 tab PO DAILY PRN (Reason: Nausea) Label Comments: Take 1 tablet by mouth every 6 hours as needed. FOR NAUSEA lidocaine HCl [Lidocaine Viscous] 2 % Solution 5 ml PO Q3H PRN (Reason: mouth/throat pain) 10 Days Qty: 100 0RF amoxicillin 500 mg capsule 500 mg PO Q8H Qty: 6 0RF Primary Care Provider: Tea Fajardo NP Referrals: Tea Fajardo NP, [facility] [Primary Care Provider] - Disposition Disposition: Acute Care Hospital [facility]
[2021-09-27] MEDS: Ipratropium/Albuterol Sulfate 3 ML AMPUL.NEB INHALATION (16:59)
[2021-09-27] MEDS: Morphine 4 MG/ML Syringe IV ×2 (17:33→20:25)
[2021-09-27] MEDS: Ondansetron 4 MG/2 ML Vial IV (17:33)
[2021-09-27] MEDS: 0.9% Normal Saline 1,000 ML 150 ML IV (17:39)
[2021-09-27 17:41] LABS: Absolute Lymphocyte Count 0.84 X10^3/uL (0.83-4.51); Absolute Neutrophil Count 5.1 X10^3/uL (2.0-7.7); Basophil# 0.01 X10^3/uL; Basophil% 0.1 % (0-1); Hematocrit 25.5 % (37-47); Hemoglobin 8.1 g/dL (12.0-15.0); Lymphocyte # 0.84 X10^3/ul (0.83-4.51); Lymphocyte % 12.4 % (19-41); Mean Corp Hgb Conc 31.8 g/dL (32-36); Mean Corpuscular Hgb 31.8 pg (27.0-32.0); Mean Platelet Vol. 10.3 fl (6.2-12.0); Monocyte# 0.71 X10^3/uL; Monocyte% 10.5 % (0-10); NRBC Flagged by Analyzer 2.1 % (0-5); Neutrophil # 5.05 X10^3/uL (2.7-7.7); Neutrophil % 74.9 % (47-70); POSITIVE COUNT YES; POSITIVE MORPHOLOGY YES; Platelet Count 89 K/mm3 (150-450); RBC Distribution Width CV 17.1 % (11.6-14.6); RBC Distribution Width SD 61.7 fl (35.1-43.9); Red Blood Count 2.55 M/mm3 (4.2-5.4); White Blood Count 6.8 K/mm3 (4.4-11.0)
[2021-09-27 17:43] LABS: Differential Indicated SCAN CRITERIA MET
[2021-09-27 18:01] LABS: Anion Gap 7 (5-15); BUN 23 mg/dL (7-18); BUN/Creat Ratio 30.3 RATIO (10-20); Calcium,Total 8.9 mg/dL (8.5-10.1); Chloride 103 mmol/L (98-107); Creatinine, Serum 0.76 mg/dL (0.55-1.02); D-Dimer Quantitative (DVT/PE) 18.28 FEU/ug/m (0.27-0.49); EST Glomerular Filtration Rate 79 mL/min (>60); Est Glom Filt Rate - Afr Amer 96 mL/min (>60); Estimated Creatinine Clearance 37.24 ml/min; Glucose 131 mg/dL (74-106); Potassium 3.8 mmol/L (3.5-5.1); Sodium Level 137 mmol/L (136-145); Troponin-I HS 21 pg/mL (3.0-54.0)
--- NOTE | 2021-09-27 18:09 | CT_ITS ---
STUDY: CTA CHEST REASON FOR EXAM: Female, 76 years old. Dyspnea. Elevated d-dimer. Right-sided chest pain. History of lung cancer with brain metastases. Status post chemotherapy/radiation and surgery. RADIATION DOSAGE (If Supplied By Facility): CTDIvol = ( 7.08 ) mGy, DLP = ( 309.83 ) mGycm TECHNIQUE: The examination was performed with the intravenous administration of IV 75mL [id number]-[id number]. Post-processing of the angiographic images was performed, with multiplanar reformation and 3D reconstruction. Individualized dose optimization techniques were used for this CT. COMPARISON: Chest, 09/27/2021. CTA of the chest, 03/28/2021. FINDINGS: Normal enhancement of the main pulmonary artery and right and left pulmonary arteries. There is nonocclusive thrombus and primary and secondary segments of the right lower lobe pulmonary artery. Mild atherosclerotic tortuosity of the thoracic aorta without aneurysm. There is no demonstrated aortic dissection. Normal heart and pericardium. No evidence of right heart strain. No coronary artery calcifications. Normal mediastinum. There are surgical clips in the upper left hilum consistent with left upper lobectomy. Normal visualized trachea and bronchi. The lungs are hyper expanded, with flattening of the hemidiaphragms. There emphysematous changes of the lungs. There is no focal mass or infiltrate. There is elevation of the left hemidiaphragm and mediastinal shift to the left. Normal pleura. Normal chest wall structures. There is a right jugular Port-A-Cath. Normal osseous structures. Impression extrahepatic biliary ductal dilatation. Question prior cholecystectomy. The upper abdomen is otherwise unremarkable. CT/CTA Chest W/WO Contrast IMPRESSION: 1. Nonocclusive thrombus in the pulmonary arteries to the right lower lobe. 2. No evidence of right heart strain. 3. Emphysematous changes of the lungs without acute infiltrate or mass. There is evidence of left upper lobectomy. 4. No aortic dissection or aneurysm. N.B. : The above Results were Read Back by DO [email or web address] Kenyon Stephen López MD, and understanding confirmed on 09/27/2021 19:22:03 (ET). Electronically Signed: Roni Meeks DO at 19:23 EDT Reading Location ID and State: [address] [place] [address] Tel [phone], Service support ,
[2021-09-27 18:11] LABS: Differential Comment SCANNED; Platelet Estimate SLT DEC (ADEQ)
--- NOTE | 2021-09-27 19:30 | HP.PCM.HOS_ITS ---
HPI - General General Date of Admission: 09/27/21 Date of Service: 09/27/21 Chief Complaint: R sided chest pain, Hypoxia at home on 3L, Dyspnea. 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 Moura s/p emergent radiation 08/20/21-08/25/21 with an additional 2 weeks radiation following w/ recent admission 09/08/21- 09/15/21 for dysphagia/odynophagia/stomatitis associated w/ radiation as well as ysle[place] sur based chemotherapy with immunotherapy most recently prior to her most recent emergent radiation requiring TPN, GERD, Former tobacco use, Hx VTE (DVT PE), Chronic anemia who presents to the [facility] [place] ED on 09/27/21 with history of Inc. shortness of breath starting the day prior with a cough with occasional white thick phlegm with no fevers or chills with pleuritic chest discomfort across her chest worse with any deep inspiratory effort with increased home oxygen necessities up to 4 L as well as ongoing chronic LLE pain (spinal metastatic disease, reason for the emergent radiation as noted) prompting ED evaluation. Work-up in the ED included T99.8, heart rate 129, BP 119/72, respiratory rate 30, initially 85% on room air however transition to 95% on 3 L nasal cannula which is her chronic regimen with eventual increase to 96% on 4 L nasal cannula, CBC with WC 6.8, hemoglobin 8.1, platelets 89 with increased immature granulocytes, D-dimer 18.28, BMP with BUN/creat 23/0.76, glucose 131, troponin 21, chest x-ray with chronic COPD type changes stable appearance from prior, CTPA with nonocclusive thrombus in the pulmonary arteries to the right lower lobe with no evidence of cardiac strain, emphysematous changes of the lungs without any acute infiltrate or mass with evidence of a left upper lobectomy, no arctic dissection or aneurysm, EKG ST without acute evidence ischemia. In the ED patient ministered DuoNeb therapy, morphine x3 separate doses, Zofran and normal saline. Discussed current presentation at length with patient as she is reporting significantly uncontrolled left lower extremity pain secondary to spinal metastatic disease and also reviewed case with oncology who noted that despite several rounds of repeat emergent radiation she has unchanged films and would benefit from transition to hospice. Family and patient are extremely interested in the inpatient hospice unit given her uncontrolled pain, recent pleuritic chest discomfort and dyspnea with increased hypoxia and tachycardia secondary to acute pulmonary emboli. Case was discussed with inpatient hospice and awaiting their evaluation for potential transition to the hospice unit. [facility] Medical History (Updated 09/27/21 @ 19:[address] 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 Multiple thyroid nodules Normocytic anemia On home oxygen therapy Oral pharyngeal candidiasis Pulmonary embolism Right inguinal hernia Shortness of breath on exertion Spine metastasis Syncope Wears dentures Wears glasses Wears partial dentures Home Medications cholecalciferol (vitamin D3) 50 mcg (2,000 unit) capsule 5,000 unit PO QDAY 06/29/17 [History Last Taken 05/11/21] omeprazole 20 mg tablet,delayed release 40 mg PO DAILY 04/16/19 [History Last Taken 05/11/21] oxybutynin chloride 15 mg tablet,extended release 24 hr 15 mg PO DAILY 04/16/19 [History Last Taken 05/11/21] albuterol sulfate 90 mcg/actuation aerosol inhaler 2 puff inhalation Q4H PRN COPD 03/04/20 [History Last Taken 03/20/20 07:00] melatonin 5 mg tablet 5 mg PO HS PRN COPD 03/04/20 [History Last Taken Unknown] umeclidinium 62.5 mcg-vilanterol 25 mcg/actuation powdr for inhalation (Anoro Ellipta) 1 inh inhalation DAILY 05/08/21 [History Last Taken 05/11/21] folic acid 1 mg tablet 1 mg PO DAILY 08/20/21 [History Last Taken Unknown] nystatin 100,000 unit/mL oral suspension 5 ml buccal TID oral candidiasis #473 mL 08/26/21 [Rx Last Taken Unknown] promethazine 25 mg tablet 25 tab PO DAILY PRN Nausea 09/08/21 [History Last Taken Unknown] amoxicillin 500 mg capsule 500 mg PO Q8H #6 caps 09/15/21 [Rx Last Taken Unknown] lidocaine HCl 2 % mucosal solution (Lidocaine Viscous) 5 ml PO Q3H PRN mouth/throat pain 10 days #100 mL 09/15/21 [Rx Last Taken Unknown] Allergy/AdvReac Type Severity Reaction Status Date / Time fluticasone furoate AdvReac Mild blurred Verified 09/08/21 13:49 [From Breo Ellipta] vision Family History Sister Hypertension Brother Hypertension Cancer throat and lung Father Cancer sarcoma Mother Cancer unsure type --all thru her Surgical History H/O: hysterectomy History of appendectomy History of bilateral carpal tunnel release History of bilateral oophorectomy History of bladder repair surgery History of colonoscopy (~2017) History of lumpectomy of right breast S/P brain surgery S/P laparoscopic cholecystectomy S/P laparoscopic hernia repair S/P lobectomy of lung S/P thyroid biopsy Social History (Updated 09/27/21 @ 22:[address] Trudi Enriquez MD) household members: family Smoking Status: Former smoker alcohol intake: never substance use type: does not use ROS ROS Narrative Admission Review of Systems: CONSTITUTIONAL: No weight loss, fever, chills, + weakness or fatigue. HEENT: Eyes: No visual loss, blurred vision, double vision or yellow sclerae. Ears, Nose, Throat: No hearing loss, sneezing, congestion, runny nose or sore throat. SKIN: No rash or itching, lesions, wounds. CARDIOVASCULAR: + Pleuritic chest pain, orthopnea. No palpitations, marked edema, syncopal events. RESPIRATORY: + shortness of breath, cough with occasional sputum, wheezing, No hemoptysis. GASTROINTESTINAL: + anorexia, nausea without vomiting, No diarrhea, abdominal pain, melena, BRBPR. GENITOURINARY: No dysuria, frequency, urgency or retention. NEUROLOGICAL: + Gait imbalance, LLE debility/pain, headaches, dizziness. No syncope, ataxia, change in bowel or bladder control, seizure. MUSCULOSKELETAL: + muscle, back pain, joint pain or stiffness. HEMATOLOGIC: + anemia, bleeding or bruising. LYMPHATICS: No enlarged nodes. No history of splenectomy. PSYCHIATRIC: + history of depression or anxiety. ENDOCRINOLOGIC: No reports of sweating, cold or heat intolerance. No polyuria or polydipsia. ALLERGIES: No history of asthma, hives, eczema or rhinitis. Vital Signs Vital Signs Vital Signs: 09/27/21 16:00 09/27/21 16:12 09/27/21 16:12 Temperature 99.3 F H 99.2 F H Temperature Source Temporal Oral Pulse Rate 129 H 128 H 130 H Respiratory Rate 30 H 24 H 36 H Respiratory Effort Respiratory Depth Respiratory Pattern Blood Pressure 119/72 119/72 119/72 Blood Pressure Mean 87 87 87 Pulse Ox 85 95 93 Oxygen Delivery Method Room Air Nasal Cannula Nasal Cannula Oxygen Flow Rate (L/min) 3 3 09/27/21 16:12 09/27/21 17:24 09/27/21 17:36 Temperature Temperature Source Pulse Rate 125 H 116 H Respiratory Rate 25 H 28 H Respiratory Effort Short of Breath Accessory Muscle Use Pursed Lip Respiratory Depth Shallow Respiratory Pattern Tachypnea Normal Blood Pressure 145/81 H Blood Pressure Mean 102 Pulse Ox 96 Oxygen Delivery Method Nasal Cannula Nasal Cannula Oxygen Flow Rate (L/min) 4 4 09/27/21 18:13 09/27/21 18:14 Temperature Temperature Source Pulse Rate 125 H Respiratory Rate 28 H Respiratory Effort Respiratory Depth Respiratory Pattern Blood Pressure 121/71 H Blood Pressure Mean 87 Pulse Ox 96 96 Oxygen Delivery Method Nasal Cannula Nasal Cannula Oxygen Flow Rate (L/min) 4 4 Weight Weight: 155 lb 6.814 oz Body Mass Index (BMI) 29.3 Physical Exam Narrative Physical Examination: General: Awake, alert, oriented x 3 and cooperative, seated upright in the ED bed, fatigued, mildly increased work of breathing, accessory muscle usage, tachycardic on monitor, notes ongoing pain to her spine, across the chest especially with deep inspiratory effort and left lower extremity. Skin: Normal color, normal turgor, no icterus, no cyanosis except very staged ecchymoses. HEENT: AT/NC, EOMI, PERRLA, dry MM, no carotid bruits or JVD noted. Lungs: Severely diminished, greater bases, mildly increased respiratory rate and some accessory muscle usage, increased oxygen requirement from her baseline noted, occasional expiratory wheeze noted Heart: Tachycardic with regular rhythm; no gallop, rub audible. Abdomen: Soft, NTTP, ND, distant normal BS, no obvious evidence of HSM. Extremities: No cyanosis, clubbing, or edema. Neurological: Patient awake, alert, oriented as noted, cognitive function appears baseline intact although patient is significantly fatigued and appears uncomfortable; pupils equally reactive to light and accommodation except some difficulty with left lower extremity movement given compressive metastatic disease to the spine, cranial nerves II-XII grossly normal, moving all 4 extre mities, strength severely global decreased. Psychiatric: Affect appears uncomfortable, fatigued, mild respiratory distress, no acute evidence of depressive or anxiety feelings, reports being ready to pass. Results Lab / Micro Data Result Diagrams: 09/27/21 17:30 09/27/21 17:30 Labs: Laboratory Results - last 24 hr 09/27/21 17:30: WBC 6.8, RBC 2.55 L, Hgb 8.1 L, Hct 25.5 L, MCV 100.0 H, MCH 31.8, MCHC 31.8 L, RDW Std Deviation 61.7 H, RDW Coeff of Salena 17.1 H, Plt Count 89 L, MPV 10.3, Immature Gran % (Auto) 2.100 H, Neut % (Auto) 74.9 H, Lymph % (Auto) 12.4 L, Oliver % (Auto) 10.5 H, Eos % (Auto) 0.0, Baso % (Auto) 0.1, A bsolute Neuts (auto) 5.1, Absolute Lymphs (auto) 0.84, Nucleated RBC % 2.1, Differential Comment SCANNED, Platelet Estimate SLT 09/27/21 17:30: D-Dimer Quant (PE/DVT) 18.28 H* 09/27/21 17:30: Sodium 137, Potassium 3.8, Chloride 103, Carbon Dioxide 27.0, Anion Gap 7, BUN 23 H, Creatinine 0.76, Estim Creat Clear Calc 37.24, Est GFR (MDRD) Af Amer 96, Est GFR (MDRD) Non-Af 79, BUN/Creatinine Ratio 30.3 H, Glucose 131 H, Calcium 8.9, Troponin I High Sens 21 Micro: Microbiology 09/27/21 17:10 Nasal Secretion SARS-CoV-2 & FLU Antigen (Rapid) - Final Radiology Impression Chest X-Ray 09/27/21 16:18 IMPRESSION: Start numbering question COPD without acute cardiopulmonary disease or major interval change. Electronically Signed: Roni Meeks DO at 16:54 EDT Reading Location ID and State: [facility] / [place] Tel [phone], Service support , Chest CTA 09/27/21 18:09 IMPRESSION: 1. Nonocclusive thrombus in the pulmonary arteries to the right lower lobe. 2. No evidence of right heart strain. 3. Emphysematous changes of the lungs without acute infiltrate or mass. There is evidence of left upper lobectomy. 4. No aortic dissection or aneurysm. N.B. : The above Results were Read Back by Roni Meeks DO to Stephen López MD, and understanding confirmed on 09/27/2021 19:22:03 (ET). 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 Moura s/p emergent radiation 08/20/21-08/25/21 with an additional 2 weeks radiation following w/ recent admission 09/08/21-09/15/21 for dysphagia/odynophagia/stomatitis associated w/ radiation as well as ysle[place] based chemotherapy with immunotherapy most recently prior to her most recent emergent radiation requiring TPN, GERD, Former tobacco use, Hx VTE (DVT PE), Chronic anemia who presents to the [facility] [place] ED on 09/27/21 with history of increased shortness of breath starting the day prior with a cough with occasional white thick phlegm with no fevers or chills with pleuritic chest discomfort across her chest worse with any deep inspiratory effort with increased home oxygen necessities up to 4 L as well as ongoing chronic LLE pain (spinal metastatic disease, reason for the emergent radiation as noted) prompting ED evaluation. #1. Hospice: Patient code status transitioned per family/POA to DNR-CC. If unable to obtain bed this evening at the inpatient Hospice Facility, will admit to MS, institute hospice comfort measures w/ VS limited q 12, mancuso placement and care, mouth care, oral intake as desired, oxygen as needed, PRN and scheduled SL morphine, scheduled lorazepam, haldol PRN IV, tylenol PRN. Will request continued consultation with Hospice services to assume care for pain control, suspected likely decline over the next several hours to days secondary to notable pulmonary emboli. If patient does not transition from ED to Hospice facility will place request for evaluation with Dr. Moura so he may be involved in her transition of care. #2. Dyspnea, chest pain secondary to Pulmonary Embolism with prior VTE Hx: Given chronic thrombocytopenia could consider initiation of heparin drip overnight primarily for anti-inflammatory nature to assist with pain control given severe pleuritic pain given transition to DNR-CC status. Additional comorbidities: COPD w/ Chronic Hypoxic Respiratory failure (3L NC): Will maintain on oxygen with wean as tolerated to home oxygen supplementation, increased usage secondary to acute presentation, continue ATC duonebs, PRN albuterol, HOB, IS parameters. Chronic anemia/AOCD: Admission hemoglobin 8.1, prior baseline 7 8, stable, trend. Chronic thrombocytopenia: Admission platelets 89, previously has been as low as 24 on 09/15/2021, improving, continue to trend. Severe Protein-calorie malnutrition: Recent admission 09/08/21-09/15/21 for dysphagia/odynophagia/stomatitis associated w/ radiation as well as ysle[place] based chemotherapy with immunotherapy most recently prior to her most recent emergent radiation requiring TPN, nutrition consulted. GERD: Maintain on PPI. DVT Prophylaxis: SCDs, heparin drip. CODE status: Patient ROSITA is her sons who are present and living will is currently in place. Discussed CODE status at length including difference between FULL code, DNR-CCA and DNR-CC status. Following discussions about the differences in these status, requested DNR-CC status with form filled out. Very interested in inpatient hospice transition for pain control. Advanced Care Planning Face to Face Time: 16 minutes. Charges/Coding Visit Charges Inpatient E&M: 18148 Init Hosp L3 Procedures Hospitalists Procedures: 96302 Advncd Care Plan 30 Min
--- NOTE | 2021-09-27 20:16 | NURSING ---
CALLED [facility], THEY REQUESTED A CHART BE FAXED OVER. LEFT DR EATON CALL BACK NUMBER [email or web address].
[2021-09-27] MEDS: Morphine 2 MG/ML Syringe IV (21:50)
== END 2021-09-28 00:30 | disposition hospice, inpatient (51) ==
LOC: ED 19:43 → PCU 20:02
PROVIDERS: Emergency Provider Emergency Medicine; PCP Registered Nurse; Visit Provider Emergency Medicine
DX: I26.99 Other pulmonary embolism without acute cor pulmonale (principal); C79.51 Secondary malignant neoplasm of bone; C79.31 Secondary malignant neoplasm of brain; C79.49 Secondary malignant neoplasm of other parts of nervous system; J43.9 Emphysema, unspecified; J96.11 Chronic respiratory failure with hypoxia; K21.9 Gastro-esophageal reflux disease without esophagitis; Z99.81 Dependence on supplemental oxygen; Z79.899 Other long term (current) drug therapy; Z87.891 Personal history of nicotine dependence; Z85.118 Personal history of other malignant neoplasm of bronchus and lung; Z85.51 Personal history of malignant neoplasm of bladder
CPT/HCPCS: 71045; 71275; 80048; 84484; 85025; 85379; 87040; 87428; 93005; 94640; 99284; J7030; Q9967; A4216; J2405